=== PATIENT | female | born 1995 | race Caucasian/White ===

== ENCOUNTER 2017-11-17 19:53 | Emergency (ER) | payer MEDICAID, SELFPAY ==
[2017-11-17 19:54] VITALS: BP 153/109; PULSE 110; RESP 16; TEMP 36.9; O2SAT 99; BMI 36.8
--- NOTE | 2017-11-17 20:28 | ED.VISSUMM ---
- ER Visit Summary Date of Service: 11/17/17 Chief Complaint: Vulvar pain History of Present Illness: The patient is a 22 F with discomfort in her vulvar that started 1 week ago, the morning after having intercourse. Upon inspecting her vulva, she noticed what appeared to be a simple split in the skin that was sore. She noticed that it was painful to urinate past it. However in addition to that, she is also having burning dysuria from her urethral meatus, as well as some urgency and mild frequency. No fevers, nausea, vomiting, vaginal bleeding or abnormal discharge, or back pain. No abdominal pain. She is concerned that the split is not healing. She is a type II diabetic treated with diet and exercise only. She states her sugars are usually in the high 100 range. No history of STDs. Physical Examination: Well-appearing, obese, no acute distress. Mild tachycardia in triage but otherwise vital signs are unremarkable. Abdomen soft nontender nondistended. No CVA tenderness. Heart is regular without tachycardia on my exam. External pelvic exam performed with nurse facility attendant, on the left labia minora there is a linear area of mild tenderness with granulation tissue that does appear to be healing. There are also a couple of satellite lesions that are also white without significant surrounding erythema. They are slightly raised. However, none of them are tender. There is also one on the right that is also nontender. Test Results: negative. Urine shows 100 leukocyte esterase, 5-10 white blood cells. Emergency Department Course and Treatment: In context of her symptoms, urinalysis is consistent with cystitis. She has allergy to penicillins, will prescribe her a 3 day course of Bactrim and advise that she follow-up if she still has problems. She is comfortable with that plan. Treatment Plan: Bactrim DS twice daily ?3 days Disposition: Discharge home Impression: Acute lower urinary tract infection Vulvar wound check This note was generated with [employer] dictation software. It may contain incorrect words, spelling, and punctuation that were not noted in review of the chart prior to signing ED Disposition - Plan for ED Patient: Disposition: Home or Assisted Living Chief Complaint: Female C/O Instructions: ED UTI Cystitis Female Prescriptions: Smz/Tmp Ds [Bactrim Ds] 1 tab PO BID #6 tab Referrals: Pavan Loo DO [Primary Care Provider] - 3-5 Days if not improving
--- NOTE | 2017-11-17 20:31 | ED.DCSUM_ITS ---
- ER Visit Summary Date of Service: 11/17/17 Chief Complaint: Vulvar pain History of Present Illness: The patient is a 22 F with discomfort in her vulvar that started 1 week ago, the morning after having intercourse. Upon inspecting her vulva, she noticed what appeared to be a simple split in the skin that was sore. She noticed that it was painful to urinate past it. However in addition to that, she is also having burning dysuria from her urethral meatus, as well as some urgency and mild frequency. No fevers, nausea, vomiting, vaginal bleeding or abnormal discharge, or back pain. No abdominal pain. She is concerned that the split is not healing. She is a type II diabetic treated with diet and exercise only. She states her sugars are usually in the high 100 range. No history of STDs. Physical Examination: Well-appearing, obese, no acute distress. Mild tachycardia in triage but otherwise vital signs are unremarkable. Abdomen soft nontender nondistended. No CVA tenderness. Heart is regular without tachycardia on my exam. External pelvic exam performed with nurse filter tip inspector, on the left labia minora there is a linear area of mild tenderness with granulation tissue that does appear to be healing. There are also a couple of satellite lesions that are also white without significant surrounding erythema. They are slightly raised. However, none of them are tender. There is also one on the right that is also nontender. Test Results: negative. Urine shows 100 leukocyte esterase, 5-10 white blood cells. Emergency Department Course and Treatment: In context of her symptoms, urinalysis is consistent with cystitis. She has allergy to penicillins, will prescribe her a 3 day course of Bactrim and advise that she follow-up if she still has problems. She is comfortable with that plan. Treatment Plan: Bactrim DS twice daily ?3 days Disposition: Discharge home Impression: Acute lower urinary tract infection Vulvar wound check This note was generated with [employer] dictation software. It may contain incorrect words, spelling, and punctuation that were not noted in review of the chart prior to signing ED Disposition - Plan for ED Patient: Disposition: Home or Assisted Living Chief Complaint: Female C/O Instructions: ED UTI Cystitis Female Prescriptions: Smz/Tmp Ds [Bactrim Ds] 1 tab PO BID #6 tab Referrals: Pavan Loo DO [Primary Care Provider] - 3-5 Days if not improving
[2017-11-17 20:34] LABS: Mucous, Urine 0 SEEN /hpf (<or=2+); Red Blood Cells-Urine 0 SEEN /hpf (0-5)
[2017-11-17 20:38] LABS: Color, Urine Yellow (Yellow); Glucose, Dipstick 1000 mg/dl (Normal); Ketone-Dipstick 5 mg/dl (Negative); Leukocyte Esterase-Dipstick 100 /ul (Negative); Nitrite-Dipstick Negative (Negative); Occult Blood-Urine 10 /ul (Negative); Protein-Dipstick 30 mg/dl (Negative); Urine Bilirubin Dipstick Negative (Negative); Urine Clarity Sl. Cloudy (Clear); Urine Urobilinogen Normal (Normal); Urine pH 6.5 (5.0 - 8.0)
[2017-11-17 20:39] LABS: Internal QC Validated? YES +Cl - CLEAR BKGD; Pregnancy, Urine Negative Negative
[2017-11-17 20:43] LABS: Squamous Epithelial Cells - UA 5-10 SEEN /hpf (5-10); White Blood Cells 5-10 SEEN /hpf (0-5)
[2017-11-17 20:44] LABS: Bacteria 1+ /hpf (None Seen)
[2017-11-17] MEDS: Smz/Tmp Ds Tablet 1 TABLET PO (21:54)
[2017-11-17 21:57] VITALS: RESP 18
== END 2017-11-17 21:57 | disposition home or self-care (01) ==
PROVIDERS: Emergency Provider Emergency Medicine; Family Provider Pediatrics; PCP Pediatrics
DX: N39.0 Urinary tract infection, site not specified (principal); S31.40XA Unspecified open wound of vagina and vulva, initial encounter; E66.9 Obesity, unspecified; E28.2 Polycystic ovarian syndrome; Z79.899 Other long term (current) drug therapy; X58.XXXA Exposure to other specified factors, initial encounter; Y93.89 Activity, other specified; Y92.009 Unspecified place in unspecified non-institutional (private) residence as the place of occurrence of the external cause; Y99.8 Other external cause status
CPT/HCPCS: 81001; 81025; 99283

== ENCOUNTER 2018-02-17 03:49 | Emergency (ER) | payer SELFPAY ==
[2018-02-17] VITALS (10 sets, daily range): BP systolic 114–138; BP diastolic 72–97; PULSE 70–128; RESP 16–27; TEMP 37.3; O2SAT 96–100; BMI 34.3
--- NOTE | 2018-02-17 04:03 | ED.VISSUMM ---
- ER Visit Summary Date of Service: 02/17/18 Chief Complaint: Depressed and suicidal History of Present Illness: The patient is a 22 F history of depression and bipolar disorder. Also reportedly diabetic on no medications. Patient states she has been more depressed lately. She is having family issues. Has been having suicidal thoughts the last couple of days. Tonight she drank a cup of bleach. She denies any trouble breathing or swallowing. She did call the police herself who brought her in. She stated both to please send me that she did this to harm herself. Physical Examination: Young female no acute distress. Vital signs are stable and afebrile. She does not look septic or toxic. No signs of toxidrome. I do not smell any alcohol. H EENT exam unremarkable. No signs of trauma. Neck nontender no signs of trauma. Lungs clear to auscultation bilaterally. Heart regular rhythm rate about 110 no murmur. Chest wall nontender. Abdomen soft and nontender. Normal bowel sounds no peritoneal signs. She is moving all 4 extremities. They are neurovascularly intact. She has equal symmetrical electronic prepress system operator strength. Equal symmetrical dorsi plantarflexion. She has old superficial abrasions to her left forearm. An old scars. Nothing needs to be repaired. Back exam unremarkable nontender. Neurologically she is awake alert with focal motor deficits. Currently she is calm and cooperative. Test Results: Patient will undergo a ED mental health evaluation. Emergency Department Course and Treatment: Screening labs for mental health and crisis evaluation. Treatment Plan: [] Disposition: Pending crisis evaluation Impression: Acute on chronic depression with a history of bipolar disorder Suicidal ideation and attempt by drinking bleach. History of diabetes This note was generated with [employer] dictation software. It may contain incorrect words, spelling, and punctuation that were not noted in review of the chart prior to signing ED Disposition - Plan for ED Patient: Chief Complaint: Mental Health Referrals: Pavan Loo DO [Primary Care Provider] -
--- NOTE | 2018-02-17 04:07 | ED.DCSUM_ITS ---
- ER Visit Summary Date of Service: 02/17/18 Chief Complaint: Depressed and suicidal History of Present Illness: The patient is a 22 F history of depression and bipolar disorder. Also reportedly diabetic on no medications. Patient states she has been more depressed lately. She is having family issues. Has been having suicidal thoughts the last couple of days. Tonight she drank a cup of bleach. She denies any trouble breathing or swallowing. She did call the police herself who brought her in. She stated both to please send me that she did this to harm herself. Physical Examination: Young female no acute distress. Vital signs are stable and afebrile. She does not look septic or toxic. No signs of toxidrome. I do not smell any alcohol. H EENT exam unremarkable. No signs of trauma. Neck nontender no signs of trauma. Lungs clear to auscultation bilaterally. Heart regular rhythm rate about 110 no murmur. Chest wall nontender. Abdomen soft and nontender. Normal bowel sounds no peritoneal signs. She is moving all 4 extremities. They are neurovascularly intact. She has equal symmetrical air battle manager strength. Equal symmetrical dorsi plantarflexion. She has old superficial abrasions to her left forearm. An old scars. Nothing needs to be repaired. Back exam unremarkable nontender. Neurologically she is awake alert with focal motor deficits. Currently she is calm and cooperative. Test Results: Patient will undergo a ED mental health evaluation. Emergency Department Course and Treatment: Screening labs for mental health and crisis evaluation. Treatment Plan: [] Disposition: Pending crisis evaluation Impression: Acute on chronic depression with a history of bipolar disorder Suicidal ideation and attempt by drinking bleach. History of diabetes This note was generated with [employer] dictation software. It may contain incorrect words, spelling, and punctuation that were not noted in review of the chart prior to signing ED Disposition - Plan for ED Patient: Chief Complaint: Mental Health Referrals: Pavan Loo DO [Primary Care Provider] -
[2018-02-17 04:15] LABS: Bedside Glucose 273 mg/dL (70-110)
[2018-02-17 04:21] LABS: Absolute Lymphocyte Count 2.93 X10^3/ul (0.83-4.51); Absolute Neutrophil Count 6.2 X10^3/uL (2.0-7.7); Basophil# 0.04 X10^3/uL; Basophil% 0.4 % (0-1); Hematocrit 38.9 % (37-47); Hemoglobin 14.1 g/dl (12.0-15.0); Lymphocyte # 2.93 X10^3/ul (4.0); Lymphocyte % 28.7 % (19-41); Mean Corp Hgb Conc 36.2 g/gl (32-36); Mean Corpuscular Hgb 30.9 pg (27.0-32.0); Mean Corpuscular Volume 85.1 fL (81-99); Mean Platelet Vol. 10.6 fl (6.2-12.0); Monocyte# 0.79 X10^3/uL; Monocyte% 7.7 % (0-10); Neutrophil # 6.23 X10^3/uL (2.7-7.7); Neutrophil % 61.1 % (47-70); POSITIVE COUNT NO; POSITIVE DIFFERENTIAL NO; POSITIVE MORPHOLOGY NO; Platelet Count 328 K/mm3 (150-450); RBC Distribution Width CV 12.6 % (11.6-14.6); RBC Distribution Width SD 38.5 fl (35.1-43.9); Red Blood Count 4.57 M/mm3 (4.2-5.4); White Blood Count 10.2 K/mm3 (4.4-11.0)
[2018-02-17 04:49] LABS: Alcohol, Blood (Medical)-Serum < 3.0 mg/dL
[2018-02-17 04:51] LABS: Anion Gap 13 (5-15); BUN 15 mg/dL (7-18); BUN/Creat Ratio 21.4 RATIO (10-20); Calcium,Total 9.3 mg/dL (8.5-10.1); Chloride 105 mmol/L (98-107); EST Glomerular Filtration Rate 111 mL/min (>60); Est Glom Filt Rate - Afr Amer 135 mL/min (>60); Glucose 239 mg/dL (74-106); Sodium Level 140 mmol/L (136-145)
[2018-02-17 05:00] LABS: Pregnancy, Serum, hCG Quali. NEGATIVE Negative (0-9 Nonpreg)
[2018-02-17 05:22] LABS: Vista UDS pH Range 6
[2018-02-17 05:34] LABS: Amphetamine Urine VISTA POSITIVE (<1000 ng/mL); Barbiturate Urine VISTA NEGATIVE (< 200 ng/mL); Benzodiazepine Urine VISTA NEGATIVE (< 200 ng/mL); Cocaine Urine VISTA NEGATIVE (< 300 ng/mL); Ecstacy Urine VISTA POSITIVE (< 500 ng/mL); Methadone Urine VISTA NEGATIVE (< 300 ng/mL); PCP Urine VISTA NEGATIVE (< 25 ng/mL); THC Urine VISTA POSITIVE (< 50 ng/mL)
--- NOTE | 2018-02-17 05:45 | ED.RN ---
crisis contacted to see patient
--- NOTE | 2018-02-17 06:19 | ED.RN ---
CRISIS CALLED BACK, MAUDE WILL LET [facility] KNOW THIS PT NEEDS TO BE SEEM
--- NOTE | 2018-02-17 14:21 | ED.DCSUM_ITS ---
- ER Visit Summary Date of Service: 02/17/18 Chief Complaint: [Suicidal gesture/ideation] History of Present Illness: The patient is a 22 F [to the emergency department with above complaint and was fully evaluated by Dr. Jamil goncalves and case turned over to me pending evaluation by crisis. Patient apparently drank a cup of bleach. Patient was evaluated by psychiatrist who at this time states that the patient can contract for safety and has support mechanisms in place and does not feel patient needs to be acutely hospitalized. Patient now remorseful and states that she has no plans on harming herself.] Physical Examination: [] Test Results: [] Emergency Department Course and Treatment: [Patient was seen by psychiatrist in the emergency department and will have close outpatient follow-up.] Treatment Plan: [Follow-up with psychiatry] Disposition: [Discharged home in stable condition] Impression: [Depression] This note was generated with [employer] dictation software. It may contain incorrect words, spelling, and punctuation that were not noted in review of the chart prior to signing ED Disposition - Plan for ED Patient: Chief Complaint: Mental Health Referrals: Pavan Loo DO [Primary Care Provider] -
--- NOTE | 2018-02-17 14:22 | ED.DEP ---
ED Disposition - Plan for ED Patient: Chief Complaint: Mental Health Instructions: ED Depression Referrals: Pavan Loo DO [Primary Care Provider] - Additional Instructions: follow up as instructed by Dr. Asencio
== END 2018-02-17 14:43 | disposition home or self-care (01) ==
PROVIDERS: Emergency Provider Emergency Medicine; Family Provider Pediatrics; PCP Pediatrics
DX: R45.851 Suicidal ideations (principal); F32.9 Major depressive disorder, single episode, unspecified; E11.9 Type 2 diabetes mellitus without complications; Z72.0 Tobacco use; Z79.899 Other long term (current) drug therapy
CPT/HCPCS: 80048; 80307; 80320; 82962; 84703; 85025; 99285; A4216; G0480; J2405

== ENCOUNTER 2018-02-25 16:00 | Emergency (ER) | payer SELFPAY ==
[2018-02-25 16:02] VITALS: BP 110/75; PULSE 110; RESP 14; TEMP 37.1; O2SAT 97; BMI 33.3
--- NOTE | 2018-02-25 16:14 | EKG12_ITS ---
Test Reason : SUICIDE Blood Pressure : / mmHG Vent. Rate : 096 BPM Atrial Rate : 096 BPM P-R Int : 118 ms QRS Dur : 082 ms QT Int : 336 ms P-R-T Axes : 071 038 023 degrees QTc Int : 424 ms Normal sinus rhythm Normal ECG Confirmed by KANWAL GRACE MD ([id number]), technical writer and editor PETER KEVIN ([id number] on 02/27/2018 1:57:09 PM Referred By: LEXII Confirmed By:KANWAL GRACE MD
--- NOTE | 2018-02-25 16:16 | ED.DCSUM_ITS ---
- ER Visit Summary Date of Service: 02/25/18 Chief Complaint: Suicidal ideation History of Present Illness: The patient is a 22 F with suicidal ideation. Symptoms have been creasing of the last 2 weeks. She thought that she would drink bleach. She did not have an attempt. She did not take anything else. She has a history of depression and goes to the counseling center. She expressed her suicidal thoughts today and 911 was notified. She was brought in by the police. She denies alcohol use but does smoke cigarettes and use marijuana. Physical Examination: Afebrile and vital signs unremarkable. Heart regular rate and rhythm. Lungs clear. Abdomen soft. Skin appears normal. Depressed mood and flat affect. Test Results: Laboratory studies, tox screen, test pending. Emergency Department Course and Treatment: Patient had psychiatric precautions. Will perform medical clearance and she will be evaluated by the crisis counselor for admission. Workup has been unremarkable. Urinalysis and test pending at the time of this dictation. Crisis counselor was contacted for evaluation. Patient has not required medication. Treatment Plan: As above Disposition: Transfer pending crisis evaluation Impression: 1. Suicidal ideation This note was generated with [employer] dictation software. It may contain incorrect words, spelling, and punctuation that were not noted in review of the chart prior to signing ED Disposition - Plan for ED Patient: Chief Complaint: Suicidal Referrals: Pavan Loo DO [Primary Care Provider] -
--- NOTE | 2018-02-25 16:17 | NURSING ---
NO OLD EKGS
[2018-02-25 16:24] LABS: Absolute Lymphocyte Count 2.37 X10^3/ul (0.83-4.51); Absolute Neutrophil Count 6.9 X10^3/uL (2.0-7.7); Basophil# 0.04 X10^3/uL; Basophil% 0.4 % (0-1); Eosinophil# 0.25 X10^3/uL; Eosinophils% 2.5 % (0-5); Hematocrit 38.8 % (37-47); Hemoglobin 13.3 g/dl (12.0-15.0); Lymphocyte # 2.37 X10^3/ul (4.0); Lymphocyte % 23.5 % (19-41); Mean Corp Hgb Conc 34.3 g/gl (32-36); Mean Corpuscular Hgb 29.8 pg (27.0-32.0); Mean Corpuscular Volume 86.8 fL (81-99); Mean Platelet Vol. 10.7 fl (6.2-12.0); Monocyte# 0.58 X10^3/uL; Monocyte% 5.7 % (0-10); Neutrophil # 6.85 X10^3/uL (2.7-7.7); Neutrophil % 67.8 % (47-70); Platelet Count 249 K/mm3 (150-450); RBC Distribution Width CV 12.7 % (11.6-14.6); RBC Distribution Width SD 40.5 fl (35.1-43.9); Red Blood Count 4.47 M/mm3 (4.2-5.4); White Blood Count 10.1 K/mm3 (4.4-11.0)
[2018-02-25 16:27] LABS: POSITIVE COUNT NO; POSITIVE DIFFERENTIAL NO; POSITIVE MORPHOLOGY NO
[2018-02-25 16:36] LABS: ALB/GLOB Ratio 0.9 RATIO (0.9-2.4); AST(SGOT) 15 U/L (15-37); Alanine Aminotransfer ALT/SGPT 44 U/L (13-56); Albumin, Serum 3.5 g/dL (3.2-5.0); Alkaline Phosphatase 53 U/L (45-117); Anion Gap 12 (5-15); BUN 10 mg/dL (7-18); BUN/Creat Ratio 11.9 RATIO (10-20); Chloride 103 mmol/L (98-107); Creatinine, Serum 0.84 mg/dL (0.55-1.02); EST Glomerular Filtration Rate 90 mL/min (>60); Est Glom Filt Rate - Afr Amer 109 mL/min (>60); Estimated Creatinine Clearance 95.33 ml/min; Globulin 3.7 g/dL (2.2-4.2); Glucose 377 mg/dL (74-106); Potassium 3.7 mmol/L (3.5-5.1); Protein, Total 7.2 g/dL (6.4-8.2); Sodium Level 138 mmol/L (136-145)
[2018-02-25 17:01] LABS: Amphetamine Urine VISTA POSITIVE (<1000 ng/mL); Barbiturate Urine VISTA NEGATIVE (< 200 ng/mL); Benzodiazepine Urine VISTA NEGATIVE (< 200 ng/mL); Cocaine Urine VISTA NEGATIVE (< 300 ng/mL); Ecstacy Urine VISTA NEGATIVE (< 500 ng/mL); Methadone Urine VISTA NEGATIVE (< 300 ng/mL); PCP Urine VISTA NEGATIVE (< 25 ng/mL); THC Urine VISTA POSITIVE (< 50 ng/mL); Vista UDS pH Range 6
[2018-02-25 17:04] LABS: Alcohol, Blood (Medical)-Serum < 3.0 mg/dL
[2018-02-25 17:10] LABS: Mucous, Urine 0 SEEN /hpf (<or=2+)
[2018-02-25 17:16] LABS: Pregnancy, Serum, hCG Quali. NEGATIVE Negative (0-9 Nonpreg)
[2018-02-25 18:10] LABS: Internal QC Validated? YES +Cl - CLEAR BKGD; Pregnancy, Urine Negative Negative
[2018-02-25 18:18] LABS: Color, Urine Yellow (Yellow); Glucose, Dipstick 1000 mg/dl (Normal); Ketone-Dipstick Negative (Negative); Leukocyte Esterase-Dipstick 25 /ul (Negative); Nitrite-Dipstick Positive (Negative); Occult Blood-Urine 10 /ul (Negative); Protein-Dipstick Negative (Negative); Urine Bilirubin Dipstick Negative (Negative); Urine Clarity Sl. Cloudy (Clear); Urine Urobilinogen Normal (Normal); Urine pH 6.5 (5.0 - 8.0)
[2018-02-25 18:55] LABS: Bacteria 2+ /hpf (None Seen); Red Blood Cells-Urine 0-5 SEEN /hpf (0-5); Squamous Epithelial Cells - UA 0-5 SEEN /hpf (5-10); White Blood Cells 0-5 SEEN /hpf (0-5)
[2018-02-25 21:01] VITALS: PULSE 88; RESP 14
[2018-02-25 22:20] LABS: Bedside Glucose 320 mg/dL (70-110)
--- NOTE | 2018-02-25 23:57 | NURSING ---
ACCEPTED BY [facility] DR. MORILLO [phone] EXT. [id number]
[2018-02-26] VITALS: PULSE 76; RESP 14
--- NOTE | 2018-02-26 00:01 | NURSING ---
[facility] NO AVAILABILITY [facility] HAS NO AVAILABILITY FOR THE NEXT 2 HOURS SAID TO CALL BACK ([phone])
[2018-02-26 01:27] VITALS: RESP 18
[2018-02-26 01:47] VITALS: BP 112/80; PULSE 78; RESP 16; O2SAT 98
== END 2018-02-26 01:48 ==
PROVIDERS: Emergency Provider Emergency Medicine; Family Provider Pediatrics; PCP Pediatrics
DX: R45.851 Suicidal ideations (principal); F32.9 Major depressive disorder, single episode, unspecified; E11.9 Type 2 diabetes mellitus without complications; Z72.0 Tobacco use; Z79.899 Other long term (current) drug therapy
CPT/HCPCS: 80053; 80307; 80320; 81001; 81025; 82962; 84703; 85025; 93005; 99284; G0480

== ENCOUNTER 2018-04-20 09:19 | Emergency (ER) | payer MEDICAID, SELFPAY ==
[2018-04-20 09:19] VITALS: BP 119/81; PULSE 110; RESP 22; TEMP 36.6; O2SAT 100; BMI 33.3
[2018-04-20 09:57] LABS: Absolute Lymphocyte Count 1.77 X10^3/ul (0.83-4.51); Absolute Neutrophil Count 5.2 X10^3/uL (2.0-7.7); Basophil# 0.02 X10^3/uL; Basophil% 0.3 % (0-1); Eosinophil# 0.02 X10^3/uL; Eosinophils% 0.3 % (0-5); Hematocrit 38.2 % (37-47); Hemoglobin 13.1 g/dl (12.0-15.0); Lymphocyte # 1.77 X10^3/ul (4.0); Lymphocyte % 23.2 % (19-41); Mean Corp Hgb Conc 34.3 g/gl (32-36); Mean Corpuscular Hgb 29.9 pg (27.0-32.0); Mean Corpuscular Volume 87.2 fL (81-99); Mean Platelet Vol. 9.9 fl (6.2-12.0); Monocyte# 0.61 X10^3/uL; Neutrophil # 5.19 X10^3/uL (2.7-7.7); Neutrophil % 68.1 % (47-70); Platelet Count 311 K/mm3 (150-450); RBC Distribution Width SD 41.7 fl (35.1-43.9); Red Blood Count 4.38 M/mm3 (4.2-5.4); White Blood Count 7.6 K/mm3 (4.4-11.0)
[2018-04-20 10:01] LABS: Bedside Glucose 291 mg/dL (70-110)
[2018-04-20 10:03] LABS: POSITIVE COUNT NO; POSITIVE DIFFERENTIAL NO; POSITIVE MORPHOLOGY NO
[2018-04-20 10:11] VITALS: BP 116/77; PULSE 81; RESP 13; O2SAT 99
[2018-04-20] MEDS: LORazepam 2 MG/ML Syringe 0.5 MG IV (10:12)
[2018-04-20] MEDS: Ondansetron 4 MG/2 ML Vial IV (10:12)
[2018-04-20] MEDS: 0.9% Normal Saline 1,000 ML 1000 ML IV (10:12)
[2018-04-20 10:13] LABS: ALB/GLOB Ratio 0.9 RATIO (0.9-2.4); AST(SGOT) 13 U/L (15-37); Alanine Aminotransfer ALT/SGPT 19 U/L (13-56); Alkaline Phosphatase 67 U/L (45-117); Anion Gap 14 (5-15); BUN 16 mg/dL (7-18); BUN/Creat Ratio 22.4 RATIO (10-20); Calcium,Total 9.7 mg/dL (8.5-10.1); Chloride 105 mmol/L (98-107); Creatinine, Serum 0.71 mg/dL (0.55-1.02); EST Glomerular Filtration Rate 109 mL/min (>60); Est Glom Filt Rate - Afr Amer 132 mL/min (>60); Estimated Creatinine Clearance 112.78 ml/min; Globulin 4.4 g/dL (2.2-4.2); Glucose 264 mg/dL (74-106); Potassium 3.6 mmol/L (3.5-5.1); Protein, Total 8.4 g/dL (6.4-8.2); Sodium Level 139 mmol/L (136-145)
[2018-04-20 10:42] LABS: Red Blood Cells-Urine 0 SEEN /hpf (0-5)
[2018-04-20 10:44] LABS: Color, Urine Yellow (Yellow); Glucose, Dipstick 1000 mg/dl (Normal); Leukocyte Esterase-Dipstick 25 /ul (Negative); Nitrite-Dipstick Negative (Negative); Occult Blood-Urine Negative /ul (Negative); Protein-Dipstick 30 mg/dl (Negative); Specific Gravity, Urine 1.015 (1.002-1.030); Urine Bilirubin Dipstick Negative (Negative); Urine Clarity Sl. Cloudy (Clear); Urine Urobilinogen Normal (Normal); Urine pH 6.5 (5.0 - 8.0)
[2018-04-20 10:46] LABS: Ketone-Dipstick 150 mg/dl (Negative)
[2018-04-20 10:48] LABS: Internal QC Validated? YES +Cl - CLEAR BKGD
[2018-04-20 10:49] LABS: Pregnancy, Urine Positive Negative
[2018-04-20 10:53] LABS: Bacteria RARE /hpf (None Seen); Mucous, Urine RARE /hpf (<or=2+); Squamous Epithelial Cells - UA 0-5 SEEN /hpf (5-10); White Blood Cells 0-5 SEEN /hpf (0-5)
--- NOTE | 2018-04-20 11:19 | ED.VISSUMM ---
- ER Visit Summary Date of Service: 04/20/18 Chief Complaint: Anxiety, nausea vomiting History of Present Illness: The patient is a 22 F with above symptoms for the past 24 hours. She has decreased sleep. She does have history of insulin-dependent diabetes but has not taken her insulin and then last few weeks, she says she is noncompliant because she recently got out of [facility]. She does not have any abdominal pain. She mostly just feels shaky. Physical Examination: She appears anxious. Moist mucous membranes, no obvious facial deformity No C-spine tenderness supple neck. Regular rate and rhythm, slight tachycardia, without any obvious murmurs Clear lungs bilaterally speaking in full sentences without any obvious respiratory distress Abdomen soft and nontender no guarding or rebound Moves all extremities without any difficulty or pain. Skin does not show any obvious rashes or lesions, no trauma. Alert oriented ?3 with no gross focal deficit Emergency Department Course and Treatment: Has an unremarkable workup she received IV fluids, her blood sugar is elevated in the 200s and she has glucosuria but no ketones. She has found to be . I had a long conversation with her. She has no vaginal bleeding or abdominal pain, my concern is that she has not been taking her insulin, she now once understands the importance of controlling her blood sugars especially with . I will refer to EDGER OPERATOR, she also wants a referral for a new PCP which I will do from the emergency department. The nausea vomiting is likely secondary to , she will be given Phenergan for home Disposition: Discharge stable condition Impression: Nausea vomiting New diagnosis of Diabetes uncontrolled This note was generated with [employer] dictation software. It may contain incorrect words, spelling, and punctuation that were not noted in review of the chart prior to signing ED Disposition - Plan for ED Patient: Disposition: Home or Assisted Living Chief Complaint: Nausea/Vomiting Instructions: ED Nausea Vomiting Prescriptions: proMETHazine tablet [Phenergan tablet] 12.5 mg PO Q4H PRN PRN #10 tab PRN Reason: Nausea Referrals: Pavan Loo DO [Primary Care Provider] - 3-5 Days Courtney Leon MD [STAFF PHYSICIAN] -
[2018-04-20 11:31] VITALS: BP 122/70; PULSE 70; RESP 14; O2SAT 98
== END 2018-04-20 11:38 | disposition home or self-care (01) ==
PROVIDERS: Emergency Provider Emergency Medicine; Family Provider Pediatrics; PCP Pediatrics
DX: O21.9 Vomiting of pregnancy, unspecified (principal); O24.319 Unspecified pre-existing diabetes mellitus in pregnancy, unspecified trimester; E11.65 Type 2 diabetes mellitus with hyperglycemia; O99.340 Other mental disorders complicating pregnancy, unspecified trimester; F41.9 Anxiety disorder, unspecified; O99.330 Smoking (tobacco) complicating pregnancy, unspecified trimester; Z3A.00 Weeks of gestation of pregnancy not specified; Z79.4 Long term (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
CPT/HCPCS: 80053; 81001; 81025; 82009; 82962; 85025; 93005; 96361; 96374; 96375; 99284; J7030; A4216; J2405

== ENCOUNTER 2018-05-10 15:55 | Emergency (ER) | payer MEDICAID, SELFPAY ==
[2018-05-10 15:56] VITALS: BP 140/79; PULSE 127; RESP 18; TEMP 37.1; O2SAT 99; BMI 36.6
--- NOTE | 2018-05-10 17:32 | ED.VISSUMM ---
- ER Visit Summary Date of Service: 05/10/18 Chief Complaint: Congestion History of Present Illness: The patient is a 22 F with congestion and rhinorrhea for 4-5 days. She is coughing. She has some myalgias she has no fever chills she is 6 weeks . Physical Examination: Not appear in acute distress. Moist mucous membranes, no obvious facial deformity. She has upper respiratory congestion, rhinorrhea and swollen nasal turbinates. She has no sinus tenderness. She has no otitis media. She does have postnasal drip. No C-spine tenderness supple neck. Regular rate and rhythm without any obvious murmurs Clear lungs bilaterally speaking in full sentences without any obvious respiratory distress Abdomen soft and nontender no guarding or rebound Moves all extremities without any difficulty or pain. Skin does not show any obvious rashes or lesions, no trauma. Alert oriented ?3 with no gross focal deficit Emergency Department Course and Treatment: Patient has an upper respiratory infection, she is 6 weeks but has no abdominal pain, vaginal bleeding or any complaints, she has an upper respiratory infection will be treated symptomatically. Discharge stable condition Impression: [Upper respiratory infection] This note was generated with [employer] dictation software. It may contain incorrect words, spelling, and punctuation that were not noted in review of the chart prior to signing ED Disposition - Plan for ED Patient: Disposition: Home or Assisted Living Chief Complaint: General Illness Instructions: ED URI Viral Referrals: Pavan Loo DO [Primary Care Provider] - 3-5 Days
[2018-05-10] MEDS: 0.9% Normal Saline 1,000 ML 999 ML IV (17:47)
[2018-05-10 19:58] VITALS: PULSE 112; O2SAT 98
== END 2018-05-10 20:00 | disposition home or self-care (01) ==
PROVIDERS: Emergency Provider Emergency Medicine; Family Provider Physician Assistant; PCP Physician Assistant
DX: O26.891 Other specified pregnancy related conditions, first trimester (principal); J06.9 Acute upper respiratory infection, unspecified; O99.331 Smoking (tobacco) complicating pregnancy, first trimester; Z3A.01 Less than 8 weeks gestation of pregnancy
CPT/HCPCS: 96360; 96361; 99283; J7030; A4216

== ENCOUNTER 2018-05-22 16:01 | Inpatient (IN) | payer OTHER, MEDICAID, SELFPAY ==
[2018-05-22] VITALS (7 sets, daily range): BP systolic 98–135; BP diastolic 49–79; PULSE 96–122; RESP 16–20; TEMP 37.6–39.6; O2SAT 98; BMI 35.9; BMI 36.0
[2018-05-22 16:58] LABS: Absolute Lymphocyte Count 0.71 X10^3/ul (0.83-4.51); Absolute Neutrophil Count 8.3 X10^3/uL (2.0-7.7); Basophil# 0.01 X10^3/uL; Basophil% 0.1 % (0-1); Hematocrit 33.4 % (37-47); Hemoglobin 11.6 g/dl (12.0-15.0); Lymphocyte # 0.71 X10^3/ul (4.0); Lymphocyte % 7.5 % (19-41); Mean Corp Hgb Conc 34.7 g/gl (32-36); Mean Corpuscular Volume 86.3 fL (81-99); Mean Platelet Vol. 9.6 fl (6.2-12.0); Monocyte# 0.42 X10^3/uL; Monocyte% 4.4 % (0-10); Neutrophil # 8.34 X10^3/uL (2.7-7.7); Neutrophil % 87.7 % (47-70); Platelet Count 230 K/mm3 (150-450); RBC Distribution Width SD 36.7 fl (35.1-43.9); Red Blood Count 3.87 M/mm3 (4.2-5.4); White Blood Count 9.5 K/mm3 (4.4-11.0)
[2018-05-22 16:59] LABS: POSITIVE COUNT NO; POSITIVE DIFFERENTIAL NO; POSITIVE MORPHOLOGY NO
[2018-05-22] MEDS: Ibuprofen 600 MG Tablet PO (17:03)
[2018-05-22] MEDS: HYDROmorphone 1 MG/ML Syringe IV (17:04)
[2018-05-22] MEDS: Ondansetron 4 MG/2 ML Vial IV (17:04)
[2018-05-22] MEDS: glipiZIDE 5 MG Tablet PO (17:12)
[2018-05-22 17:20] LABS: Bedside Glucose 248 mg/dL (70-110)
--- NOTE | 2018-05-22 18:09 | NURSING ---
spoke with dr schroeder who is on her way to see pt at this time
[2018-05-22 18:23] LABS: International Normalized Ratio 1.1; Prothrombin Time (Protime)PT. 14.6 SECONDS (11.7-14.9)
[2018-05-22 18:24] LABS: Partial Thromboplast Time 33.2 Seconds (24.1-36.2)
[2018-05-22 18:28] LABS: Anion Gap 10 (5-15); BUN 10 mg/dL (7-18); BUN/Creat Ratio 13.4 RATIO (10-20); Calcium,Total 8.7 mg/dL (8.5-10.1); Chloride 98 mmol/L (98-107); Creatinine, Serum 0.74 mg/dL (0.55-1.02); EST Glomerular Filtration Rate 104 mL/min (>60); Est Glom Filt Rate - Afr Amer 126 mL/min (>60); Estimated Creatinine Clearance 108.21 ml/min; Glucose 217 mg/dL (74-106); Potassium 3.6 mmol/L (3.5-5.1); Sodium Level 130 mmol/L (136-145)
--- NOTE | 2018-05-22 18:35 | PCM.HPOB.BLA ---
- Problem List (1) Missed Status: Acute History and Physical Date of Admission: 05/22/18 History of present illness: Patient is a 22-year-old with a known missed at 6 weeks. She took 2 doses of Cytotec (1st dose on 05/16/18), and passed some small clots. She presented today for follow-up in the office. In the office she reported fevers and chills that started yesterday. Cramping and severe abdominal pain that was not controlled with Percocet at home. She was in tears from the abdominal pain. Also noted nausea and decreased appetite with no vomiting. Bleeding today is like a moderate period. She also noted URI symptoms as well including congestion, sore throat, and coughing that started several days ago. Past medical history includes allergic rhinitis, asthma, attention deficit disorder with hyperactivity, bipolar disorder, depression, type 2 diabetes, obstructive sleep apnea. Past surgical history: none. Family history: no history of bleeding or clotting disorders. Social history: current every day smoker, no alcohol use, no drug use. Medications: albuterol inhaler, vitamins, metformin, glipizide, Geodon. Allergies: amoxicillin- rash, Augmentin- vomiting. Review of systems: General: Positive for fevers and chills HEENT: Negative for headache. +Sore throat, cough, congestion Heart: No chest pain Lungs: No shortness of breath Abdomen: Positive for abdominal pain, nausea, decreased appetite. Negative for vomiting REINSURANCE ANALYST: Positive for moderate amount of vaginal bleeding Psych: Stable and appropriate Exam: Febrile to 103, tachycardic in the 110s, BP normal General: Pleasant female in mild distress HEENT: Normocephalic and atraumatic Dermatology: Normal and without lesions, warm to touch Chest: No increased respiratory effort Abdomen: Soft, nondistended, significant diffuse tenderness over entire abdomen. No rebounding, guarding, rigidity Pelvic: External genitalia normal, purulent foul-smelling discharge from cervical loss, scant bleeding Neuro: Alert and oriented x3, exam grossly nonfocal Extremities: Normal A/P: 22-year-old female with history of a 6-week missed . S/p Cytotec. Presented to the office with fevers, significant abdominal tenderness, and purulent cervical discharge. Admitted for septic . - CBC w/ diff, T&S, coags, BNP, lactate, blood cultures - IV Cefotetan and Doxy x 48 hrs - IV dilaudid prn pain control - IV zofran prn nausea - Diabetic diet now, NPO after midnight - Accuchecks - IVF hydration - Resume home meds - Activity as tolerated - SCD's - Reviewed risks and benefits of a suction D&C. Consent signed. Will plan for antibiotics overnight followed by suction D&C in the morning
--- NOTE | 2018-05-22 18:54 | HP.PCM_ITS ---
- Problem List (1) Missed Status: Acute History and Physical Date of Admission: 05/22/18 History of present illness: Patient is a 22-year-old with a known missed at 6 weeks. She took 2 doses of Cytotec (1st dose on 05/16/18), and passed some small clots. She presented today for follow-up in the office. In the office she reported fevers and chills that started yesterday. Cramping and severe abdominal pain that was not controlled with Percocet at home. She was in tears from the abdominal pain. Also noted nausea and decreased appetite with no vomiting. Bleeding today is like a moderate period. She also noted URI symptoms as well including congestion, sore throat, and coughing that started several days ago. Past medical history includes allergic rhinitis, asthma, attention deficit disorder with hyperactivity, bipolar disorder, depression, type 2 diabetes, o bstructive sleep apnea. Past surgical history: none. Family history: no history of bleeding or clotting disorders. Social history: current every day smoker, no alcohol use, no drug use. Medications: albuterol inhaler, vitamins, metformin, glipizide, Geodon. Allergies: amoxicillin- rash, Augmentin- vomiting. Review of systems: General: Positive for fevers and chills HEENT: Negative for headache. +Sore throat, cough, congestion Heart: No chest pain Lungs: No shortness of breath Abdomen: Positive for abdominal pain, nausea, decreased appetite. Negative for vomiting COMPUTER OPERATOR: Positive for moderate amount of vaginal bleeding Psych: Stable and appropriate Exam: Febrile to 103, tachycardic in the 110s, BP normal General: Pleasant female in mild distress HEENT: Normocephalic and atraumatic Dermatology: Normal and without lesions, warm to touch Chest: No increased respiratory effort Abdomen: Soft, nondistended, significant diffuse tenderness over entire abdomen. No rebounding, guarding, rigidity Pelvic: External genitalia normal, purulent foul-smelling discharge from cervical loss, scant bleeding Neuro: Alert and oriented x3, exam grossly nonfocal Extremities: Normal A/P: 22-year-old female with history of a 6-week missed . S/p Cytotec. Presented to the office with fevers, significant abdominal tenderness, and purulent cervical discharge. Admitted for septic . - CBC w/ diff, T&S, coags, BNP, lactate, blood cultures - IV Cefotetan and Doxy x 48 hrs - IV dilaudid prn pain control - IV zofran prn nausea - Diabetic diet now, NPO after midnight - Accuchecks - IVF hydration - Resume home meds - Activity as tolerated - SCD's - Reviewed risks and benefits of a suction D&C. Consent signed. Will plan for antibiotics overnight followed by suction D&C in the morning
[2018-05-22] MEDS: Lactated Ringers 1,000 ML 125 ML IV (19:00)
[2018-05-22 19:01] LABS: Lactic Acid 1.7 mmol/L (0.4-2.0)
[2018-05-22] MEDS: HYDROmorphone 0.5 MG/0.5 ML SYRINGE IV (20:45)
--- NOTE | 2018-05-22 21:58 | PCM.PN.HOSP ---
Patient Problems: Active and Suspected Problems Diabetes (Acute) Missed (Acute) Subjective: This is a consultation note. The patient was admitted under DELIVERY ROOM CLERK service for a septic . Internal medicine is consulted for management of hypotension developed during hospitalization; uncontrolled diabetes , and other chronic medical condition. Patient is a 22-year-old female with a significant history of allergic rhinitis, asthma, ADHD, bipolar, depression, type 2 diabetes, obstructive sleep apnea who presents with abdominal pain and pelvic pain that started about 2 days ago. Patient reports that she had a miscarriage; and after an ultrasonographic examination that did not show any heartbeat she was given Cytotec on 05/16/2018. Patient reports outpatient temperature of 100.2. Patient was admitted at the hospital and started on cefotetan and Doxycycline. Associated with her symptoms is vaginal bleeding that has improved. Review of DELIVERY ROOM CLERK shows patient had chills while at home. Review of systems: Pertinent positives as noted in HPI all other systems were reviewed and are negative. Past medical history: Allergic rhinitis; asthma, ADD, bipolar, depression, type 2 diabetes and obstructive sleep apnea. Surgical history: None Social History: Active smoker. Smokes since age 17 years. Smokes 1 pack/day. Occasional alcohol use. 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 Family history; mother with fibromyalgia and diabetes Father with diabetes. Vitals/I&O's: Vital Signs Temp Pulse Resp BP Pulse Ox 99.9 F H 96 16 98/49 L 98 05/22/18 20:10 05/22/18 20:10 05/22/18 20:10 05/22/18 20:10 05/22/18 20:10 Oxygen Delivery Method Room Air Weight: 98 kg Body Mass Index (BMI) 35.9 Finger Stick Blood Glucose 291 General: Alert, Oriented x3, Cooperative, - - Patient with cooling apparatus connected to groin. HEENT: Atraumatic, PERRLA, EOMI, Normocephalic Neck: Supple, No JVD, Negative Carotid Bruits Lungs: Clear to auscultation, Normal air movement Cardiovascular: Regular rate, No murmurs Abdomen: Bowel Sounds Present, Soft, Non Tender, - - Pelvic area not accessed. Extremities: No edema, Capillary Refill Less than 3 Seconds Skin: No rashes, No breakdown Musculoskeletal: No Tenderness to Palpation of Joints or Extremities Neurological: Cranial nerves II-XII grossly intact Psych/Mental Status: Normal Affect, Appropriate Laboratory Results 05/22/18 16:35: WBC 9.5, RBC 3.87 L, Hgb 11.6 L, Hct 33.4 L, MCV 86.3, MCH 30.0, MCHC 34.7, RDW 12.0, RDW Differential 36.7, Plt Count 230, MPV 9.6, Immature Gran % (Auto) 0.300, Neut % (Auto) 87.7 H, Lymph % (Auto) 7.5 L, [place] % (Auto) 4.4, Eos % (Auto) 0.0, Baso % (Auto) 0.1, Absolute Neuts (auto) 8.3 H, Absolute Lymphs (auto) 0.71 L, Total Counted Not Reportable 05/22/18 16:35: Blood Type A NEGATIVE, Antibody Screen TNP 05/22/18 16:35: PT 14.6, INR 1.1, APTT 33.2 05/22/18 16:35: Sodium 130 L, Potassium 3.6, Chloride 98, Carbon Dioxide 22.0, Anion Gap 10, BUN 10, Creatinine 0.74, Estim Creat Clear Calc 108.21, Est GFR (MDRD) Af Amer 126, Est GFR (MDRD) Non-Af 104, BUN/Creatinine Ratio 13.4, Glucose 217 H, Calcium 8.7 05/22/18 16:35: Antibody Screen NEGATIVE 05/22/18 16:52: POC Glucose 248 H 05/22/18 18:31: Lactic Acid 1.7 Current Medications Acetaminophen (Tylenol) 650 mg PO Q4H PRN PRN PRN Reason: fever/pain Albuterol Sulfate (Ventolin Aerosols) 2.5 mg INHALATION Q4H PRN PRN PRN Reason: SOB/WHEEZING Hydromorphone HCl (Dilaudid Inj) 1 mg IV Q3H PRN PRN PRN Reason: SEVERE PAIN (6-10) Last Admin: 05/22/18 17:04 Dose: 1 mg Doxycycline Hyclate 100 mg/ (Dextrose) 260 mls @ 250 mls/hr IV Q12 [facility] Last Admin: 05/22/18 17:10 Dose: 250 mls/hr Cefotetan Disodium 2 gm/ (Dextrose) 100 mls @ 200 mls/hr IV Q12 [facility] Last Admin: 05/22/18 18:36 Dose: 200 mls/hr Lactated Ringer's () 1,000 mls @ 125 mls/hr IV .Q8H [facility] Last Admin: 05/22/18 19:00 Dose: 125 mls/hr Ibuprofen (Motrin) 600 mg PO Q6H PRN PRN PRN Reason: MILD PAIN (1-3/10) Last Admin: 05/22/18 17:03 Dose: 600 mg Influenza Virus Vaccine Quadrival (Fluarix/Fluzone) 0.5 ml IM .ONCE ONE Stop: 05/23/18 10:01 Ondansetron HCl (Zofran) 4 mg IV Q6H PRN PRN PRN Reason: NAUSEA Last Admin: 05/22/18 17:04 Dose: 4 mg Sodium Chloride () 5 - 30 ml IV UD PRN PRN Reason: SALINE FLUSH Ziprasidone (Geodon) 40 mg PO BID@0800,2000 [facility] Last Admin: 05/22/18 20:32 Dose: 40 mg Medical Necessity - Tobacco Use Smoking Status: Current every day smoker Tobacco Use: Cigarettes Assessment/Plan All Active Problems Diabetes (Acute) Missed (Acute) Patient is a 22-year-old female with a significant history of allergic rhinitis, asthma, ADHD, bipolar, depression, type 2 diabetes, obstructive sleep apnea with septic and noted to have low blood pressure and uncontrolled blood glucose. Septic Management by OBGYN Patient on Cefotetan and Doxycycline. Patient on dilaudid and Ibuprofen for pain. IVF for circulatory support. Hypotension Patient reported an outpatient her blood pressure is normal but she could not provide ranges of figures. Noted to have tachycardia; and mildly reduced blood pressure. Likely secondary to septic On antibiotics; managed by DELIVERY ROOM CLERK. Patient was received lactated Ringer's at 125 mL's per hour. Lactated Ringer's bolus 500 mL's given. Continue with maintenance infusion at 125 mL's per hour Orthostatic blood pressure was negative. Diabetes At home patient is on glyburide and metformin. Patient reports that last A1c was 9.0 and this was about a month ago. Blood glucose uncontrolled at this time. In the acute setting would discontinue glyburide and metformin and will start patient on basal, prandial and correction scale insulin. Bipolar/depression Home Geodon continued. Obstructive sleep apnea Patient reports that she is supposed to be using BiPAP which she does not actually use. Declined BiPAP use at the hospital. Polysubstance dependence Patient reports being in recovery from drug use. Counseled. Tobacco abuse Reports smoking 1 pack/day. Patient started smoking at age 17 years. Nicotine patch ordered. Inpatient consult smoking cessation. DVT prophylaxis In the setting of bleeding; chemical thromboprophylaxis not ordered. SCD ordered. Thank you for consulting internal medicine service. We will continue to follow. Code Visit Inpatient E&M: 74073 Init Hosp L3
[2018-05-22] MEDS: Insulin Lispro 100 UNIT/ML INSULN.PEN SQ (22:29)
[2018-05-22] MEDS: Lactated Ringers 500 ML 999 ML IV (22:29)
[2018-05-22] MEDS: Acetaminophen 325 MG Tablet 650 MG PO (22:32)
[2018-05-22 22:40] LABS: Bedside Glucose 257 mg/dL (70-110)
[2018-05-23] VITALS (15 sets, daily range): BP systolic 95–118; BP diastolic 51–84; PULSE 95–122; RESP 14–24; TEMP 36.4–38.3; O2SAT 90–96; BMI 35.9
[2018-05-23] MEDS: Acetaminophen 325 MG Tablet 650 MG PO (02:41)
[2018-05-23] MEDS: Lactated Ringers 1,000 ML 125 ML IV ×3 (06:54→18:11)
[2018-05-23] MEDS: Insulin Lispro 100 UNIT/ML INSULN.PEN SQ ×6 (06:55→21:26)
[2018-05-23 07:01] LABS: Bedside Glucose 198 mg/dL (70-110)
--- NOTE | 2018-05-23 07:04 | NURSING ---
Report given to Reta HUSTON in OR.
--- NOTE | 2018-05-23 07:30 | POC_PTH ---
PATIENT: RAISSA KEVIN LOC: MS3 U#:[id number] AGE/SX: 22/ ROOM: MS322 RE05/22/[address]: Dr. Lacy Mariee DO : 1995 BED: 1 DIS: 05/25/2018 SPEC #: [id number] RECD: 05/23/18 11:07 STATUS: TRA RERom #: [id number] ELISABETH: 05/23/18 07:[address]: Lacy Mariee DEPT: SURGICAL PATHOLOGY RECD BY: Gurmeet Stewart ENTERED: 05/23/18 12:00 SP TYPE: PROD CONC OTHR DR: MD Radha Leal PA Tissues: Product of conception, NOS Procedures: Surgery Specimen Level IV HEADER OPERATION: Dilation and curettage, suction PRE-OP DIAGNOSIS: Septic TISSUE SUBMITTED: Retained products of conception MICROSCOPIC DIAGNOSIS Endometrium, curettage: Chorionic villi, decidualized stroma and trophoblastic cells consistent with products of conception. AM:ludy 05/26/18 MICROSCOPIC DESCRIPTION Slides are reviewed. GROSS DESCRIPTION Received in fixative is one container labeled with the patient's name and designated products of conception. The specimen consists of multiple fragments of pink-red soft tissue mixed with blood clot that in aggregate measure 3 x 3 x 1 cm. tissue is not identified. The entire specimen is submitted in four cassettes. / SJ:ludy 05/23/18 TC:5 CPT: 78308
--- NOTE | 2018-05-23 07:58 | PCM.PN.BLA ---
Progress Note S: Patient doing well. Tired this morning. She feels her pain is improved. Denies fevers, chills, nausea, vomiting. Tolerated dinner last night. She feels over better today than yesterday. O: Last fever 100.9 at 230am. Tachycardia improved, HR 98. BP 100/57 Gen- NAD, comfortable Chest- No increased resp effort Abd- Soft, non-distended, +moderate tenderness over lower abdomen (mostly central and LLQ), no rebounding, no gaurding, no rigidity LE- No edema A/P: Septic - Continue IV antibiotics for 48 hrs - Last fever at 230am - Suction D&C this morning - IVF hydration - Repeat CBC w/ diff this morning - Overall appears to be improving Appreciate assistance from medicine team. Management of other medical problems per medicine Dispo: Possible d/c home later tomorrow. Continue inpatient care at this time
--- NOTE | 2018-05-23 08:02 | NURSING ---
Patient transported down to surgery at this time.
--- NOTE | 2018-05-23 09:01 | PCM.OPRPT ---
Problem List (1) Missed Status: Acute Report of Operation Date of Procedure: 05/23/18 Pre-Operative Diagnosis: Septic MAB Post-Operative Diagnosis: As above Surgery/Procedure Performed:: Suction dilation and curettage Description of Surgical Findings:: Preoperative diagnosis: Septic missed at 6 weeks Postoperative diagnosis: As above Surgeon: Lacy Mariee DO Procedure: Suction dilation and curettage Anesthesia: MAC Estimated blood loss: Less than 50 cc Complications: None Specimens: Pain products of conception Findings: Small amount of retained tissue Indications: Patient is a 22-year-old female who presented to the office at 6 weeks with a missed . She took 2 doses of Cytotec after counseling on her options. She returned to the office after taking the 2 doses of Cytotec with fevers, chills, nausea, severe abdominal pain, and purulent cervical discharge. Transvaginal ultrasound showed possible scant amount of retained products of conception. She was admitted for IV antibiotics given septic missed . Risks, benefits, and alternatives to a suction dilation and curettage were discussed and consent was obtained. Procedure: The patient was taken to the operating room where MAC anesthesia was administered without difficulty. The patient was prepped and draped in the usual sterile fashion in dorsal lithotomy position using yellowfin stirrups. A weighted speculum was placed. The anterior lip of the cervix was grasped with a single-tooth tenaculum. The cervix was serially dilated to accommodate a 12 mm suction curettage. A 12 mm suction curettage was advanced into the uterine cavity without difficulty and was used to suction contents of the uterus. A sharp curettage was then advanced into the uterine cavity and used gently to scrape the 4 delgadillo of the uterus until a gritty texture was noted. Upon sharp curettage, there was a small amount of retained products of conception posteriorly. At this time the suction curettage was advanced 1 additional time to suction any remaining products. The tissue was sent to pathology for review. All instruments were removed. Hemostasis was noted. Patient was stable at the completion of the procedure. Sponge, lap, and instrument counts were correct. - Admit VTE Documentation VTE Mechan Device Prophylaxis: SCD's
--- NOTE | 2018-05-23 09:40 | NURSING ---
PT RETURNED FROM PACU AT THIS TIME
[2018-05-23] MEDS: Ibuprofen 600 MG Tablet PO (10:11)
--- NOTE | 2018-05-23 10:51 | PN_ITS ---
Patient Problems: Active and Suspected Problems Diabetes (Acute) Missed (Acute) Subjective: Patient had high fever, chills, T-max 103.3 Fahrenheit yesterday evening. Currently afebrile after she had D&C. Patient is tachycardic but better than before. Initially patient was hypotensive 95/51 currently 113/63. Vitals/I&O's: Vital Signs Temp Pulse Resp BP Pulse Ox 99 F 106 H 24 H 113/63 90 05/23/18 09:54 05/23/18 09:54 05/23/18 09:54 05/23/18 09:54 05/23/18 09:54 Oxygen Flow Rate (L/min) 2 Oxygen Delivery Method Room Air Weight: 216 lb 0.848 oz Body Mass Index (BMI) 35.9 Finger Stick Blood Glucose 291 Orthostatic Vital Signs Start: 05/22/18 23:22 Freq: q24h Status: Active Protocol: Activity Type Activity Date Activity User E-Sign Co-Sign Detail Recorded Client Recorded Date Recorded By Document 05/22/18 22:20 BLB [id number] 05/22/18 23:24 BLB 05/22/18 22:20 Orthostatic Vitals Standing -Blood Pressure (90/60-120/80 mm Hg) 122/69 H -Extremity Use Left Arm -Pulse Rate (60-100 beats/min) 113 H Sitting -Blood Pressure (90/60-120/80 mm Hg) 121/75 H -Extremity Use Left Arm -Pulse Rate (60-100 beats/min) 113 H Lying -Blood Pressure (90/60-120/80 mm Hg) 98/59 L -Extremity Use Left Arm -Pulse Rate (60-100 beats/min) 110 H Intake and Output for Last 24 Hours 05/21/18 05/22/18 05/23/18 23:59 23:59 23:59 Intake Total 1705 / 1705 1044 / 1044 Output Total 600 / 600 1400 / 1400 Balance 1105 / 1105 -356 / -356 General: Alert, Oriented x3, Cooperative HEENT: Atraumatic, PERRLA, EOMI, Normocephalic Neck: Supple, No JVD, Negative Carotid Bruits Lungs: Clear to auscultation, Normal air movement Cardiovascular: Regular rate, Normal S1, Normal S2, No murmurs Abdomen: Bowel Sounds Present, Soft, Non Tender Extremities: No edema, Capillary Refill Less than 3 Seconds Skin: No rashes, No breakdown Musculoskeletal: No Tenderness to Palpation of Joints or Extremities Neurological: Cranial nerves II-XII grossly intact Psych/Mental Status: Normal Affect, Appropriate Laboratory Results 05/22/18 16:35: WBC 9.5, RBC 3.87 L, Hgb 11.6 L, Hct 33.4 L, MCV 86.3, MCH 30.0, MCHC 34.7, RDW 12.0, RDW Differential 36.7, Plt Count 230, MPV 9.6, Immature Gran % (Auto) 0.300, Neut % (Auto) 87.7 H, Lymph % (Auto) 7.5 L, [place] % (Auto) 4.4, Eos % (Auto) 0.0, Baso % (Auto) 0.1, Absolute Neuts (auto) 8.3 H, Absolute Lymphs (auto) 0.71 L, Total Counted Not Reportable 05/22/18 16:35: Blood Type A NEGATIVE, Antibody Screen TNP 05/22/18 16:35: PT 14.6, INR 1.1, APTT 33.2 05/22/18 16:35: Sodium 130 L, Potassium 3.6, Chloride 98, Carbon Dioxide 22.0, Anion Gap 10, BUN 10, Creatinine 0.74, Estim Creat Clear Calc 108.21, Est GFR (MDRD) Af Amer 126, Est GFR (MDRD) Non-Af 104, BUN/Creatinine Ratio 13.4, Glucose 217 H, Calcium 8.7 05/22/18 16:35: Antibody Screen NEGATIVE 05/22/18 16:52: POC Glucose 248 H 05/22/18 18:31: Lactic Acid 1.7 05/22/18 22:27: POC Glucose 257 H 05/23/18 06:49: POC Glucose 198 H Current Medications Acetaminophen (Tylenol) 650 mg PO Q4H PRN PRN PRN Reason: fever/pain Last Admin: 05/23/18 02:41 Dose: 650 mg Albuterol Sulfate (Ventolin Aerosols) 2.5 mg INHALATION Q4H PRN PRN PRN Reason: SOB/WHEEZING Dextrose (D50w Syringe) 0 gm IV X1 PRN; Protocol PRN Reason: Hypoglycemia Glucagon () 1 mg IM .X1 PRN PRN Reason: Hypoglycemia Hydromorphone HCl (Dilaudid Inj) 1 mg IV Q3H PRN PRN PRN Reason: SEVERE PAIN (-05/28) Last Admin: 05/22/18 17:04 Dose: 1 mg Doxycycline Hyclate 100 mg/ (Dextrose) 260 mls @ 250 mls/hr IV Q12 [facility] Last Admin: 05/23/18 10:11 Dose: 250 mls/hr Cefotetan Disodium 2 gm/ (Dextrose) 100 mls @ 200 mls/hr IV Q12 [facility] Last Admin: 05/22/18 18:36 Dose: 200 mls/hr Lactated Ringer's () 1,000 mls @ 125 mls/hr IV .Q8H [facility] Last Admin: 05/23/18 06:54 Dose: 125 mls/hr Ibuprofen (Motrin) 600 mg PO Q6H PRN PRN PRN Reason: MILD PAIN (-10/26) Last Admin: 05/23/18 10:11 Dose: 600 mg Insulin Glargine (Lantus (Bkc)) 15 units SC QHS [facility] Last Admin: 05/22/18 22:30 Dose: 15 u Insulin Human Lispro (Humalog Kwikpen (Bkc)) 0 unit SQ 4X/DAYCM [facility]; Protocol Last Admin: 05/23/18 06:55 Dose: 2 u Insulin Human Lispro (Humalog Kwikpen (Bkc)) 5 unit SQ BREAKFAST [facility] Last Admin: 05/23/18 06:55 Dose: Not Given Insulin Human Lispro (Humalog Kwikpen (Bkc)) 5 unit SQ DINNER [facility] Insulin Human Lispro (Humalog Kwikpen (Bkc)) 5 unit SQ LUNCH [facility] Nicotine (Nicoderm Cq (Pbkc)) 21 mg TRANSDERM. DAILY [facility] Last Admin: 05/23/18 10:11 Dose: 21 mg Ondansetron HCl (Zofran) 4 mg IV Q6H PRN PRN PRN Reason: NAUSEA Last Admin: 05/22/18 17:04 Dose: 4 mg Sodium Chloride () 5 - 30 ml IV UD PRN PRN Reason: SALINE FLUSH Ziprasidone (Geodon) 40 mg PO BID@0800,2000 [facility] Last Admin: 05/23/18 10:12 Dose: 40 mg Medical Necessity - Tobacco Use Smoking Status: Current every day smoker Tobacco Use: Cigarettes Assessment/Plan All Active Problems Diabetes (Acute) Missed (Acute) Patient is a 22-year-old female with a significant history of allergic rhinitis, asthma, ADHD, bipolar, depression, type 2 diabetes, obstructive sleep apnea with septic and noted to have low blood pressure and uncontrolled blood glucose. 1. SIRS with severe sepsis secondary to septic : She had 6-week missed/septic and had suction dilation and curettage on 05/23. As mentioned above, patient was febrile, sinus tachycardia, tachypneic and mild hypotension features of sepsis. Patient is on IV antibiotic cefotetan and doxycycline as per pillowcase turner. Continue IV fluid rehydration. Labs does not show leukocytosis but neutrophil count is 79%. Blood culture pending. 2. Diabetes mellitus type 2: Last A1c about a month ago was 9.0. Accu-Chek before meals and at bedtime cover with NovoLog sliding insulin. On Humalog insulin 5 unit 3 times daily AC. Hold oral hypoglycemic agents. 3. Psychiatric diagnosis: Bipolar depression, polysubstance use and dependence, nicotine use: Patient home antipsychotic medications were continued. 4. Obstructive sleep apnea: Patient refused BiPAP use in the hospital. Noncompliance 5. DVT prophylaxis: Bilateral SCDs. Pharmacological prophylaxis contraindicated in view of vaginal bleeding, recent D&C Laboratory Results 05/22/18 16:35: WBC 9.5, RBC 3.87 L, Hgb 11.6 L, Hct 33.4 L, MCV 86.3, MCH 30.0, MCHC 34.7, RDW 12.0, RDW Differential 36.7, Plt Count 230, MPV 9.6, Immature Gran % (Auto) 0.300, Neut % (Auto) 87.7 H, Lymph % (Auto) 7.5 L, [place] % (Auto) 4.4, Eos % (Auto) 0.0, Baso % (Auto) 0.1, Absolute Neuts (auto) 8.3 H, Absolute Lymphs (auto) 0.71 L, Total Counted Not Reportable 05/22/18 16:35: Blood Type A NEGATIVE, Antibody Screen TNP 05/22/18 16:35: PT 14.6, INR 1.1, APTT 33.2 05/22/18 16:35: Sodium 130 L, Potassium 3.6, Chloride 98, Carbon Dioxide 22.0, Anion Gap 10, BUN 10, Creatinine 0.74, Estim Creat Clear Calc 108.21, Est GFR (MDRD) Af Amer 126, Est GFR (MDRD) Non-Af 104, BUN/Creatinine Ratio 13.4, Glucose 217 H, Calcium 8.7 05/22/18 16:35: Antibody Screen NEGATIVE 05/22/18 16:52: POC Glucose 248 H 05/22/18 18:31: Lactic Acid 1.7 05/22/18 22:27: POC Glucose 257 H 05/23/18 06:49: POC Glucose 198 H 05/23/18 11:08: WBC 4.3 L, RBC 3.68 L, Hgb 10.7 L, Hct 31.9 L, MCV 86.7, MCH 29.1, MCHC 33.5, RDW 12.6, RDW Differential 40.2, Plt Count 187, MPV 9.7, Immature Gran % (Auto) 0.200, Neut % (Auto) 79.1 H, Lymph % (Auto) 16.7 L, [place] % (Auto) 3.8, Eos % (Auto) 0.0, Baso % (Auto) 0.2, Absolute Neuts (auto) 3.4, Absolute Lymphs (auto) 0.71 L, Total Counted Not Reportable 05/23/18 11:08: Sodium 135 L, Potassium 3.7, Chloride 102, Carbon Dioxide 25.0, Anion Gap 8, BUN 5 L, Creatinine 0.62, Estim Creat Clear Calc 129.16, Est GFR (MDRD) Af Amer 154, Est GFR (MDRD) Non-Af 128, BUN/Creatinine Ratio 8.0 L, Glucose 332 H, Calcium 8.0 L 05/23/18 13:24: POC Glucose 313 H Code Visit Inpatient E&M: 03871 Subs Hosp L2
[2018-05-23 11:30] LABS: Absolute Lymphocyte Count 0.71 X10^3/ul (0.83-4.51); Absolute Neutrophil Count 3.4 X10^3/uL (2.0-7.7); Basophil# 0.01 X10^3/uL; Basophil% 0.2 % (0-1); Hematocrit 31.9 % (37-47); Hemoglobin 10.7 g/dl (12.0-15.0); Lymphocyte # 0.71 X10^3/ul (4.0); Lymphocyte % 16.7 % (19-41); Mean Corp Hgb Conc 33.5 g/gl (32-36); Mean Corpuscular Hgb 29.1 pg (27.0-32.0); Mean Corpuscular Volume 86.7 fL (81-99); Mean Platelet Vol. 9.7 fl (6.2-12.0); Monocyte# 0.16 X10^3/uL; Monocyte% 3.8 % (0-10); Neutrophil # 3.36 X10^3/uL (2.7-7.7); Neutrophil % 79.1 % (47-70); Platelet Count 187 K/mm3 (150-450); RBC Distribution Width CV 12.6 % (11.6-14.6); RBC Distribution Width SD 40.2 fl (35.1-43.9); Red Blood Count 3.68 M/mm3 (4.2-5.4); White Blood Count 4.3 K/mm3 (4.4-11.0)
[2018-05-23 11:32] LABS: POSITIVE COUNT NO; POSITIVE DIFFERENTIAL NO; POSITIVE MORPHOLOGY NO
[2018-05-23 11:55] LABS: Anion Gap 8 (5-15); BUN 5 mg/dL (7-18); Chloride 102 mmol/L (98-107); Creatinine, Serum 0.62 mg/dL (0.55-1.02); EST Glomerular Filtration Rate 128 mL/min (>60); Est Glom Filt Rate - Afr Amer 154 mL/min (>60); Estimated Creatinine Clearance 129.16 ml/min; Glucose 332 mg/dL (74-106); Potassium 3.7 mmol/L (3.5-5.1); Sodium Level 135 mmol/L (136-145)
--- NOTE | 2018-05-23 11:59 | CASEMGMT ---
Social Work Note SW has attempted twice to see pt to complete initial assessment. Pt had surgery this morning and is soundly sleeping. SW will attempt to meet with pt later today to complete initial assessment. Thelma Martinez PERSONNEL TECHNICIAN, [employer]
--- NOTE | 2018-05-23 13:12 | CASEMGMT ---
Social Work Assessment Referral Date: 05/23/2018 Date of Assessment: 05/23/2018 Reason for consult: Miscarriage 6 weeks ago, emotional support Informant: SW Personal Status: SW met with pt to complete initial assessment. SW introduced self and role at [facility]. Pt is alert and orientated x4. Pt states that she lives alone in a one story apartment. Pt states that she currently is unemployed. Pt states that she was previously independent with ADLs. Pt states that her pharmacy is [facility] in [place]. Pt states that she has supportive family and friends nearby and stated that the most supportive is her mother. Pt confirms that she had a miscarriage about six weeks ago. Pt states that the dad of the baby was a friend and he knows as well about the miscarriage. Pt states that she is handling it alright. Pt states that her mom has been supportive. SW provided empathy to pt and offered support. Pt states that her plan is to return at home at discharge. Substance Abuse: Pt states that she used to use Meth and marijuana. Pt denied currently using and denied additional substance use or abuse. Mental Health Hx: Pt states that she has a history of Bipolar, Depression and Anxiety. Pt states that she currently takes medication for her Bipolar, depression and anxiety. Pt states that she currently see's a counselor and psychiatrist at [facility] about once a month. Pt states her medications are prescribed through her psychiatrist. Pt states that she has been in counseling since she was [age] years old and it is helpful sometimes. Pt denied any current suicidal/homicidal thoughts/plans/ideations. Plan: Pt to return home at discharge and resume counseling and psychiatric services at [facility]. Thelma Martinez CAREER TRANSITION SPECIALIST, HEAD OF INTEGRATED MEDIA
[2018-05-23 13:30] LABS: Bedside Glucose 313 mg/dL (70-110)
[2018-05-23 17:00] LABS: Bedside Glucose 225 mg/dL (70-110)
--- NOTE | 2018-05-23 17:39 | PCM.PN.BLA ---
Progress Note At bedside to check on patient. She is doing well. Pain improved. Denies fevers, chills, nausea, vomiting. Bleeding scant. Tolerating diet. Afebrile since 0230am, BP improving, HR low 100's Gen: NAD, appears better, comfortable Abd: Soft, +minimal left sided tenderness, non-distended, non-acute LE: Non-tender, no signs of DVT A/P: - Low WBC, HIV test negative 3 weeks ago - Pt still appears to be improving - If afebrile for 24 hrs, may d/c home tomorrow on oral course of antibiotics - Reviewed surgery with pt and all questions answered - Flat affect today, will reassess mood tomorrow to determine if stable for d/c, will need to follow up with her counselor - Appreciate medicine assistance in care of this pt
[2018-05-23] MEDS: Albuterol 2.5 MG/3 ML VIAL.NEB. INHALATION (19:29)
[2018-05-23] MEDS: HYDROmorphone 1 MG/ML Syringe IV (20:48)
[2018-05-23 23:51] LABS: Bedside Glucose 240 mg/dL (70-110)
[2018-05-24] VITALS (7 sets, daily range): BP systolic 110–137; BP diastolic 51–70; PULSE 52–123; RESP 14–18; TEMP 36.9–38.9; O2SAT 87–97
[2018-05-24] MEDS: Acetaminophen 325 MG Tablet 650 MG PO ×3 (03:13→22:53)
[2018-05-24] MEDS: HYDROmorphone 1 MG/ML Syringe IV (03:14)
[2018-05-24] MEDS: Lactated Ringers 1,000 ML 125 ML IV ×2 (04:39→18:43)
--- NOTE | 2018-05-24 05:15 | RAD_ITS ---
STUDY: X-RAY CHEST REASON FOR EXAM: Female, 22 years old. Shortness of breath TECHNIQUE: One view COMPARISON: September 08, 2017 FINDINGS: Bibasilar platelike atelectatic changes. No pneumonia. No pleural effusions Normal visualized thoracic spine. Normal visualized ribs, clavicles, and shoulders. There is no demonstrated abnormality of the visualized soft tissue structures of the upper abdomen. RAD/Chest 1 View (Portable) IMPRESSION: Bibasilar platelike atelectatic changes Electronically Signed: John Lyle MD at 7:14 EDT Tel , Service support ,
[2018-05-24] MEDS: Piperacil/Tazobactam 3.375 GM Q8 PREMIX IV ×3 (05:52→22:53)
[2018-05-24 05:59] LABS: Lactic Acid 0.7 mmol/L (0.4-2.0)
[2018-05-24 06:55] LABS: Bedside Glucose 264 mg/dL (70-110)
--- NOTE | 2018-05-24 07:54 | PCM.PN.OB ---
Patient Problems: Active and Suspected Problems Diabetes (Acute) Missed (Acute) Subjective: Patient reports she still overall feels improved today. Abdominal pain improved. Has sinus congestion and post-nasal drip. Reports difficulty with taking a deep breath in, but otherwise denies SOB, CP, palpitations. +Fevers earlier this morning. Denies nausea, vomiting, leg pain, dysuria. Bleeding is scant. - Physical Exam General: Alert, Oriented x3 HEENT: Atraumatic Lungs: - - No increased resp effort. On 2L NC this morning Abdomen: Soft, Non Tender, Non-Distended Extremities: No edema, No Calf Tenderness Skin: No rashes Neurological: Neuro grossly intact Psych/Mental Status: Appropriate Vital Signs Temp Pulse Resp BP Pulse Ox 98.5 F 95 18 111/51 L 97 05/24/18 07:44 05/24/18 07:44 05/24/18 07:44 05/24/18 07:44 05/24/18 07:44 Oxygen Flow Rate (L/min) 2 Oxygen Delivery Method Nasal Cannula Weight: 216 lb 0.848 oz Body Mass Index (BMI) 35.9 Finger Stick Blood Glucose 291 Intake and Output for Last 24 Hours 05/22/18 05/23/18 05/24/18 23:59 23:59 23:59 Intake Total 1705 / 1705 3196 / 3196 3840 / 3840 Output Total 600 / 600 2700 / 2700 300 / 300 Balance 1105 / 1105 496 / 496 3540 / 3540 Laboratory Tests Past 24 Hrs 05/23/18 05/23/18 05/24/18 11:08 11:08 05:00 WBC 4.3 L RBC 3.68 L Hgb 10.7 L Hct 31.9 L MCV 86.7 MCH 29.1 MCHC 33.5 RDW 12.6 RDW Differential 40.2 Plt Count 187 MPV 9.7 Immature Gran % (Auto) 0.200 Neut % (Auto) 79.1 H Lymph % (Auto) 16.[address] [place] % (Auto) 3.8 Eos % (Auto) 0.0 Baso % (Auto) 0.2 Absolute Neuts (auto) 3.4 Absolute Lymphs (auto) 0.71 L Total Counted Not Reportable Sodium 135 L Potassium 3.7 Chloride 102 Carbon Dioxide 25.0 Anion Gap 8 BUN 5 L Creatinine 0.62 Estim Creat Clear Calc 129.16 Est GFR (MDRD) Af Amer 154 Est GFR (MDRD) Non-Af 128 BUN/Creatinine Ratio 8.0 L Glucose 332 H Lactic Acid 0.7 Calcium 8.0 L 05/24/18 05:15 WBC Pending RBC Pending Hgb Pending Hct Pending MCV Pending MCH Pending MCHC Pending RDW Pending RDW Differential Pending Plt Count Pending MPV Immature Gran % (Auto) Neut % (Auto) Pending Lymph % (Auto) [place] % (Auto) Eos % (Auto) Baso % (Auto) Absolute Neuts (auto) Pending Absolute Lymphs (auto) Total Counted Pending Sodium Potassium Chloride Carbon Dioxide Anion Gap BUN Creatinine Estim Creat Clear Calc Est GFR (MDRD) Af Amer Est GFR (MDRD) Non-Af BUN/Creatinine Ratio Glucose Lactic Acid Calcium POC Glucose 05/24/18 05/23/18 05/23/18 06:48 21:25 16:52 POC Glucose 264 H 240 H 225 H 05/23/18 13:24 POC Glucose 313 H Medical Necessity - Tobacco Use Smoking Status: Current every day smoker Tobacco Use: Cigarettes Assessment/Plan All Active Problems Diabetes (Acute) Missed (Acute) HD#3 with septic MAB. S/p suction D&C, POD#1. - She was symptomatically and objectively improving until this morning. New fevers of 102 around 3-4am. Discussed antibiotics with pharmacy and medicine. Started Zosyn for broader coverage, and continued Doxy. CXR, UA, and repeat blood cx's ordered. New O2 requirement of 2L. Will continue to monitor today. Continue IVF hydration and Zosyn, Doxy. If she has new fevers with the change in antibiotics will get CT C/A/P to assess for PE given new O2 requirement and pelvic abscess. Discussed plan with medicine. Appreciate assistance from medicine.
[2018-05-24] MEDS: Insulin Lispro 100 UNIT/ML INSULN.PEN SQ ×7 (07:56→22:48)
--- NOTE | 2018-05-24 08:04 | CT_ITS ---
STUDY: CTA CHEST REASON FOR EXAM: Female, 22 years old. Shortness of breath, chest pain RADIATION DOSAGE (If Supplied By Facility): CTDIvol = ( 18.23 ) mGy, DLP = ( 620.11 ) mGycm TECHNIQUE: The examination was performed with the intravenous administration of 100 ml of Isovue 370 contrast material. Post-processing of the angiographic images was performed, with multiplanar reformation and 3D reconstruction. Individualized dose optimization techniques were used for this CT. COMPARISON: None. FINDINGS: Normal enhancement of the main pulmonary artery and right and left pulmonary arteries. Normal enhancement of the bilateral peripheral pulmonary arteries. There is no demonstrated pulmonary embolism. Normal thoracic aorta and visualized great vessels. There is no demonstrated aortic dissection. Normal heart and pericardium. Normal mediastinum. Normal hilar regions. Normal visualized trachea and bronchi. The lungs are well expanded. Bilateral basilar consolidations/atelectasis. Normal pleura. Normal chest wall structures. Normal osseous structures. Normal visualized upper abdomen. CT/CTA Chest W/WO Contrast IMPRESSION: No demonstrated pulmonary embolism or arterial dissection. Bibasilar consolidations/atelectasis. Electronically Signed: Jone Michelle DO at 9:27 EDT Tel [phone], Service support ,
[2018-05-24 08:05] LABS: Absolute Neutrophil Count 4.7 X10^3/uL (2.0-7.7); Basophil# 0.01 X10^3/uL; Basophil% 0.2 % (0-1); Eosinophil# 0.08 X10^3/uL; Eosinophils% 1.2 % (0-5); Hematocrit 30.1 % (37-47); Hemoglobin 10.3 g/dl (12.0-15.0); Lymphocyte % 20.2 % (19-41); Mean Corp Hgb Conc 34.2 g/gl (32-36); Mean Corpuscular Hgb 29.9 pg (27.0-32.0); Mean Corpuscular Volume 87.5 fL (81-99); Mean Platelet Vol. 10.4 fl (6.2-12.0); Monocyte# 0.36 X10^3/uL; Monocyte% 5.6 % (0-10); Neutrophil # 4.69 X10^3/uL (2.7-7.7); Neutrophil % 72.6 % (47-70); Platelet Count 203 K/mm3 (150-450); RBC Distribution Width SD 37.3 fl (35.1-43.9); Red Blood Count 3.44 M/mm3 (4.2-5.4); White Blood Count 6.5 K/mm3 (4.4-11.0)
--- NOTE | 2018-05-24 08:06 | EKG12_ITS ---
Test Reason : SINUS TACHYCARDIA Blood Pressure : / mmHG Vent. Rate : 088 BPM Atrial Rate : 088 BPM P-R Int : 136 ms QRS Dur : 084 ms QT Int : 382 ms P-R-T Axes : 053 007 032 degrees QTc Int : 462 ms Normal sinus rhythm Normal ECG When compared with ECG of 20-APR-2018 09:51, Nonspecific T wave abnormality now evident in Anterior leads Confirmed by SANJAY WOOD, KANWAL ([id number]), continuity editor PETER KEVIN ([id number]) on 05/28/2018 3:45:17 PM Referred By: Lacy Mariee Confirmed By:KANWAL GRACE MD
--- NOTE | 2018-05-24 08:08 | PN_ITS ---
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 Patient also complained of mild shortness of breath and chest pain midsternally although not able to tell detail of the nature of chest pain. To me, she did not look short of breath. Temperature 102 Fahrenheit. 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 Discussed with [employer] OPERATOR doctor Dr. Mariee Vitals/I&O's: Vital Signs Temp Pulse Resp BP Pulse Ox 98.5 F 95 18 111/51 L 97 05/24/18 07:44 05/24/18 07:44 05/24/18 07:44 05/24/18 07:44 05/24/18 07:44 Oxygen Flow Rate (L/min) 2 Oxygen Delivery Method Nasal Cannula Weight: 216 lb 0.848 oz Body Mass Index (BMI) 35.9 Finger Stick Blood Glucose 291 Intake and Output for Last 24 Hours 05/22/18 05/23/18 05/24/18 23:59 23:59 23:59 Intake Total 1705 / 1705 3196 / 3196 3840 / 3840 Output Total 600 / 600 2700 / 2700 300 / 300 Balance 1105 / 1105 496 / 496 3540 / 3540 General: Alert, Oriented x3, Cooperative HEENT: Atraumatic, PERRLA, EOMI, Normocephalic Neck: Supple, No JVD, Negative Carotid Bruits Lungs: No rhonchi, No wheeze, No rales, Diminished - Diminished at bilateral lung bases mainly in right lung base Cardiovascular: Regular rate, Regular Rhythm, Normal S1, Normal S2, No murmurs Abdomen: Bowel Sounds Present, Soft, Non Tender, Non-Distended Extremities: No edema, Capillary Refill Less than 3 Seconds Skin: No rashes, No breakdown Musculoskeletal: No Tenderness to Palpation of Joints or Extremities Neurological: Cranial nerves II-XII grossly intact Psych/Mental Status: Normal Affect, Appropriate Laboratory Results 05/23/18 11:08: WBC 4.3 L, RBC 3.68 L, Hgb 10.7 L, Hct 31.9 L, MCV 86.7, MCH 29.1, MCHC 33.5, RDW 12.6, RDW Differential 40.2, Plt Count 187, MPV 9.7, Immature Gran % (Auto) 0.200, Neut % (Auto) 79.1 H, Lymph % (Auto) 16.7 L, [place] % (Auto) 3.8, Eos % (Auto) 0.0, Baso % (Auto) 0.2, Absolute Neuts (auto) 3.4, Absolute Lymphs (auto) 0.71 L, Total Counted Not Reportable 05/23/18 11:08: Sodium 135 L, Potassium 3.7, Chloride 102, Carbon Dioxide 25.0, Anion Gap 8, BUN 5 L, Creatinine 0.62, Estim Creat Clear Calc 129.16, Est GFR (MDRD) Af Amer 154, Est GFR (MDRD) Non-Af 128, BUN/Creatinine Ratio 8.0 L, Glucose 332 H, Calcium 8.0 L 05/23/18 13:24: POC Glucose 313 H 05/23/18 16:52: POC Glucose 225 H 05/23/18 21:25: POC Glucose 240 H 05/24/18 05:00: Lactic Acid 0.7 05/24/18 05:15: WBC Pending, RBC Pending, Hgb Pending, Hct Pending, MCV Pending, MCH Pending, MCHC Pending, RDW Pending, RDW Differential Pending, Plt Count Pending, Neut % (Auto) Pending, Absolute Neuts (auto) Pending, Total Counted Pending 05/24/18 06:48: POC Glucose 264 H Current Medications Acetaminophen (Tylenol) 650 mg PO Q4H PRN PRN PRN Reason: fever/pain Last Admin: 05/24/18 03:13 Dose: 650 mg Albuterol Sulfate (Ventolin Aerosols) 2.5 mg INHALATION Q4H PRN PRN PRN Reason: SOB/WHEEZING Last Admin: 05/23/18 19:29 Dose: 2.5 mg Dextrose (D50w Syringe) 0 gm IV X1 PRN; Protocol PRN Reason: Hypoglycemia Doxycycline Monohydrate (Doxycycline) 100 mg PO BID CRISTHIAN Glucagon () 1 mg IM .X1 PRN PRN Reason: Hypoglycemia Hydromorphone HCl (Dilaudid Inj) 1 mg IV Q3H PRN PRN PRN Reason: SEVERE PAIN (6-10/10) Last Admin: 05/24/18 03:14 Dose: 1 mg Lactated Ringer's () 1,000 mls @ 125 mls/hr IV .Q8H [facility] Last Admin: 05/24/18 04:39 Dose: 125 mls/hr Piperacillin Sod/Tazobactam Sod (Zosyn) 3.375 gm in 50 mls @ 12.5 mls/hr IV Q8 [facility] Last Admin: 05/24/18 05:52 Dose: 12.5 mls/hr Ibuprofen (Motrin) 600 mg PO Q6H PRN PRN PRN Reason: MILD PAIN (-10/26) Last Admin: 05/23/18 10:11 Dose: 600 mg Insulin Glargine (Lantus (Bkc)) 15 units SC QHS [facility] Last Admin: 05/23/18 21:28 Dose: 15 u Insulin Human Lispro (Humalog Kwikpen (Bkc)) 0 unit SQ 4X/DAYCM [facility]; Protocol Last Admin: 05/24/18 07:58 Dose: 6 units Insulin Human Lispro (Humalog Kwikpen (Bkc)) 5 unit SQ BREAKFAST [facility] Last Admin: 05/24/18 07:56 Dose: 5 u Insulin Human Lispro (Humalog Kwikpen (Bkc)) 5 unit SQ DINNER [facility] Last Admin: 05/23/18 18:10 Dose: 5 u Insulin Human Lispro (Humalog Kwikpen (Bkc)) 5 unit SQ LUNCH [facility] Last Admin: 05/23/18 14:27 Dose: 5 u Nicotine (Nicoderm Cq (Pbkc)) 21 mg TRANSDERM. DAILY [facility] Last Admin: 05/24/18 07:56 Dose: 21 mg Ondansetron HCl (Zofran) 4 mg IV Q6H PRN PRN PRN Reason: NAUSEA Last Admin: 05/22/18 17:04 Dose: 4 mg Sodium Chloride () 5 - 30 ml IV UD PRN PRN Reason: SALINE FLUSH Ziprasidone (Geodon) 40 mg PO BID@0800,2000 [facility] Last Admin: 05/24/18 07:55 Dose: 40 mg Medical Necessity - Tobacco Use Smoking Status: Current every day smoker Tobacco Use: Cigarettes Assessment/Plan All Active Problems Diabetes (Acute) Missed (Acute) Patient is a 22-year-old female with a significant history of allergic rhinitis, asthma, ADHD, bipolar, depression, type 2 diabetes, obstructive sleep apnea with septic and noted to have low blood pressure and uncontrolled blood glucose. 1. SIRS with severe sepsis secondary to septic : She had 6-week missed/septic and had suction dilation and curettage on 05/23. As mentioned above, patient was febrile, sinus tachycardia, tachypneic and mild hypotension features of sepsis. Patient was a started IV antibiotic cefotetan and doxycycline as per test deskman. As the patient is spiked fever, tachycardia antibiotic was changed to IV Zosyn and doxycycline continued. CT chest was done with suspicion of possible PE but negative on report. CT chest reviewed and shows bibasilar atelectasis. continue IV fluid rehydration. Labs does not show leukocytosis but was on lower side 4.3 thousand but neutrophil count is 79%. Blood culture pending. Bibasilar atelectasis: On incentive spirometry. Bronchodilator as needed if shortness of breath. 2. Diabetes mellitus type 2: Last A1c about a month ago was 9.0. Accu-Chek before meals and at bedtime cover with NovoLog sliding insulin. On Humalog insulin 5 unit 3 times daily AC. Hold oral hypoglycemic agents. 3. Psychiatric diagnosis: Bipolar depression, polysubstance use and dependence, nicotine use: Patient home antipsychotic medications were continued. 4. Obstructive sleep apnea: Patient refused BiPAP use in the hospital. Noncompliance 5. DVT prophylaxis: Bilateral SCDs. Pharmacological prophylaxis contraindicated in view of vaginal bleeding, recent D&C Laboratory Results 05/24/18 05:00: Lactic Acid 0.7 05/24/18 05:15: WBC 6.5, RBC 3.44 L, Hgb 10.3 L, Hct 30.1 L, MCV 87.5, MCH 29.9, MCHC 34.2, RDW 12.0, RDW Differential 37.3, Plt Count 203, MPV 10.4, Immature Gran % (Auto) 0.200, Neut % (Auto) 72.6 H, Lymph % (Auto) 20.2, [place] % (Auto) 5.6, Eos % (Auto) 1.2, Baso % (Auto) 0.2, Absolute Neuts (auto) 4.7, Absolute Lymphs (auto) 1.30, Total Counted Not Reportable 05/24/18 06:48: POC Glucose 264 H 05/24/18 06:50: Urine Color Yellow, Urine Clarity Clear, Urine pH 7.0, Ur Specific [place] 1.005, Urine Protein Negative, Urine Glucose (UA) 250 H, Urine Ketones Negative, Urine Occult Blood 150 H, Urine Nitrite Negative, Urine Bilirubin Negative, Urine Urobilinogen Normal, Ur Leukocyte Esterase 25 H, Urine RBC 0-5 SEEN, Urine WBC 0 SEEN, Ur Squamous Epith Cells 0-5 SEEN, Urine Bacteria 0 SEEN, Urine Mucus 0 SEEN 05/24/18 12:01: POC Glucose 231 H Clinical Impression(s) from Imaging Studies Chest X-Ray 05/24/18 05:15 IMPRESSION: Bibasilar platelike atelectatic changes Chest CTA 05/24/18 08:04 IMPRESSION: No demonstrated pulmonary embolism or arterial dissection. Bibasilar consolidations/atelectasis. Code Visit Inpatient E&M: [id number] [facility] Hosp L3
[2018-05-24 08:26] LABS: POSITIVE COUNT NO; POSITIVE DIFFERENTIAL NO; POSITIVE MORPHOLOGY NO
[2018-05-24 08:32] LABS: Bacteria 0 SEEN /hpf (None Seen); Mucous, Urine 0 SEEN /hpf (<or=2+); White Blood Cells 0 SEEN /hpf (0-5)
[2018-05-24 08:41] LABS: Color, Urine Yellow (Yellow); Glucose, Dipstick 250 mg/dl (Normal); Ketone-Dipstick Negative (Negative); Leukocyte Esterase-Dipstick 25 /ul (Negative); Nitrite-Dipstick Negative (Negative); Occult Blood-Urine 150 /ul (Negative); Protein-Dipstick Negative (Negative); Specific Gravity, Urine 1.005 (1.002-1.030); Urine Bilirubin Dipstick Negative (Negative); Urine Clarity Clear (Clear); Urine Urobilinogen Normal (Normal)
[2018-05-24 08:59] LABS: Red Blood Cells-Urine 0-5 SEEN /hpf (0-5); Squamous Epithelial Cells - UA 0-5 SEEN /hpf (5-10)
[2018-05-24] MEDS: Doxycycline 100 MG CAPSULE PO ×2 (09:30→22:47)
[2018-05-24 12:06] LABS: Bedside Glucose 231 mg/dL (70-110)
[2018-05-24 12:53] LABS: AST(SGOT) 24 U/L (15-37); Alanine Aminotransfer ALT/SGPT 38 U/L (13-56); Albumin, Serum 2.5 g/dL (3.2-5.0); Alkaline Phosphatase 59 U/L (45-117); Bilirubin, Direct 0.13 mg/dL (0.00-0.30); Globulin 4.1 g/dL (2.2-4.2); Protein, Total 6.6 g/dL (6.4-8.2)
[2018-05-24 16:35] LABS: Bedside Glucose 236 mg/dL (70-110)
[2018-05-24] MEDS: Ibuprofen 600 MG Tablet PO (20:04)
[2018-05-24 23:00] LABS: Bedside Glucose 321 mg/dL (70-110)
[2018-05-25] MEDS: Lactated Ringers 1,000 ML 125 ML IV (03:45)
[2018-05-25 03:48] VITALS: BP 113/61; PULSE 75; RESP 16; TEMP 36.7; O2SAT 93
[2018-05-25] MEDS: Piperacil/Tazobactam 3.375 GM Q8 PREMIX IV (05:46)
[2018-05-25 06:45] LABS: Absolute Lymphocyte Count 2.17 X10^3/ul (0.83-4.51); Absolute Neutrophil Count 2.7 X10^3/uL (2.0-7.7); Basophil# 0.02 X10^3/uL; Basophil% 0.4 % (0-1); Eosinophil# 0.26 X10^3/uL; Eosinophils% 4.6 % (0-5); Hematocrit 30.3 % (37-47); Hemoglobin 10.2 g/dl (12.0-15.0); Lymphocyte # 2.17 X10^3/ul (4.0); Lymphocyte % 38.2 % (19-41); Mean Corp Hgb Conc 33.7 g/gl (32-36); Mean Corpuscular Hgb 29.3 pg (27.0-32.0); Mean Corpuscular Volume 87.1 fL (81-99); Mean Platelet Vol. 10.1 fl (6.2-12.0); Monocyte# 0.48 X10^3/uL; Monocyte% 8.5 % (0-10); Neutrophil # 2.73 X10^3/uL (2.7-7.7); Neutrophil % 47.9 % (47-70); Platelet Count 215 K/mm3 (150-450); RBC Distribution Width CV 12.1 % (11.6-14.6); RBC Distribution Width SD 37.3 fl (35.1-43.9); Red Blood Count 3.48 M/mm3 (4.2-5.4); White Blood Count 5.7 K/mm3 (4.4-11.0)
[2018-05-25 06:57] LABS: POSITIVE COUNT NO; POSITIVE DIFFERENTIAL NO; POSITIVE MORPHOLOGY NO
[2018-05-25 07:09] LABS: Anion Gap 7 (5-15); BUN 4 mg/dL (7-18); BUN/Creat Ratio 8.3 RATIO (10-20); Calcium,Total 8.7 mg/dL (8.5-10.1); Chloride 104 mmol/L (98-107); Creatinine, Serum 0.48 mg/dL (0.55-1.02); EST Glomerular Filtration Rate 171 mL/min (>60); Est Glom Filt Rate - Afr Amer 207 mL/min (>60); Estimated Creatinine Clearance 166.83 ml/min; Glucose 190 mg/dL (74-106); Potassium 3.8 mmol/L (3.5-5.1); Sodium Level 139 mmol/L (136-145)
--- NOTE | 2018-05-25 08:22 | PCM.PN.OB ---
Patient Problems: Active and Suspected Problems Diabetes (Acute) Missed (Acute) Subjective: Patient is doing well. She feels significantly improved this morning. Tolerating regular diet. Denies fevers, chills, chest pain, shortness of breath, nausea, vomiting, leg pain. Her URI symptoms are improving. She had one episode of abdominal pain yesterday that then resolved. Bleeding has stopped. - Physical Exam General: Alert, Oriented x3 HEENT: Atraumatic Lungs: - - No increased resp effort Abdomen: Soft, Non Tender, Non-Distended Extremities: No edema, No Calf Tenderness Skin: No rashes Neurological: Neuro grossly intact Psych/Mental Status: Normal Affect, Appropriate Vital Signs Temp Pulse Resp BP Pulse Ox 98.0 F 75 16 113/61 93 05/25/18 03:48 05/25/18 03:48 05/25/18 03:48 05/25/18 03:48 05/25/18 03:48 Oxygen Flow Rate (L/min) 2 Oxygen Delivery Method Room Air Weight: 216 lb 0.848 oz Body Mass Index (BMI) 35.9 Finger Stick Blood Glucose 291 Intake and Output for Last 24 Hours 05/23/18 05/24/18 05/25/18 23:59 23:59 23:59 Intake Total 3196 / 3196 4203 / 4203 2692 / 2692 Output Total 2700 / 2700 1000 / 1000 750 / 750 Balance 496 / 496 3203 / 3203 1942 / 1942 Microbiology Past 72 Hours 05/22/18 16:41 Blood Culture - Preliminary Blood Culture (Wb) - Right Hand No growth in 48 hours. 05/22/18 16:35 Blood Culture - Preliminary Blood Culture (Wb) - Anticubital Right No growth in 48 hours. Laboratory Tests Past 24 Hrs 05/24/18 05/24/18 05/24/18 05:15 05:15 06:50 WBC 6.5 RBC 3.44 L Hgb 10.3 L Hct 30.1 L MCV 87.5 MCH 29.9 MCHC 34.2 RDW 12.0 RDW Differential 37.3 Plt Count 203 MPV 10.4 Immature Gran % (Auto) 0.200 Neut % (Auto) 72.6 H Lymph % (Auto) 20.2 [place] % (Auto) 5.6 Eos % (Auto) 1.2 Baso % (Auto) 0.2 Absolute Neuts (auto) 4.7 Absolute Lymphs (auto) 1.30 Total Counted Not Reportable Sodium Potassium Chloride Carbon Dioxide Anion Gap BUN Creatinine Estim Creat Clear Calc Est GFR (MDRD) Af Amer Est GFR (MDRD) Non-Af BUN/Creatinine Ratio Glucose Calcium Total Bilirubin 0.30 Direct Bilirubin 0.13 AST 24 ALT 38 Alkaline Phosphatase 59 Total Protein 6.6 Albumin 2.5 L Globulin 4.1 Urine Color Yellow Urine Clarity Clear Urine pH 7.0 Ur Specific [place] 1.005 Urine Protein Negative Urine Glucose (UA) 250 H Urine Ketones Negative Urine Occult Blood 150 H Urine Nitrite Negative Urine Bilirubin Negative Urine Urobilinogen Normal Ur Leukocyte Esterase 25 H Urine RBC 0-5 SEEN Urine WBC 0 SEEN Ur Squamous Epith Cells 0-5 SEEN Urine Bacteria 0 SEEN Urine Mucus 0 SEEN 05/25/18 05/25/18 05:55 05:55 WBC 5.7 RBC 3.48 L Hgb 10.2 L Hct 30.3 L MCV 87.1 MCH 29.3 MCHC 33.7 RDW 12.1 RDW Differential 37.3 Plt Count 215 MPV 10.1 Immature Gran % (Auto) 0.400 Neut % (Auto) 47.9 Lymph % (Auto) 38.2 [place] % (Auto) 8.5 Eos % (Auto) 4.6 Baso % (Auto) 0.4 Absolute Neuts (auto) 2.7 Absolute Lymphs (auto) 2.17 Total Counted Not Reportable Sodium 139 Potassium 3.8 Chloride 104 Carbon Dioxide 28.0 Anion Gap 7 BUN 4 L Creatinine 0.48 L Estim Creat Clear Calc 166.83 Est GFR (MDRD) Af Amer 207 Est GFR (MDRD) Non-Af 171 BUN/Creatinine Ratio 8.3 L Glucose 190 H Calcium 8.7 Total Bilirubin Direct Bilirubin AST ALT Alkaline Phosphatase Total Protein Albumin Globulin Urine Color Urine Clarity Urine pH Ur Specific [place] Urine Protein Urine Glucose (UA) Urine Ketones Urine Occult Blood Urine Nitrite Urine Bilirubin Urine Urobilinogen Ur Leukocyte Esterase Urine RBC Urine WBC Ur Squamous Epith Cells Urine Bacteria Urine Mucus POC Glucose 05/24/18 05/24/18 16:29 12:01 POC Glucose 236 H 231 H Medical Necessity - Tobacco Use Smoking Status: Current every day smoker Tobacco Use: Cigarettes Assessment/Plan All Active Problems Diabetes (Acute) Missed (Acute) Patient is doing well this morning. She has been afebrile for over 24 hours. Normal WBC. Prelim blood cx's NGTD. She is symptomatically and objectively improved. Will discharge today if okay with medicine team. Will give her a course of doxycycline for 10 days. She will follow-up with me in 1 week. She reports her mood is stable to go home, and denies suicidal ideation. She will follow-up with her collection specialist and psychologist as well. Reviewed option for control, patient declines at this time and states she will use condoms.
--- NOTE | 2018-05-25 08:28 | DCINST_ITS ---
- Discharge Diagnoses Current Active Problems: Current Active and Chronic Problems Diabetes (Acute) Missed (Acute) You will use the following diet at home:: No restrictions Discharge Activity: Return to Normal Activity, May Shower May resume sexual activity in: 2 weeks Weight Bearing Status: Full weight bearing Lifting Restrictions: None Call your doctor if you observe: Fever of 101 or Higher, Using more than one pad per hour, Shortness of breath, Chest pain, Calf discomfort, Uncontrolled pain Allergies/Adverse Reactions: Allergies amoxicillin [Amoxicillin] Allergy (Verified 05/10/18 15:58) Rash amoxicillin trihydrate [From Augmentin] Allergy (Verified 05/10/18 15:58) Rash Penicillins Allergy (Verified 05/10/18 15:58) Rash potassium clavulanate [From Augmentin] Allergy (Verified 05/10/18 15:58) Rash prednisone Adverse Reaction (Verified 05/10/18 15:58) Nausea/Vom/Diarrhea Medications to take at Discharge Glyburide 5 mg PO BID 05/22/18 Metformin HCl 1,000 mg PO BID 05/22/18 Ziprasidone HCl [Geodon] 40 mg PO BID 05/22/18 Primary Care Physician: Radha Cagle PA [Primary Care Provider] - Test Results: Test results from this visit will be discussed in further detail at your follow- up appointment, if applicable. Please Follow Up With: Lacy Mariee DO When: 1-2 weeks
[2018-05-25] MEDS: Doxycycline 100 MG CAPSULE PO (08:32)
[2018-05-25] MEDS: Insulin Lispro 100 UNIT/ML INSULN.PEN SQ ×4 (08:33→11:58)
--- NOTE | 2018-05-25 08:36 | PCM.DC.BLA ---
Discharge Summary Date of Admission: 05/22/18 Date of Discharge: 05/25/18 Summary: Petrona is a 22-year-old female who presented to the office with a 6-week missed . She was counseled on her options including expectant, surgical, and medical management. She elected for medical management. She was given 2 doses of Cytotec for the missed . She returned to the office with fevers, chills, abdominal pain, nausea, and purulent cervical discharge. An ultrasound was performed showing very scant retained products. She was admitted to the hospital for IV antibiotics for a septic MAB. She was hypotensive, tachycardia, and febrile. She was started on IV cefotetan and doxycycline. Medicine was consulted for assistance with management of sepsis, as well as her uncontrolled type 2 diabetes. On 05/23/18 she was taken for a suction D&C. She was initially improving, but then spiked additional high fevers. At that time her antibiotic regimen was changed to Zosyn and doxycycline. A CXR and repeat blood cx's were ordered. She was also requiring 2L NC and had difficulty taking a breath in. A CTPA was obtained and negative for a PE. Her prelim blood culture cultures from day of admission showed no growth to date. She continued to improve. Oxygen was titrated off. She was afebrile for over 24 hours and stable. She was discharged home in good condition. Instructed to take a 10 day course of doxy and follow up in 1 week. Bipolar disorder: She was instructed to follow up with her counselor and psychologist. Type 2 DM: She was started on insulin during the admission. Previously an uncontrolled diabetic who had restarted diabetes medications at the start of the .
[2018-05-25 08:41] LABS: Bedside Glucose 197 mg/dL (70-110)
--- NOTE | 2018-05-25 09:02 | PN_ITS ---
Patient Problems: Active and Suspected Problems Diabetes (Acute) Missed (Acute) Subjective: Patient did not had any fever or chills. No abdominal pain. Blood sugars are in 200s. Patient has only metformin at home. Vitals/I&O's: Vital Signs Temp Pulse Resp BP Pulse Ox 98.0 F 75 16 113/61 93 05/25/18 03:48 05/25/18 03:48 05/25/18 03:48 05/25/18 03:48 05/25/18 03:48 Oxygen Flow Rate (L/min) 2 Oxygen Delivery Method Room Air Weight: 216 lb 0.848 oz Body Mass Index (BMI) 35.9 Finger Stick Blood Glucose 291 Intake and Output for Last 24 Hours 05/23/18 05/24/18 05/25/18 23:59 23:59 23:59 Intake Total 3196 / 3196 4203 / 4203 2692 / 2692 Output Total 2700 / 2700 1000 / 1000 750 / 750 Balance 496 / 496 3203 / 3203 1942 / 1942 General: Alert, Oriented x3, Cooperative HEENT: Atraumatic, PERRLA, EOMI, Normocephalic Neck: Supple, No JVD, Negative Carotid Bruits Lungs: Clear to auscultation, Normal air movement Cardiovascular: Regular rate, Normal S1, Normal S2, No murmurs Abdomen: Bowel Sounds Present, Soft, Non Tender, Non-Distended Extremities: No edema, Capillary Refill Less than 3 Seconds Skin: No rashes, No breakdown Musculoskeletal: No Tenderness to Palpation of Joints or Extremities Neurological: Cranial nerves II-XII grossly intact Psych/Mental Status: Normal Affect, Appropriate Microbiology Past 72 Hours 05/22/18 16:41 Blood Culture (Wb) - Right Hand Blood Culture - Preliminary No growth in 48 hours. 05/22/18 16:35 Blood Culture (Wb) - Anticubital Right Blood Culture - Preliminary No growth in 48 hours. Laboratory Results 05/24/18 05:15: Total Bilirubin 0.30, Direct Bilirubin 0.13, AST 24, ALT 38, Alkaline Phosphatase 59, Total Protein 6.6, Albumin 2.5 L, Globulin 4.1 05/24/18 12:01: POC Glucose 231 H 05/24/18 16:29: POC Glucose 236 H 05/24/18 22:44: POC Glucose Pending 05/25/18 05:55: WBC 5.7, RBC 3.48 L, Hgb 10.2 L, Hct 30.3 L, MCV 87.1, MCH 29.3, MCHC 33.7, RDW 12.1, RDW Differential 37.3, Plt Count 215, MPV 10.1, Immature Gran % (Auto) 0.400, Neut % (Auto) 47.9, Lymph % (Auto) 38.2, [place] % (Auto) 8.5, Eos % (Auto) 4.6, Baso % (Auto) 0.4, Absolute Neuts (auto) 2.7, Absolute Lymphs (auto) 2.17, Total Counted Not Reportable 05/25/18 05:55: Sodium 139, Potassium 3.8, Chloride 104, Carbon Dioxide 28.0, Anion Gap 7, BUN 4 L, Creatinine 0.48 L, Estim Creat Clear Calc 166.83, Est GFR (MDRD) Af Amer 207, Est GFR (MDRD) Non-Af 171, BUN/Creatinine Ratio 8.3 L, Glucose 190 H, Calcium 8.7 05/25/18 08:25: POC Glucose 197 H Current Medications Acetaminophen (Tylenol) 650 mg PO Q4H PRN PRN PRN Reason: fever/pain Last Admin: 05/24/18 22:53 Dose: 650 mg Albuterol Sulfate (Ventolin Aerosols) 2.5 mg INHALATION Q4H PRN PRN PRN Reason: SOB/WHEEZING Last Admin: 05/23/18 19:29 Dose: 2.5 mg Dextrose (D50w Syringe) 0 gm IV X1 PRN; Protocol PRN Reason: Hypoglycemia Doxycycline Monohydrate (Doxycycline) 100 mg PO BID REPLACED BY [facility] Last Admin: 05/25/18 08:32 Dose: 100 mg Glucagon () 1 mg IM .X1 PRN PRN Reason: Hypoglycemia Hydromorphone HCl (Dilaudid Inj) 1 mg IV Q3H PRN PRN PRN Reason: SEVERE PAIN (-05/28) Last Admin: 05/24/18 03:14 Dose: 1 mg Lactated Ringer's () 1,000 mls @ 125 mls/hr IV .Q8H REPLACED BY [facility] Last Admin: 05/25/18 03:45 Dose: 125 mls/hr Piperacillin Sod/Tazobactam Sod (Zosyn) 3.375 gm in 50 mls @ 12.5 mls/hr IV Q8 REPLACED BY [facility] Last Admin: 05/25/18 05:46 Dose: 12.5 mls/hr Ibuprofen (Motrin) 600 mg PO Q6H PRN PRN PRN Reason: MILD PAIN (-10/26) Last Admin: 05/24/18 20:04 Dose: 600 mg Insulin Glargine (Lantus (Bkc)) 15 units SC QHS REPLACED BY [facility] Last Admin: 05/24/18 22:47 Dose: 15 u Insulin Human Lispro (Humalog Kwikpen (Bkc)) 0 unit SQ 4X/DAYCM CRISTHIAN; Protocol Last Admin: 05/25/18 08:33 Dose: 2 units Insulin Human Lispro (Humalog Kwikpen (Bkc)) 5 unit SQ BREAKFAST REPLACED BY [facility] Last Admin: 05/25/18 08:33 Dose: 5 u Insulin Human Lispro (Humalog Kwikpen (Bkc)) 5 unit SQ DINNER REPLACED BY [facility] Last Admin: 05/24/18 17:24 Dose: 5 u Insulin Human Lispro (Humalog Kwikpen (Bkc)) 5 unit SQ LUNCH REPLACED BY [facility] Last Admin: 05/24/18 13:29 Dose: 5 u Nicotine (Nicoderm Cq (Pbkc)) 21 mg TRANSDERM. DAILY REPLACED BY [facility] Last Admin: 05/25/18 08:32 Dose: 21 mg Ondansetron HCl (Zofran) 4 mg IV Q6H PRN PRN PRN Reason: NAUSEA Last Admin: 05/22/18 17:04 Dose: 4 mg Sodium Chloride () 5 - 30 ml IV UD PRN PRN Reason: SALINE FLUSH Ziprasidone (Geodon) 40 mg PO BID@0800,1999 REPLACED BY [facility] Last Admin: 05/25/18 08:31 Dose: 40 mg Medical Necessity - Tobacco Use Smoking Status: Current every day smoker Tobacco Use: Cigarettes Assessment/Plan All Active Problems Diabetes (Acute) Missed (Acute) Patient is a 22-year-old female with a significant history of allergic rhinitis, asthma, ADHD, bipolar, depression, type 2 diabetes, obstructive sleep apnea with septic and noted to have low blood pressure and uncontrolled blood glucose. 1. SIRS with severe sepsis secondary to septic : She had 6-week missed/septic and had suction dilation and curettage on 05/23. As mentioned above, patient was febrile, sinus tachycardia, tachypneic and mild hypotension features of sepsis. Patient was a started IV antibiotic cefotetan and doxycycline as per coil wrapper. As the patient is spiked fever, tachycardia antibiotic was changed to IV Zosyn and doxycycline continued. CT chest was done with suspicion of possible PE but negative on report. CT chest reviewed and shows bibasilar atelectasis. Labs does not show leukocytosis but was on lower side 4.3 thousand but neutrophil count is 79%. Blood culture of 05/22 are negative for 48 hours. Culture of 05/[address] Mariee is comfortable in discharging patient. No fever for more than 24 hours. Patient is discharged on doxycycline and Ceftin. Bibasilar atelectasis: On incentive spirometry. Bronchodilator as needed if shortness of breath. 2. Diabetes mellitus type 2: Last A1c about a month ago was 9.0. Accu-Chek before meals and at bedtime cover with Humalog insulin. Dose of Humalog insulin 10 units 3 times daily with meals and Lantus insulin 20 units subcu at bedtime daily. Patient was educated about insulin administration and glucose checks. 3. Psychiatric diagnosis: Bipolar depression, polysubstance use and dependence, nicotine use: Patient home antipsychotic medications were continued. 4. Obstructive sleep apnea: Patient refused BiPAP use in the hospital. Noncompliance 5. DVT prophylaxis: Bilateral SCDs. Pharmacological prophylaxis contraindicated in view of vaginal bleeding, recent D&C Follow with PCP in 1-2 weeks for further glucose monitoring and adjustment of insulin. Prescription given for glyburide, Humalog insulin and Lantus insulin. Discharge medication reconciliation done. Thanks for the consult. Platelet service will sign off. Microbiology Past 72 Hours 05/22/18 16:41 Blood Culture (Wb) - Right Hand Blood Culture - Preliminary No growth in 48 hours. 05/22/18 16:35 Blood Culture (Wb) - Anticubital Right Blood Culture - Preliminary No growth in 48 hours. Laboratory Results 05/24/18 16:29: POC Glucose 236 H 05/24/18 22:44: POC Glucose Pending 05/25/18 05:55: WBC 5.7, RBC 3.48 L, Hgb 10.2 L, Hct 30.3 L, MCV 87.1, MCH 29.3, MCHC 33.7, RDW 12.1, RDW Differential 37.3, Plt Count 215, MPV 10.1, Immature Gran % (Auto) 0.400, Neut % (Auto) 47.9, Lymph % (Auto) 38.2, [place] % (Auto) 8.5, Eos % (Auto) 4.6, Baso % (Auto) 0.4, Absolute Neuts (auto) 2.7, Absolute Lymphs (auto) 2.17, Total Counted Not Reportable 05/25/18 05:55: Sodium 139, Potassium 3.8, Chloride 104, Carbon Dioxide 28.0, Anion Gap 7, BUN 4 L, Creatinine 0.48 L, Estim Creat Clear Calc 166.83, Est GFR (MDRD) Af Amer 207, Est GFR (MDRD) Non-Af 171, BUN/Creatinine Ratio 8.3 L, Glucose 190 H, Calcium 8.7 05/25/18 08:25: POC Glucose 197 H 05/25/18 11:55: POC Glucose 243 H Clinical Impression(s) from Imaging Studies Chest X-Ray 05/24/18 05:15 IMPRESSION: Bibasilar platelike atelectatic changes Chest CTA 05/24/18 08:04 IMPRESSION: No demonstrated pulmonary embolism or arterial dissection. Bibasilar consolidations/atelectasis. Code Visit Inpatient E&M: 11345 Subs Hosp L3
[2018-05-25 09:45] VITALS: BP 108/65; PULSE 70; RESP 16; TEMP 36.7; O2SAT 94
[2018-05-25 12:05] LABS: Bedside Glucose 243 mg/dL (70-110)
== END 2018-05-25 13:00 | disposition home or self-care (01) | DRG 770 ==
PROVIDERS: Hospitalist; Internal Medicine; Admitting Provider Obstetrics & Gynecology; Family Provider Physician Assistant; PCP Physician Assistant; Referring Provider Obstetrics & Gynecology; Visit Provider Obstetrics & Gynecology
PROC: 10D17ZZ Extraction of Products of Conception, Retained, Via Natural or Artificial Opening (ICD-10-PCS; principal; 2018-05-23 07:15)
DX: O02.1 Missed abortion (principal); A41.9 Sepsis, unspecified organism; R65.20 Severe sepsis without septic shock; O08.82 Sepsis following ectopic and molar pregnancy; F31.30 Bipolar disorder, current episode depressed, mild or moderate severity, unspecified; E11.65 Type 2 diabetes mellitus with hyperglycemia; Z79.84 Long term (current) use of oral hypoglycemic drugs; Z23 Encounter for immunization; F17.210 Nicotine dependence, cigarettes, uncomplicated; Z83.3 Family history of diabetes mellitus; G47.33 Obstructive sleep apnea (adult) (pediatric)
CPT/HCPCS: 36415; 71045; 71275; 80048; 80076; 81001; 82962; 83605; 85025; 85610; 85730; 86850; 86900; 87040; 88305; 93005; 94640; J7120; Q9967; 90686; J2405

== ENCOUNTER 2018-07-09 13:56 | Emergency (ER) | payer MEDICAID, SELFPAY ==
[2018-07-09] VITALS (7 sets, daily range): BP systolic 122–157; BP diastolic 66–91; PULSE 85–103; RESP 16; TEMP 35.6; O2SAT 97–99; BMI 35.7
--- NOTE | 2018-07-09 14:28 | NURSING ---
TEO, CRISIS, AWARE OF PATIENT.
--- NOTE | 2018-07-09 14:31 | ED.VISSUMM ---
- ER Visit Summary Date of Service: 07/09/18 Chief Complaint: [] Suicidal ideation considering killing herself with knives or taking overdose of pills, self-inflicted left wrist lacerations history of depression History of Present Illness: The patient is a 22 F [] of depression and suicidal ideation in the past, self-harm with cutting of left wrist in the past she reports that for the last few days she has had increasing suicidal thoughts and now she is considering acting on those thoughts which are to cut her self with knives so she will bleed to or take pills she did self inflict some lacerations to her left wrist earlier today. She is followed by the counseling center has not seen them recently, she is a diabetic she intermittently takes her meds and intermittently sticks to the appropriate diet she has not checked her blood sugar recently but it can run anywhere from 200-400, she is currently on oral meds for the diabetes but at one point time the physician told her she might require insulin she indicates she has insulin but does not have any needles to take it She also indicates that about 6 weeks ago she was 6 weeks and miscarried at 6 weeks and that triggered a suicidal ideation spell, she indicates she is missed it. She took a test that was positive and she feels the possibility of is also contributing to her sense of being suicidal, she denies pelvic pain or vaginal bleeding or discharge or ectopic Contacted her mother about all the above who brought her to the emergency department Physical Examination: [] 157/80, General, no distress resting comfortably HEENT is generally unremarkable The neck is supple no adenopathy Cardiovascular, regular rate and rhythm Lungs, clear bilateral Abdomen, soft nontender my she denies pelvic pain or vaginal bleeding Extremities, no clubbing cyanosis or edema she has very superficial lacerations to the left wrist region they barely break the skin service hand function is fully normal Neurologic, awake alert answering questions appropriately moving all 4 extremities, she is cooperative no psychomotor agitation Test Results: [] Emergency Department Course and Treatment: [] Given her history and her complaints and all of the above screening labs are obtained IV fluids, will check a screening labs if they are unremarkable ask mental health services see her for further management, She has been admitted to [facility] mental health services in the past Treatment Plan: [] Disposition: [] Pending mental health evaluation screening labs Impression: [] Suicidal ideation, self-inflicted left wrist lacerations, concern for , diabetes with noncompliance This note was generated with [employer] dictation software. It may contain incorrect words, spelling, and punctuation that were not noted in review of the chart prior to signing ED Disposition - Plan for ED Patient: Chief Complaint: Suicidal Referrals: Radha Cagle PA [Primary Care Provider] -
--- NOTE | 2018-07-09 14:34 | ED.DCSUM_ITS ---
- ER Visit Summary Date of Service: 07/09/18 Chief Complaint: [] Suicidal ideation considering killing herself with knives or taking overdose of pills, self-inflicted left wrist lacerations history of depression History of Present Illness: The patient is a 22 F [] of depression and suicidal ideation in the past, self-harm with cutting of left wrist in the past she reports that for the last few days she has had increasing suicidal thoughts and now she is considering acting on those thoughts which are to cut her self with knives so she will bleed to or take pills she did self inflict some lacerations to her left wrist earlier today. She is followed by the counseling center has not seen them recently, she is a diabetic she intermittently takes her meds and intermittently sticks to the appropriate diet she has not checked her blood sugar recently but it can run anywhere from 200-400, she is currently on oral meds for the diabetes but at one point time the physician told her she might require insulin she indicates she has insulin but does not have any needles to take it She also indicates that about 6 weeks ago she was 6 weeks and miscarried at 6 weeks and that triggered a suicidal ideation spell, she indicates she is missed it. She took a test that was positive and she feels the possibility of is also contributing to her sense of being suicidal, she denies pelvic pain or vaginal bleeding or discharge or ectopic Contacted her mother about all the above who brought her to the emergency department Physical Examination: [] 157/80, General, no distress resting comfortably HEENT is generally unremarkable The neck is supple no adenopathy Cardiovascular, regular rate and rhythm Lungs, clear bilateral Abdomen, soft nontender my she denies pelvic pain or vaginal bleeding Extremities, no clubbing cyanosis or edema she has very superficial lacerations to the left wrist region they barely break the skin service hand function is fully normal Neurologic, awake alert answering questions appropriately moving all 4 extremities, she is cooperative no psychomotor agitation Test Results: [] Emergency Department Course and Treatment: [] Given her history and her complai nts and all of the above screening labs are obtained IV fluids, will check a screening labs if they are unremarkable ask mental health services see her for further management, She has been admitted to [facility] mental health services in the past Treatment Plan: [] Disposition: [] Pending mental health evaluation screening labs Impression: [] Suicidal ideation, self-inflicted left wrist lacerations, concern for , diabetes with noncompliance This note was generated with [employer] dictation software. It may contain incorrect words, spelling, and punctuation that were not noted in review of the chart prior to signing ED Disposition - Plan for ED Patient: Chief Complaint: Suicidal Referrals: Radha Cagle PA [Primary Care Provider] -
[2018-07-09 15:00] LABS: Amphetamine Urine VISTA NEGATIVE (<1000 ng/mL); Barbiturate Urine VISTA NEGATIVE (< 200 ng/mL); Benzodiazepine Urine VISTA NEGATIVE (< 200 ng/mL); Cocaine Urine VISTA NEGATIVE (< 300 ng/mL); Ecstacy Urine VISTA NEGATIVE (< 500 ng/mL); Methadone Urine VISTA NEGATIVE (< 300 ng/mL); PCP Urine VISTA NEGATIVE (< 25 ng/mL); THC Urine VISTA POSITIVE (< 50 ng/mL); Vista UDS pH Range 7
[2018-07-09] MEDS: 0.9% Normal Saline 1,000 ML 999 ML IV (15:00)
[2018-07-09 15:13] LABS: Absolute Lymphocyte Count 1.97 X10^3/ul (0.83-4.51); Absolute Neutrophil Count 7.6 X10^3/uL (2.0-7.7); Basophil# 0.02 X10^3/uL; Basophil% 0.2 % (0-1); Eosinophil# 0.12 X10^3/uL; Eosinophils% 1.2 % (0-5); Hematocrit 42.3 % (37-47); Hemoglobin 14.4 g/dl (12.0-15.0); Lymphocyte # 1.97 X10^3/ul (4.0); Lymphocyte % 19.1 % (19-41); Mean Corpuscular Hgb 29.1 pg (27.0-32.0); Mean Corpuscular Volume 85.6 fL (81-99); Mean Platelet Vol. 9.9 fl (6.2-12.0); Monocyte# 0.53 X10^3/uL; Monocyte% 5.1 % (0-10); Neutrophil # 7.64 X10^3/uL (2.7-7.7); Neutrophil % 74.2 % (47-70); Platelet Count 318 K/mm3 (150-450); RBC Distribution Width CV 13.7 % (11.6-14.6); RBC Distribution Width SD 41.7 fl (35.1-43.9); Red Blood Count 4.94 M/mm3 (4.2-5.4); White Blood Count 10.3 K/mm3 (4.4-11.0)
[2018-07-09 15:14] LABS: POSITIVE COUNT NO; POSITIVE DIFFERENTIAL NO; POSITIVE MORPHOLOGY NO
[2018-07-09 15:25] LABS: Anion Gap 7 (5-15); BUN 10 mg/dL (7-18); BUN/Creat Ratio 15.9 RATIO (10-20); Calcium,Total 9.5 mg/dL (8.5-10.1); Chloride 101 mmol/L (98-107); Creatinine, Serum 0.63 mg/dL (0.55-1.02); EST Glomerular Filtration Rate 126 mL/min (>60); Est Glom Filt Rate - Afr Amer 153 mL/min (>60); Estimated Creatinine Clearance 127.11 ml/min; Glucose 253 mg/dL (74-106); Potassium 3.9 mmol/L (3.5-5.1); Sodium Level 133 mmol/L (136-145)
[2018-07-09 15:54] LABS: Pregnancy, Serum, hCG Quali. POSITIVE Negative (0-9 Nonpreg)
[2018-07-09 16:02] LABS: Alcohol, Blood (Medical)-Serum < 3.0 mg/dL
--- NOTE | 2018-07-09 16:42 | NURSING ---
CRISIS IN ROOM
--- NOTE | 2018-07-09 18:30 | ED.RN ---
PT CRYING AND VERY UPSET WITH MANAGER MEDICAID, LORRAINE, ABOUT NOT GETTING PLACED AT [facility]. PT THEN THREW HER GLASSES ON THE FLOOR AND GRABBED HER HAIR AND STATED WHY CAN'T YOU JUST LET ME GO HOME AND LEAVE ME ALONE PT'S MOTHER ASKED THIS NURSE TO STEP BEHIND THE CURTAIN. THIS NURSE THOUGHT THE MOM OF PT WAS GOING TO SPEAK TO ME BEHIND THE CURTAIN; INSTEAD THE MOM HUGGED THE PT. THE CURTAIN WAS PULLED BACK TO LET THE SITTER HAVE ACTIVE VISUALIZATION ON PT. DR. SPICER AWARE THAT LORRAINE NEEDS A NOTE STATING HOW FAR ALONG THE IS AT THIS TIME.
--- NOTE | 2018-07-09 18:40 | ED.RN ---
PT APPEARS TO BE CALM AT THIS TIME AND IS TALKING ON CELL PHONE, NO CRYING AT THIS TIME.
[2018-07-09 19:08] LABS: hCG Titer Quant., Serum 247 mIU/mL (<9 non-preg)
[2018-07-09 19:32] LABS: hCG Titer Quant., Serum 247 mIU/mL (<9 non-preg)
--- NOTE | 2018-07-09 20:03 | US_ITS ---
STUDY: FIRST TRIMESTER OBSTETRICAL ULTRASOUND REASON FOR EXAM: Female, 22 years old. Viability. DTC, miscarriage in April. LMP January. TECHNIQUE: Transvaginal. TECHNICAL QUALITY: Adequate. PRIOR ULTRASOUND: None. FINDINGS: The uterus is normal in size and echogenicity, measuring 8 x 3.7 x 6.4 cm. Endometrial thickness is normal, measuring 1.2 cm. There is question of septate uterus. The right ovary is normal in size and echogenicity, measuring 3.1 x 1.1 x 2.1 cm. Color and venous flow are documented. Left ovary is not seen. There is no free fluid in the cul-de-sac. US/Transvaginal w/Preg US IMPRESSION: Normal uterus. Unremarkable right ovary. Nonvisualized left ovary. Electronically Signed: Kaylie Gutierres MD at 20:58 EST Tel , Service support ,
--- NOTE | 2018-07-09 22:11 | NURSING ---
CALLED [facility] AND WAS TOLD CAN'T TRANSPORT PYSCH PATIENTS AFTER A [facility] HAS NO AVAILABILITY TILL 730AM TRANSPORT IS SETUP
[2018-07-09 23:06] LABS: Bedside Glucose 306 mg/dL (70-110)
[2018-07-09] MEDS: metFORMIN HCl 1,000 MG Tablet 1000 MG PO (23:49)
[2018-07-09] MEDS: Insulin Lispro 100 UNIT/ML INSULN.PEN 6 UNIT SC (23:50)
[2018-07-10] MEDS: DiphenhydrAMINE 25 MG Capsule PO (00:32)
[2018-07-10 03:58] VITALS: RESP 16; O2SAT 98
[2018-07-10 04:10] VITALS: RESP 16; O2SAT 98
[2018-07-10 07:52] VITALS: BP 128/86; PULSE 76; RESP 16; O2SAT 98
[2018-07-10 07:53] VITALS: BP 128/86; PULSE 76; RESP 16; O2SAT 98
== END 2018-07-10 07:54 ==
LOC: ED 14:30
PROVIDERS: Emergency Medicine; Emergency Provider Emergency Medicine; Family Provider Physician Assistant; PCP Physician Assistant
DX: R45.851 Suicidal ideations (principal); E11.9 Type 2 diabetes mellitus without complications; Z91.14 Patient's other noncompliance with medication regimen; F32.9 Major depressive disorder, single episode, unspecified; Z79.4 Long term (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; Z79.899 Other long term (current) drug therapy; S61.512A Laceration without foreign body of left wrist, initial encounter; X78.1XXA Intentional self-harm by knife, initial encounter; Y93.89 Activity, other specified; Y92.89 Other specified places as the place of occurrence of the external cause; Y99.8 Other external cause status
CPT/HCPCS: 76817; 80048; 80307; 80320; 82962; 84702; 84703; 85025; 96360; 96361; 99285; J7030; A4216; G0480

== ENCOUNTER 2018-08-22 08:13 | Emergency (ER) | payer MEDICAID, SELFPAY ==
[2018-07-09 13:58] VITALS: BMI 35.7
[2018-08-22 08:14] VITALS: BP 138/108; PULSE 84; RESP 16; TEMP 36.6; BMI 35.7
--- NOTE | 2018-08-22 08:27 | US_ITS ---
STUDY: FIRST TRIMESTER OBSTETRICAL ULTRASOUND REASON FOR EXAM: Female, 22 years old. Bleeding. LMP: Unknown. TECHNIQUE: Transvaginal TECHNICAL QUALITY: Adequate. PRIOR ULTRASOUND: Comparison is made with prior examination and number 2017. FINDINGS: There is no demonstrated intrauterine gestational sac. On the initial images, and irregular gestational sac is seen in the lower uterine segment and cervix. The patient voided. On subsequent imaging, no gestational sac is seen. There is no demonstrated yolk sac. The placenta is non-visualized. There is no demonstrated embryo ( pole). The uterus measures 12.7 cm x 6.6 times by 5.8 cm. The endometrium is thickened. It measures 17 mm. There is no demonstrated uterine fibroid. The cervix is closed. Nabothian cyst. The right ovary measures 3.1 cm x 3.9 cm x 2.4 cm. There is no right ovarian cyst. There is no visualized right adnexal mass or complex lesion. The left ovary is not visualized. There is no fluid in the cul de sac. US/Transvaginal w/Preg US IMPRESSION: Thickened endometrium. Spontaneous . Electronically Signed: Kamar Serrato MD at 10:46 EST Tel [phone], Service support ,
[2018-08-22] MEDS: Morphine 4 MG/ML Syringe IV ×2 (08:41→11:01)
[2018-08-22] MEDS: 0.9% Normal Saline 1,000 ML 1000 ML IV (08:41)
[2018-08-22] MEDS: Ondansetron 4 MG/2 ML Vial IV (08:43)
[2018-08-22 08:52] VITALS: BP 136/94; PULSE 68; RESP 18; O2SAT 96
[2018-08-22 09:02] LABS: Absolute Lymphocyte Count 2.85 X10^3/ul (0.83-4.51); Absolute Neutrophil Count 6.8 X10^3/uL (2.0-7.7); Basophil# 0.02 X10^3/uL; Basophil% 0.2 % (0-1); Eosinophil# 0.05 X10^3/uL; Eosinophils% 0.5 % (0-5); Hematocrit 39.3 % (37-47); Hemoglobin 13.1 g/dl (12.0-15.0); Lymphocyte # 2.85 X10^3/ul (4.0); Lymphocyte % 27.7 % (19-41); Mean Corp Hgb Conc 33.3 g/gl (32-36); Mean Corpuscular Hgb 28.8 pg (27.0-32.0); Mean Corpuscular Volume 86.4 fL (81-99); Mean Platelet Vol. 10.4 fl (6.2-12.0); Monocyte# 0.58 X10^3/uL; Monocyte% 5.6 % (0-10); Neutrophil # 6.76 X10^3/uL (2.7-7.7); Neutrophil % 65.8 % (47-70); POSITIVE COUNT NO; POSITIVE DIFFERENTIAL NO; POSITIVE MORPHOLOGY NO; Platelet Count 235 K/mm3 (150-450); RBC Distribution Width CV 12.9 % (11.6-14.6); RBC Distribution Width SD 40.7 fl (35.1-43.9); Red Blood Count 4.55 M/mm3 (4.2-5.4); White Blood Count 10.3 K/mm3 (4.4-11.0)
--- NOTE | 2018-08-22 09:25 | ED.DCSUM_ITS ---
- ER Visit Summary Date of Service: 08/22/18 Chief Complaint: Vaginal bleeding and History of Present Illness: The patient is a [address] Mariee. She reports that she had an ultrasound 2 weeks ago that showed that she was . She is 9 weeks along. She is a with a history of a septic in May 2018 that required a D&C. Patient reports that she had spotting that began yesterday and today is slightly heavier than her period. She complains of cramping suprapubic pain that began today. Is 10 out of 10 severity. Is worsened by movement and relieved by remaining still. She denies any vaginal discharge. No dysuria or frequency. No fever or chills. Physical Examination: Vitals: Stable. Afebrile. General: Well-nourished and well-developed. Head: Normocephalic atraumatic. Neck: Supple, no lymphadenopathy. No JVD. Nontender. Cardiovascular: Regular rate and rhythm. No murmurs. Respiratory: No respiratory distress. Clear to auscultation bilaterally. Abdominal: Soft, mild suprapubic tenderness to palpation, nondistended, normal b owel sounds. No guarding, rebound, or peritoneal signs. : Refused. Back: Nontender. Extremities: Nontender, no edema. Skin: Normal color, no rash. Neurologic: Alert and oriented ?3. Cranial nerves II through XII are intact. Normal strength and sensation. Psych: Normal affect. Test Results: CBC is normal. Quant is 1645. Clinical Impression(s) from Imaging Studies Obstetrics Ultrasound 08/22/18 08:27 IMPRESSION: Thickened endometrium. Spontaneous . Electronically Signed: Kamar Serrato MD at 10:46 EST Tel [phone], Service support , Emergency Department Course and Treatment: Patient had an IV placed. She was given a liter normal saline. She was given morphine and Zofran IV. She was given RhoGam IM. She is resting comfortably. Treatment Plan: Patient was discussed with Dr. Fonseca. She will be discharged with naproxen, for Percocet, and instructed to follow-up with Dr. Mariee in 3 days for another exam. Return to the emergency department for any worsening symptoms. Disposition: To home in improved and stable condition. Impression: 1. Spontaneous . This note was generated with [employer] dictation software. It may contain incorrect words, spelling, and punctuation that were not noted in review of the chart prior to signing ED Disposition - Plan for ED Patient: Chief Complaint: Vag Bld, Preg Instructions: ED Miscarriage Completed Prescriptions: Oxycodone HCl/Acetaminophen [Percocet 5/325] 1 tablet PO Q6H PRN PRN 3 Days #4 tablet PRN Reason: Pain Naproxen [Naprosyn] 500 mg PO BID #14 tablet Referrals: Lacy Mariee DO [STAFF PHYSICIAN] - 08/25/18
[2018-08-22 09:35] LABS: hCG Titer Quant., Serum 1645 mIU/mL (<9 non-preg)
[2018-08-22 11:59] VITALS: BP 112/61; PULSE 86; RESP 16; O2SAT 99
== END 2018-08-22 12:30 | disposition home or self-care (01) ==
PROVIDERS: Emergency Provider Emergency Medicine; Family Provider Physician Assistant; PCP Physician Assistant
DX: O03.9 Complete or unspecified spontaneous abortion without complication (principal); O99.331 Smoking (tobacco) complicating pregnancy, first trimester; Z3A.09 9 weeks gestation of pregnancy
CPT/HCPCS: 76817; 84702; 85025; 86850; 86900; 90384; 96361; 96372; 96374; 96375; 96376; 99284; J7030; A4216; J2405; J2790

== ENCOUNTER 2018-08-27 20:44 | Emergency (ER) | payer MEDICAID, SELFPAY ==
[2018-08-27 20:46] VITALS: BP 114/60; PULSE 83; RESP 16; TEMP 36.9; O2SAT 98; BMI 37.1
[2018-08-27 21:01] LABS: Bedside Glucose 203 mg/dL (70-110)
--- NOTE | 2018-08-27 21:15 | ED.RN ---
POLICY CHANGE CLERK student in to see patient. Patient became verbally upset and cussing at POLICY CHANGE CLERK student. Patient refuses to stay and receive any care. Patient walking around the unit and screaming. Able to maintain awareness. Pt steady gait. PT signed AMA paperwork. Pt refuses to wait for registration or any other care. Patient storms out of the ER at this time
== END 2018-08-27 21:20 | disposition left against medical advice (07) ==
LOC: ED 21:25
PROVIDERS: Emergency Provider Emergency Medicine; Family Provider Physician Assistant; PCP Physician Assistant
DX: F32.9 Major depressive disorder, single episode, unspecified (principal)
CPT/HCPCS: 82962; 99284

== ENCOUNTER 2018-10-03 10:43 | Emergency (ER) | payer MEDICAID, SELFPAY ==
[2018-10-03 10:45] VITALS: BP 113/66; PULSE 89; RESP 18; TEMP 36.1; O2SAT 98; BMI 35.7
--- NOTE | 2018-10-03 11:59 | EKG12_ITS ---
Test Reason : SYNCOPE Blood Pressure : / mmHG Vent. Rate : 081 BPM Atrial Rate : 081 BPM P-R Int : 146 ms QRS Dur : 080 ms QT Int : 384 ms P-R-T Axes : 040 017 029 degrees QTc Int : 446 ms Normal sinus rhythm Normal ECG Confirmed by SANJAY WOOD, KANWAL ([id number]), editorial specialist PETER KEVIN ([id number]) on 10/07/2018 10:40:30 AM Referred By: RUI/MARCO Confirmed By:KANWAL GRACE MD
[2018-10-03] MEDS: 0.9% Normal Saline 1,000 ML 1000 ML IV (12:25)
[2018-10-03 12:26] VITALS: BP 132/84; PULSE 87; RESP 18; O2SAT 97
[2018-10-03 12:40] LABS: Absolute Lymphocyte Count 1.13 X10^3/ul (0.83-4.51); Absolute Neutrophil Count 8.6 X10^3/uL (2.0-7.7); Basophil# 0.01 X10^3/uL; Basophil% 0.1 % (0-1); Eosinophil# 0.08 X10^3/uL; Eosinophils% 0.8 % (0-5); Hematocrit 40.4 % (37-47); Hemoglobin 13.2 g/dl (12.0-15.0); Lymphocyte # 1.13 X10^3/ul (4.0); Lymphocyte % 10.9 % (19-41); Mean Corp Hgb Conc 32.7 g/gl (32-36); Mean Corpuscular Hgb 28.6 pg (27.0-32.0); Mean Corpuscular Volume 87.4 fL (81-99); Mean Platelet Vol. 10.6 fl (6.2-12.0); Monocyte% 4.8 % (0-10); Neutrophil # 8.58 X10^3/uL (2.7-7.7); Neutrophil % 83.2 % (47-70); Platelet Count 198 K/mm3 (150-450); RBC Distribution Width SD 41.5 fl (35.1-43.9); Red Blood Count 4.62 M/mm3 (4.2-5.4); White Blood Count 10.3 K/mm3 (4.4-11.0)
[2018-10-03 12:45] LABS: POSITIVE COUNT NO; POSITIVE DIFFERENTIAL NO; POSITIVE MORPHOLOGY NO
[2018-10-03 12:51] LABS: Anion Gap 9 (5-15); BUN 15 mg/dL (7-18); BUN/Creat Ratio 18.9 RATIO (10-20); Calcium,Total 9.2 mg/dL (8.5-10.1); Chloride 100 mmol/L (98-107); Creatinine, Serum 0.79 mg/dL (0.55-1.02); EST Glomerular Filtration Rate 96 mL/min (>60); Est Glom Filt Rate - Afr Amer 117 mL/min (>60); Estimated Creatinine Clearance 100.51 ml/min; Glucose 370 mg/dL (74-106); Potassium 4.3 mmol/L (3.5-5.1); Sodium Level 134 mmol/L (136-145)
[2018-10-03 12:55] LABS: Pregnancy, Serum, hCG Quali. NEGATIVE Negative (0-9 Nonpreg)
--- NOTE | 2018-10-03 13:16 | ED.VISSUMM ---
- ER Visit Summary Date of Service: 10/03/18 Chief Complaint: [Syncope] History of Present Illness: The patient is a 23 F [presents the emergency department with syncopal episode that occurred approximately 10:15 AM. Patient states that she was at the [facility] unit filling out an application when she began feeling a little bit lightheaded or dizzy. Patient subsequently passed out and ended up on the floor. Patient did strike the back of her head but denies any headache and does not believe that she is injured. She had somebody bring her over to get evaluated. Patient states she did not sleep well last night. She denies any illicit drug use.] She does not believe she is . Physical Examination: [HEENT-PERRLA, EOMI. Cranial nerves II through XII grossly intact. TMs clear. Mucous membranes moist. No adenopathy. Cardiovascular-regular rate and rhythm without murmur or ectopy Lungs-clear to auscultation, chest wall stable without crepitus or subcu emphysema Abdomen-normoactive bowel sounds, soft, nontender, no rebound or rigidity, no peritoneal signs. Neuro spxx-[id number]-lopk and heel ortiz testing within normal limits, negative Romberg, negative pronator drift, fundi benign Extremities-intact ?4, normal range of motion, normal pulses, atraumatic] Test Results: [EKG obtained shows sinus rhythm with a ventricular rate of 81 bpm with no acute I segment changes. Orthostatic vital signs were negative. CBC with differential showed a white count of 10.3, hemoglobin 13, hematocrit 40, placed 198. Chemistries unremarkable. Glucose was elevated at 370. HCG was negative.] Emergency Department Course and Treatment: [Patient received a liter normal same fluid bolus. I did give her 1 dose of insulin 6 mg subcu as she is been noncompliant with her insulin at home. Patient has been taking her oral diabetic meds.] Treatment Plan: [Patient to follow-up with her primary care physician within next 3-5 days. Patient advised to use her insulin and be compliant with her diabetic medications.] Disposition: [Discharged home in stable condition] Impression: [Syncope-suspect vasovagal] This note was generated with [employer] software. It may contain incorrect words, spelling, and punctuation that were not noted in review of the chart prior to signing ED Disposition - Plan for ED Patient: Referrals: Radha Cagle PA [Primary Care Provider] -
--- NOTE | 2018-10-03 13:20 | ED.DEP ---
ED Disposition - Plan for ED Patient: Instructions: ED Fainting Unkn Cause, ED Syncope Vasovagal Referrals: Radha Cagle PA [Primary Care Provider] - 3-5 Days
[2018-10-03] MEDS: Insulin Lispro 100 UNIT/ML INSULN.PEN 6 UNIT SC (13:25)
[2018-10-03 13:29] VITALS: BP 129/90; PULSE 90; RESP 16; O2SAT 98
== END 2018-10-03 13:29 | disposition home or self-care (01) ==
LOC: ED 12:37
PROVIDERS: Emergency Provider Emergency Medicine; Family Provider Physician Assistant; PCP Physician Assistant
DX: R55 Syncope and collapse (principal); E11.9 Type 2 diabetes mellitus without complications; Z72.0 Tobacco use; Z79.4 Long term (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; Z79.899 Other long term (current) drug therapy
CPT/HCPCS: 80048; 84703; 85025; 93005; 96360; 99284; J7030; A4216

== ENCOUNTER 2018-12-27 16:09 | Emergency (ER) | payer BC, MEDICAID, SELFPAY ==
[2018-12-27] VITALS (7 sets, daily range): BP systolic 110–135; BP diastolic 75–106; PULSE 98–140; RESP 14–20; TEMP 36.6; O2SAT 95–100; BMI 32.6
--- NOTE | 2018-12-27 16:53 | EKG12_ITS ---
Test Reason : OD Blood Pressure : / mmHG Vent. Rate : 131 BPM Atrial Rate : 131 BPM P-R Int : 128 ms QRS Dur : 076 ms QT Int : 324 ms P-R-T Axes : 071 010 -01 degrees QTc Int : 478 ms Sinus tachycardia Minimal voltage criteria for LVH, may be normal variant T wave abnormality, consider inferior ischemia Abnormal ECG Confirmed by LAW MUNIZ ([id number]), production editor CELESTINE NORWOOD ([id number]) on 12/29/2018 1:47:13 PM Referred By: PIA Confirmed By:LAW MUNIZ
--- NOTE | 2018-12-27 16:55 | ED.VISSUMM ---
- ER Visit Summary Date of Service: 12/27/18 Chief Complaint: Drug use, paranoia History of Present Illness: The patient is a 23 F presents to the emergency department with increased paranoia after a methamphetamine binge. The patient states she is used for the past 6 days in a row. She states that she does use intermittently, and will frequently go on binges. She states that she is become increasingly paranoid. She states that she heard voices outside of her home and thought that it may have been her friend trying to play check on her. She went outside and cannot find them. She also thought someone may been breaking into her house. She does have a history of bipolar disorder and is not on medication. She denies being suicidal or homicidal. She states that she uses drugs because I like to libertarian. She has no thoughts of self-harm. Physical Examination: Vital signs reviewed General: Well-nourished, mildly disheveled Head: Normocephalic, atraumatic Eyes: Pupils equal and reactive, extraocular muscles intact Neck, supple, no lymphadenopathy Heart: Regular tachycardic rate and rhythm Respiratory: No distress, clear bilaterally Abdomen: Soft, nontender, nondistended, no peritoneal signs Back: Nontender Extremities: Nontender, no edema, no cords Skin: Normal color no rash Neuro: Alert and oriented, no focal or lateralizing deficits Test Results: [] Emergency Department Course and Treatment: [The patient symptoms do seem entirely drug-induced. She was treated with antipsychotics. IV was established. She does have mildly decreased bicarb, but normal anion gap. She was hydrated. On reevaluation, the patient is sleeping. The patient will be observed overnight. The plan will be to reevaluate her when she is clinically sober to determine if this is a drug-induced psychosis versus underlying psychiatric disease. Patient will be reevaluated by the night physician. Treatment Plan: [] Disposition: Pending Impression: 1. Methamphetamine abuse This note was generated with [employer] dictation software. It may contain incorrect words, spelling, and punctuation that were not noted in review of the chart prior to signing ED Disposition - Plan for ED Patient: Referrals: Radha Cagle PA [Primary Care Provider] -
[2018-12-27] MEDS: DiphenhydrAMINE 50 MG/ML Syringe 25 MG IM (17:14)
[2018-12-27] MEDS: Ziprasidone IM 20 MG/ML VIAL IM (17:15)
[2018-12-27 17:41] LABS: Absolute Lymphocyte Count 2.27 X10^3/ul (0.83-4.51); Absolute Neutrophil Count 5.9 X10^3/uL (2.0-7.7); Basophil# 0.03 X10^3/uL; Basophil% 0.3 % (0-1); Eosinophil# 0.09 X10^3/uL; Hematocrit 41.2 % (37-47); Hemoglobin 14.5 g/dl (12.0-15.0); Lymphocyte # 2.27 X10^3/ul (4.0); Lymphocyte % 24.9 % (19-41); Mean Corp Hgb Conc 35.2 g/gl (32-36); Mean Corpuscular Hgb 26.7 pg (27.0-32.0); Mean Corpuscular Volume 75.9 fL (81-99); Monocyte# 0.83 X10^3/uL; Monocyte% 9.1 % (0-10); Neutrophil # 5.89 X10^3/uL (2.7-7.7); Neutrophil % 64.5 % (47-70); POSITIVE COUNT NO; POSITIVE DIFFERENTIAL NO; POSITIVE MORPHOLOGY NO; Platelet Count 332 K/mm3 (150-450); RBC Distribution Width CV 13.7 % (11.6-14.6); RBC Distribution Width SD 37.3 fl (35.1-43.9); Red Blood Count 5.43 M/mm3 (4.2-5.4); White Blood Count 9.1 K/mm3 (4.4-11.0)
[2018-12-27 17:43] LABS: Anion Gap 13 (5-15); BUN 17 mg/dL (7-18); BUN/Creat Ratio 23.8 RATIO (10-20); Calcium,Total 9.5 mg/dL (8.5-10.1); Chloride 102 mmol/L (98-107); Creatinine, Serum 0.71 mg/dL (0.55-1.02); EST Glomerular Filtration Rate 109 mL/min (>60); Est Glom Filt Rate - Afr Amer 131 mL/min (>60); Estimated Creatinine Clearance 111.84 ml/min; Glucose 303 mg/dL (74-106); Potassium 3.5 mmol/L (3.5-5.1); Sodium Level 132 mmol/L (136-145)
[2018-12-27 17:56] LABS: Internal QC Validated? YES +Cl - CLEAR BKGD; Pregnancy, Serum, hCG Quali. NEGATIVE Negative
[2018-12-27] MEDS: 0.9% Normal Saline 1,000 ML 999 ML IV ×2 (18:03→18:39)
[2018-12-27] MEDS: LORazepam 2 MG/ML Syringe IV (18:39)
[2018-12-28 01:00] VITALS: BP 100/68; PULSE 120; RESP 16; O2SAT 98
[2018-12-28 03:00] VITALS: RESP 17
[2018-12-28 03:26] LABS: Amphetamine Urine VISTA POSITIVE (<1000 ng/mL); Barbiturate Urine VISTA NEGATIVE (< 200 ng/mL); Benzodiazepine Urine VISTA NEGATIVE (< 200 ng/mL); Cocaine Urine VISTA NEGATIVE (< 300 ng/mL); Ecstacy Urine VISTA POSITIVE (< 500 ng/mL); Methadone Urine VISTA NEGATIVE (< 300 ng/mL); PCP Urine VISTA NEGATIVE (< 25 ng/mL); THC Urine VISTA POSITIVE (< 50 ng/mL); Vista UDS pH Range 6
--- NOTE | 2018-12-28 03:34 | ED.DEP ---
ED Disposition - Plan for ED Patient: Instructions: ED Drug Abuse General Referrals: Radha Cagle PA [Primary Care Provider] -
[2018-12-28 03:36] VITALS: BP 110/75; PULSE 93; RESP 17; O2SAT 97
== END 2018-12-28 03:49 | disposition home or self-care (01) ==
LOC: ED 17:06
PROVIDERS: Emergency Provider Emergency Medicine; Family Provider Physician Assistant; PCP Physician Assistant
DX: F15.10 Other stimulant abuse, uncomplicated (principal); Z72.0 Tobacco use
CPT/HCPCS: 80048; 80307; 80320; 84703; 85025; 93005; 96361; 96372; 96374; 99285; J7030; G0480; J3486

== ENCOUNTER 2020-03-17 18:11 | Emergency (ER) | payer BC, MEDICAID, SELFPAY ==
[2018-12-27 16:11] VITALS: BMI 32.6
[2020-03-17 18:12] VITALS: BP 125/75; PULSE 93; RESP 18; TEMP 36.6; O2SAT 99; BMI 36.9
--- NOTE | 2020-03-17 21:10 | ED.VISSUMM ---
- ER Visit Summary Date of Service: 03/17/20 Chief Complaint: Syphilis History of Present Illness: The patient is a 24 F presenting due to testing positive for syphilis. Patient is 19 weeks and tested positive for syphilis on her FLOOR INSTALLER labs for her . She states she had syphilis that was treated approximately a year ago. At that time she was not was treated with doxycycline. She has an allergy to penicillin which is a rash. She was sent into the ED for possible admission for desensitization to penicillin. Physical Examination: Vitals are stable. Patient is afebrile. Alert no acute distress. HEENT exam is unremarkable. Neck is supple. Lungs are clear and equal bilaterally. Heart is regular rate and rhythm. Abdomen is soft nontender nondistended. Extremities are unremarkable. Skin is warm and dry. No focal neurologic deficit. Remainder of exam is unremarkable. Emergency Department Course and Treatment: Discussed with the hospitalist who does not feel comfortable with this admission. Discussed with infectious disease Dr. Case, he recommends either referral to an stationary engineer apprentice for desensitization or IM Rocephin 2 g for 10 days. Patient will be set up with the infusion center to receive these IM injections. She is agreeable with this plan. Discussed with gear milling machine set up operator on-call for Dr. Montez. Patient was given the first dose of Rocephin IM and will follow up with the infusion center. Advised return to ED for worsening complaints. Disposition: Discharge home Impression: Syphilis, This note was generated with [employer] dictation software. It may contain incorrect words, spelling, and punctuation that were not noted in review of the chart prior to signing ED Disposition - Plan for ED Patient: Instructions: Syphilis Referrals: Lynnette Renteria MD [STAFF PHYSICIAN] -
[2020-03-17] MEDS: Ceftriaxone 1 GM Vial 2 GM IM (22:05)
--- NOTE | 2020-03-17 22:30 | ED.DEP ---
ED Disposition - Plan for ED Patient: Instructions: Syphilis Referrals: Lynnette Renteria MD [STAFF PHYSICIAN] -
[2020-03-17 22:39] VITALS: RESP 18
== END 2020-03-17 22:39 | disposition home or self-care (01) ==
LOC: ED 20:04
PROVIDERS: Emergency Provider Emergency Medicine; PCP Physician Assistant
DX: O98.112 Syphilis complicating pregnancy, second trimester (principal); O24.312 Unspecified pre-existing diabetes mellitus in pregnancy, second trimester; E11.8 Type 2 diabetes mellitus with unspecified complications; O99.334 Smoking (tobacco) complicating childbirth; F17.200 Nicotine dependence, unspecified, uncomplicated; Z3A.19 19 weeks gestation of pregnancy; Z79.4 Long term (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
CPT/HCPCS: 96372; 99282

== ENCOUNTER → 2020-03-18 | Outpatient (CLI) | payer BC, MEDICAID, SELFPAY ==
[2020-03-17 18:12] VITALS: BMI 36.9
[2020-03-18 15:21] VITALS: BP 101/61; PULSE 96; RESP 16; TEMP 35.8; O2SAT 98; BMI 36.9
[2020-03-18] MEDS: Ceftriaxone 1 GM Vial 2 GM IM (15:32)
== END | disposition home or self-care (01) ==
PROVIDERS: PCP Physician Assistant; Referring Provider Emergency Medicine; Visit Provider Emergency Medicine
DX: A53.9 Syphilis, unspecified (principal)
CPT/HCPCS: 96372

== ENCOUNTER 2020-03-19 12:46 | Outpatient (CLI) | payer BC, MEDICAID, SELFPAY ==
[2020-03-18 15:21] VITALS: BMI 36.9
[2020-03-19] MEDS: Ceftriaxone 1 GM Vial 2 GM IM (13:01)
[2020-03-19 13:03] VITALS: BP 109/70; PULSE 84; RESP 18; TEMP 36.6; O2SAT 99
== END 2020-03-19 13:02 | disposition home or self-care (01) ==
LOC: MEDOUTP 12:47 → MS3 12:48
PROVIDERS: PCP Physician Assistant; Visit Provider Emergency Medicine
DX: A53.9 Syphilis, unspecified (principal)
CPT/HCPCS: 96372

== ENCOUNTER → 2020-03-20 12:40 | Outpatient (CLI) | payer BC, MEDICAID, SELFPAY ==
[2020-03-18 15:21] VITALS: BMI 36.9
[2020-03-20] MEDS: Ceftriaxone 1 GM Vial 2 GM IM (12:59)
== END | disposition home or self-care (01) ==
LOC: MEDOUTP 12:50 → MS3 12:51
PROVIDERS: PCP Physician Assistant; Visit Provider Emergency Medicine
DX: A53.9 Syphilis, unspecified (principal)
CPT/HCPCS: 96372

== ENCOUNTER → 2020-03-21 | Outpatient (CLI) | payer BC, MEDICAID, SELFPAY ==
[2020-03-18 15:21] VITALS: BMI 36.9
[2020-03-21 15:32] VITALS: BP 106/59; PULSE 80; RESP 16; TEMP 36.6; O2SAT 99; BMI 36.6
[2020-03-21] MEDS: Ceftriaxone 1 GM Vial IM ×2 (15:34)
== END | disposition home or self-care (01) ==
LOC: MEDOUTP 14:54
PROVIDERS: PCP Physician Assistant; Referring Provider Emergency Medicine; Visit Provider Emergency Medicine
DX: A53.9 Syphilis, unspecified (principal)
CPT/HCPCS: 96372

== ENCOUNTER → 2020-03-22 | Outpatient (CLI) | payer BC, MEDICAID, SELFPAY ==
[2020-03-18 15:21] VITALS: BMI 36.9
[2020-03-21 15:32] VITALS: BMI 36.6
[2020-03-22 15:16] VITALS: BP 103/64; PULSE 74; RESP 14; TEMP 36.4; O2SAT 100; BMI 36.6
[2020-03-22] MEDS: cefTRIAXone 2 GM Vial 1 GM IV ×2 (15:22)
== END | disposition home or self-care (01) ==
LOC: MEDOUTP 15:04
PROVIDERS: PCP Physician Assistant; Referring Provider Emergency Medicine; Visit Provider Emergency Medicine
DX: A53.9 Syphilis, unspecified (principal)
CPT/HCPCS: 96372; J0696

== ENCOUNTER → 2020-03-23 13:56 | Outpatient (CLI) | payer BC, MEDICAID, SELFPAY ==
[2020-03-18 15:21] VITALS: BMI 36.9
[2020-03-22 15:16] VITALS: BMI 36.6
[2020-03-23] MEDS: cefTRIAXone 2 GM Vial 1 GM IM ×2 (15:00)
[2020-03-23 15:07] VITALS: BP 109/64; PULSE 82; RESP 16; TEMP 36.5; O2SAT 98; BMI 36.6
== END ==
PROVIDERS: PCP Physician Assistant; Referring Provider Emergency Medicine; Visit Provider Emergency Medicine
DX: A53.9 Syphilis, unspecified (principal)
CPT/HCPCS: 96372; J0696

== ENCOUNTER → 2020-03-24 15:21 | Outpatient (CLI) | payer BC, MEDICAID, SELFPAY ==
[2020-03-18 15:21] VITALS: BMI 36.9
[2020-03-23 15:07] VITALS: BMI 36.6
[2020-03-24 15:29] VITALS: BP 99/56; PULSE 82; RESP 16; TEMP 37.2; O2SAT 100; BMI 36.6
[2020-03-24] MEDS: cefTRIAXone 2 GM Vial 1 GM IM ×2 (15:40)
== END ==
PROVIDERS: PCP Physician Assistant; Referring Provider Emergency Medicine; Visit Provider Emergency Medicine
DX: A53.9 Syphilis, unspecified (principal)
CPT/HCPCS: 96372; J0696

== ENCOUNTER → 2020-03-25 14:50 | Outpatient (CLI) | payer BC, MEDICAID, SELFPAY ==
[2020-03-18 15:21] VITALS: BMI 36.9
[2020-03-24 15:29] VITALS: BMI 36.6
[2020-03-25] MEDS: cefTRIAXone 2 GM Vial 1 GM IM ×2 (15:01)
[2020-03-25 15:10] VITALS: BP 125/71; PULSE 80; RESP 16; TEMP 36.3; O2SAT 99; BMI 36.6
== END ==
PROVIDERS: PCP Physician Assistant; Referring Provider Emergency Medicine; Visit Provider Emergency Medicine
DX: A53.9 Syphilis, unspecified (principal)
CPT/HCPCS: 96372; J0696

== ENCOUNTER 2020-06-08 16:00 | Outpatient (RCR) | payer BC, MEDICAID, SELFPAY ==
[2020-03-25 15:10] VITALS: BMI 36.6
== END 2020-06-18 23:59 ==
LOC: DC 16:00
PROVIDERS: PCP Physician Assistant; Visit Provider Obstetrics & Gynecology
DX: Z71.3 Dietary counseling and surveillance (principal); O24.111 Pre-existing type 2 diabetes mellitus, in pregnancy, first trimester; O26.03 Excessive weight gain in pregnancy, third trimester; Z3A.00 Weeks of gestation of pregnancy not specified
CPT/HCPCS: 97802; G0108

== ENCOUNTER 2020-06-28 14:30 | Outpatient (RCR) | payer BC, MEDICAID, SELFPAY ==
[2020-03-25 15:10] VITALS: BMI 36.6
== END 2020-06-28 23:59 | disposition home or self-care (01) ==
LOC: DC 14:30
PROVIDERS: PCP Physician Assistant; Visit Provider Obstetrics & Gynecology
DX: Z71.3 Dietary counseling and surveillance (principal); O24.111 Pre-existing type 2 diabetes mellitus, in pregnancy, first trimester; O26.03 Excessive weight gain in pregnancy, third trimester; Z3A.00 Weeks of gestation of pregnancy not specified

== ENCOUNTER → 2020-07-15 11:47 | Outpatient (CLI) | payer BC, MEDICAID, SELFPAY ==
[2020-03-25 15:10] VITALS: BMI 36.6
== END ==
PROVIDERS: PCP Physician Assistant; Visit Provider Obstetrics & Gynecology
DX: Z03.818 Encounter for observation for suspected exposure to other biological agents ruled out (principal)
CPT/HCPCS: 87635; C9803; U0003

== ENCOUNTER → 2020-07-28 10:28 | Outpatient (CLI) | payer MEDICAID, SELFPAY ==
[2020-03-25 15:10] VITALS: BMI 36.6
== END ==
PROVIDERS: PCP Physician Assistant; Referring Provider Obstetrics & Gynecology; Visit Provider Obstetrics & Gynecology
DX: Z03.818 Encounter for observation for suspected exposure to other biological agents ruled out (principal)
CPT/HCPCS: 87635; C9803; U0003

== ENCOUNTER 2020-08-03 19:00 | Inpatient (IN) | payer MEDICAID, SELFPAY ==
[2020-03-25 15:10] VITALS: BMI 36.6
[2020-08-03] VITALS (8 sets, daily range): BP systolic 115–146; BP diastolic 65–76; PULSE 85–102; TEMP 36.3–37; O2SAT 95–98; BMI 43.0
--- NOTE | 2020-08-03 19:10 | HP.PCM_ITS ---
- Problem List (1) 39 weeks gestation of Status: Acute (2) Rh negative state in antepartum period Status: Acute (3) Insulin controlled gestational diabetes mellitus (GDM) during Status: Acute (4) History of syphilis Status: Acute (5) History of drug use Status: Acute (6) Tobacco abuse Status: Acute (7) History of bipolar disorder Status: Acute History Date of Admission: 05/22/18 Final GABRIELE: 08/10/20 Gestational age: 39 Weeks and 0 Days History of this : This is a 24 year-old, G 3, P 0020, at 39 weeks gestational age who presents for scheduled IOL. Patient presented late for her care. She presented at 17 weeks gestational age for her new OB visit. She was treated for syphilis in the . History of drug use - her urine tox screen in the was positive for marijuana. She had uncontrolled type 2 diabetes at the beginning of the . Allergies amoxicillin [Amoxicillin] Allergy (Verified 03/22/20 15:19) Rash amoxicillin trihydrate [From Augmentin] Allergy (Verified 03/22/20 15:19) Rash Penicillins Allergy (Verified 03/22/20 15:19) Rash potassium clavulanate [From Augmentin] Allergy (Verified 03/22/20 15:19) Rash prednisone Adverse Reaction (Verified 03/22/20 15:19) Nausea/Vom/Diarrhea Home Medications: Home Medications Acetaminophen [Tylenol Extra Strength] 1,000 mg PO DAILY PRN PRN 03/17/20 Insulin Lispro [Humalog Kwikpen] 3 unit SQ TIDCM 03/17/20 Insulin NPH Human Isophane [Novolin N] 6 unit SQ DAILY 03/17/20 Insulin NPH Human Isophane [Novolin N] 8 unit SQ DAILY 03/17/20 Smoking Status: Current every day smoker Substance Use Type: Marijuana - prior to , Methamphetamine - prior to Number of Fetus(es): 1 History Past Pregnancies: Past Pregnancies Delivery Date Name GA/ Weeks Outcome Route Wt Sex Labor Length Anesthesia Delivery Location Provider FOB Labs: See [facility] record Expected Delivery Method: Spontaneous Vaginal Physical Exam General: Alert, Cooperative HEENT: Atraumatic Abdomen: Gravid Extremities:: No edema Neurological: Neuro grossly intact MS ACCESS DATABASE DEVELOPER: Normal external genitalia Estimated gestational size: Appropriate for gestational size Presentation: Cephalic Cervix Dilation (cm): 1 Assessment/Plan All Active Problems 39 weeks gestation of (Acute) Rh negative state in antepartum period (Acute) Insulin controlled gestational diabetes mellitus (GDM) during (Acute) History of syphilis (Acute) History of drug use (Acute) Tobacco abuse (Acute) History of bipolar disorder (Acute) Diabetes (Acute) Missed (Acute) This is a 24 year-old, G 3, P 0020, at 39 weeks gestational age for a scheduled IOL for type 2 diabetes. - H/o drug use: UDS on admission. Will need to see SW - H/o bipolar disorder: To cont with counseling - Rh negative - GBS negative - Type 2 DM: Growth US at 38 wks with EFW 7lb 15oz. On NPH 18 units in AM and 45 units in PM. Lispro 20 units breakfast, 20 units lunch, 22 units dinner. Cont nighttime NPH for tonight. Diabetic protocol intrapartum and insulin gtt prn. Will cont insulin at half - Covid negative - Routine intrapartum care - Epidural prn - EFW expected to be < 4500 g and pelvis adequate. Anticipate vaginal delivery
[2020-08-03] MEDS: Lactated Ringers 1,000 ML 50 ML IV (20:05)
[2020-08-03 20:19] LABS: Absolute Lymphocyte Count 1.87 X10^3/uL (0.83-4.51); Absolute Neutrophil Count 5.6 X10^3/uL (2.0-7.7); Basophil# 0.01 X10^3/uL; Basophil% 0.1 % (0-1); Hematocrit 30.5 % (37-47); Hemoglobin 10.5 g/dL (12.0-15.0); Lymphocyte # 1.87 X10^3/ul (4.0); Lymphocyte % 23.1 % (19-41); Mean Corp Hgb Conc 34.4 g/dL (32-36); Mean Corpuscular Hgb 30.3 pg (27.0-32.0); Mean Corpuscular Volume 87.9 fL (81-99); Mean Platelet Vol. 10.5 fl (6.2-12.0); Monocyte# 0.55 X10^3/uL; Monocyte% 6.8 % (0-10); NRBC Flagged by Analyzer 0 % (0-5); Neutrophil # 5.64 X10^3/uL (2.7-7.7); Neutrophil % 69.6 % (47-70); Platelet Count 224 K/mm3 (150-450); RBC Distribution Width CV 13.3 % (11.6-14.6); RBC Distribution Width SD 42.1 fl (35.1-43.9); Red Blood Count 3.47 M/mm3 (4.2-5.4); White Blood Count 8.1 K/mm3 (4.4-11.0)
[2020-08-03 20:21] LABS: Bedside Glucose 67 mg/dL (70-110)
[2020-08-03] MEDS: 0.9% Normal Saline Single 100 ML IV.SOLN. INTRA-UTER (20:21)
[2020-08-03] MEDS: Oxytocin 30 units/NS 500 ml 30 UNITS/500 ML IV.SOLN IV (20:40)
[2020-08-03 21:01] LABS: Bedside Glucose 51 mg/dL (70-110)
[2020-08-03 22:01] LABS: Bedside Glucose 62 mg/dL (70-110)
[2020-08-03] MEDS: Acetaminophen 500 MG Tablet PO (22:13)
[2020-08-03 22:15] LABS: Bedside Glucose 70 mg/dL (70-110)
[2020-08-04] VITALS (57 sets, daily range): BP systolic 99–148; BP diastolic 52–90; PULSE 77–111; TEMP 36.1–37.5; O2SAT 95–100
[2020-08-04] MEDS: fentaNYL 100 MCG/2 ML Ampul IV ×2 (00:03→02:13)
[2020-08-04 00:24] LABS: Amphetamine Urine VISTA NEGATIVE (<1000 ng/mL); Barbiturate Urine VISTA NEGATIVE (< 200 ng/mL); Benzodiazepine Urine VISTA NEGATIVE (< 200 ng/mL); Cocaine Urine VISTA NEGATIVE (< 300 ng/mL); Ecstacy Urine VISTA NEGATIVE (< 500 ng/mL); Methadone Urine VISTA NEGATIVE (< 300 ng/mL); PCP Urine VISTA NEGATIVE (< 25 ng/mL); THC Urine VISTA POSITIVE (< 50 ng/mL); Vista UDS pH Range 7
[2020-08-04 01:00] LABS: Bedside Glucose 66 mg/dL (70-110)
[2020-08-04] MEDS: Lactated Ringers 500 ML 999 ML IV ×2 (01:52→03:44)
[2020-08-04] MEDS: Mag Hydrox/Al Hydrox/Simeth 30 ML UDC PO (04:31)
[2020-08-04] MEDS: fentaNYL-bupivacaine (epidural) 100 ML BAG EPIDURAL ×4 (05:05→19:08)
[2020-08-04 05:11] LABS: Bedside Glucose 75 mg/dL (70-110)
[2020-08-04] MEDS: Lactated Ringers 1,000 ML 200 ML IV ×3 (08:24→19:07)
[2020-08-04 09:11] LABS: Bedside Glucose 89 mg/dL (70-110)
[2020-08-04 13:21] LABS: Bedside Glucose 68 mg/dL (70-110)
[2020-08-04 13:36] LABS: Bedside Glucose 72 mg/dL (70-110)
[2020-08-04 17:10] LABS: Bedside Glucose 83 mg/dL (70-110)
[2020-08-04] MEDS: 0.9% Saline Lock 10 ML Syringe IV (21:14)
[2020-08-04] MEDS: Ondansetron 4 MG/2 ML Vial IV (21:14)
[2020-08-04 21:20] LABS: Bedside Glucose 90 mg/dL (70-110)
[2020-08-05] VITALS (29 sets, daily range): BP systolic 102–136; BP diastolic 53–92; PULSE 73–98; RESP 16–18; TEMP 36.3–36.9; O2SAT 95–100
[2020-08-05] MEDS: Lactated Ringers 1,000 ML 200 ML IV ×2 (00:15→04:50)
[2020-08-05] MEDS: fentaNYL-bupivacaine (epidural) 100 ML BAG EPIDURAL ×2 (00:16→04:46)
[2020-08-05 01:15] LABS: Bedside Glucose 79 mg/dL (70-110)
[2020-08-05] MEDS: Sodium Citrate/Citric Acid 30 ML UDC PO (05:25)
[2020-08-05 05:26] LABS: Bedside Glucose 79 mg/dL (70-110)
[2020-08-05] MEDS: Cefazolin 2 GM in 0.9% Normal Saline 100 ML IV (05:32)
--- NOTE | 2020-08-05 06:54 | OP.PCM_ITS ---
Report of Operation Date of Procedure: 08/05/20 Pre-Operative Diagnosis: failed induction Post-Operative Diagnosis: same Delivery Classification: LEMUEL Final GABRIELE: 08/10/20 Final GABRIELE Source: US <20 weeks Gestational age: 39 Weeks and 2 Days regional hr manager: Kalpana Cardona Type of Anesthesia:: Spinal Special Medications: duramorph Implants Used: none Date of Procedure: 08/05/20 Pre-Operative Diagnosis: 39 week , Class A2 gestational diabetes, failed induction Post-Operative Diagnosis: same Indications for : Failed Induction Description of Procedure: The patient was taken to the operating room. She was prepped and draped in the dorsal supine position with a leftward tilt. A Pfannenstiel skin incision was made approximately 2 cm above the symphysis pubis and carried through to underlying layer fascia with the scalpel. The fascia was incised incised in the midline and extended laterally with the Valencia scissors. The fascia was dissected off the rectus muscles with blunt and sharp dissection. The rectus muscles were in the midline and the peritoneum was entered bluntly. The peritoneal incision was stretched and the bladder blade was placed. The Juno O retractor was placed, care was taken to ensure no bowel or other tissue was trapped beneath it. The uterine incision was made in a low transverse fashion with the scalpel and extended superiorly and inferiorly with blunt dissection. The amniotic membranes were ruptured bluntly and clear amniotic fluid returned. The 's head was brought to the incision in the flexed position and delivered without difficulty. The remainder of the infant was delivered with gentle traction and fundal pressure in the standard fashion. The mouth and nares were bulb suctioned. The cord was clamped and cut as the infant was stimulated. Cord clamping was delayed. The infant was handed off to the waiting nursing staff. The placenta was delivered with fundal massage and gentle traction in the standard fashion. The uterus was left in the peritoneal cavity. The uterine incision was closed with #1 Vicryl in a running locked fashion. A second layer of the same suture was used in an imbricating fashion. Several [id number] 0 Vicryl sutures were needed to obtain hemostasis. The incision was examined and was found to be hemostatic. Some Ashvin was placed over the bleeding peritoneal edges. The Juno O retractor was then removed. The rectus muscles were examined and any bleeding was Bovie cauterized. The parietal peritoneum and rectus muscles were closed en bloc with an 0 Vicryl running suture. The surgical teams outer gloves were then changed. The rectus fascia was examined and any bleeding was Bovie cauterized and the rectus fascia was closed with 0 PDS suture in a running standard fashion. The subcutaneous tissue was examining and any bleeding was Bovie cauterized. The subcutaneous tissue was reapproximated with 3-0 Vicryl suture. Ashvin was placed over every layer due to oozing from the rectus muscles and subcutaneous tissue. The skin was closed in a subcuticular fashion by the RESEARCH TEST ENGINE EVALUATOR with me present in the labor and delivery suite. I performed the remainder of the procedure with assistance. All sponge, lap, and needle counts were correct. The patient was taken to her room for recovery in a stable condition. Start time:608 Stop Time:650 Delivery time: 615 Amniotic Membrane Rupture Type: Artificial Amniotic Fluid Description: Clear Placenta Disposition: [facility] Specimen(s) sent to pathology: none Drain: Kelly to straight drain Fluids Replaced: 1000 Cord Entanglement: Around neck x 1, loose Nuchal Cord Compression: Without compression Cord Vessel Description: 3 Vessels Esitmated Blood Loss (ml): 900 Infant Gender: Female Complications: None - Admit VTE Documentation VTE Present on Admission: No VTE Mechan Device Prophylaxis: SCD's VTE Pharm Prophylaxis ordered?: Yes
[2020-08-05] MEDS: Oxytocin 30 units/NS 500 ml 30 UNITS/500 ML IV.SOLN 167 UNITS IV (07:10)
--- NOTE | 2020-08-05 07:55 | NURSING ---
per anesthesia, 1000 cc LR replaced during surgery.
--- NOTE | 2020-08-05 08:08 | NURSING ---
the second gigi use by date is 09/15/2024
[2020-08-05 09:26] LABS: Bedside Glucose 104 mg/dL (70-110)
[2020-08-05] MEDS: Lactated Ringers 1,000 ML 100 ML IV (10:04)
[2020-08-05] MEDS: Acetaminophen 500 MG Tablet 1000 MG PO ×3 (11:59→23:49)
[2020-08-05] MEDS: Senna/Docusate Sodium 1 Tablet PO (12:00)
[2020-08-05] MEDS: Ketorolac 30 MG/ML Syringe IV ×3 (12:00→23:48)
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
[2020-08-05] MEDS: 0.9% Saline Lock 10 ML Syringe IV ×2 (17:39→23:49)
--- NOTE | 2020-08-05 19:01 | CASEMGMT ---
Social Work Labor and Delivery Unit Reason for intervention: Follow-up with the mother of baby (MOB) and the father of baby (FOB); referral to [facility]. Summary: Met with the MOB and FOB again in the room. Provided additional resource information including application process for [facility], and additional information on early [facility]. Release of information to the counseling center signed. Referral form for early [facility] also signed. Reviewed plan to call children services today and likelihood of children services just calling him to set up an appointment for next week, but that if this was different this scientific writer would let the parents know. Obtain mental health follow-up for the MOB at the counseling center. Follow-up with counselor will be on 08/16/2020 at 1 PM with Michelle. MOB will see Leonarda Bravo in psychiatric services for medication management on 09/01/2020 at 9 AM. Called [facility] and spoke with Ángel Shin. Referral for substance exposed infant, reporting maternal and drug screens. Brief maternal and histories provided. Noted maternal history of mental health as well as the FOB's history of substance use. Reported strengths and that the family is willing to use supportive services in the community, and the MOB is getting maintaining with additional mental health services. Updated plan for discharge likely to occur this weekend. Assessment: MOB and FOB continue to be cooperative with this scientific writer, nondefensive in conversation, and accepting of referrals being made. [facility] is now aware and will be following up with his family in the community. Plan: MOB and FOB have been giving community resource information for home-going. MOB has mental health services in place. [facility] will be following up with his family after home-going. No other services requested or indicated at this time. If staff have additional concerns which arise during this hospitalization social work can be notified to assist. -BRISEIDA Hester, MALU *Information documented in this note generated via [employer] system*
--- NOTE | 2020-08-05 23:30 | NURSING ---
RN in room for hourly rounding and to give 0000 medications. Patient was restless and crying stating pain is 10/10. Gave scheduled meds but patient requesting stronger medication. Duramorph order is 24 hours so this RN could not give additional pain medication. States she feels sharp and aching pain near incision and pressure in lower abdomen. RN assessed patient's fundus, incision site and bleeding and all were within normal limits. Patient denied gas pain/right should pain at that time. This RN called Dr. Ni and Ike CNM. Dr. Ni ordered additional pain medications. Given to patient per order. After giving, patient said she felt some slight pain in upper right shoulder so this RN also gave Mylicon per order. Will continue to monitor patient.
[2020-08-06] VITALS (8 sets, daily range): BP systolic 126–141; BP diastolic 65–83; PULSE 76–92; RESP 16–18; TEMP 36.3–36.6; O2SAT 95–98
--- NOTE | 2020-08-06 00:07 | NURSING ---
Called Ike CNM to inform of anesthesia order of 0.5mg Dilaudid IV x1 due to pain scale 10/10 and still on 24 hour Duramorph. Ike verbally agreed with plan of care.
[2020-08-06] MEDS: 0.9% Saline Lock 10 ML Syringe IV ×2 (00:16→06:00)
[2020-08-06] MEDS: HYDROmorphone 0.5 MG/0.5 ML SYRINGE IV (00:17)
--- NOTE | 2020-08-06 02:40 | NURSING ---
This RN assuming care of patient and infant at this time. report received from Janet HUSTON
[2020-08-06] MEDS: Acetaminophen 500 MG Tablet 1000 MG PO ×3 (05:59→18:20)
[2020-08-06] MEDS: Ketorolac 30 MG/ML Syringe IV (05:59)
[2020-08-06 06:11] LABS: Bedside Glucose 106 mg/dL (70-110)
[2020-08-06 06:17] LABS: Hemoglobin 9.1 g/dL (12.0-15.0); Mean Corp Hgb Conc 32.5 g/dL (32-36); Mean Corpuscular Hgb 28.8 pg (27.0-32.0); Mean Corpuscular Volume 88.6 fL (81-99); Mean Platelet Vol. 9.7 fl (6.2-12.0); Platelet Count 213 K/mm3 (150-450); RBC Distribution Width CV 13.5 % (11.6-14.6); RBC Distribution Width SD 43.8 fl (35.1-43.9); Red Blood Count 3.16 M/mm3 (4.2-5.4); White Blood Count 7.9 K/mm3 (4.4-11.0)
[2020-08-06] MEDS: oxyCODONE 5 MG Tablet PO ×6 (07:01→22:10)
[2020-08-06] MEDS: Senna/Docusate Sodium 1 Tablet PO (08:02)
--- NOTE | 2020-08-06 09:30 | PCM.PN.OB ---
Patient Problems: Active and Suspected Problems 39 weeks gestation of (Acute) Rh negative state in antepartum period (Acute) Insulin controlled gestational diabetes mellitus (GDM) during (Acute) History of syphilis (Acute) History of drug use (Acute) Tobacco abuse (Acute) History of bipolar disorder (Acute) Subjective: Patient seen at bedside. Feeling sore. Denies any SOB, chest pain, or dizziness. Minimal ambulation. Voiding without difficulty. Lochia decreased. with support from . Objective: Dressing is dry and intact Blood glucose levels between 79-106 HGB 9.1 - Physical Exam Vitals/I&O's: Vital Signs Temp Pulse Resp BP Pulse Ox 97.9 F 76 16 136/74 H 98 08/06/20 07:57 08/06/20 07:57 08/06/20 07:57 08/06/20 07:57 08/06/20 07:57 Oxygen Delivery Method Room Air Weight: 258 lb 9.636 oz Body Mass Index (BMI) 43.0 Finger Stick Blood Glucose 306 Intake and Output for Last 24 Hours 08/04/20 08/05/20 08/06/20 23:59 23:59 23:59 Intake Total 5627.07 / 5627.07 3991.85 / 3991.85 Output Total 600 / 600 1800 / 1800 Balance 5027.07 / 5027.07 2191.85 / 2191.85 General: Alert HEENT: Atraumatic Lungs: Normal air movement Cardiovascular: Regular rate Abdomen: Soft, Hypoactive Bowel Sounds, Obese Skin: No rashes Musculoskeletal: No Tenderness to Palpation of Joints or Extremities Neurological: Cranial nerves II-XII grossly intact Psych/Mental Status: Appropriate Laboratory Results 08/05/20 09:35: Screen NEGATIVE, Baby's Blood Type A POSITIVE, Baby's ARELI NEGATIVE 08/06/20 06:05: WBC 7.9, RBC 3.16 L, Hgb 9.1 L, Hct 28.0 L, MCV 88.6, MCH 28.8, MCHC 32.5 D, RDW Std Deviation 43.8, RDW Coeff of Anabel 13.5, Plt Count 213, MPV 9.7 08/06/20 06:05: POC Glucose 106 Current Medications Acetaminophen (Acetaminophen 500 Mg Tablet) 1,000 mg PO Q6H [facility] Last Admin: 08/06/20 05:59 Dose: 1,000 mg Documented by: Bisacodyl (Bisacodyl 10 Mg Suppository) 10 mg RECTAL UD PRN PRN Reason: If no BM Dextrose (Dextrose 50%-Water 25 Gm/50 Ml Disp.Syrin) 0 gm IV X1 PRN; Protocol PRN Reason: Hypoglycemia Glucagon (Glucagon 1 Mg/Ml Syringe) 1 mg IM .X1 PRN PRN Reason: Hypoglycemia Hydrocortisone (Hydrocortisone 2.5% Crm) 1 applic TOPICAL TID PRN PRN; Protocol PRN Reason: Discomfort Methylergonovine Maleate (Methylergonovine 0.2 Mg/Ml Ampul) 0.2 mg IM X1 PRN PRN Reason: Uterine Atony Naloxone HCl (Naloxone 0.4 Mg/Ml Syringe) 0.02 mg IV Q1M PRN PRN Reason: RR <10 and pt unresponsive Ondansetron HCl (Ondansetron 4 Mg/2 Ml Vial) 4 mg IV Q4H PRN PRN PRN Reason: Nausea Oxycodone HCl (Oxycodone 5 Mg Tablet) 5 - 10 mg PO Q4H PRN PRN PRN Reason: Pain Score 4-10 Last Admin: 08/06/20 07:01 Dose: 5 mg Documented by: Prochlorperazine Edisylate (Prochlorperazine 10 Mg/2 Ml Vial) 10 mg IV Q6H PRN PRN PRN Reason: NAUSEA Senna/Docusate Sodium (Senna/Docusate Sodium 1 Tablet) 0 tablet PO DAILY [facility] Last Admin: 08/06/20 08:02 Dose: 2 tablet Documented by: Simethicone (Simethicone 80 Mg Tablet) 80 mg PO PCHS PRN PRN Reason: Indigestion/stomach pain Last Admin: 08/06/20 06:13 Dose: 80 mg Documented by: Sodium Chloride (0.9% Saline Lock 10 Ml Syringe) 5 - 15 ml IV UD PRN PRN Reason: SALINE FLUSH Last Admin: 08/06/20 06:00 Dose: 10 ml Documented by: Medical Necessity - Tobacco Use Smoking Status: Former smoker Assessment/Plan All Active Problems 39 weeks gestation of (Acute) Rh negative state in antepartum period (Acute) Insulin controlled gestational diabetes mellitus (GDM) during (Acute) History of syphilis (Acute) History of drug use (Acute) Tobacco abuse (Acute) History of bipolar disorder (Acute) Diabetes (Acute) Missed (Acute) POD 1 Primary C/S Routine care Pain control support Social Service consult pending Anticipate discharge home tomorrow
[2020-08-06 14:31] LABS: Bedside Glucose 126 mg/dL (70-110)
[2020-08-06] MEDS: Ibuprofen 600 MG Tablet PO (18:21)
[2020-08-06 22:20] LABS: Bedside Glucose 135 mg/dL (70-110)
[2020-08-07] MEDS: Acetaminophen 500 MG Tablet 1000 MG PO ×3 (00:24→12:22)
[2020-08-07] MEDS: Ibuprofen 600 MG Tablet PO ×3 (00:24→12:22)
[2020-08-07 02:12] VITALS: BP 141/79; PULSE 76; RESP 18; TEMP 36.2
[2020-08-07] MEDS: oxyCODONE 5 MG Tablet PO ×3 (02:20→18:36)
[2020-08-07 08:14] VITALS: BP 143/71; PULSE 91; RESP 16; TEMP 36.2; O2SAT 98
--- NOTE | 2020-08-07 09:41 | PCM.PN.OB ---
Patient Problems: Active and Suspected Problems 39 weeks gestation of (Acute) Rh negative state in antepartum period (Acute) Insulin controlled gestational diabetes mellitus (GDM) during (Acute) History of syphilis (Acute) History of drug use (Acute) Tobacco abuse (Acute) History of bipolar disorder (Acute) Subjective: Patient seen at bedside. Feeling better today. Passing flatus, ambulating and voiding without difficulty. going better. Desires discharge home today. Objective: Dressing dry and intact BG levels have ranged from 106-135- no SS insulin needed - Physical Exam Vitals/I&O's: Vital Signs Temp Pulse Resp BP Pulse Ox 97.1 F L 91 16 143/71 H 98 08/07/20 08:14 08/07/20 08:14 08/07/20 08:14 08/07/20 08:14 08/07/20 08:14 Oxygen Delivery Method Room Air Weight: 258 lb 9.636 oz Body Mass Index (BMI) 43.0 Finger Stick Blood Glucose 306 Intake and Output for Last 24 Hours 08/05/20 08/06/20 08/07/20 23:59 23:59 23:59 Intake Total 3991.85 / 3991.85 Output Total 1800 / 1800 Balance 2191.85 / 2191.85 General: Alert, Oriented x3 Lungs: Normal air movement Cardiovascular: Regular rate Abdomen: Soft, Non Tender, Passing Flatus Skin: No rashes Neurological: Cranial nerves II-XII grossly intact Psych/Mental Status: Normal Affect Laboratory Results 08/06/20 14:00: POC Glucose 126 H 08/06/20 22:11: POC Glucose 135 H Current Medications Acetaminophen (Acetaminophen 500 Mg Tablet) 1,000 mg PO Q6H [facility] Last Admin: 08/07/20 06:26 Dose: 1,000 mg Documented by: Bisacodyl (Bisacodyl 10 Mg Suppository) 10 mg RECTAL UD PRN PRN Reason: If no BM Dextrose (Dextrose 50%-Water 25 Gm/50 Ml Disp.Syrin) 0 gm IV X1 PRN; Protocol PRN Reason: Hypoglycemia Dextrose (Dextrose 50%-Water 25 Gm/50 Ml Disp.Syrin) 0 gm IV X1 PRN; Protocol PRN Reason: Hypoglycemia Glucagon (Glucagon 1 Mg/Ml Syringe) 1 mg IM .X1 PRN PRN Reason: Hypoglycemia Glucagon (Glucagon 1 Mg/Ml Syringe) 1 mg IM .X1 PRN PRN Reason: Hypoglycemia Hydrocortisone (Hydrocortisone 2.5% Crm) 1 applic TOPICAL TID PRN PRN; Protocol PRN Reason: Discomfort Ibuprofen (Ibuprofen 600 Mg Tablet) 600 mg PO Q6 [facility] Last Admin: 08/07/20 06:25 Dose: 600 mg Documented by: Insulin Human Lispro (Insulin Lispro 100 Unit/Ml Insuln.Pen) 0 unit SC ACHS [facility]; Protocol Last Admin: 08/07/20 08:01 Dose: Not Given Documented by: Methylergonovine Maleate (Methylergonovine 0.2 Mg/Ml Ampul) 0.2 mg IM X1 PRN PRN Reason: Uterine Atony Naloxone HCl (Naloxone 0.4 Mg/Ml Syringe) 0.02 mg IV Q1M PRN PRN Reason: RR <10 and pt unresponsive Ondansetron HCl (Ondansetron 4 Mg/2 Ml Vial) 4 mg IV Q4H PRN PRN PRN Reason: Nausea Oxycodone HCl (Oxycodone 5 Mg Tablet) 5 - 10 mg PO Q4H PRN PRN PRN Reason: Pain Score 4-10 Last Admin: 08/07/20 02:20 Dose: 5 mg Documented by: Prochlorperazine Edisylate (Prochlorperazine 10 Mg/2 Ml Vial) 10 mg IV Q6H PRN PRN PRN Reason: NAUSEA Senna/Docusate Sodium (Senna/Docusate Sodium 1 Tablet) 0 tablet PO DAILY [facility] Last Admin: 08/06/20 08:02 Dose: 2 tablet Documented by: Simethicone (Simethicone 80 Mg Tablet) 80 mg PO [facility] PRN PRN Reason: Indigestion/stomach pain Last Admin: 08/06/20 18:23 Dose: 80 mg Documented by: Sodium Chloride (0.9% Saline Lock 10 Ml Syringe) 5 - 15 ml IV UD PRN PRN Reason: SALINE FLUSH Last Admin: 08/06/20 06:00 Dose: 10 ml Documented by: Medical Necessity - Tobacco Use Smoking Status: Former smoker Assessment/Plan All Active Problems 39 weeks gestation of (Acute) Rh negative state in antepartum period (Acute) Insulin controlled gestational diabetes mellitus (GDM) during (Acute) History of syphilis (Acute) History of drug use (Acute) Tobacco abuse (Acute) History of bipolar disorder (Acute) Diabetes (Acute) Missed (Acute) Procedure Criteria COVID Risk Discussion: POD #2 Primary C/S Routine care support SS consult- to see today Discharge home with follow up in office next week for incision check
--- NOTE | 2020-08-07 09:45 | DCINST_ITS ---
Discharge Diet: No Restrictions May resume sexual activity in: 6-8 weeks Weight Bearing Status: Weight bearing as tolerated Call your doctor if your incision/area has: Continuous Slow Oozing, Sudden Increased Bleeding, Increased Pain/ Swelling, Increased Redness, Foul Smelling Discharge Call your doctor if you observe: Fever of 101 or Higher Additional Instructions: If you experience any of the following, contact your healthcare provider. * Bleeding that soaks a pad every hour for 2 hours * Fever 100.4 or higher * Unrelieved incision or abdominal pain * Swelling, redness, discharge or bleeding from your incision or episiotomy site * Your incision begins to separate * Problems urinating (including inability to urinate or burning while urinating). * Visual changes * Severe headache * Flu-like symptoms * Pain or redness in one of both of your breasts * Pain, warmth, tenderness or swelling in your legs, especially the calf area * Frequent nausea and vomiting * Symptoms of depression or anxiety If you experience any of the following, call 911 or go to the nearest Emergency Room. * Chest pain * Problems breathing * Seizure activity * Partial or complete paralysis of a body part, slurred speech, weakness or drooping of the face, or a sudden inability to walk or hold your balance Allergies/Adverse Reactions: Allergies amoxicillin [Amoxicillin] Allergy (Verified 08/03/20 19:47) Rash amoxicillin trihydrate [From Augmentin] Allergy (Verified 08/03/20 19:47) Rash Penicillins Allergy (Verified 08/03/20 19:47) Rash potassium clavulanate [From Augmentin] Allergy (Verified 08/03/20 19:47) Rash prednisone Adverse Reaction (Verified 08/03/20 19:47) Nausea/Vom/Diarrhea Medications to take at Discharge Acetaminophen [Tylenol Extra Strength] 1,000 mg PO DAILY PRN PRN 03/17/20 Insulin NPH Human Isophane [Novolin N] 20 unit SQ BID 03/17/20 Insulin NPH Human Isophane [Novolin N] 22 unit SQ DAILY 03/17/20 Insulin NPH Hum/Reg Insulin Hm 18 units SQ DAILY 08/03/20 Insulin NPH Hum/Reg Insulin Hm [Humulin 70/30 Kwikpen] 45 unit SQ DAILY 08/04/20 Follow-Up: Call to make an appointment with your doctor for an incision check in 1-2 weeks. You will also need a 6 week post- follow up appointment. Test results from this visit will be discussed in further detail at your follow- up appointment, if applicable. Primary Care Physician: Radha Cagle PA [Primary Care Provider] - Proposed Discharge Date: 08/07/20
--- NOTE | 2020-08-07 09:47 | PCM.DC.SUM ---
Discharge Date and Diagnosis - Problem List Patient Problems: Active and Suspected Problems 39 weeks gestation of (Acute) Rh negative state in antepartum period (Acute) Insulin controlled gestational diabetes mellitus (GDM) during (Acute) History of syphilis (Acute) History of drug use (Acute) Tobacco abuse (Acute) History of bipolar disorder (Acute) Date of Admission: 05/22/18 Date of Discharge: 08/07/20 - Primary Discharge Diagnosis Acute Problems: Active Problems 39 weeks gestation of (Acute) Rh negative state in antepartum period (Acute) Insulin controlled gestational diabetes mellitus (GDM) during (Acute) History of syphilis (Acute) History of drug use (Acute) Tobacco abuse (Acute) History of bipolar disorder (Acute) Hospital Course and Treatment Consultations 08/03/20 19:15 Consult: Anesthesia Routine Comment: Reason For Exam: Labor 08/03/20 20:48 Consult: Mental Health/Crisis Routine Reason for consult?: hx of drug use Date Notified:: 08/03/20 Time Notified:: 20:48 Summary of Care Provided: The patient is a 24 year old F with primary section due to failed induction of labor. Hospital course was uneventful. Patient Problems: Active and Suspected Problems 39 weeks gestation of (Acute) Rh negative state in antepartum period (Acute) Insulin controlled gestational diabetes mellitus (GDM) during (Acute) History of syphilis (Acute) History of drug use (Acute) Tobacco abuse (Acute) History of bipolar disorder (Acute) - Physical Exam Vitals/I&O's: Vital Signs Temp Pulse Resp BP Pulse Ox 97.1 F L 91 16 143/71 H 98 08/07/20 08:14 08/07/20 08:14 08/07/20 08:14 08/07/20 08:14 08/07/20 08:14 Oxygen Delivery Method Room Air Weight: 258 lb 9.636 oz Body Mass Index (BMI) 43.0 Finger Stick Blood Glucose 306 Intake and Output for Last 24 Hours 08/05/20 08/06/20 08/07/20 23:59 23:59 23:59 Intake Total 3991.85 / 3991.85 Output Total 1800 / 1800 Balance 2191.85 / 2191.85 Laboratory Results 08/06/20 14:00: POC Glucose 126 H 08/06/20 22:11: POC Glucose 135 H Current Medications Acetaminophen (Acetaminophen 500 Mg Tablet) 1,000 mg PO Q6H [facility] Last Admin: 08/07/20 06:26 Dose: 1,000 mg Documented by: Bisacodyl (Bisacodyl 10 Mg Suppository) 10 mg RECTAL UD PRN PRN Reason: If no BM Dextrose (Dextrose 50%-Water 25 Gm/50 Ml Disp.Syrin) 0 gm IV X1 PRN; Protocol PRN Reason: Hypoglycemia Dextrose (Dextrose 50%-Water 25 Gm/50 Ml Disp.Syrin) 0 gm IV X1 PRN; Protocol PRN Reason: Hypoglycemia Glucagon (Glucagon 1 Mg/Ml Syringe) 1 mg IM .X1 PRN PRN Reason: Hypoglycemia Glucagon (Glucagon 1 Mg/Ml Syringe) 1 mg IM .X1 PRN PRN Reason: Hypoglycemia Hydrocortisone (Hydrocortisone 2.5% Crm) 1 applic TOPICAL TID PRN PRN; Protocol PRN Reason: Discomfort Ibuprofen (Ibuprofen 600 Mg Tablet) 600 mg PO Q6 [facility] Last Admin: 08/07/20 06:25 Dose: 600 mg Documented by: Insulin Human Lispro (Insulin Lispro 100 Unit/Ml Insuln.Pen) 0 unit SC [facility]; Protocol Last Admin: 08/07/20 08:01 Dose: Not Given Documented by: Methylergonovine Maleate (Methylergonovine 0.2 Mg/Ml Ampul) 0.2 mg IM X1 PRN PRN Reason: Uterine Atony Naloxone HCl (Naloxone 0.4 Mg/Ml Syringe) 0.02 mg IV Q1M PRN PRN Reason: RR <10 and pt unresponsive Ondansetron HCl (Ondansetron 4 Mg/2 Ml Vial) 4 mg IV Q4H PRN PRN PRN Reason: Nausea Oxycodone HCl (Oxycodone 5 Mg Tablet) 5 - 10 mg PO Q4H PRN PRN PRN Reason: Pain Score 4-10 Last Admin: 08/07/20 02:20 Dose: 5 mg Documented by: Prochlorperazine Edisylate (Prochlorperazine 10 Mg/2 Ml Vial) 10 mg IV Q6H PRN PRN PRN Reason: NAUSEA Senna/Docusate Sodium (Senna/Docusate Sodium 1 Tablet) 0 tablet PO DAILY [facility] Last Admin: 08/06/20 08:02 Dose: 2 tablet Documented by: Simethicone (Simethicone 80 Mg Tablet) 80 mg PO PCHS PRN PRN Reason: Indigestion/stomach pain Last Admin: 08/06/20 18:23 Dose: 80 mg Documented by: Sodium Chloride (0.9% Saline Lock 10 Ml Syringe) 5 - 15 ml IV UD PRN PRN Reason: SALINE FLUSH Last Admin: 08/06/20 06:00 Dose: 10 ml Documented by: Discharge Diet: No Restrictions May resume sexual activity in: 6-8 weeks Weight Bearing Status: Weight bearing as tolerated Call your doctor if your incision/area has: Continuous Slow Oozing, Sudden Increased Bleeding, Increased Pain/ Swelling, Increased Redness, Foul Smelling Discharge Call your doctor if you observe: Fever of 101 or Higher Home Medications: Medications to take at Discharge Acetaminophen [Tylenol Extra Strength] 1,000 mg PO DAILY PRN PRN 03/17/20 Insulin NPH Human Isophane [Novolin N] 20 unit SQ BID 03/17/20 Insulin NPH Human Isophane [Novolin N] 22 unit SQ DAILY 03/17/20 Insulin NPH Hum/Reg Insulin Hm 18 units SQ DAILY 08/03/20 Insulin NPH Hum/Reg Insulin Hm [Humulin 70/30 Kwikpen] 45 unit SQ DAILY 08/04/20 Primary Care Physician: Radha Cagle, PA [Primary Care Provider] - Medical Necessity - Tobacco Use Smoking Status: Former smoker Meaningful Use Info Meaningful Use Diagnoses (Choose all that apply): None applicable
[2020-08-07] MEDS: Senna/Docusate Sodium 1 Tablet PO (10:54)
[2020-08-07 12:25] LABS: Bedside Glucose 107 mg/dL (70-110)
[2020-08-07 12:36] LABS: Bedside Glucose 112 mg/dL (70-110)
[2020-08-07 14:57] VITALS: BP 143/83; PULSE 78; RESP 16; TEMP 36.3; O2SAT 98
[2020-08-10 11:46] LABS: Bedside Glucose 59 mg/dL (70-110)
[2020-08-10 11:46] LABS: Bedside Glucose 50 mg/dL (70-110)
== END 2020-08-07 18:40 | disposition home or self-care (01) | DRG 540 ==
PROVIDERS: Obstetrics & Gynecology; Admitting Provider Obstetrics & Gynecology; PCP Physician Assistant; Referring Provider Obstetrics & Gynecology; Visit Provider Obstetrics & Gynecology
DX: O24.12 Pre-existing type 2 diabetes mellitus, in childbirth (principal); E11.9 Type 2 diabetes mellitus without complications; O69.81X0 Labor and delivery complicated by cord around neck, without compression, not applicable or unspecified; O61.8 Other failed induction of labor; Z3A.39 39 weeks gestation of pregnancy; Z37.0 Single live birth; Z79.4 Long term (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
CPT/HCPCS: 59025; 59050; 76815; 80307; 82962; 85025; 85027; 85461; 86850; 86900; 86901; 90384; 99218; J7120; A4216; G0378; J2405; J2790

== ENCOUNTER 2023-09-27 04:53 | Inpatient (IN) | payer MEDICAID, SELFPAY ==
--- NOTE | 2023-09-20 12:56 | PCM.HP.BLA ---
History and Physical Date of Admission: 09/27/23 Assessment & Plan Assessment/Plan (1) Previous delivery affecting : (2) 37 weeks gestation of : (3) Insulin controlled gestational diabetes mellitus (GDM) during : PLAN: Plan ? HPI: The patient is a 28 year old female presenting for pre-operative visit. She is scheduled for repeat c/s, for diabetes and mild polyhydramnios on 09/27/23. Procedure discussed along with risks, benefits and complications. Other alternatives discussed for management. Consent form signed? Yes. ? ? PAST MEDICAL HISTORY PAST MEDICAL HISTORY Diagnosis Date ? Allergic rhinitis, cause unspecified ? ? Asthma ? ? Only uses rescue inhaler ~1x a week, typically with anxiety or exercise ? Attention deficit disorder with hyperactivity(314.01) ? ? Atypical squamous cells of undetermined significance (ASCUS) on Papanicolaou smear of cervix 05/09/2018 ? Bipolar disorder (HCC) ? ? breast infection ? ? staph infection ? Depression ? ? Herpes 03/02/2020 ? Methamphetamine abuse (HCC) 12/31/2018 ? NIDDM (non-insulin dependent diabetes mellitus) 10/16/2011 ? Obstructive sleep apnea ? ? Has CPAP ? PMH - PAST MEDICAL HISTORY OF 03/2008 ? Normal Color Vision ? Sepsis (HCC) ? ? retained POC ? 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 05/08/18 Septum noted on dating US. Possible 3rd tri growth US. SW ? Syphilis affecting in second trimester 03/15/2020 ? 03/15/20- T.Pallidum Ab, IgG (FTA-ABS) Reactive Ordered treatment of PCN 2.4 million units IM x 1 now- waiting to see how patient can receive injection while in office. ? Tobacco use during , antepartum 04/24/2018 ? 03/02/2020 Discussed risks. Working on quitting. SW 04/24/2018 Pt smokes 0.5 - 1 pack a day of cigarettes, down from 2 ppd a day. Discussed risks of smoking during . Advised pt to quit. Patient cutting back and ready to quit. -SW ? Type 2 diabetes mellitus (HCC) ? ? ? PAST SURGICAL HISTORY PAST SURGICAL HISTORY Procedure Laterality Date ? SNGL ? 08/05/2020 ? COLONOSCOPY GEN ANES ? 06/06/2021 ? D&C SUCTION ? 05/2018 ? sepsis, MAB at 6 wks ? EGD ? 06/06/2021 ? INSERTION OF IUD ? 10/05/2020 ? fell out ? ? ? CURRENT MEDICATIONS Current Outpatient Medications Medication Sig Dispense Refill ? insulin NPH subcutaneous pen Inject subcutaneously 5 units AM and 24 units HS 15 mL 5 ? budesonide-formoterol (SYMBICORT) 160-4.5 mcg/actuation inhaler Inhale 2 Puffs as instructed two times a day. 1 Each 5 ? aspirin, enteric coated (ASPIRIN, ENTERIC COATED) 81 mg EC tablet Take 1 tablet by mouth once daily. 30 tablet 1 ? nicotine (NICODERM) 21 mg/24 hr Apply 1 Patch as directed every 24 hours. 30 Patch 0 ? Insulin [place], Disposable, (BD ULTRAFINE III MINI PEN) 31 gauge x 3/16 Use two daily with insulin 200 Each 3 ? metFORMIN ER (GLUCOPHAGE XR) 500 mg 24 hr tablet Take 2 tablets by mouth two times a day with meals. 360 tablet 3 ? REXULTI 1 mg tablet ? albuterol HFA (PROVENTIL HFA, VENTOLIN HFA) 90 mcg/actuation inhaler Inhale 2 Puffs as instructed every 4 hours as needed. 1 g 6 ? prental multivitamin 27 mg iron- 800 mcg tablet Take 1 tablet by mouth once daily. ? ? ? pyridoxine, vitamin B6, (VITAMIN B-6) 50 mg tablet Take 1 tablet by mouth once daily. 50 tablet 1 ? ondansetron (ZOFRAN) 4 mg tablet Take 1 tablet by mouth every 8 hours as needed for nausea/vomiting. 30 tablet 0 ? Blood-Glucose Meter Use 4x daily, NIDDM--, E 11.9; please dispense meter and supplies per insurance formulary 1 Each 0 ? Lancets lancets Use as instructed; four lancets per day, NIDDM--, E 11.9 400 Each 3 ? blood sugar diagnostic (BLOOD GLUCOSE TEST) test strip Use as instructed; four strip per day, NIDDM--, E11.9 400 Strip 3 ? albuterol HFA (PROVENTIL HFA, VENTOLIN HFA) 90 mcg/actuation inhaler Inhale 2 Puffs as instructed every 4 hours as needed. 18 g 5 ? albuterol (PROVENTIL) 2.5 mg /3 mL (0.083 %) nebulizer solution Use 3 mL via nebulizer every 4 hours as needed. OVER 5-15 MINUTES. FOR WHEEZING AND SHORTNESS OF BREATH. 60 Vial 5 ? sucralfate (CARAFATE) 1 gram tablet take 1 tablet by mouth three times a day 90 tablet 3 ? No current facility-administered medications for this visit. ? ? ALLERGIES: Amoxil [Amoxicillin], Augmentin [Amoxicillin-Pot Clavulanate], Potassium Clavulanate, and Prednisone ? PERSONAL HISTORY: SOCIAL HISTORY Social History ? Tobacco Use ? Smoking status: Every Day ? ? Packs/day: 1.00 ? ? Years: 10.00 ? ? Additional pack years: 0.00 ? ? Total pack years: 10.00 ? ? Types: Cigarettes ? Smokeless tobacco: Former ? ? Quit date: 01/26/2013 Vaping Use ? Vaping Use: Former ? Substances: Nicotine Substance Use Topics ? Alcohol use: Not Currently ? Drug use: Not Currently ? ? Types: Marijuana ? ? Comment: 2x a week ? FAMILY HISTORY: FAMILY HISTORY FAMILY HISTORY Problem Relation Age of Onset ? Arthritis Mother ? ? other (fibromyalgia) Mother ? ? other (PCOS) Mother ? ? Bipolar disorder Father ? ? ADD/ADHD Brother ? ? Depression Brother ? ? Asthma Brother ? ? Hypertension Maternal Grandmother ? ? Hypertension Maternal Grandfather ? ? Diabetes Maternal Grandfather ? ? Gout Maternal Grandfather ? ? Heart disease Paternal Grandmother ? ? No Known Problems Paternal Grandfather ? ? other (Down syndrome) Half-brother ? ? No Known Problems Daughter ? ? ? REVIEW OF SYMPTOMS: GENERAL: denies fevers or chills ENDOCRINOLOGY: has not been on steroids Cardiology : denies palpitations or chest pain Respiratory: denies SOB or cough Hematology: denies history of prolonged bleeding or easy bruising or VTE Allergy: Denies history of personal or family history of allergy to anesthesia ? PHYSICAL EXAMINATION: ? VITALS: Blood pressure 120/75, weight 236 lb (107 kg), last menstrual period 12/28/2022, unknown if currently . ? GENERAL: The patient is well nourished, well hydrated in no acute distress. , The patient is oriented to time, place, and person. NECK: Supple. No lynphadenopathy, normal thyroid, no thyromegaly. LUNGS: Clear to auscultation bilaterally. no wheezes, rhonchi or rales HEART: Regular rate and rhythm, Normal heart sounds, and No murmurs or gallops ? IMPRESSION: Estimated Date of Delivery: 10/14/23 ? ? PLAN: The risks/benefits/alternatives and personal involved for the planned repeat c/s were reviewed with the patient. Her questions were answered to her satisfaction and she desires to proceed. Consent was signed. I reviewed with her postop instructions and expectations. ? ? I have reviewed and updated past medical and surgical history, medications and allergies
[2023-09-27] VITALS (26 sets, daily range): BP systolic 90–134; BP diastolic 60–81; PULSE 68–99; RESP 14–20; TEMP 35.9–36.6; O2SAT 96–100; BMI 41.4
[2023-09-27] MEDS: Lactated Ringers 1,000 ML 999 ML IV (05:20)
--- OUTSIDE RECORDS SUMMARY | 2023-09-27 05:32 | XMS RPT_ITS | CCD ---
Author Name Unknown Address [address] [place] [address] Organization [facility] Care Team Providers Care Senior Quality Engineer Name Role Phone Unavailable Primary Care Provider Unavailabl horacio D ePaz MD, Julian Cota Primary Care Provider Zandra WOOD, Julian Cota Primary Care Provider Zandra WOOD, Julian Cota Primary Care Provider Zandra WOOD, Julian Cota Primary Care Provider JULIAN DE PAZ Primary Care Unavailab HARVINDER Rae Attending Unavailable CLAUDIA LAND Attending Unavailable JULIAN DE PAZ Primary Care Unavailab AGATA Feliz Attending Unavailable JULIAN DE PAZ Primary Care Unavailab JULIAN Guillermo Referring Unavailab ELIZABETH Bran Referring Unavailable JULIAN DE PAZ Primary Care Unavailab JUHI Higgins Attending Unavailable JULIAN DE PAZ Primary Care Unavailab RACHEL Miranda Attending Unavailable JAIMIE JORGE Referring Unavailable JULIAN DE PAZ Primary Care Unavailab JAIMIE Glass Referring Unavailable SHELBY BARBA Attending Unavailable JULIAN DE PAZ Primary Care Unavailab JAIMIE Glass Referring Unavailable JULIAN DE PAZ Primary Care Unavailab theresa MARIEE, ELIZABETH Referring Unavailable JULIAN DE PAZ Primary Care Unavailab theresa MARIEE ELIZABETH Attending Unavailable JULIAN DE PAZ Primary Care Unavailab RACHEL Miranda Attending Unavailable ARNOL, ELIZABETH Referring Unavailable JULIAN DE PAZ Primary Care Unavailab SHELBY Nelson Attending Unavailable ARNOL, ELIZABETH Referring Unavailable BURSLEY, CHRISTOPHER B Primary Care Unavailab NITESH ParishICA Attending Unavailable SHELBY BARBA Referring Unavailable MEL DE PAZER B Primary Care Unavailab SHELBY Nelson Referring Unavailable MEL DE PAZER B Primary Care Unavailab SHELBY Nelson Attending Unavailable SHELBY BARBA Referring Unavailable MEL DE PAZER B Primary Care Unavailab AGATA Feliz Attending Unavailable MEL DE PAZER B Primary Care Unavailab le MEL DE PAZER B Referring Unavailab INDIRA Tineo Attending Unavailable MEL DE PAZER B Primary Care Unavailab SHELBY Nelson Referring Unavailable MEL DE PAZER B Primary Care Unavailab le MEL DE PAZER B Primary Care Unavailab ELIZABETH Bran Attending Unavailable JULIAN DE PAZ B Primary Care Unavailab ELIZABETH Bran Attending Unavailable ELIZABETH MARIEE Referring Unavailable MEL DE PAZER B Primary Care Unavailab AGATA Feliz Referring Unavailable MEL DE PAZER B Primary Care Unavailab AGATA Feliz Attending Unavailable MEL DE PAZER B Primary Care Unavailab theresa MARIEE, ELIZABETH Referring Unavailable MEL DE PAZER B Primary Care Unavailab KENYA Zepeda Attending Unavailable MEL DE PAZER B Primary Care Unavailab INDIRA Tineo Referring Unavailable MEL DE PAZER B Primary Care Unavailab INDIRA Tineo Attending Unavailable ELIZABETH MARIEE Referring Unavailable MEL DE PAZER B Primary Care Unavailab ELIZABETH Bran Referring Unavailable EML DE PAZER B Primary Care Unavailab le MEL DE PAZER B Primary Care Unavailab SHELBY Nelson Referring Unavailable SHELBY BARBA Attending Unavailable MEL DE PAZER B Primary Care Unavailab AGATA Feliz Attending Unavailable MEL DE PAZER B Primary Care Unavailab le MEL DE PAZER B Referring Unavailab le ZANDRA CHRISTOPHER B Primary Care Unavailab LYNNETTE Jane Attending Unavail able JULIAN DE PAZ B Primary Care Unavailab SHELBY Nelson Referring Unavailable MEL DE PAZER B Primary Care Unavailab INDIRA Tineo Attending Unavailable SHELBY BARBA Referring Unavailable BURSLEY, CHRISTOPHER B Primary Care Unavailab le HEIKEWELL, ELIZABETH Referring Unavailable BURSLEY, CHRISTOPHER B Primary Care Unavailab AGATA Feliz Attending Unavailable BURSLEY, CHRISTOPHER B Primary Care Unavailab le WISWELL, ELIZABETH Referring Unavailable BURSLEY, CHRISTOPHER B Primary Care Unavailab TAMICA Castro Attending Unavailable BURSLEY, CHRISTOPHER B Primary Care Unavailab le AGATA RAMIRES Referring Unavailable BURSLEY, CHRISTOPHER B Primary Care Unavailab le WISWELL, ELIZABETH Attending Unavailable WISWELL, ELIZABETH Referring Unavailable BURSLEY, CHRISTOPHER B Primary Care Unavailab KENYA Zepeda Attending Unavailable BURSLEY, CHRISTOPHER B Primary Care Unavailab SHELBY Nelson Referring Unavailable BURSLEY, CHRISTOPHER B Primary Care Unavailab le ARNOL, ELIZABETH Attending Unavailable BURSLEY, CHRISTOPHER B Primary Care Unavailab JUHI Higgins Attending Unavailable BURSLEY, CHRISTOPHER B Primary Care Unavailab DUDLEY Sanchez Attending Unavailable BURSLEY, CHRISTOPHER B Primary Care Unavailab DUDLEY Sanchez Attending Unavailable BURSLEY, CHRISTOPHER B Primary Care Unavailab DUDLEY Sanchez Referring Unavailable BURSLEY, CHRISTOPHER B Primary Care Unavailab SHELBY Nelson Attending Unavailable BURSLEY, CHRISTOPHER B Primary Care Unavailab INDIRA Tineo Referring Unavailable BURSLEY, CHRISTOPHER B Primary Care Unavailab le AGATA RAMIRES Attending Unavailable BURSLEY, CHRISTOPHER B Primary Care Unavailab le BURSLEY, CHRISTOPHER B Referring Unavailab CLAUDIA Frederick Attending Unavailable BURSLEY, CHRISTOPHER B Primary Care Unavailab le Allergies Allergy Classification Reported Allergen(s) Allergy Type Date of Onset Reaction(s) Facility Corticosteroids (1 source) predniSONE Drug Allergy 1 Nausea And Vomiting [facility] Penicillins (antibiotic) (1 source) Amoxicillin Drug Allergy 1 Nausea And Vomiting [facility] Unclassified (20 sources) Amoxicillin-Pot Clavulanate; Translations: [AMOXICILLIN-PO T CLAVULANATE] Propensity to adverse reactions to drug 3 Nausea And Vomiting, Rash, Vomiting [facility] (20 sources) Amoxicillin; Translations: [AMOXICILLIN] Drug Allergy 3 Rash [facility] Work Phone: (20 sources) Clavulanate; Translations: [POTASSIUM CLAVULANATE] Drug Allergy 0 Juliette [facility] (20 sources) predniSONE; Translations: [PREDNISONE] Drug Allergy 9 Other: See Comments [facility] Work Phone: Medications Current Medications Medication Drug Class(es) Dates Sig (Normalized) Sig (Original) azithromycin 250 mg oral tablet (1 source) Macrolide Antimicrobial Start: 01-17-2021 End: 01-21-2021 azithromycin (ZITHROMAX Z-GENOVEVA) 250 MG tablet Indications: Walking pneumonia Take 2 tablets (500 mg) on Day 1, and then take 1 tablet (250 mg) on days 2 through 5. 1 packet 0 01/17/2021 01/21/2021 Active cefdinir 300 mg oral capsule (1 source) Cephalosporin Antibacterial Start: 08-14-2022 End: 08-21-2022 take 1 capsule by mouth twice daily cefdinir (OMNICEF) 300 mg capsule Indications: Acute otitis media, right Take 1 capsule by mouth twice daily for 7 days. 14 capsule 0 08/14/2022 08/21/2022 Active Completed/Discontinued Medications Medication Drug Class(es) Dates Sig (Normalized) Sig (Original) [id number] 200 actuat albuterol 0.09 mg/actuat metered dose inhaler (20 sources) beta2-Adrenergic Agonist Start: 12-06-2020 albuterol (PROVENTIL) 2.5 mg /3 mL (0.083 %) nebulizer solution Indications: Mild intermittent asthma without complication Use 3 mL via nebulizer every 4 hours as needed. OVER 5-15 MINUTES. FOR WHEEZING AND SHORTNESS OF BREATH. 60 Vial 5 12/06/2020 Active Problems Active Problems Problem Classification Problem Date Documented Date Episodic/Chronic Asthma (20 sources) Mild intermittent asthma; Translations: [Mild intermittent asthma, uncomplicated] Onset: 09-06-2006 Chronic Contraceptive and procreative management (2 sources) Intrauterine contraceptive device in situ; Translations: [Presence of (intrauterine) contraceptive device] Episodic Diabetes mellitus without complication (20 sources) Type 2 diabetes mellitus without complication; Translations: [Type 2 diabetes mellitus without complications] Onset: 03-02-2021 03-02-2021 Chronic Diabetes or abnormal glucose tolerance complicating ; childbirth; or the puerperium (19 sources) Pre-existing type 2 diabetes mellitus in ; Translations: [Pre-existing type 2 diabetes mellitus, in , first trimester] Onset: 07-01-2023 Chronic Esophageal disorders (2 sources) Gastroesophageal reflux disease; Translations: [Gastro-esophageal reflux disease without esophagitis] 06-05-2023 Chronic Genitourinary congenital anomalies (1 source) Other doubling of uterus, other specified; Translations: [Septate uterus affecting , antepartum] Onset: 03-14-2023 Chronic Immunizations and screening for infectious disease (7 sources) Patient encounter status; Translations: [Encounter for screening for infections with a predominantly sexual mode of transmission] Episodic Mood disorders (20 sources) Bipolar affective disorder, currently depressed, moderate; Translations: [Bipolar disorder, current episode depressed, moderate] Onset: 10-16-2011 03-02-2020 Chronic Nonmalignant breast conditions (4 sources) Discharge from the breast; Translations: [Nipple discharge] Onset: 04-09-2023 Episodic Open wounds of head; neck; and trunk (2 sources) Disorder of breast; Translations: [Unspecified open wound of right breast, initial encounter] Episodic Other complications of (1 source) Maternal obesity complicating , childbirth and the puerperium, antepartum; Translations: [Obesity complicating , second trimester] 05-24-2023 Chronic Other complications of (1 source) Obesity complicating , unspecified trimester; Translations: [Obesity in ] Onset: 03-14-2023 Chronic Other complications of (1 source) with inconclusive viability, not applicable or unspecified; Translations: [ with inconclusive viability] Episodic Other complications of (10 sources) High risk ; Translations: [Supervision of high risk , unspecified, first trimester] 03-14-2023 Episodic Other complications of (2 sources) Supervision of high risk , unspecified, third trimester; Translations: [High-risk in third trimester] Onset: 08-26-2023 Episodic Other complications of (1 source) Smoking (tobacco) complicating , unspecified trimester; Translations: [Tobacco use disorder complicating , childbirth, or puerperium, antepartum, unspecified trimester] Onset: 07-01-2023 Episodic Other complications of (1 source) Supervision of high risk , unspecified, second trimester; Translations: [Supervision of high risk in second trimester] Onset: 07-01-2023 Episodic Other infections; including parasitic (1 source) Personal history of other infectious and parasitic diseases; Translations: [History of syphilis] Onset: 07-23-2023 Episodic Other lower respiratory disease (2 sources) Cough; Translations: [Cough] Episodic Other non-traumatic joint disorders (1 source) Pain in right knee; Translations: [Pain in joint, lower leg] Episodic Other nutritional; endocrine; and metabolic disorders (20 sources) Obesity; Translations: [Obesity, unspecified] Onset: 08-25-2021 08-25-2021 Chronic Other nutritional; endocrine; and metabolic disorders (10 sources) Severe obesity; Translations: [Morbid (severe) obesity due to excess calories] Onset: 12-01-2021 12-01-2021 Chronic Other nutritional; endocrine; and metabolic disorders (1 source) Obesity, unspecified; Translations: [Class 1 obesity with serious comorbidity and body mass index (BMI) of 33.0 to 33.9 in adult, unspecified obesity type] Onset: 09-12-2022 Chronic Other nutritional; endocrine; and metabolic disorders (1 source) Body mass index (BMI) 33.0-33.9, adult; Translations: [Class 1 obesity with serious comorbidity and body mass index (BMI) of 33.0 to 33.9 in adult, unspecified obesity type] Onset: 09-12-2022 Chronic Other upper respiratory infections (2 sources) Sore throat symptom; Translations: [Acute pharyngitis, unspecified] Episodic Otitis media and related conditions (1 source) Acute right otitis media; Translations: [Otitis media, unspecified, right ear] Episodic Pneumonia (except that caused by tuberculosis or sexually transmitted disease) (1 source) Atypical pneumonia; Translations: [Pneumonia, unspecified organism] Episodic Polyhydramnios and other problems of amniotic cavity (1 source) Polyhydramnios; Translations: [Polyhydramnios, third trimester, not applicable or unspecified] 09-20-2023 Episodic Residual codes; unclassified (20 sources) Obstructive sleep apnea syndrome; Translations: [Obstructive sleep apnea (adult) (pediatric)] Onset: 05-06-2012 04-25-2018 Chronic Residual codes; unclassified (1 source) Obstructive sleep apnea (adult) (pediatric); Translations: [SHAUNNA (obstructive sleep apnea)] Onset: 07-23-2023 Chronic Residual codes; unclassified (2 sources) Gestation period, 12 weeks; Translations: [12 weeks gestation of ] 04-04-2023 Episodic Residual codes; unclassified (1 source) Gestation period, 14 weeks; Translations: [14 weeks gestation of ] 04-15-2023 Episodic Residual codes; unclassified (1 source) Gestation period, 17 weeks; Translations: [17 weeks gestation of ] 05-06-2023 Episodic Residual codes; unclassified (1 source) Gestation period, 19 weeks; Translations: [19 weeks gestation of ] 05-24-2023 Episodic Residual codes; unclassified (3 sources) Gestation period, 25 weeks; Translations: [25 weeks gestation of ] 07-01-2023 Episodic Residual codes; unclassified (1 source) Gestation period, 27 weeks; Translations: [27 weeks gestation of ] 07-17-2023 Episodic Residual codes; unclassified (1 source) Gestation period, 28 weeks; Translations: [28 weeks gestation of ] 07-23-2023 Episodic Residual codes; unclassified (1 source) Gestation period, 30 weeks; Translations: [30 weeks gestation of ] 08-06-2023 Episodic Residual codes; unclassified (1 source) Gestation period, 36 weeks; Translations: [36 weeks gestation of ] 09-20-2023 Episodic Residual codes; unclassified (1 source) 35 weeks gestation of ; Translations: [35 weeks gestation of ] Onset: 09-09-2023 Episodic Residual codes; unclassified (1 source) 32 weeks gestation of ; Translations: [32 weeks gestation of ] Onset: 09-04-2023 Episodic Residual codes; unclassified (1 source) 33 weeks gestation of ; Translations: [33 weeks gestation of ] Onset: 08-26-2023 Episodic Residual codes; unclassified (1 source) 25 weeks gestation of ; Translations: [25 weeks gestation of ] Onset: 07-23-2023 Episodic Residual codes; unclassified (1 source) 27 weeks gestation of ; Translations: [27 weeks gestation of ] Onset: 07-17-2023 Episodic Spondylosis; intervertebral disc disorders; other back problems (1 source) Backache; Translations: [Dorsalgia, unspecified] Episodic Substance-related disorders (20 sources) Methamphetamine abuse; Translations: [Other stimulant abuse, uncomplicated] Onset: 04-24-2018 03-02-2020 Chronic Viral infection (1 source) Viral disease; Translations: [Viral infection, unspecified] Episodic Past or Other Problems Problem Classification Problem Date Documented Date Episodic/Chronic Cancer of cervix (20 sources) Atypical squamous cells of undetermined significance on cervical Papanicolaou smear; Translations: [Atypical squamous cells of undetermined significance on cytologic smear of cervix (ASC-US)] Onset: 05-09-2018 03-02-2020 Episodic Open wounds of head; neck; and trunk (4 sources) Disorder of breast; Translations: [Unspecified open wound of left breast, initial encounter] Onset: 11-06-2022 Episodic Other aftercare (1 source) 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 (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; Translations: [Type 2 diabetes mellitus without complication, with long-term current use of insulin (HCC)] Onset: 06-18-2023 Episodic Other complications of (20 sources) Congenital abnormality of uterus, affecting ; Translations: [Maternal care for unspecified congenital malformation of uterus, unspecified trimester] Onset: 05-08-2018 03-14-2023 Episodic Other complications of (20 sources) Maternal tobacco use; Translations: [Smoking (tobacco) complicating , unspecified trimester] Onset: 04-24-2018 03-14-2023 Episodic Other complications of (20 sources) Nausea and vomiting; Translations: [Vomiting of , unspecified] Onset: 03-14-2023 03-14-2023 Episodic Other complications of (20 sources) RhD negative; Translations: [Other specified related conditions, unspecified trimester] Onset: 05-13-2018 04-07-2023 Episodic Other complications of (1 source) Maternal care for unspecified congenital malformation of uterus, unspecified trimester; Translations: [Septate uterus affecting , antepartum] Onset: 03-14-2023 Episodic Other complications of (1 source) Supervision of high risk , unspecified, first trimester; Translations: [Supervision of high risk in first trimester] Onset: 05-24-2023 Episodic Other female genital disorders (20 sources) History of gynecological disorder; Translations: [Personal history of other diseases of the female genital tract] Onset: 04-24-2018 04-24-2018 Episodic Other infections; including parasitic (20 sources) History of syphilis; Translations: [Personal history of other infectious and parasitic diseases] Onset: 03-02-2020 03-02-2020 Episodic Other lower respiratory disease (10 sources) H/O: asthma; Translations: [Personal history of other diseases of the respiratory system] Onset: 09-06-2006 03-14-2023 Episodic Other nervous system disorders (20 sources) H/O: respiratory disease; Translations: [Personal history of other diseases of the nervous system and sense organs] Onset: 03-14-2023 Episodic Other and delivery including normal (20 sources) unplanned but wanted; Translations: [Encounter for supervision of normal , unspecified, unspecified trimester] Onset: 03-14-2023 03-14-2023 Episodic Other screening for suspected conditions (not mental disorders or infectious disease) (1 source) Encounter for screening, unspecified; Translations: [Encounter for screening of mother] Onset: 04-04-2023 Episodic Previous (20 sources) ; Translations: [Maternal care for unspecified type scar from previous delivery] Onset: 03-14-2023 03-14-2023 Episodic Residual codes; unclassified (6 sources) History of drug abuse; Translations: [Personal history of other specified conditions] Onset: 04-24-2018 04-25-2018 Episodic Residual codes; unclassified (15 sources) Down's child in family; Translations: [Family history of other congenital malformations, deformations and chromosomal abnormalities] Onset: 04-24-2018 04-24-2018 Episodic Residual codes; unclassified (20 sources) FH: Chromosomal anomaly; Translations: [Family history of other congenital malformations, deformations and chromosomal abnormalities] Onset: 04-24-2018 04-24-2018 Episodic Residual codes; unclassified (20 sources) H/O: depression; Translations: [Personal history of other complications of , childbirth and the puerperium] Onset: 03-14-2023 03-14-2023 Episodic Residual codes; unclassified (1 source) 23 weeks gestation of ; Translations: [23 weeks gestation of ] Onset: 06-18-2023 Episodic Screening and history of mental health and substance abuse codes (20 sources) H/O: psychiatric disorder; Translations: [Personal history of other mental and behavioral disorders] Onset: 04-24-2018 04-25-2018 Episodic Substance-related disorders (20 sources) Drug-induced paranoid state; Translations: [Other psychoactive substance use, 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, unspecified] Onset: 12-31-2018 12-31-2018 Episodic Results Test Name Value Interpretation Reference Range Facil ity Vital Signs Date Time Vital Sign Value Performing Clinician Facility 09-20-2023 11:08-0500 Body weight 107.05 kg Shelby Barba MD Work Phone: [facility] 09-20-2023 11:08-0500 Diastolic blood pressure 75 mm[Hg] Shelby Barba MD Work Phone: [facility] 09-20-2023 11:08-0500 Systolic blood pressure 120 mm[Hg] Shelby Barba MD Work Phone: [facility] 08-06-2023 10:02-0500 Body weight 104.15 kg Claudia Land MD Work Phone: [facility] 08-06-2023 10:02-0500 Diastolic blood pressure 70 mm[Hg] Claduia Land MD Work Phone: [facility] 08-06-2023 10:02-0500 Systolic blood pressure 110 mm[Hg] Claudia Land MD Work Phone: [facility] 07-23-2023 10:04-0500 Body weight 103.87 kg Shelby Barba MD Work Phone: [facility] 07-23-2023 10:04-0500 Diastolic blood pressure 60 mm[Hg] Shelby Barba MD Work Phone: [facility] 07-23-2023 10:04-0500 Systolic blood pressure 100 mm[Hg] Shelby Barba MD Work Phone: [facility] 07-01-2023 15:14-0500 Body weight 100.25 kg Juhi Orellana MD Work Phone: [facility] 07-01-2023 15:14-0500 Diastolic blood pressure 70 mm[Hg] Juhi Orellana MD Work Phone: [facility] 07-01-2023 15:14-0500 Heart rate 84 /min Juhi Orellana MD Work Phone: [facility] 07-01-2023 15:14-0500 Respiratory rate 18 /min Juhi Orellana MD Work Phone: [facility] 07-01-2023 15:14-0500 SaO2% (BldA) [Mass fraction] 98 % Juhi Orellana MD Work Phone: [facility] 07-01-2023 15:14-0500 Systolic blood pressure 110 mm[Hg] Juhi Orellana MD Work Phone: [facility] 07-01-2023 14:35-0500 Body weight 100.25 kg Jaimie Longoriaruben GLOBAL TRANSPORTATION MANAGER.SHELLFISH MEAT SEPARATOR OPERATOR Work Phone: [facility] 07-01-2023 14:35-0500 Diastolic blood pressure 70 mm[Hg] Jaimie Haury GLOBAL TRANSPORTATION MANAGER.SHELLFISH MEAT SEPARATOR OPERATOR Work Phone: [facility] 07-01-2023 14:35-0500 Systolic blood pressure 110 mm[Hg] Jaimie Haury GLOBAL TRANSPORTATION MANAGER.SHELLFISH MEAT SEPARATOR OPERATOR Work Phone: [facility] 06-05-2023 11:32-0400 Body weight 97.52 kg Kenya Tayo PA-C Work Phone: [facility] 06-05-2023 11:32-0400 Diastolic blood pressure 66 mm[Hg] Kenya Tayo PA-C Work Phone: [facility] 06-05-2023 11:32-0400 Heart rate 76 /min Kenya Tayo PA-C Work Phone: [facility] 06-05-2023 11:32-0400 Respiratory rate 14 /min Kenya Tayo PA-C Work Phone: [facility] 06-05-2023 11:32-0400 SaO2% (BldA) [Mass fraction] 98 % Kenya Jain PA-C Work Phone: [facility] 06-05-2023 11:32-0400 Systolic blood pressure 112 mm[Hg] Kenya Jain PA-C Work Phone: [facility] 05-06-2023 10:02-0400 Body weight 97.98 kg Elizabeth Mariee MD Work Phone: [facility] 05-06-2023 10:02-0400 Diastolic blood pressure 60 mm[Hg] Elizabeth Mariee MD Work Phone: [facility] 05-06-2023 10:02-0400 Systolic blood pressure 100 mm[Hg] Elizabeth Mariee MD Work Phone: [facility] 04-09-2023 18:51-0400 Body temperature 98.6 [degF] Harvinder Rios GLOBAL TRANSPORTATION MANAGER.SHELLFISH MEAT SEPARATOR OPERATOR Work Phone: [facility] 04-09-2023 18:51-0400 Body weight 95.25 kg Harvinder Rios GLOBAL TRANSPORTATION MANAGER.SHELLFISH MEAT SEPARATOR OPERATOR Work Phone: [facility] 04-09-2023 18:51-0400 Diastolic blood pressure 67 mm[Hg] Harvinder Rios GLOBAL TRANSPORTATION MANAGER.SHELLFISH MEAT SEPARATOR OPERATOR Work Phone: [facility] 04-09-2023 18:51-0400 Heart rate 81 /min Harvinder Rios GLOBAL TRANSPORTATION MANAGER.SHELLFISH MEAT SEPARATOR OPERATOR Work Phone: [facility] 04-09-2023 18:51-0400 Respiratory rate 20 /min Harvinder Rios GLOBAL TRANSPORTATION MANAGER.SHELLFISH MEAT SEPARATOR OPERATOR Work Phone: [facility] 04-09-2023 18:51-0400 SaO2% (BldA) [Mass fraction] 98 % Harvinder Rios GLOBAL TRANSPORTATION MANAGER.SHELLFISH MEAT SEPARATOR OPERATOR Work Phone: [facility] 04-09-2023 18:51-0400 Systolic blood pressure 110 mm[Hg] Harvinder Rios GLOBAL TRANSPORTATION MANAGER.SHELLFISH MEAT SEPARATOR OPERATOR Work Phone: [facility] 04-04-2023 15:07-0400 Body weight 93.89 kg Indira Trejo GLOBAL TRANSPORTATION MANAGER.CNM Work Phone: [facility] 04-04-2023 15:07-0400 Diastolic blood pressure 60 mm[Hg] Indira Plotts GLOBAL TRANSPORTATION MANAGER.CNM Work Phone: [facility] 04-04-2023 15:07-0400 Systolic blood pressure 100 mm[Hg] Indira Plotts GLOBAL TRANSPORTATION MANAGER.CNM Work Phone: [facility] 04-02-2023 08:07-0400 Body weight 95.25 kg Juhi Orellana MD Work Phone: [facility] 03-14-2023 14:51-0400 Body height 162.6 cm Elizabeth Mariee MD Work Phone: [facility] 03-14-2023 14:51-0400 Body weight 92.08 kg Elizabeth Mariee MD Work Phone: [facility] 03-14-2023 14:51-0400 Diastolic blood pressure 62 mm[Hg] Elizabeth Mariee MD Work Phone: [facility] 03-14-2023 14:51-0400 Systolic blood pressure 100 mm[Hg] Elizabeth Mariee MD Work Phone: [facility] 10-02-2022 10:16-0500 Body weight 89.81 kg Dudley Wood GLOBAL TRANSPORTATION MANAGER.SHELLFISH MEAT SEPARATOR OPERATOR Work Phone: [facility] 10-02-2022 10:16-0500 Diastolic blood pressure 76 mm[Hg] Dudley Wood GLOBAL TRANSPORTATION MANAGER.SHELLFISH MEAT SEPARATOR OPERATOR Work Phone: [facility] 10-02-2022 10:16-0500 Heart rate 74 /min Dudley Wood GLOBAL TRANSPORTATION MANAGER.SHELLFISH MEAT SEPARATOR OPERATOR Work Phone: [facility] 10-02-2022 10:16-0500 Respiratory rate 16 /min Dudley Wood GLOBAL TRANSPORTATION MANAGER.SHELLFISH MEAT SEPARATOR OPERATOR Work Phone: [facility] 10-02-2022 10:16-0500 Systolic blood pressure 112 mm[Hg] Dudley Pancho GLOBAL TRANSPORTATION MANAGER.SHELLFISH MEAT SEPARATOR OPERATOR Work Phone: [facility] 09-25-2022 13:37-0500 Body weight 93.89 kg Dudley Wood GLOBAL TRANSPORTATION MANAGER.SHELLFISH MEAT SEPARATOR OPERATOR Work Phone: [facility] 09-25-2022 13:37-0500 Diastolic blood pressure 70 mm[Hg] Dudley Pancho GLOBAL TRANSPORTATION MANAGER.SHELLFISH MEAT SEPARATOR OPERATOR Work Phone: [facility] 09-25-2022 13:37-0500 Heart rate 76 /min Dudley Pancho GLOBAL TRANSPORTATION MANAGER.SHELLFISH MEAT SEPARATOR OPERATOR Work Phone: [facility] 09-25-2022 13:37-0500 Respiratory rate 12 /min Dudley Wood GLOBAL TRANSPORTATION MANAGER.SHELLFISH MEAT SEPARATOR OPERATOR Work Phone: [facility] 09-25-2022 13:37-0500 Systolic blood pressure 110 mm[Hg] Dudley Wood GLOBAL TRANSPORTATION MANAGER.SHELLFISH MEAT SEPARATOR OPERATOR Work Phone: [facility] 09-12-2022 14:19-0500 Body height 166 cm [facility] GLOBAL TRANSPORTATION MANAGER.SHELLFISH MEAT SEPARATOR OPERATOR Work Phone: [facility] 09-12-2022 14:19-0500 Body weight 92.53 kg [facility] GLOBAL TRANSPORTATION MANAGER.SHELLFISH MEAT SEPARATOR OPERATOR Work Phone: [facility] 09-12-2022 14:19-0500 Diastolic blood pressure 69 mm[Hg] Agata [facility] GLOBAL TRANSPORTATION MANAGER.SHELLFISH MEAT SEPARATOR OPERATOR Work Phone: [facility] 09-12-2022 14:19-0500 Heart rate 72 /min [facility] GLOBAL TRANSPORTATION MANAGER.SHELLFISH MEAT SEPARATOR OPERATOR Work Phone: [facility] 09-12-2022 14:19-0500 Respiratory rate 16 /min [facility] GLOBAL TRANSPORTATION MANAGER.SHELLFISH MEAT SEPARATOR OPERATOR Work Phone: [facility] 09-12-2022 14:19-0500 SaO2% (BldA) [Mass fraction] 97 % [facility] GLOBAL TRANSPORTATION MANAGER.SHELLFISH MEAT SEPARATOR OPERATOR Work Phone: [facility] 09-12-2022 14:19-0500 Systolic blood pressure 103 mm[Hg] Agata Ramires GLOBAL TRANSPORTATION MANAGER.SHELLFISH MEAT SEPARATOR OPERATOR Work Phone: [facility] 08-14-2022 13:49-0500 Body temperature 97.9 [degF] Dudley Wood GLOBAL TRANSPORTATION MANAGER.SHELLFISH MEAT SEPARATOR OPERATOR Work Phone: [facility] 08-14-2022 13:49-0500 Body weight 89.81 kg Dudley Wood GLOBAL TRANSPORTATION MANAGER.SHELLFISH MEAT SEPARATOR OPERATOR Work Phone: [facility] 08-14-2022 13:49-0500 Diastolic blood pressure 66 mm[Hg] Dudley Wood GLOBAL TRANSPORTATION MANAGER.SHELLFISH MEAT SEPARATOR OPERATOR Work Phone: [facility] 08-14-2022 13:49-0500 Heart rate 83 /min Dudley Wood GLOBAL TRANSPORTATION MANAGER.SHELLFISH MEAT SEPARATOR OPERATOR Work Phone: [facility] 08-14-2022 13:49-0500 Respiratory rate 16 /min Dudley Wood GLOBAL TRANSPORTATION MANAGER.SHELLFISH MEAT SEPARATOR OPERATOR Work Phone: [facility] 08-14-2022 13:49-0500 SaO2% (BldA) [Mass fraction] 100 % Dudley Wood GLOBAL TRANSPORTATION MANAGER.SHELLFISH MEAT SEPARATOR OPERATOR Work Phone: [facility] 08-14-2022 13:49-0500 Systolic blood pressure 112 mm[Hg] Dudley Wood GLOBAL TRANSPORTATION MANAGER.SHELLFISH MEAT SEPARATOR OPERATOR Work Phone: [facility] 07-31-2022 11:46-0500 Body temperature 96.91 [degF] Betty Benitez GLOBAL TRANSPORTATION MANAGER.SHELLFISH MEAT SEPARATOR OPERATOR Work Phone: [facility] 07-31-2022 11:46-0500 Body weight 88 kg Betty Benitez GLOBAL TRANSPORTATION MANAGER.SHELLFISH MEAT SEPARATOR OPERATOR Work Phone: [facility] 07-31-2022 11:46-0500 Diastolic blood pressure 64 mm[Hg] Betty Benitez GLOBAL TRANSPORTATION MANAGER.SHELLFISH MEAT SEPARATOR OPERATOR Work Phone: [facility] 07-31-2022 11:46-0500 Heart rate 64 /min Betty Benitez GLOBAL TRANSPORTATION MANAGER.SHELLFISH MEAT SEPARATOR OPERATOR Work Phone: [facility] 07-31-2022 11:46-0500 Respiratory rate 16 /min Betty Eli GLOBAL TRANSPORTATION MANAGER.SHELLFISH MEAT SEPARATOR OPERATOR Work Phone: [facility] 07-31-2022 11:46-0500 SaO2% (BldA) [Mass fraction] 95 % Bettynorma Northk GLOBAL TRANSPORTATION MANAGER.SHELLFISH MEAT SEPARATOR OPERATOR Work Phone: [facility] 07-31-2022 11:46-0500 Systolic blood pressure 108 mm[Hg] Bettynorma Northk GLOBAL TRANSPORTATION MANAGER.SHELLFISH MEAT SEPARATOR OPERATOR Work Phone: [facility] 06-28-2022 13:25-0500 Body weight 87.73 kg Indira Trejo GLOBAL TRANSPORTATION MANAGER.CNM Work Phone: [facility] 06-28-2022 13:25-0500 Diastolic blood pressure 62 mm[Hg] Indira Trejo GLOBAL TRANSPORTATION MANAGER.CNM Work Phone: [facility] 06-28-2022 13:25-0500 Systolic blood pressure 114 mm[Hg] Indira Trejo GLOBAL TRANSPORTATION MANAGER.CNM Work Phone: [facility] 03-24-2022 11:02-0400 Body temperature 97 [degF] Jamil Evan GLOBAL TRANSPORTATION MANAGER.SHELLFISH MEAT SEPARATOR OPERATOR Work Phone: [facility] 03-24-2022 11:02-0400 Body weight 89.36 kg Jamil Francoilene GLOBAL TRANSPORTATION MANAGER.SHELLFISH MEAT SEPARATOR OPERATOR Work Phone: [facility] 03-24-2022 11:02-0400 Diastolic blood pressure 80 mm[Hg] Jamil Gordon GLOBAL TRANSPORTATION MANAGER.SHELLFISH MEAT SEPARATOR OPERATOR Work Phone: [facility] 03-24-2022 11:02-0400 Heart rate 100 /min Jamil Gordon GLOBAL TRANSPORTATION MANAGER.SHELLFISH MEAT SEPARATOR OPERATOR Work Phone: [facility] 03-24-2022 11:02-0400 Respiratory rate 18 /min Jamil Gordon GLOBAL TRANSPORTATION MANAGER.SHELLFISH MEAT SEPARATOR OPERATOR Work Phone: [facility] 03-24-2022 11:02-0400 SaO2% (BldA) [Mass fraction] 98 % Jamil Gordon GLOBAL TRANSPORTATION MANAGER.SHELLFISH MEAT SEPARATOR OPERATOR Work Phone: [facility] 03-24-2022 11:02-0400 Systolic blood pressure 136 mm[Hg] Jamil Gordon GLOBAL TRANSPORTATION MANAGER.SHELLFISH MEAT SEPARATOR OPERATOR Work Phone: [facility] 01-24-2022 13:50-0400 Body weight 92.08 kg Aaliyah Podlogar GLOBAL TRANSPORTATION MANAGER.SHELLFISH MEAT SEPARATOR OPERATOR Work Phone: [facility] 01-24-2022 13:50-0400 Diastolic blood pressure 62 mm[Hg] Aaliyah Podlogar GLOBAL TRANSPORTATION MANAGER.SHELLFISH MEAT SEPARATOR OPERATOR Work Phone: [facility] 01-24-2022 13:50-0400 Heart rate 80 /min Aaliyah Podlogar GLOBAL TRANSPORTATION MANAGER.SHELLFISH MEAT SEPARATOR OPERATOR Work Phone: [facility] 01-24-2022 13:50-0400 Respiratory rate 18 /min Aaliyah Podlogar GLOBAL TRANSPORTATION MANAGER.SHELLFISH MEAT SEPARATOR OPERATOR Work Phone: [facility] 01-24-2022 13:50-0400 SaO2% (BldA) [Mass fraction] 99 % Aaliyah Podlogar GLOBAL TRANSPORTATION MANAGER.SHELLFISH MEAT SEPARATOR OPERATOR Work Phone: [facility] 01-24-2022 13:50-0400 Systolic blood pressure 90 mm[Hg] Aaliyah Podlogar GLOBAL TRANSPORTATION MANAGER.SHELLFISH MEAT SEPARATOR OPERATOR Work Phone: [facility] 01-17-2021 14:22-0400 Diastolic blood pressure 70 mm[Hg] Earline Melton DO Work Phone: [facility] Work Phone: 01-17-2021 14:22-0400 Heart rate 62 /min Earline Melton DO Work Phone: [facility] Work Phone: 01-17-2021 14:22-0400 Respiratory rate 18 /min Earline Melton DO Work Phone: [facility] Work Phone: 01-17-2021 14:22-0400 SaO2% (BldA) [Mass fraction] 100 % Earline Melton DO Work Phone: [facility] Work Phone: 01-17-2021 14:22-0400 Systolic blood pressure 111 mm[Hg] Earline Melton DO Work Phone: [facility] Work Phone: 01-17-2021 11:07-0400 Body temperature 95.79 [degF] Earline Melton DO Work Phone: [facility] Work Phone: 01-17-2021 11:06-0400 Body height 162.6 cm Earline Melton DO Work Phone: [facility] Work Phone: 01-17-2021 11:06-0400 Body mass index (BMI) [Ratio] 37.76 kg/m2 Earline Melton DO Work Phone: [facility] Work Phone: 01-17-2021 [id number] Body weight 99.79 kg Earline Melton DO Work Phone: [email or web address] Work Phone: Encounters Encounter Date Encounter Type Care Provider Facility Start: 09-25-2023 Telephone encounter Indira woodson GLOBAL TRANSPORTATION MANAGER.CNM Work Phone: OB/Gynecology Procedures Date Procedure Procedure Detail Performing Clinician Start: 09-20-2023 URINE OB DIP B/O Clarence Barba MD Work Phone: Start: 08-06-2023 URINE OB DIP B/O Claudia Land MD Work Phone: Start: 07-23-2023 Antibody screen CLAUDIA LAND Plan of Treatment Date Care Activity Detail Author Start: 07-23-2033 Urine microalbumin profile DTaP,Tdap,Td Vaccine (10 - Td or Tdap) [facility] Start: 06-08-2030 Urine microalbumin profile [facility] Start: 02-26-2024 Hemoglobin A1c measurement HbA1C [facility] Start: 01-22-2024 Hemoglobin A1c measurement HbA1C [facility] Start: 01-22-2024 Hemoglobin A1c/Hemoglobin.total in Blood HbA1C [facility] Start: 12-17-2023 Hemoglobin A1c/Hemoglobin.total in Blood HbA1C [facility] Start: 11-04-2023 Hemoglobin A1c/Hemoglobin.total in Blood HbA1C [facility] Start: 10-05-2023 Hemoglobin A1c/Hemoglobin.total in Blood HBA1C [facility] Start: 10-02-2023 ANNUAL PCP TEAM CHRONIC DISEASE VISIT ANNUAL PCP TEAM CHRONIC DISEASE VISIT [facility] Start: 09-25-2023 ANNUAL PCP TEAM CHRONIC DISEASE VISIT ANNUAL PCP TEAM CHRONIC DISEASE VISIT [facility] Start: 09-14-2023 Hepatitis B screening URINE ALBUMIN:CREATININE RATIO [facility] Start: 09-14-2023 Hepatitis B surface antibody level LDL CHOLESTEROL [facility] Start: 2023 PAP TESTING PAP TESTING [facility] Start: 2023 Screening for malignant neoplasm of cervix Pap Testing [facility] Start: 09-12-2023 3 comp foot exam completed DIABETIC FOOT EXAM [facility] Start: 09-12-2023 Diabetic foot examination Diabetic Foot Exam [facility] Start: 09-12-2023 Hemoglobin A1c/Hemoglobin.total in Blood HBA1C [facility] Start: 08-14-2023 ANNUAL PCP TEAM CHRONIC DISEASE VISIT ANNUAL PCP TEAM CHRONIC DISEASE VISIT [facility] Start: 07-22-2023 End: 10-21-2023 Hemoglobin A1c in Blood HGB A1C Lab Routine Type 2 diabetes mellitus without complication, with long-term current use of insulin (HCC) Expected: 07/22/2023 (Approximate), Expires: 10/21/2023 [facility] Work Phone: Immunizations Immunization Date Immunization Notes Care Provider Boyd bojorquez 08-20-2023 respiratory syncytia l virus (RSV) vaccine, bivalent (ABRYSVO) Kenya Jain PA-C Work Phone: [facility] 07-23-2023 RHO(D) immune globul in- IV or IM Shelby Barba MD Work Phone: [facility] Work Phone: 07-23-2023 tetanus toxoid, redu luis diphtheria toxoid, and acellular pertussis vaccine, adsorbed Shelby Barba MD Work Phone: [facility] Work Phone: 05-06-2023 influenza, injectabl e, quadrivalent, contains preservative Agata Ramires APRN.CNP Work Phone: [facility] 04-04-2021 pneumococcal polysaccharide vaccine, 23 valent Juhi Orellana MD Work Phone: [facility] 06-08-2020 tetanus toxoid, redu luis diphtheria toxoid, and acellular pertussis vaccine, adsorbed Juhi Orellana MD Work Phone: [facility] Work Phone: 06-01-2020 influenza, seasonal, injectable, preservative free Juhi Orellana MD Work Phone: [facility] Work Phone: 05-18-2020 RHO(D) immune globul in- IV or IM Juhi Orellana MD Work Phone: [facility] 05-18-2020 tetanus toxoid, redu luis diphtheria toxoid, and acellular pertussis vaccine, adsorbed Juhi Orellana MD Work Phone: [facility] 05-10-2020 influenza, injectabl e, quadrivalent, contains preservative Juhi Orellana MD Work Phone: [facility] 03-02-2019 hepatitis A vaccine, adult dosage Juhi Orellana MD Work Phone: [facility] Work Phone: 05-23-2018 influenza, seasonal, injectable, preservative free Juhi Orellana MD Work Phone: [facility] Work Phone: 05-19-2018 RHO(D) immune globul in- IV or IM Juhi Orellana MD Work Phone: [facility] 03-30-2013 Meningococcal, MCV4, unspecified conjugate formulation(groups A, C, Y and W-135) Juhi Orellana MD Work Phone: [facility] 12-21-2008 human papilloma viru s vaccine, quadrivalent Juhi Orellana MD Work Phone: [facility] Work Phone: 05-05-2009 Meningococcal, MCV4, unspecified conjugate formulation(groups A, C, Y and W-135) Juhi Orellana MD Work Phone: [facility] Work Phone: 12-21-2008 tetanus toxoid, redu luis diphtheria toxoid, and acellular pertussis vaccine, adsorbed Juhi Orellana MD Work Phone: [facility] Work Phone: 12-21-2008 varicella virus vaccine Jordana Orellana MD Work Phone: [facility] Work Phone: 06-08-2008 human papilloma viru s vaccine, quadrivalent Juhi Orellana MD Work Phone: [facility] 03-24-2008 human papilloma viru s vaccine, vangieivalent Juhi Orellana MD Work Phone: [facility] Work Phone: 07-04-2007 influenza virus vacc ine, unspecified formulation Juhi Orellana MD Work Phone: [facility] Work Phone: 06-13-2004 influenza virus vacc ine, unspecified formulation Juhi Orellana MD Work Phone: [facility] Work Phone: 07-02-2003 influenza virus vacc ine, unspecified formulation Juhi Orellana MD Work Phone: [facility] Work Phone: 08-14-2002 influenza virus vacc ine, unspecified formulation Juhi Orellana MD Work Phone: [facility] Work Phone: 07-15-2002 influenza virus vacc ine, unspecified formulation Juhi Orellana MD Work Phone: [facility] Work Phone: 02-02-2002 diphtheria, tetanus toxoids and acellular pertussis vaccine Juhi Orellana MD Work Phone: [facility] Work Phone: 02-02-2002 measles, mumps and rubella virus vaccine Juhi Orellana MD Work Phone: [facility] Work Phone: 02-02-2002 poliovirus vaccine, inactivated Juhi Orellana MD Work Phone: [facility] Work Phone: 12-22-1997 diphtheria, tetanus toxoids and acellular pertussis vaccine Juhi Orellana MD Work Phone: [facility] Work Phone: 12-22-1997 varicella virus vaccine Jordana Orellana MD Work Phone: [facility] Work Phone: 09-15-1997 haemophilus influenz ae type b vaccine, HbOC conjugate Juhi Orellana MD Work Phone: [facility] Work Phone: 09-15-1997 measles, mumps and rubella virus vaccine Juhi Orellana MD Work Phone: [facility] Work Phone: 03-17-1997 diphtheria, tetanus toxoids and pertussis vaccine Juhi Orellana MD Work Phone: [facility] Work Phone: 03-17-1997 haemophilus influenz ae type b vaccine, HbOC conjugate Juhi Orellana MD Work Phone: [facility] Work Phone: 03-17-1997 hepatitis B vaccine, pediatric or pediatric/adolescent dosage Juhi Orellana MD Work Phone: [facility] Work Phone: 03-17-1997 trivalent poliovirus vaccine, live, oral Juhi Orellana MD Work Phone: [facility] Work Phone: 1996 diphtheria, tetanus toxoids and pertussis vaccine Juhi Orellana MD Work Phone: [facility] Work Phone: 1996 haemophilus influenz ae type b vaccine, HbOC conjugate Juhi Orellana MD Work Phone: [facility] Work Phone: 1996 trivalent poliovirus vaccine, live, oral Juhi Orellana MD Work Phone: [facility] Work Phone: 1996 diphtheria, tetanus toxoids and pertussis vaccine Juhi Orellana MD Work Phone: [facility] Work Phone: 1996 haemophilus influenz ae type b vaccine, HbOC conjugate Juhi Orellana MD Work Phone: [facility] Work Phone: 1996 hepatitis B vaccine, pediatric or pediatric/adolescent dosage Juhi Orellana MD Work Phone: [facility] Work Phone: 1996 trivalent poliovirus vaccine, live, oral Juhi Orellana MD Work Phone: [facility] Work Phone: 1996 hepatitis B vaccine, pediatric or pediatric/adolescent dosage Juhi Orellana MD Work Phone: [facility] Work Phone: Payers Date Payer Category Payer Medicaid [id number] 2022 Medicaid [id number] 2020 Medicaid [employer] [facility] [id number] 2020-Present [phone] [address] [place] [address] Medicaid [id number] 2020 Medicaid [id number] Social History Date Type Detail Facility Start: 01-17-2021 End: 03-14-2023 Tobacco smoking status NHIS Current every day smoker [facility] End: 04-26-2020 History of tobacco use Cigarette Smoker [facility] Start: 01-17-2021 End: 02-18-2023 Cigarettes smoked current (pack per day) - Reported [facility] Start: 01-17-2021 Tobacco use and exposure Never used [facility] Start: 01-17-2021 Alcohol intake Current drinke r of alcohol (finding) [facility] Work Phone: Start: 01-17-2021 Alcohol Comment occasional [facility] Work Phone: Start: 1995 Sex Assigned At Not on file [facility] Work Phone: Start: 11-21-2021 End: 06-24-2022 Exposure to SARS-CoV-2 (event) Not sure [facility] Start: 03-02-2021 End: 03-14-2023 Tobacco use and exposure Former smokeless tobacco user [facility] End: 01-26-2013 History of tobacco use User of smokeless tobacco [facility] Start: 08-29-2021 End: 02-18-2023 Alcohol intake Current non-drinker of alcohol (finding) [facility] Start: 1995 Sex Assigned At Female C [facility] Start: 03-14-2022 End: 03-24-2022 Exposure to SARS-CoV-2 (event) Yes [facility] Work Phone: Start: 03-14-2023 End: 09-04-2023 Alcohol intake Ex-drinker (finding) [facility] Start: 02-18-2023 End: 03-14-2023 Tobacco use panel [facility] Adult Depression Screening Assessment 0 [facility] The thought of dennisi ng myself has occurred to me Never [facility] Start: 03-14-2023 Education 13 [facility] Start: 01-21-2023 [facility] Start: 07-12-2020 Gender identity Identifies as female gender (finding) [facility] Start: 07-12-2020 Sexual orientation Bisexual (finding ) [facility] Medical Equipment Procedure Code Equipment Code Equipment Origin al Text Equipment Identifier Dates Start: 02-08-2021 End: 06-18-2023 Goals Date Patient Goal Desired Activity /State Personal health goal Clinical Notes 05-31-2020 to 09-25-2023 Telephone Encounter - Nina Burris RN - 09/25/2023 1:09 PM Shelby Soria MD - 09/20/2023 11:46 AM ESTPrenatal Quick Notes - Shelby Barba MD - 09/20/2023 11:46 AM ESTInstructions Note Date & Type Note Facility 09-25-2023 Miscellaneous Notes Please file BPP order for u/s scheduled today. Nina Burris RN documented in this encounter [facility] 09-20-2023 Note HNO ID: [id number] Author: SHELBY BARBA MD Service: ? Author Type: Physician Type: Progress Notes Filed: 09/20/2023 12:54 Note Text: NST SUMMARY PROVIDER ASSESSMENT AND INTERPRETATION Raissa Kevin is a 28 year old female, , who is at 36w4d with an GABRIELE of 10/14/2023, by Ultrasound dating method. Indications for NST: Gestational Diabetes - Insulin Controlled and Obesityand poolyhydramnios Baseline: 140 Variability: Moderate Accelerations: Present 15 X 15 Decelerations: None Contractions: TOCO: None Interpretation: Category I and Reactive SIGNATURE: Shelby Barba MD [facility] 09-20-2023 History of Presen t illness Narrative NST SUMMARY PROVIDER ASSESSMENT AND INTERPRETATION Raissa Kevin is a 28 year old female, , who is at 36w4d with an GABRIELE of 10/14/2023, by Ultrasound dating method. Indications for NST: Gestational Diabetes - Insulin Controlled and Obesityand poolyhydramnios Baseline: 140 Variability: Moderate Accelerations: Present 15 X 15 Decelerations: None Contractions: TOCO: None Interpretation: Category I and Reactive SIGNATURE: Shelby Barba MD documented in this encounter [facility] 09-20-2023 Miscellaneous Notes RR- VB No. LOF No. CTXS No. Movement: present. Other c/o: reports BS have been difficult to control, sent them to endocrine yesterday and they increased insulin Medication list reviewed. Physical Exam See Flow Sheet Abd: soft, nontender, gravid Ext: edema: 1+ A/P 36w4d Estimated Date of Delivery: 10/14/23 high risk multigravida . GDM class B. Blood sugars have gotten progressively more difficult to control. She has polyhydramnios which is associated with poor control. Has not been able to maintain tight control during the . Plans repeat section for delivery as history of previous section. Risk benefits and alternatives to moving the section up to 37-38 gestational weeks were discussed with the patient, questions were answered to her satisfaction she desires to proceed. NST was reactive today category 1. Plan repeat next week on 09/27/2023. Consent signed. Continue insulin per endocrine. Maternal obesity NST was done today. Will give VTE prophylaxis with SCDs and Lovenox after delivery. Shelby Barba M.D. documented in this encounter [facility] 09-20-2023 History and physical note Pre-Op History and Physical HPI: The patient is a 28 year old female presenting for pre-operative visit. She is scheduled for repeat c/s, for diabetes and mild polyhydramnios on 09/27/23. Procedure discussed along with risks, benefits and complications. Other alternatives discussed for management. Consent form signed? Yes. PAST MEDICAL HISTORY Diagnosis Date Allergic rhinitis, cause unspecified Asthma Only uses rescue inhaler ~1x a week, typically with anxiety or exercise Attention deficit disorder with hyperactivity(314.01) Atypical squamous cells of undetermined significance (ASCUS) on Papanicolaou smear of cervix 05/09/2018 Bipolar disorder ([facility]) breast infection staph infection Depression Herpes 03/02/2020 Methamphetamine abuse (HCC) 12/31/2018 NIDDM (non-insulin dependent diabetes mellitus) 10/16/2011 Obstructive sleep apnea Has CPAP PMH - PAST MEDICAL HISTORY OF 03/2008 Normal Color Vision Sepsis ([facility]) retained POC 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 Possible 3rd tri growth US. Syphilis affecting in second trimester 03/15/2020 03/15/20- T.Pallidum Ab, IgG (FTA-ABS) Reactive Ordered treatment of PCN 2.4 million units IM x 1 now- waiting to see how patient can receive injection while in office. Tobacco use during , antepartum 04/24/2018 03/02/2020 Discussed risks. Working on quitting. 04/24/2018 Pt smokes 0.5 - 1 pack a day of cigarettes, down from 2 ppd a day. Discussed risks of smoking during . Advised pt to quit. Patient cutting back and ready to quit. - Type 2 diabetes mellitus (HCC) PAST SURGICAL HISTORY Procedure Laterality Date SNGL 08/05/2020 COLONOSCOPY GEN ANES 06/06/2021 D&C SUCTION 05/2018 sepsis, MAB at 6 wks EGD 06/06/2021 INSERTION OF IUD 10/05/2020 fell out Current Outpatient Medications Medication Sig Dispense Refill insulin NPH subcutaneous pen Inject subcutaneously 5 units AM and 24 units HS 15 mL 5 budesonide-formoterol (SYMBICORT) 160-4.5 mcg/actuation inhaler Inhale 2 Puffs as instructed two times a day. 1 Each 5 aspirin, enteric coated (ASPIRIN, ENTERIC COATED) 81 mg EC tablet Take 1 tablet by mouth once daily. 30 tablet 1 nicotine (NICODERM) 21 mg/24 hr Apply 1 Patch as directed every 24 hours. 30 Patch 0 Insulin [place], Disposable, (BD ULTRAFINE III MINI PEN) 31 gauge x 3/16 Use two daily with insulin 200 Each 3 metFORMIN ER (GLUCOPHAGE XR) 500 mg 24 hr tablet Take 2 tablets by mouth two times a day with meals. 360 tablet 3 REXULTI 1 mg tablet albuterol HFA (PROVENTIL HFA, VENTOLIN HFA) 90 mcg/actuation inhaler Inhale 2 Puffs as instructed every 4 hours as needed. 1 g 6 prental multivitamin 27 mg iron- 800 mcg tablet Take 1 tablet by mouth once daily. pyridoxine, vitamin B6, (VITAMIN B-6) 50 mg tablet Take 1 tablet by mouth once daily. 50 tablet 1 ondansetron (ZOFRAN) 4 mg tablet Take 1 tablet by mouth every 8 hours as needed for nausea/vomiting. 30 tablet 0 Blood-Glucose Meter Use 4x daily, NIDDM--, E 11.9; please dispense meter and supplies per insurance formulary 1 Each 0 Lancets lancets Use as instructed; four lancets per day, NIDDM--, E 11.9 400 Each 3 blood sugar diagnostic (BLOOD GLUCOSE TEST) test strip Use as instructed; four strip per day, NIDDM--, E11.9 400 Strip 3 albuterol HFA (PROVENTIL HFA, VENTOLIN HFA) 90 mcg/actuation inhaler Inhale 2 Puffs as instructed every 4 hours as needed. 18 g 5 albuterol (PROVENTIL) 2.5 mg /3 mL (0.083 %) nebulizer solution Use 3 mL via nebulizer every 4 hours as needed. OVER 5-15 MINUTES. FOR WHEEZING AND SHORTNESS OF BREATH. 60 Vial 5 sucralfate (CARAFATE) 1 gram tablet take 1 tablet by mouth three times a day 90 tablet 3 No current facility-administered medications for this visit. ALLERGIES: Amoxil [Amoxicillin], Augmentin [Amoxicillin-Pot Clavulanate], Potassium Clavulanate, and Prednisone PERSONAL HISTORY: Social History Tobacco Use Smoking status: Every Day Packs/day: 1.00 Years: 10.00 Additional pack years: 0.00 Total pack years: 10.00 Types: Cigarettes Smokeless tobacco: Former Quit date: 01/26/2013 Vaping Use Vaping Use: Former Substances: Nicotine Substance Use Topics Alcohol use: Not Currently Drug use: Not Currently Types: Marijuana Comment: 2x a week FAMILY HISTORY: FAMILY HISTORY Problem Relation Age of Onset Arthritis Mother other (fibromyalgia) Mother other (PCOS) Mother Bipolar disorder Father ADD/ADHD Brother Depression Brother Asthma Brother Hypertension Maternal Grandmother Hypertension Maternal Grandfather Diabetes Maternal Grandfather Gout Maternal Grandfather Heart disease Paternal Grandmother No Known Problems Paternal Grandfather other (Down syndrome) Half-brother No Known Problems Daughter REVIEW OF SYMPTOMS: GENERAL: denies fevers or chills ENDOCRINOLOGY: has not been on steroids Cardiology : denies palpitations or chest pain Respiratory: denies SOB or cough Hematology: denies history of prolonged bleeding or easy bruising or VTE Allergy: Denies history of personal or family history of allergy to anesthesia PHYSICAL EXAMINATION: VITALS: Blood pressure 120/75, weight 236 lb (107 kg), last menstrual period 12/28/2022, unknown if currently . GENERAL: The patient is well nourished, well hydrated in no acute distress. , The patient is oriented to time, place, and person. NECK: Supple. No lynphadenopathy, normal thyroid, no thyromegaly. LUNGS: Clear to auscultation bilaterally. no wheezes, rhonchi or rales HEART: Regular rate and rhythm, Normal heart sounds, and No murmurs or gallops IMPRESSION: Estimated Date of Delivery: 10/14/23 PLAN: The risks/benefits/alternatives and personal involved for the planned repeat c/s were reviewed with the patient. Her questions were answered to her satisfaction and she desires to proceed. Consent was signed. I reviewed with her postop instructions and expectations. I have reviewed and updated past medical and surgical history, medications and allergies Shelby Barba M.D. documented in this encounter [facility] 09-20-2023 Instructions Ellie Rodriguez Ma - 09/20/2023 11:08 AM EST SEQUENTIAL SCREENINGS The [facility] offers sequential screenings for women who are interested in screenings for chromosomal abnormalities and certain defects during a . The sequential screen combines ultrasound and blood tests to determine the risk of chromosomal abnormalities, including Down's Syndrome (Trisomy 21) and Trisomy 18, as well as open neural tube defects including spina bifida. Ultrasound examination is performed between 11 weeks and 13 weeks gestational age. Blood tests are drawn after the ultrasound and again later in the between 15 and 21 weeks gestational age. Please let your physician know if you are interested in this testing. It will require an appointment with our quality assurance technician. This is not an ultrasound performed by a physician in our office during a routine visit. SIGNS AND SYMPTOMS OF LABOR 1. Contractions every 10 minutes or more often 2. Clear, pink, or brownish fluid (water) leaking from vagina 3. Feeling that baby is pushing down, pressure 4. Low, dull backache 5. Cramps that feel like a period 6. Cramps with or without diarrhea If you notice any of the above symptoms, contact our office at [phone] and ask to speak with a nurse. After hours, you can call doctors registry at [phone] OR call [facility] at [phone] and ask to have the doctor ruby on rails web developer paged. If you consider this an emergency, dial [phone]--[phone] or go to your nearest emergency department. NEED HELP? Are you dealing with a violent or abusive relationship? Are you a victim of rape or sexual assult? Call [facility] ([place]) 24 hour Crisis Hotline: 676.226.9962 or 903-795-7062. MANUAL Your Guide to a Healthy manual is now on-line. Visit [email or web address] to download your free copy documented in this encounter [facility] 09-19-2023 Miscellaneous Notes Please review and advise as patient is . documented in this encounter [facility] 09-18-2023 Note HNO ID: [id number] Author: INDIRA TREJO APRN.CNM Service: ? Author Type: Chief Crna Type: Progress Notes Filed: 09/18/2023 15:41 Note Text: NST SUMMARY PROVIDER ASSESSMENT AND INTERPRETATION Raissa Kevin is a 28 year old female, , who is at 36w2d with an GABRIELE of 10/14/2023, by Ultrasound dating method. Indications for NST: Diabetes - Insulin Controlled and Other: BPP 6/8 Baseline: 130 Variability: Moderate Accelerations: Present 15 X 15 Decelerations: None Contractions: TOCO: Irregular Interpretation: Category I and Reactive/ Dr. Barba reviewed SIGNATURE: Indira Trejo APRN.CNM [facility] 09-16-2023 Note HNO ID: [id number] Author: LYNNETTE ARIZA MD Service: ? Author Type: Physician Type: Progress Notes Filed: 09/16/2023 15:49 Note Text: NST SUMMARY PROVIDER ASSESSMENT AND INTERPRETATION Raissa Kevin is a 28 year old female, , who is at 36w0d with an GABRIELE of 10/14/2023, by Ultrasound dating method. Indications for NST: Diabetes - Insulin Controlled Baseline: 140 Variability: Moderate Accelerations: Present 15 X 15 Decelerations: None Contractions: TOCO: None Interpretation: Category I and Reactive SIGNATURE: Lynnette Renteria MD [facility] 2023 Note HNO ID: [id number] Author: ELIZABETH MARIEE MD Service: ? Author Type: Physician Type: Progress Notes Filed: 2023 08:36 Note Text: NST SUMMARY PROVIDER ASSESSMENT AND INTERPRETATION Raissa Kevin is a 28 year old female, , who is at 35w4d with an GABRIELE of 10/14/2023, by Ultrasound dating method. Indications for NST: Diabetes - Insulin Controlled and Obesity Baseline: 140 Variability: Moderate Accelerations: Present 15 X 15 Decelerations: None Contractions: TOCO: None Interpretation: Reactive SIGNATURE: Elizabeth Mariee DO [facility] 09-09-2023 Note HNO ID: [id number] Author: INDIRA TREJO APRN.CNM Service: ? Author Type: Chief Crna Type: Progress Notes Filed: 09/09/2023 15:16 Note Text: NST SUMMARY PROVIDER ASSESSMENT AND INTERPRETATION Raissa Kevin is a 27 year old female, , who is at 35w0d with an GABRIELE of 10/14/2023, by Ultrasound dating method. Indications for NST: Diabetes - Insulin Controlled Baseline: 130 Variability: Moderate Accelerations: Present 15 X 15 Decelerations: None Contractions: TOCO: None Interpretation: Category I and Reactive SIGNATURE: Indira Trejo APRN.CNM [facility] 09-04-2023 Note HNO ID: [id number] Author: KENYA JAIN PA-C Service: ? Author Type: Physician Fish Rod Maker Type: Progress Notes Filed: 09/04/2023 12:24 Note Text: Patient: Raissa Kevin PCP: Julian DeP az MD CC: follow up HPI: Raissa Kevin 27 year old female female smoker with PMH significant for ADD, allergic rhinitis, Obesity, SHAUNNA, DM2, h/o methamphetamine abuse, h/o syphilis and long standing asthma. Today, patient states she was not feeling well last week and increased her use of nebulizer. At this time, she is continuing to need her nebulizer or rescue inhaler a few times a day. She states she has also used her Symbicort 3 times daily rather than the prescribed twice daily. Reports daily cough productive of yellow sputum that clears throughout the day. No hemoptysis. Occasional wheezing. Exertional dyspnea with climbing stairs and walking long distances. No fevers or chills. Chronic night sweats with . No nocturnal awakenings secondary to asthma symptoms. Currently smoking 1 ppd. Is scheduled for C section on 10/07/2023. ASTHMA CONTROL TEST Date: 09/04/2023 In the last 4 weeks, how much of the time did your asthma keep you from getting as much done at work or home that you wanted to do? Most of the time (2) In the last 4 weeks, how often have you had shortness of breath? More than once per day (1) In the last 4 weeks, how often did your asthma symptoms (wheezing, coughing, shortness of breath, chest tightness or pain) wake you up at night or earlier than usual? Not at all (5) In the last 4 weeks, how often have you used your rescue inhaler or nebulizer medication (such as Albuterol, Proventil, Ventolin, Maxair, Xoponex, or Primatene Mist)? 1 or 2 times per day (2) In the last 4 weeks, how would you rate your asthma control? Poorly controlled (2) Total: less than 15 PAST MEDICAL HISTORY Diagnosis Date Allergic rhinitis, cause unspecified Asthma Only uses rescue inhaler ~1x a week, typically with anxiety or exercise Attention deficit disorder with hyperactivity(314.01) Atypical squamous cells of undetermined significance (ASCUS) on Papanicolaou smear of cervix 05/09/2018 Bipolar disorder (HCC) breast infection staph infection Depression Herpes 03/02/2020 Methamphetamine abuse (HCC) 12/31/2018 NIDDM (non-insulin dependent diabetes mellitus) 10/16/2011 Obstructive sleep apnea Has CPAP PMH - PAST MEDICAL HISTORY OF 03/2008 Normal Color Vision Sepsis (HCC) retained POC 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 Possible 3rd tri growth US. Syphilis affecting in second trimester 03/15/2020 03/15/20- T.Pallidum Ab, IgG (FTA-ABS) Reactive Ordered treatment of PCN 2.4 million units IM x 1 now- waiting to see how patient can receive injection while in office. Tobacco use during , antepartum 04/24/2018 03/02/2020 Discussed risks. Working on quitting. 04/24/2018 Pt smokes 0.5 - 1 pack a day of cigarettes, down from 2 ppd a day. Discussed risks of smoking during . Advised pt to quit. Patient cutting back and ready to quit. - Type 2 diabetes mellitus (HCC) Allergies: Amoxil [Amoxicillin] Rash Augmentin [Amoxicil* Rash, Vomiting Comment:Patient states she had a rash with either Augmentin or amoxicillin. Can't remember which one. Potassium Clavulana* Rash Prednisone Other: See Comments Comment:Diarrhea and vomitting aspirin, enteric coated (ASPIRIN, ENTERIC COATED) 81 mg EC tablet Take 1 tablet by mouth once daily. nicotine (NICODERM) 21 mg/24 hr Apply 1 Patch as directed every 24 hours. insulin NPH subcutaneous pen Inject subcutaneously 3 units AM and 18 units HS Insulin [place], Disposable, (BD ULTRAFINE III MINI PEN) 31 gauge x 3/16 Use two daily with insulin metFORMIN ER (GLUCOPHAGE XR) 500 mg 24 hr tablet Take 2 tablets by mouth two times a day with meals. sucralfate (CARAFATE) 1 gram tablet Take 1 tablet by mouth three times a day. REXULTI 1 mg tablet budesonide-formoterol (SYMBICORT) 80-4.5 mcg/actuation inhaler Inhale 2 Puffs as instructed twice daily. albuterol HFA (PROVENTIL HFA, VENTOLIN HFA) 90 mcg/actuation inhaler Inhale 2 Puffs as instructed every 4 hours as needed. prental multivitamin 27 mg iron- 800 mcg tablet Take 1 tablet by mouth once daily. pyridoxine, vitamin B6, (VITAMIN B-6) 50 mg tablet Take 1 tablet by mouth once daily. ondansetron (ZOFRAN) 4 mg tablet Take 1 tablet by mouth every 8 hours as needed for nausea/vomiting. Blood-Glucose Meter Use 4x daily, NIDDM--, E 11.9; please dispense meter and supplies per insurance formulary Lancets lancets Use as instructed; four lancets per day, NIDDM--, E 11.9 blood sugar diagnostic (BLOOD GLUCOSE TEST) test strip Use as instructed; four strip per day, NIDDM--, E11.9 albuterol HFA (PROVENTIL HFA, VENTOLIN HFA) 9 (more content not included)... [facility] 08-26-2023 Note HNO ID: [id number] Author: AGATA RAMIRES APRN.SHELLFISH MEAT SEPARATOR OPERATOR Service: ? Author Type: Nurse Practitioner Type: Progress Notes Filed: 08/26/2023 15:30 Note Text: Reason for Consultation: DM Type 2 Referring Physician: SELF *visit is being conducted virtually today. *I have communicated my name and active licensure. The patient's identity and physical location were verified at the time of this visit. Either the patient or their legal professional healthcare representative has been informed of the risks and benefits of -- and alternatives to -- treatment through a remote evaluation and consents to proceed with the evaluation remotely. HISTORY OF PRESENT ILLNESS; Ms. Kevin is a 27 year old female presenting for follow up regarding DM Type 2. She was initially diagnosed with diabetes age 15. She does have a family history of diabetes mellitus in her grandpa, aunts, uncles . LV 07/17/23 A1C 5.4 on 07/23/23 History of diabetes, bipolar d/o, depression, asthma, drug abuse, SHAUNNA, allergies, obesity Attended DM education 03/20/23 She was on NPH and humalog with her last . First child was approx 8 lb and healthy. Delivered via . Currently: 33 wks 0 days gestation GABRIELE 2023. Planning for repeat at 39 weeks *oct 07 is date. Her current diabetes regimen is: Metformin ER 500 mg 2 tabs BID NPH: AM 3 units; HS 18 units Previous DM medications: Metformin Glipizide Basal/bolus --NPH and humalog with Trulicity--stopped with Regarding symptoms of hyperglycemia, she is not experiencing any symptoms such as polyuria, polydipsia, nocturia or rapid weight loss or blurry vision. Exercise: ADL's; active at work Raissa is checking her blood glucose 4 times lately. She did bring a logbook today for review: Fasting, after breakfast, lunch, dinner--sent by patient via [employer] this AM. 08/06: 90, 113, 107, 111 08/07: 86, 103, 110, 114 08/08: 82, 116, 119, 102 08/09: 89, 129, 118, 106 08/10: 92, 85, 96, 104 08/11: 88, 105, 110, 101 08/12: 85, 112, 107, 123 08/13: 93, 109, 118, 103 08/14: 83, 106, 113, 118 08/15: 81, 102, 115, 120 08/16: 85, 107, 110, 117 08/17: 79, 94, 102, 111 08/18: 82, 99, 106, 119 /: 93, 107, 116, 113 12: 91, 106, 100, 109 08/21: 83, 117, 110, 120 08/22: 87, 100, 115, 118 08/23:96, 118, 107, 119 08/24: 94, 110, 117, 122 08/25: 100, 105, 115, 121 Hypoglycemia frequency: denies Hypoglycemia awareness: Yes Overall, the patient has no acute complaints at this time. PAST MEDICAL HISTORY Diagnosis Date Allergic rhinitis, cause unspecified Asthma Only uses rescue inhaler ~1x a week, typically with anxiety or exercise Attention deficit disorder with hyperactivity(314.01) Atypical squamous cells of undetermined significance (ASCUS) on Papanicolaou smear of cervix 05/09/2018 Bipolar disorder (HCC) breast infection staph infection Depression Herpes 03/02/2020 Methamphetamine abuse (HCC) 12/31/2018 NIDDM (non-insulin dependent diabetes mellitus) 10/16/2011 Obstructive sleep apnea Has CPAP PMH - PAST MEDICAL HISTORY OF 03/2008 Normal Color Vision Sepsis (HCC) retained POC 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 Possible 3rd tri growth US. SW Syphilis affecting in second trimester 03/15/2020 03/15/20- T.Pallidum Ab, IgG (FTA-ABS) Reactive Ordered treatment of PCN 2.4 million units IM x 1 now- waiting to see how patient can receive injection while in office. Tobacco use during , antepartum 04/24/2018 03/02/2020 Discussed risks. Working on quitting. SW 04/24/2018 Pt smokes 0.5 - 1 pack a day of cigarettes, down from 2 ppd a day. Discussed risks of smoking during . Advised pt to quit. Patient cutting back and ready to quit. - Type 2 diabetes mellitus (HCC) PAST SURGICAL HISTORY Procedure Laterality Date SNGL 08/05/2020 COLONOSCOPY GEN ANES 06/06/2021 DANDC SUCTION 05/2018 sepsis, MAB at 6 wks EGD 06/06/2021 INSERTION OF IUD 10/05/2020 fell out FAMILY HISTORY Problem Relation Age of Onset Arthritis Mother other (fibromyalgia) Mother other (PCOS) Mother Bipolar disorder Father ADD/ADHD Brother Depression Brother Asthma Brother Hypertension Maternal Grandmother Hypertension Maternal Grandfather Diabetes Maternal Grandfather Gout Maternal Grandfather Heart disease Paternal Grandmother No Known Problems Paternal Grandfather other (Down syndrome) Half-brother No Known Problems Daughter Social History Tobacco Use Smoking status: Every Day Packs/day: 1.00 Years: 10.00 Additional pack years: 0.00 Total pack years: 10.00 Types: Cigarettes Smokeless tobacco: Former Quit date: 01/26/2013 Vaping Use Vaping Use: Former Substances: Nicotine Substance Use Topics Alcohol use: Not Currently Drug use: Not Currently Types: Marijuana Comment: 2x a week Current Outpatie (more content not included)... [facility] 08-26-2023 Note HNO ID: [id number] Author: DARLINE IRBY APRN.CNM Service: ? Author Type: Chief Crna Type: Progress Notes Filed: 08/26/2023 13:03 Note Text: NST SUMMARY PROVIDER ASSESSMENT AND INTERPRETATION Raissa Kevin is a 27 year old female, , who is at 33w0d with an GABRIELE of 10/14/2023, by Ultrasound dating method. Indications for NST: Gestational Diabetes - Insulin Controlled Baseline: 135 Variability: Moderate Accelerations: Present 15 X 15 Decelerations: Variable Contractions: TOCO: None Interpretation: Reactive SIGNATURE: Darline Irby APRN.CNM [facility] 08-06-2023 Miscellaneous Notes KJ - VB No. LOF No. CTXS No. Movement: present. Other c/o: No. Medication list reviewed. Physical Exam See Flow Sheet Gen: no accute distress, well appearing Abd: soft, nontender, gravid A/P 30w1d Estimated Date of Delivery: 10/14/23 Pregestational DM - continue insulin & management per endocrinology. Growth US & NSTs at 32 weeks. MOD - requests repeat with Tobacco - not used nicotine patch yet PTL precautions reviewed, Kick counts reviewed. Claudia Land MD documented in this encounter [facility] 08-06-2023 Instructions Luci Eller MA - 08/06/2023 9:59 AM EST SEQUENTIAL SCREENINGS The [facility] offers sequential screenings for women who are interested in screenings for chromosomal abnormalities and certain defects during a . The sequential screen combines ultrasound and blood tests to determine the risk of chromosomal abnormalities, including Down's Syndrome (Trisomy 21) and Trisomy 18, as well as open neural tube defects including spina bifida. Ultrasound examination is performed between 11 weeks and 13 weeks gestational age. Blood tests are drawn after the ultrasound and again later in the between 15 and 21 weeks gestational age. Please let your physician know if you are interested in this testing. It will require an appointment with our quality assurance technician. This is not an ultrasound performed by a physician in our office during a routine visit. SIGNS AND SYMPTOMS OF LABOR 1. Contractions every 10 minutes or more often 2. Clear, pink, or brownish fluid (water) leaking from vagina 3. Feeling that baby is pushing down, pressure 4. Low, dull backache 5. Cramps that feel like a period 6. Cramps with or without diarrhea If you notice any of the above symptoms, contact our office at [phone] and ask to speak with a nurse. After hours, you can call doctors registry at [phone] OR call [facility] at [phone] and ask to have the doctor ruby on rails web developer paged. If you consider this an emergency, dial 9-- or go to your nearest emergency department. NEED HELP? Are you dealing with a violent or abusive relationship? Are you a victim of rape or sexual assult? Call [facility] ([place]) 24 hour Crisis Hotline: 374.499.5376 or 873-820-1244. MANUAL Your Guide to a Healthy manual is now on-line. Visit [email or web address] to download your free copy documented in this encounter [facility] 07-25-2023 Miscellaneous Notes 3rd risk assessment form submitted 07/25/23 Luz Elena Goff RN documented in this encounter [facility] 07-23-2023 Note HNO ID: [id number] Author: Judy Strickland LPN Service: ? Author Type: ? Type: Progress Notes Filed: 07/23/2023 1:22 PM Note Text: Patient identified by name and date of . Raissa Kevin presents today for a vaccination of Tdap. Patient denies an allergy to latex: yes Patient denies a severe (life-threatening) allergy to a previous dose of Tdap, DTP, DTaP, DT or Td vaccine. Yes Patient denies history of epilepsy or neurological problems: Yes Patient is afebrile and denies being moderately or severely ill: Yes Patient denies history of Guillain-[place] Syndrome (a severe paralytic illness): Yes Tdap Adacel injection was given without incident. See immunizations for details of immunizations administered today. VIS sheet provided: Yes Provider Dr Barba was present in office at time of injection. Ellie Rodriguez Ma [facility] 07-23-2023 Note HNO ID: [id number] Author: Rachel Meyer MD Service: ? Author Type: Physician Type: Progress Notes Filed: 08/05/2023 2:44 PM Note Text: OBSTETRICS MATERNAL MEDICINE CONSULT SERVICE DATE: July 23, 2023 SERVICE TIME: 1000 REQUESTING PROVIDER: Jaimie Jorge NP Subjective HISTORY OF THE PRESENT ILLNESS: Raissa is a 27 year old female, , who is at 28w1d with an GABRIELE of 10/14/2023, by Ultrasound dating method. She presents for growth ultrasound and consultation due to her history of type 2 diabetes well controlled on insulin. is otherwise complicated by history of tobacco use, obstructive sleep apnea, asthma, obesity with BMI 37 kg/m2, tobacco use. She is doing well today without complaints. Reports recent increase in nightime insulin due to mild elevation in fasting glucose, however most values with goal range. Following with endocrinology, denies history of complications related to diabetes. Asthma currently well controlled on Symbicort, has only required albuterol if she forgets to use Symbicort. Reports had CPAP in past for SHAUNNA however the device broke over a year ago and she does not currently use any SHAUNNA therapy. No history of preeclampsia, prior delivery was LTCS for failed IOL at 39w2d. Daughter weighed 8lbs. HISTORY REVIEW PAST MEDICAL HISTORY Diagnosis Date Allergic rhinitis, cause unspecified Asthma Only uses rescue inhaler ~1x a week, typically with anxiety or exercise Attention deficit disorder with hyperactivity(314.01) Atypical squamous cells of undetermined significance (ASCUS) on Papanicolaou smear of cervix 05/09/2018 Bipolar disorder (HCC) breast infection staph infection Depression Herpes 03/02/2020 Methamphetamine abuse (HCC) 12/31/2018 NIDDM (non-insulin dependent diabetes mellitus) 10/16/2011 Obstructive sleep apnea Has CPAP PMH - PAST MEDICAL HISTORY OF 03/2008 Normal Color Vision Sepsis (HCC) retained POC 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 Possible 3rd tri growth US. Syphilis affecting in second trimester 03/15/2020 03/15/20- T.Pallidum Ab, IgG (FTA-ABS) Reactive Ordered treatment of PCN 2.4 million units IM x 1 now- waiting to see how patient can receive injection while in office. Tobacco use during , antepartum 04/24/2018 03/02/2020 Discussed risks. Working on quitting. SW 04/24/2018 Pt smokes 0.5 - 1 pack a day of cigarettes, down from 2 ppd a day. Discussed risks of smoking during . Advised pt to quit. Patient cutting back and ready to quit. - Type 2 diabetes mellitus (HCC) PAST SURGICAL HISTORY Procedure Laterality Date SNGL 08/05/2020 COLONOSCOPY GEN ANES 06/06/2021 DANDC SUCTION 05/2018 sepsis, MAB at 6 wks EGD 06/06/2021 INSERTION OF IUD 10/05/2020 fell out FAMILY HISTORY Problem Relation Age of Onset Arthritis Mother other (fibromyalgia) Mother other (PCOS) Mother Bipolar disorder Father ADD/ADHD Brother Depression Brother Asthma Brother Hypertension Maternal Grandmother Hypertension Maternal Grandfather Diabetes Maternal Grandfather Gout Maternal Grandfather Heart disease Paternal Grandmother No Known Problems Paternal Grandfather other (Down syndrome) Half-brother No Known Problems Daughter Social History Tobacco Use Smoking status: Every Day Packs/day: 1.00 Years: 10.00 Additional pack years: 0.00 Total pack years: 10.00 Types: Cigarettes Smokeless tobacco: Former Quit date: 01/26/2013 Vaping Use Vaping Use: Former Substances: Nicotine Substance Use Topics Alcohol use: Not Currently Drug use: Not Currently Types: Marijuana Comment: 2x a week Obstetric History T1 L1 SAB2 IAB0 Ectopic0 Multiple0 Live Births1 Name of Baby 1: Not recorded Date: 2017 GA: 8w0d Delivery: Not recorded Apgar1: Not recorded Apgar5: Not recorded Living: Not recorded Name of Baby 2: Not recorded Date: 05/2018 GA: 6w0d Delivery: Not recorded Apgar1: Not recorded Apgar5: Not recorded Living: Not recorded Name of Baby 3: Victoria Gonsalez Date: 08/05/20 GA: 39w2d Delivery: , Low Transverse Apgar1: Not recorded Apgar5: Not recorded Living: Living Name of Baby 4: Not recorded Date: Not recorded GA: Not recorded Delivery: Not recorded Apgar1: Not recorded Apgar5: Not recorded Living: Not recorded ALLERGIES Allergen Reactions Amoxil [Amoxicillin] Rash Augmentin [Amoxicil* Rash, Vomiting Patient states she had a rash with either Augmentin or amoxicillin. Can't remember which one. Potassium Clavulana* Rash Prednisone Other: See Comments Diarrhea and vomitting PRIOR TO ADMISSION MEDICATIONS: Current Outpatient Medications Medication Instructions albuterol (PROVENTIL) 2.5 mg, NEBULIZATION -UNSPEC, EVERY 4 HOURS NEEDED, OVER 5-15 MINUTES. FOR WHEEZING AND SHORTNESS OF BREATH. albuterol HFA (PROVENTIL HFA (more content not included)... [facility] 07-23-2023 Miscellaneous Notes RR- VB No. LOF No. CTXS No. Movement: present. Other c/o: No. Medication list reviewed. Physical Exam See Flow Sheet Abd: soft, nontender, gravid Ext: edema: no A/P 28w1d Estimated Date of Delivery: 10/14/23 Labs: hgba1c, syphylis, CBC and antibody screen rh prophylaxis given tdap today GDM- type 2 bs monitored by endocrine growth scans q 4 wqeeks nsts start 32 weeks. tob use disorder, smoking 1.5 PPD- trial nicotine patches reviewed and desires to proceed Shelby Barba M.D. documented in this encounter [facility] 07-23-2023 History of Presen t illness Narrative Patient identified by name and date of . Raissa N Herberth presents today for a vaccination of Tdap. Patient denies an allergy to latex: yes Patient denies a severe (life-threatening) allergy to a previous dose of Tdap, DTP, DTaP, DT or Td vaccine. Yes Patient denies history of epilepsy or neurological problems: Yes Patient is afebrile and denies being moderately or severely ill: Yes Patient denies history of Guillain-[place] Syndrome (a severe paralytic illness): Yes Tdap Adacel injection was given without incident. See immunizations for details of immunizations administered today. VIS sheet provided: Yes Provider Dr Barba was present in office at time of injection. Ellie Rodriguez Ma documented in this encounter [facility] 07-23-2023 Ellie Early Ma - 07/23/2023 10:07 AM EST SEQUENTIAL SCREENINGS The [facility] offers sequential screenings for women who are interested in screenings for chromosomal abnormalities and certain defects during a . The sequential screen combines ultrasound and blood tests to determine the risk of chromosomal abnormalities, including Down's Syndrome (Trisomy 21) and Trisomy 18, as well as open neural tube defects including spina bifida. Ultrasound examination is performed between 11 weeks and 13 weeks gestational age. Blood tests are drawn after the ultrasound and again later in the between 15 and 21 weeks gestational age. Please let your physician know if you are interested in this testing. It will require an appointment with our quality assurance technician. This is not an ultrasound performed by a physician in our office during a routine visit. SIGNS AND SYMPTOMS OF LABOR 1. Contractions every 10 minutes or more often 2. Clear, pink, or brownish fluid (water) leaking from vagina 3. Feeling that baby is pushing down, pressure 4. Low, dull backache 5. Cramps that feel like a period 6. Cramps with or without diarrhea If you notice any of the above symptoms, contact our office at [phone] and ask to speak with a nurse. After hours, you can call doctors registry at [phone] OR call [facility] at [phone] and ask to have the doctor ruby on rails web developer paged. If you consider this an emergency, dial 9-1-5 or go to your nearest emergency department. NEED HELP? Are you dealing with a violent or abusive relationship? Are you a victim of rape or sexual assult? Call [facility] 24 hour Crisis Hotline: 363.758.8990 or 555-045-8408. MANUAL Your Guide to a Healthy manual is now on-line. Visit [email or web address] to download your free copy documented in this encounter [facility] 07-17-2023 Note HNO ID: [id number] Author: Agata Ramires APRN.SHELLFISH MEAT SEPARATOR OPERATOR Service: ? Author Type: Nurse Practitioner Type: Progress Notes Filed: 07/17/2023 3:38 PM Note Text: Reason for Consultation: DM Type 2 Referring Physician: SELF *visit is being conducted virtually today. *I have communicated my name and active licensure. The patient's identity and physical location were verified at the time of this visit. Either the patient or their legal professional healthcare representative has been informed of the risks and benefits of -- and alternatives to -- treatment through a remote evaluation and consents to proceed with the evaluation remotely. HISTORY OF PRESENT ILLNESS; Ms. Kevin is a 27 year old female presenting for follow up regarding DM Type 2. She was initially diagnosed with diabetes age 15. She does have a family history of diabetes mellitus in her grandpa, aunts, uncles . LV 06/18/23 A1C 5.2 on 06/18/23 History of diabetes, bipolar d/o, depression, asthma, drug abuse, SHAUNNA, allergies, obesity Attended DM education 03/20/23 She was on NPH and humalog with her last . First child was approx 8 lb and healthy. Delivered via . 27 wks 2 days gestation GABRIELE 2023. Planning for repeat at 39 weeks Admits to consuming holiday sweets lately. Her current diabetes regimen is: Metformin ER 500 mg 2 tabs BID NPH: AM 3 units; HS 15 units Previous DM medications: Metformin Glipizide Basal/bolus --NPH and humalog with Trulicity--stopped with Regarding symptoms of hyperglycemia, she is not experiencing any symptoms such as polyuria, polydipsia, nocturia or rapid weight loss or blurry vision. Exercise: ADL's; active at work Raissa is checking her blood glucose 4 times lately. She did bring a logbook today for review: Fasting, after breakfast, lunch, dinner--sent by patient via [employer] this AM. 07/10: 106, 101, 114, 118 07/11: 108, 111, 120, 114 07/12: 103, 107, 118, 110 07/13: 99, 103, 113, 105 07/14: 104, 100, 111, 116 07/15: 101, 118, 113, 121 07/16: 106, 102, 110, 117 Hypoglycemia frequency: denies Hypoglycemia awareness: Yes Overall, the patient has no acute complaints at this time. PAST MEDICAL HISTORY Diagnosis Date Allergic rhinitis, cause unspecified Asthma Only uses rescue inhaler ~1x a week, typically with anxiety or exercise Attention deficit disorder with hyperactivity(314.01) Atypical squamous cells of undetermined significance (ASCUS) on Papanicolaou smear of cervix 05/09/2018 Bipolar disorder ([facility]) breast infection staph infection Depression Herpes 03/02/2020 Methamphetamine abuse ([facility]) 12/31/2018 NIDDM (non-insulin dependent diabetes mellitus) 10/16/2011 Obstructive sleep apnea Has CPAP PMH - PAST MEDICAL HISTORY OF 03/2008 Normal Color Vision Sepsis (HCC) retained POC 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 Possible 3rd tri growth US. Syphilis affecting in second trimester 03/15/2020 03/15/20- T.Pallidum Ab, IgG (FTA-ABS) Reactive Ordered treatment of PCN 2.4 million units IM x 1 now- waiting to see how patient can receive injection while in office. Tobacco use during , antepartum 04/24/2018 03/02/2020 Discussed risks. Working on quitting. 04/24/2018 Pt smokes 0.5 - 1 pack a day of cigarettes, down from 2 ppd a day. Discussed risks of smoking during . Advised pt to quit. Patient cutting back and ready to quit. - Type 2 diabetes mellitus (HCC) PAST SURGICAL HISTORY Procedure Laterality Date SNGL 08/05/2020 COLONOSCOPY GEN ANES 06/06/2021 DANDC SUCTION 05/2018 sepsis, MAB at 6 wks EGD 06/06/2021 INSERTION OF IUD 10/05/2020 fell out FAMILY HISTORY Problem Relation Age of Onset Arthritis Mother other (fibromyalgia) Mother other (PCOS) Mother Bipolar disorder Father ADD/ADHD Brother Depression Brother Asthma Brother Hypertension Maternal Grandmother Hypertension Maternal Grandfather Diabetes Maternal Grandfather Gout Maternal Grandfather Heart disease Paternal Grandmother No Known Problems Paternal Grandfather other (Down syndrome) Half-brother No Known Problems Daughter Social History Tobacco Use Smoking status: Every Day Packs/day: 1.00 Years: 10.00 Additional pack years: 0.00 Total pack years: 10.00 Types: Cigarettes Smokeless tobacco: Former Quit date: 01/26/2013 Vaping Use Vaping Use: Former Substances: Nicotine Substance Use Topics Alcohol use: Not Currently Drug use: Not Currently Types: Marijuana Comment: 2x a week Current Outpatient Medications Medication Sig Dispense Refill insulin NPH subcutaneous pen Inject subcutaneously 3 units AM and 15 units HS 15 mL 5 Insulin [place], Disposable, (BD ULTRAFINE III MINI PEN) 31 gauge x /16 Use two daily with insulin 200 Each 3 metFORMIN ER (GLUCOPHAGE XR) 500 mg 24 hr tablet Take 2 table (more content not included)... [facility] 07-17-2023 History of Presen t illness Narrative Reason for Consultation: DM Type 2 Referring Physician: SELF *visit is being conducted virtually today. *I have communicated my name and active licensure. The patient's identity and physical location were verified at the time of this visit. Either the patient or their legal professional healthcare representative has been informed of the risks and benefits of -- and alternatives to -- treatment through a remote evaluation and consents to proceed with the evaluation remotely. HISTORY OF PRESENT ILLNESS; Ms. Kevin is a 27 year old female presenting for follow up regarding DM Type 2. She was initially diagnosed with diabetes age 15. She does have a family history of diabetes mellitus in her grandpa, aunts, uncles . LV 06/18/23 A1C 5.2 on 06/18/23 History of diabetes, bipolar d/o, depression, asthma, drug abuse, SHAUNNA, allergies, obesity Attended DM education 03/20/23 She was on NPH and humalog with her last . First child was approx 8 lb and healthy. Delivered via . 27 wks 2 days gestation GABRIELE 2023. Planning for repeat at 39 weeks Admits to consuming holiday sweets lately. Her current diabetes regimen is: Metformin ER 500 mg 2 tabs BID NPH: AM 3 units; HS 15 units Previous DM medications: Metformin Glipizide Basal/bolus --NPH and humalog with Trulicity--stopped with Regarding symptoms of hyperglycemia, she is not experiencing any symptoms such as polyuria, polydipsia, nocturia or rapid weight loss or blurry vision. Exercise: ADL's; active at work Raissa is checking her blood glucose 4 times lately. She did bring a logbook today for review: Fasting, after breakfast, lunch, dinner--sent by patient via [employer] this AM. 07/10: 106, 101, 114, 118 07/11: 108, 111, 120, 114 07/12: 103, 107, 118, 110 07/13: 99, 103, 113, 105 07/14: 104, 100, 111, 116 07/15: 101, 118, 113, 121 07/16: 106, 102, 110, 117 Hypoglycemia frequency: denies Hypoglycemia awareness: Yes Overall, the patient has no acute complaints at this time. PAST MEDICAL HISTORY Diagnosis Date Allergic rhinitis, cause unspecified Asthma Only uses rescue inhaler ~1x a week, typically with anxiety or exercise Attention deficit disorder with hyperactivity(314.01) Atypical squamous cells of undetermined significance (ASCUS) on Papanicolaou smear of cervix 05/09/2018 Bipolar disorder (HCC) breast infection staph infection Depression Herpes 03/02/2020 Methamphetamine abuse (HCC) 12/31/2018 NIDDM (non-insulin dependent diabetes mellitus) 10/16/2011 Obstructive sleep apnea Has CPAP PMH - PAST MEDICAL HISTORY OF 03/2008 Normal Color Vision Sepsis (HCC) retained POC 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 Possible 3rd tri growth US. Syphilis affecting in second trimester 03/15/2020 03/15/20- T.Pallidum Ab, IgG (FTA-ABS) Reactive Ordered treatment of PCN 2.4 million units IM x 1 now- waiting to see how patient can receive injection while in office. Tobacco use during , antepartum 04/24/2018 03/02/2020 Discussed risks. Working on quitting. 04/24/2018 Pt smokes 0.5 - 1 pack a day of cigarettes, down from 2 ppd a day. Discussed risks of smoking during . Advised pt to quit. Patient cutting back and ready to quit. - Type 2 diabetes mellitus (HCC) PAST SURGICAL HISTORY Procedure Laterality Date SNGL 08/05/2020 COLONOSCOPY GEN ANES 06/06/2021 D&C SUCTION 05/2018 sepsis, MAB at 6 wks EGD 06/06/2021 INSERTION OF IUD 10/05/2020 fell out FAMILY HISTORY Problem Relation Age of Onset Arthritis Mother other (fibromyalgia) Mother other (PCOS) Mother Bipolar disorder Father ADD/ADHD Brother Depression Brother Asthma Brother Hypertension Maternal Grandmother Hypertension Maternal Grandfather Diabetes Maternal Grandfather Gout Maternal Grandfather Heart disease Paternal Grandmother No Known Problems Paternal Grandfather other (Down syndrome) Half-brother No Known Problems Daughter Social History Tobacco Use Smoking status: Every Day Packs/day: 1.00 Years: 10.00 Additional pack years: 0.00 Total pack years: 10.00 Types: Cigarettes Smokeless tobacco: Former Quit date: 01/26/2013 Vaping Use Vaping Use: Former Substances: Nicotine Substance Use Topics Alcohol use: Not Currently Drug use: Not Currently Types: Marijuana Comment: 2x a week Current Outpatient Medications Medication Sig Dispense Refill insulin NPH subcutaneous pen Inject subcutaneously 3 units AM and 15 units HS 15 mL 5 Insulin [place], Disposable, (BD ULTRAFINE III MINI PEN) 31 gauge x 3/16 Use two daily with insulin 200 Each 3 metFORMIN ER (GLUCOPHAGE XR) 500 mg 24 hr tablet Take 2 tablets by mouth two times a day with meals. 360 tablet 3 sucralfate (CARAFATE) 1 gram tablet Take 1 tablet by mouth three times a day. 90 tablet 3 REXULTI 1 mg tablet aspirin, enteric coated (ASPIRIN, ENTERIC COATED) 81 mg EC tablet Take 1 tablet by mouth once daily. 30 tablet 4 budesonide-formoterol (SYMBICORT) 80-4.5 mcg/actuation inhaler Inhale 2 Puffs as instructed twice daily. 1 Each 5 albuterol HFA (PROVENTIL HFA, VENTOLIN HFA) 90 mcg/actuation inhaler Inhale 2 Puffs as instructed every 4 hours as needed. 1 g 6 prental multivitamin 27 mg iron- 800 mcg tablet Take 1 tablet by mouth once daily. pyridoxine, vitamin B6, (VITAMIN B-6) 50 mg tablet Take 1 tablet by mouth once daily. 50 tablet 1 ondansetron (ZOFRAN) 4 mg tablet Take 1 tablet by mouth every 8 hours as needed for nausea/vomiting. 30 tablet 0 Blood-Glucose Meter Use 4x daily, NIDDM--, E 11.9; please dispense meter and supplies per insurance formulary 1 Each 0 Lancets lancets Use as instructed; four lancets per day, NIDDM--, E 11.9 400 Each 3 blood sugar diagnostic (BLOOD GLUCOSE TEST) test strip Use as instructed; four strip per day, NIDDM--, E11.9 400 Strip 3 albuterol HFA (PROVENTIL HFA, VENTOLIN HFA) 90 mcg/actuation inhaler Inhale 2 Puffs as instructed every 4 hours as needed. 18 g 5 albuterol (PROVENTIL) 2.5 mg /3 mL (0.083 %) nebulizer solution Use 3 mL via nebulizer every 4 hours as needed. OVER 5-15 MINUTES. FOR WHEEZING AND SHORTNESS OF BREATH. 60 Vial 5 No current facility-administered medications for this visit. Allergies As of Date: 07/17/2023 Allergen Noted Reaction AMOXIL [AMOXICILLIN] 11/21/2012 Rash AUGMENTIN [AMOXICILLIN-POT CLAVUL*03/30/2013 Rash and Vomiting POTASSIUM CLAVULANATE 03/17/2020 Rash PREDNISONE 11/01/2008 Other: See Comments Fully Assessed 07/01/2023 REVIEW OF SYSTEMS: Answers submitted by the patient for this visit: Core Review of Systems (Submitted on 07/17/2023) Fever : No Nasal Congestion: No Hearing Loss: No A cough: No Irregular heartbeat: No Black tarry stools: No Difficulty Urinating?: No Awaken at Night More Than Once to Urinate?: Yes Joint pain or stiffness: No Leg or Foot Discomfort at Night?: No A rash: No Memory Loss: No Seizures: No PHYSICAL EXAM: LMP 12/28/2022 (Exact Date) Physical Exam Constitutional: Appearance: Normal appearance. Neurological: Mental Status: She is alert and oriented to person, place, and time. Psychiatric: Mood and Affect: Mood normal. Behavior: Behavior normal. DATA: Creatinine Date Value Ref Range Status 09/14/2022 0.64 0.58 - 0.96 mg/dL Final Hemoglobin A1C (%) Date Value 08/22/2021 6.3 Hemoglobin A1C (POCT) (%) Date Value 06/18/2023 5.2 ) No components found for: URINEALBUMIN Cholesterol, Total (mg/dL) Date Value 09/14/2022 115 08/22/2021 140 HDL Cholesterol (mg/dL) Date Value 09/14/2022 35 08/22/2021 36 LDL Cholesterol (mg/dL) Date Value 09/14/2022 64 08/22/2021 81 Triglyceride (mg/dL) Date Value 09/14/2022 80 08/22/2021 117 IMPRESSION: Ms. Kevin is a 27 year old female here for evaluation of DM Type 2 complicated by obesity, RECOMMENDATIONS: (E11.9, Z79.4) Type 2 diabetes mellitus without complication, with long-term current use of insulin (HCC) (primary encounter diagnosis) Comment: Glycemic control is trending higher. Insulin adjusted Plan: HGB A1C Continue metformin NPH AM 3 units; PM 18 units A1C next week. Send in BG readings weekly Follow up monthly (Z3A.27) 27 weeks gestation of Comment/Plan: per OB This Team Access Model visit is a virtual encounter. It required patient-provider interaction for the medical decision making as documented above. Medical Decision Making: Level: 4 - Moderate Agata Ramires, MSN, GLOBAL TRANSPORTATION MANAGER, EDUCATION AND TRAINING MANAGER-C, CDE Endocrinology [facility]/[address], [address] [place], [place] [address] Fax: documented in this encounter [facility] 07-17-2023 Miscellaneous Notes Will discuss with patient at appt this afternoon. Thank you Please review. Patient is . documented in this encounter [facility] 07-10-2023 Miscellaneous Notes Please review and advise. Patient is . documented in this encounter [facility] 07-01-2023 Note HNO ID: [id number] Author: Juhi Orellana MD Service: ? Author Type: Physician Type: Progress Notes Filed: 07/01/2023 3:44 PM Note Text: . Respiratory [place] Note Patient name: Raissa Kevin PCP: Julian De Paz MD CC: Peripartum asthma HPI: Raissa Kevin 27 year old female smoker with PMH significant for ADD, allergic rhinitis, Obesity, SHAUNNA, DM2, h/o methamphetamine abuse, h/o syphilis and long standing asthma. At her initial visit, she was started on Symbicort, continued on albuterol as needed, and instructed to stop smoking. At [facility] with PA-C, she was having persistent wheezing but also having quite a bit of reflux. Anti-reflux measures reiterated and she was started on Carafate. Does not use Carafate every day. States GERD is not as bad as it had been, especially if she avoids tomato based foods. Asthma seems to be controlled. Using albuterol a couple times a week, nocturnal asthma symptoms. Gets SOB when climbing stairs. No wheezing, cough or sputum production. Claims to be compliant with use of Symbicort. No obvious side effects. ASTHMA CONTROL TEST Date: 07/01/2023 In the last 4 weeks, how much of the time did your asthma keep you from getting as much done at work or home that you wanted to do? None of the time (5) In the last 4 weeks, how often have you had shortness of breath? Once or twice per week (4) In the last 4 weeks, how often did your asthma symptoms (wheezing, coughing, shortness of breath, chest tightness or pain) wake you up at night or earlier than usual? Not at all (5) In the last 4 weeks, how often have you used your rescue inhaler or nebulizer medication (such as Albuterol, Proventil, Ventolin, Maxair, Xoponex, or Primatene Mist)? A few times per week (3) In the last 4 weeks, how would you rate your asthma control? Well controlled (4) Total: more than 20 PAST MEDICAL HISTORY Diagnosis Date Allergic rhinitis, cause unspecified Asthma Only uses rescue inhaler ~1x a week, typically with anxiety or exercise Attention deficit disorder with hyperactivity(314.01) Atypical squamous cells of undetermined significance (ASCUS) on Papanicolaou smear of cervix 05/09/2018 Bipolar disorder (HCC) breast infection staph infection Depression Herpes 03/02/2020 Methamphetamine abuse (HCC) 12/31/2018 NIDDM (non-insulin dependent diabetes mellitus) 10/16/2011 Obstructive sleep apnea Has CPAP PMH - PAST MEDICAL HISTORY OF 03/2008 Normal Color Vision Sepsis (HCC) retained POC 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 Possible 3rd tri growth US. Syphilis affecting in second trimester 03/15/2020 03/15/20- T.Pallidum Ab, IgG (FTA-ABS) Reactive Ordered treatment of PCN 2.4 million units IM x 1 now- waiting to see how patient can receive injection while in office. Tobacco use during , antepartum 04/24/2018 03/02/2020 Discussed risks. Working on quitting. SW 04/24/2018 Pt smokes 0.5 - 1 pack a day of cigarettes, down from 2 ppd a day. Discussed risks of smoking during . Advised pt to quit. Patient cutting back and ready to quit. -SW Type 2 diabetes mellitus (HCC) ALLERGIES Allergen Reactions Amoxil [Amoxicillin] Rash Augmentin [Amoxicil* Rash, Vomiting Patient states she had a rash with either Augmentin or amoxicillin. Can't remember which one. Potassium Clavulana* Rash Prednisone Other: See Comments Diarrhea and vomitting Insulin [place], Disposable, (BD ULTRAFINE III MINI PEN) 31 gauge x /16 Use two daily with insulin metFORMIN ER (GLUCOPHAGE XR) 500 mg 24 hr tablet Take 2 tablets by mouth two times a day with meals. sucralfate (CARAFATE) 1 gram tablet Take 1 tablet by mouth three times a day. insulin NPH subcutaneous pen Inject subcutaneously 3 units AM and 13 units HS REXULTI 1 mg tablet aspirin, enteric coated (ASPIRIN, ENTERIC COATED) 81 mg EC tablet Take 1 tablet by mouth once daily. budesonide-formoterol (SYMBICORT) 80-4.5 mcg/actuation inhaler Inhale 2 Puffs as instructed twice daily. albuterol HFA (PROVENTIL HFA, VENTOLIN HFA) 90 mcg/actuation inhaler Inhale 2 Puffs as instructed every 4 hours as needed. prental multivitamin 27 mg iron- 800 mcg tablet Take 1 tablet by mouth once daily. pyridoxine, vitamin B6, (VITAMIN B-6) 50 mg tablet Take 1 tablet by mouth once daily. ondansetron (ZOFRAN) 4 mg tablet Take 1 tablet by mouth every 8 hours as needed for nausea/vomiting. Blood-Glucose Meter Use 4x daily, NIDDM--, E 11.9; please dispense meter and supplies per insurance formulary Lancets lancets Use as instructed; four lancets per day, NIDDM--, E 11.9 blood sugar diagnostic (BLOOD GLUCOSE TEST) test strip Use as instructed; four strip per day, NIDDM--, E11.9 albuterol HFA (PROVENTIL HFA, VENTOLIN HFA) 90 mcg/actuation inhaler Inhale 2 Puffs as i (more content not included)... [facility] 07-01-2023 History of Presen t illness Narrative Images from the original note were not included. . Respiratory [place] Note Patient name: Raissa Kevin PCP: Julian De Paz MD CC: Peripartum asthma HPI: Raissa Kevin 27 year old female smoker with PMH significant for ADD, allergic rhinitis, Obesity, SHAUNNA, DM2, h/o methamphetamine abuse, h/o syphilis and long standing asthma. At her initial visit, she was started on Symbicort, continued on albuterol as needed, and instructed to stop smoking. At [facility] with JANICE, she was having persistent wheezing but also having quite a bit of reflux. Anti-reflux measures reiterated and she was started on Carafate. Does not use Carafate every day. States GERD is not as bad as it had been, especially if she avoids tomato based foods. Asthma seems to be controlled. Using albuterol a couple times a week, nocturnal asthma symptoms. Gets SOB when climbing stairs. No wheezing, cough or sputum production. Claims to be compliant with use of Symbicort. No obvious side effects. ASTHMA CONTROL TEST Date: 07/01/2023 In the last 4 weeks, how much of the time did your asthma keep you from getting as much done at work or home that you wanted to do? None of the time (5) In the last 4 weeks, how often have you had shortness of breath? Once or twice per week (4) In the last 4 weeks, how often did your asthma symptoms (wheezing, coughing, shortness of breath, chest tightness or pain) wake you up at night or earlier than usual? Not at all (5) In the last 4 weeks, how often have you used your rescue inhaler or nebulizer medication (such as Albuterol, Proventil, Ventolin, Maxair, Xoponex, or Primatene Mist)? A few times per week (3) In the last 4 weeks, how would you rate your asthma control? Well controlled (4) Total: more than 20 PAST MEDICAL HISTORY Diagnosis Date Allergic rhinitis, cause unspecified Asthma Only uses rescue inhaler ~1x a week, typically with anxiety or exercise Attention deficit disorder with hyperactivity(314.01) Atypical squamous cells of undetermined significance (ASCUS) on Papanicolaou smear of cervix 05/09/2018 Bipolar disorder (HCC) breast infection staph infection Depression Herpes 03/02/2020 Methamphetamine abuse (HCC) 12/31/2018 NIDDM (non-insulin dependent diabetes mellitus) 10/16/2011 Obstructive sleep apnea Has CPAP PMH - PAST MEDICAL HISTORY OF 03/2008 Normal Color Vision Sepsis ([facility]) retained POC 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 Possible 3rd tri growth US. Syphilis affecting in second trimester 03/15/2020 03/15/20- T.Pallidum Ab, IgG (FTA-ABS) Reactive Ordered treatment of PCN 2.4 million units IM x 1 now- waiting to see how patient can receive injection while in office. Tobacco use during , antepartum 04/24/2018 03/02/2020 Discussed risks. Working on quitting. 04/24/2018 Pt smokes 0.5 - 1 pack a day of cigarettes, down from 2 ppd a day. Discussed risks of smoking during . Advised pt to quit. Patient cutting back and ready to quit. - Type 2 diabetes mellitus (HCC) ALLERGIES Allergen Reactions Amoxil [Amoxicillin] Rash Augmentin [Amoxicil* Rash, Vomiting Patient states she had a rash with either Augmentin or amoxicillin. Can't remember which one. Potassium Clavulana* Rash Prednisone Other: See Comments Diarrhea and vomitting Insulin [place], Disposable, (BD ULTRAFINE III MINI PEN) 31 gauge x 3/16 Use two daily with insulin metFORMIN ER (GLUCOPHAGE XR) 500 mg 24 hr tablet Take 2 tablets by mouth two times a day with meals. sucralfate (CARAFATE) 1 gram tablet Take 1 tablet by mouth three times a day. insulin NPH subcutaneous pen Inject subcutaneously 3 units AM and 13 units HS REXULTI 1 mg tablet aspirin, enteric coated (ASPIRIN, ENTERIC COATED) 81 mg EC tablet Take 1 tablet by mouth once daily. budesonide-formoterol (SYMBICORT) 80-4.5 mcg/actuation inhaler Inhale 2 Puffs as instructed twice daily. albuterol HFA (PROVENTIL HFA, VENTOLIN HFA) 90 mcg/actuation inhaler Inhale 2 Puffs as instructed every 4 hours as needed. prental multivitamin 27 mg iron- 800 mcg tablet Take 1 tablet by mouth once daily. pyridoxine, vitamin B6, (VITAMIN B-6) 50 mg tablet Take 1 tablet by mouth once daily. ondansetron (ZOFRAN) 4 mg tablet Take 1 tablet by mouth every 8 hours as needed for nausea/vomiting. Blood-Glucose Meter Use 4x daily, NIDDM--, E 11.9; please dispense meter and supplies per insurance formulary Lancets lancets Use as instructed; four lancets per day, NIDDM--, E 11.9 blood sugar diagnostic (BLOOD GLUCOSE TEST) test strip Use as instructed; four strip per day, NIDDM--, E11.9 albuterol HFA (PROVENTIL HFA, VENTOLIN HFA) 90 mcg/actuation inhaler Inhale 2 Puffs as instructed every 4 hours as needed. albuterol (PROVENTIL) 2.5 mg /3 mL (0.083 %) nebulizer solution Use 3 mL via nebulizer every 4 hours as needed. OVER 5-15 MINUTES. FOR WHEEZING AND SHORTNESS OF BREATH. Social History Tobacco Use Smoking status: Every Day Packs/day: 1.00 Years: 10.00 Additional pack years: 0.00 Total pack years: 10.00 Types: Cigarettes Smokeless tobacco: Former Quit date: 01/26/2013 Vaping Use Vaping Use: Former Substances: Nicotine Substance Use Topics Alcohol use: Not Currently Drug use: Not Currently Types: Marijuana Comment: 2x a week FAMILY HISTORY Problem Relation Age of Onset Arthritis Mother other (fibromyalgia) Mother other (PCOS) Mother Bipolar disorder Father ADD/ADHD Brother Depression Brother Asthma Brother Hypertension Maternal Grandmother Hypertension Maternal Grandfather Diabetes Maternal Grandfather Gout Maternal Grandfather Heart disease Paternal Grandmother No Known Problems Paternal Grandfather other (Down syndrome) Half-brother No Known Problems Daughter PAST SURGICAL HISTORY Procedure Laterality Date SNGL 08/05/2020 COLONOSCOPY GEN ANES 06/06/2021 D&C SUCTION 05/2018 sepsis, MAB at 6 wks EGD 06/06/2021 INSERTION OF IUD 10/05/2020 fell out PMH, Social history, family history and surgical history reviewed and updated. REVIEW OF SYSTEMS: CONSTITUTIONAL: No fevers, chills, nightsweats, unintended weight loss HEENT: Denies frequent or severe heaches, nasal congestion/sinus symptoms, problematic allergy problems. EYES: No diplopia or blurry vision. CARDIOVASCULAR: No chest pain, dyspnea, palpitations, orthopnea, PND, ankle edema. PULM: No dyspnea, unexplained cough. GI: No dysphagia/odynophagia, problematic reflux, constipation, diarrhea, changes in stool habits, hematochezia, melena. : No new urinary complaints, including dysuria, gross hematuria or pyuria. NEURO: No new balance problems, peripheral weakness/paresthesias or numbness of concern. MUSC-SKEL: No new joint pain, swelling, or erythema. PSY: No concerns regarding depression, anxiety or panic. INTEGUMENTARY: No new skin changes (rash, new or changing mole, new growth) PHYSICAL EXAMINATION: BP 110/70 Pulse 84 Resp 18 Wt 221 lb (100.2kg) SpO2 98% LMP 12/28/2022 General Appearance: Gravid female, NAD. Skin: Skin color, texture, turgor normal, no suspicious rashes or lesions. Head: Normocephalic, no masses, lesions, tenderness or abnormalities. Oropharynx: No oral lesion or thrush. Neck: No JVD, no masses or TM. Lungs: Not labored, normal to percussion, no wheezes or crackles. Heart: RRR, no murmur. Extremities: No edema, no clubbing. Assessment/Plan: Mild persistent asthma, uncomplicated -Currently seems to be controlled -Continue Symbicort 80/4.5 with as needed albuterol -Smoking cessation is paramount -Continue close monitoring, patient has high risk behavior Cigarette smoker -We discussed the importance of smoking cessation, not only for her asthma but also for her baby -She will start nicotine patches , 25 weeks gestation -Management per OB Juhi Orellana MD Respiratory [place] documented in this encounter [facility] 07-01-2023 Nurse Note Intake information documented in the prior visit with OB today. documented in this encounter [facility] 07-01-2023 Miscellaneous Notes S: Raissa is a 27 year old female who presents at 25w0d for a routine visit. Feeling movement. Denies headache, visual changes, chest pain, shortness of breath, vaginal bleeding, leakage of fluid, or dysuria. Feeling well, no complaints. O: See flow sheet Gen: No apparent distress Abd: Gravid, nontender, S=D ASSESSMENT/PLAN: 1. 25 weeks gestation of - ICD9: V22.2, ICD10: Z3A.25 (primary diagnosis) - URINE OB DIP B/O - CBC, type and screen ordered for next visit - Will need Rhogam at 28 weeks - PTL precautions reviewed 2. Pre-existing diabetes mellitus in in second trimester - ICD9: 648.03, 250.00, ICD10: O24.312 - Plan for continued growth/ testing at 32 weeks - Growth ultrasound today, report pending - Sees endocrinology 3. Supervision of high risk in second trimester - ICD9: V23.9, ICD10: O09.92 - MFM consult placed 4. SHAUNNA (obstructive sleep apnea) - ICD9: 327.23, ICD10: G47.33 - Sees pulmonary medicine today 5. Tobacco use disorder complicating , childbirth, or puerperium, antepartum, unspecified trimester - ICD9: 649.03, ICD10: O99.330 - Cessation encouraged - Patient considering nicotine replacement therapy 6. Bipolar affective disorder, depressed, moderate (HCC) - ICD9: 296.52, ICD10: F31.32 - Reports last month difficult, but doing better this month - To keep updated on mood throughout RTO in 3 weeks for 28 week visit. Jaimie Jorge APRN.SHELLFISH MEAT SEPARATOR OPERATOR documented in this encounter [facility] 07-01-2023 Instructions Luci Eller MA - 07/01/2023 1:55 PM EST SEQUENTIAL SCREENINGS The [facility] offers sequential screenings for women who are interested in screenings for chromosomal abnormalities and certain defects during a . The sequential screen combines ultrasound and blood tests to determine the risk of chromosomal abnormalities, including Down's Syndrome (Trisomy 21) and Trisomy 18, as well as open neural tube defects including spina bifida. Ultrasound examination is performed between 11 weeks and 13 weeks gestational age. Blood tests are drawn after the ultrasound and again later in the between 15 and 21 weeks gestational age. Please let your physician know if you are interested in this testing. It will require an appointment with our quality assurance technician. This is not an ultrasound performed by a physician in our office during a routine visit. SIGNS AND SYMPTOMS OF LABOR 1. Contractions every 10 minutes or more often 2. Clear, pink, or brownish fluid (water) leaking from vagina 3. Feeling that baby is pushing down, pressure 4. Low, dull backache 5. Cramps that feel like a period 6. Cramps with or without diarrhea If you notice any of the above symptoms, contact our office at [phone] and ask to speak with a nurse. After hours, you can call doctors registry at [phone] OR call [facility] at [phone] and ask to have the doctor ruby on rails web developer paged. If you consider this an emergency, dial 1-1 or go to your nearest emergency department. NEED HELP? Are you dealing with a violent or abusive relationship? Are you a victim of rape or sexual assult? Call [facility] 24 hour Crisis Hotline: 552.816.8530 or 429-965-6487. MANUAL Your Guide to a Healthy manual is now on-line. Visit [email or web address] to download your free copy documented in this encounter [facility] 06-18-2023 Note HNO ID: [id number] Author: Agata Ramires APRN.SHELLFISH MEAT SEPARATOR OPERATOR Service: ? Author Type: Nurse Practitioner Type: Progress Notes Filed: 06/18/2023 3:10 PM Note Text: Reason for Consultation: DM Type 2 Referring Physician: SELF HISTORY OF PRESENT ILLNESS; Ms. Kevin is a 27 year old female presenting for follow up regarding DM Type 2. She was initially diagnosed with diabetes age 15. She does have a family history of diabetes mellitus in her grandpa, aunts, uncles . LV 05/15/23 A1C today is 5.2 History of diabetes, bipolar d/o, depression, asthma, drug abuse, SHAUNNA, allergies, obesity Attended DM education 03/20/23 She was on NPH and humalog with her last . First child was approx 8 lb and healthy. Delivered via . 23 wks 1 days gestation GABRIELE 2023.planning for repeat Today reports she is feeling ok except for heartburn Her current diabetes regimen is: Metformin ER 500 mg 2 tabs BID NPH: AM 3 units; HS 13 units Previous DM medications: Metformin Glipizide Basal/bolus --NPH and humalog with Trulicity--stopped with Regarding symptoms of hyperglycemia, she is not experiencing any symptoms such as polyuria, polydipsia, nocturia or rapid weight loss or blurry vision. Exercise: ADL's; active at work Raissa is checking her blood glucose 4 times lately. She did bring a logbook today for review: FBS 80, 83, 90, 88, 93, 98, 85, 89 After breakfast: 103, 106, 99, 98, 103 After lunch: 100, 97, 107, 116 After dinner: 110, 100, 113, 106, 110, 99, 100, 108 Hypoglycemia frequency: denies Hypoglycemia awareness: Yes Overall, the patient has no acute complaints at this time. PAST MEDICAL HISTORY Diagnosis Date Allergic rhinitis, cause unspecified Asthma Only uses rescue inhaler ~1x a week, typically with anxiety or exercise Attention deficit disorder with hyperactivity(314.01) Atypical squamous cells of undetermined significance (ASCUS) on Papanicolaou smear of cervix 05/09/2018 Bipolar disorder (HCC) breast infection staph infection Depression Herpes 03/02/2020 Methamphetamine abuse (HCC) 12/31/2018 NIDDM (non-insulin dependent diabetes mellitus) 10/16/2011 Obstructive sleep apnea Has CPAP PMH - PAST MEDICAL HISTORY OF 03/2008 Normal Color Vision Sepsis (HCC) retained POC 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 Possible 3rd tri growth US. Syphilis affecting in second trimester 03/15/2020 03/15/20- T.Pallidum Ab, IgG (FTA-ABS) Reactive Ordered treatment of PCN 2.4 million units IM x 1 now- waiting to see how patient can receive injection while in office. Tobacco use during , antepartum 04/24/2018 03/02/2020 Discussed risks. Working on quitting. SW 04/24/2018 Pt smokes 0.5 - 1 pack a day of cigarettes, down from 2 ppd a day. Discussed risks of smoking during . Advised pt to quit. Patient cutting back and ready to quit. -SW Type 2 diabetes mellitus (HCC) PAST SURGICAL HISTORY Procedure Laterality Date SNGL 08/05/2020 COLONOSCOPY GEN ANES 06/06/2021 DANDC SUCTION 05/2018 sepsis, MAB at 6 wks EGD 06/06/2021 INSERTION OF IUD 10/05/2020 fell out FAMILY HISTORY Problem Relation Age of Onset Arthritis Mother other (fibromyalgia) Mother other (PCOS) Mother Bipolar disorder Father ADD/ADHD Brother Depression Brother Asthma Brother Hypertension Maternal Grandmother Hypertension Maternal Grandfather Diabetes Maternal Grandfather Gout Maternal Grandfather Heart disease Paternal Grandmother No Known Problems Paternal Grandfather other (Down syndrome) Half-brother No Known Problems Daughter Social History Tobacco Use Smoking status: Every Day Packs/day: 1.00 Years: 10.00 Additional pack years: 0.00 Total pack years: 10.00 Types: Cigarettes Smokeless tobacco: Former Quit date: 01/26/2013 Vaping Use Vaping Use: Former Substances: Nicotine Substance Use Topics Alcohol use: Not Currently Drug use: Not Currently Types: Marijuana Comment: 2x a week Current Outpatient Medications Medication Sig Dispense Refill sucralfate (CARAFATE) 1 gram tablet Take 1 tablet by mouth three times a day. 90 tablet 3 insulin NPH subcutaneous pen Inject subcutaneously 3 units AM and 13 units HS 15 mL 5 REXULTI 1 mg tablet Insulin [place], Disposable, (BD ULTRAFINE III MINI PEN) 31 gauge x 3/16 Use two daily with insulin 200 Each 3 aspirin, enteric coated (ASPIRIN, ENTERIC COATED) 81 mg EC tablet Take 1 tablet by mouth once daily. 30 tablet 4 budesonide-formoterol (SYMBICORT) 80-4.5 mcg/actuation inhaler Inhale 2 Puffs as instructed twice daily. 1 Each 5 albuterol HFA (PROVENTIL HFA, VENTOLIN HFA) 90 mcg/actuation inhaler Inhale 2 Puffs as instructed every 4 hours as needed. 1 g 6 prental multivitamin 27 mg iron- 800 mcg tablet Take 1 tablet by mouth once daily. pyridoxine, vit (more content not included)... [facility] 06-18-2023 Note Patient Outreach (NE TNAV) RAISSA KEVIN ([id number]) 1995 F Date Time Provider Department 06/18/23 CRISTELA STEWART During your visit today, we recorded the following information about you: Cristela Stewart 06/18/2023 10:32 AM Signed POPULATION HEALTH NAVIGATION OUTREACH Action/June 18, 2023 10:31 AM HCC Gaps Outcome: Spoke to patient and physical scheduled. Dilated retinal exam done outside [facility]. Patient Identified by Name and : YES, via phone Outreach Outcome/Action Spoke to patient / parent / legal guardian: Patient scheduled Did you use a PCP flex slot to schedule this appointment? N/A Reason for Outreach HCC or suspected condition Payer: Payor: [facility] / Plan: [facility]ICA[facility] / Product Type: Medicaid / Care Gap Reviewed:: Annual Wellness visit Diabetic Eye Exam Reminder: Reminder note to check Health Maintenance for items below Health Maintenance items due: Covid-19 Vaccine(1) Never done Pneumococcal Vaccine(2 - PCV) due on 04/04/2022 Dilated Retinal Exam due on 08/30/2022 Pap Testing due on 2023 Navigation Signature: Cristela Stewart June 18, 2023 10:31 AM Allergies As of Date: 06/18/2023 Noted Allergy Reaction AMOXIL (AMOXICILLIN) 11/21/2012 2 - Rash AUGMENTIN (AMOXICILLIN-POT CLAVUL*03/30/2013 2 - Rash 11 - Vomiting Comments: Patient states she had a rash with either Augmentin or amoxicillin. Can't remember which one. POTASSIUM CLAVULANATE 03/17/2020 2 - Rash PREDNISONE 11/01/2008 14 - Other: See Comments Comments: Diarrhea and vomitting Date Reviewed: 06/05/2023 Reviewed by: Kenya Jain PANata - Fully Assessed Reason for Visit: Population Health Navigation Outreach [3910] Cmt: HCC Gaps Prescriptions as of 06/18/2023 - sucralfate (CARAFATE) 1 gram tablet Take 1 tablet by mouth three times a day. - insulin NPH subcutaneous pen Inject subcutaneously 3 units AM and 13 units HS - REXULTI 1 mg tablet - Insulin [place], Disposable, (BD ULTRAFINE III MINI PEN) 31 gauge x 3/16 Use two daily with insulin - aspirin, enteric coated (ASPIRIN, ENTERIC COATED) 81 mg EC tablet Take 1 tablet by mouth once daily. - budesonide-formoterol (SYMBICORT) 80-4.5 mcg/actuation inhaler Inhale 2 Puffs as instructed twice daily. - albuterol HFA (PROVENTIL HFA, VENTOLIN HFA) 90 mcg/actuation inhaler Inhale 2 Puffs as instructed every 4 hours as needed. - prental multivitamin 27 mg iron- 800 mcg tablet Take 1 tablet by mouth once daily. - pyridoxine, vitamin B6, (VITAMIN B-6) 50 mg tablet Take 1 tablet by mouth once daily. - ondansetron (ZOFRAN) 4 mg tablet Take 1 tablet by mouth every 8 hours as needed for nausea/vomiting. - Blood-Glucose Meter Use 4x daily, NIDDM--, E 11.9; please dispense meter and supplies per insurance formulary - Lancets lancets Use as instructed; four lancets per day, NIDDM--, E 11.9 - blood sugar diagnostic (BLOOD GLUCOSE TEST) test strip Use as instructed; four strip per day, NIDDM--, E11.9 - metFORMIN ER (GLUCOPHAGE XR) 500 mg 24 hr tablet Take 2 tablets by mouth twice daily with meals. - albuterol HFA (PROVENTIL HFA, VENTOLIN HFA) 90 mcg/actuation inhaler Inhale 2 Puffs as instructed every 4 hours as needed. - albuterol (PROVENTIL) 2.5 mg /3 mL (0.083 %) nebulizer solution Use 3 mL via nebulizer every 4 hours as needed. OVER 5-15 MINUTES. FOR WHEEZING AND SHORTNESS OF BREATH. Problem List As Of Date 06/18/2023 Noted Resolved History of asthma [Z87.09] 09/06/2006 04/02/2023 Sprain of ankle, unspecified site [S93.409A] 11/22/2008 04/24/2018 Type 2 diabetes mellitus (HCC) [E11.9] 10/16/2011 03/02/2020 Bipolar affective disorder, depressed, moderate*10/16/2011 SHAUNNA (obstructive sleep apnea) [G47.33] 05/06/2012 Type 2 diabetes mellitus, uncontrolled (HCC) [I*09/15/2013 03/02/2020 History of PCOS [Z87.42] 04/24/2018 History of drug abuse (HCC) [F19.11] 04/24/2018 History of suicidal ideation [Z86.59] 04/24/2018 Tobacco use disorder complicating , ch*04/24/2018 Family history of Down syndrome [Z82.79] 04/24/2018 Patient request for diagnostic testing [Z01.89] 04/24/2018 Mild intermittent asthma without complication [*04/25/2018 04/02/2023 Acute cystitis without hematuria [N30.00] 04/28/2018 08/07/2018 Septate uterus affecting , antepartum *05/08/2018 Atypical squamous cells of undetermined signifi*05/09/2018 Rh negative state in antepartum period [O26.899*05/13/2018 Methamphetamine abuse (HCC) [F15.10] 12/31/2018 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 [facility] 06-18-2023 Note HNO ID: [id number] Author: Cristela Stewart Service: ? Author Type: ? Type: Progress Notes Filed: 06/18/2023 10:32 AM Note Text: POPULATION HEALTH NAVIGATION OUTREACH Action/June 18, 2023 10:31 AM HCC Gaps Outcome: Spoke to patient and physical scheduled. Dilated retinal exam done outside [facility]. Patient Identified by Name and : YES, via phone Outreach Outcome/Action Spoke to patient / parent / legal guardian: Patient scheduled Did you use a PCP flex slot to schedule this appointment? N/A Reason for Outreach HCC or suspected condition Payer: [facility]: [facility] / Plan: [facility] / Product Type: Medicaid / Care Gap Reviewed:: Annual Wellness visit Diabetic Eye Exam Reminder: Reminder note to check Health Maintenance for items below Health Maintenance items due: Covid-19 Vaccine(1) Never done Pneumococcal Vaccine(2 - PCV) due on 04/04/2022 Dilated Retinal Exam due on 08/30/2022 Pap Testing due on 2023 Navigation Signature: Cristela Stewart June 18, 2023 10:31 AM [facility] 06-18-2023 History of Presen t illness Narrative POPULATION HEALTH NAVIGATION OUTREACH Action/I June 18, 2023 10:31 AM HCC Gaps Outcome: Spoke to patient and physical scheduled. Dilated retinal exam done outside [facility]. Patient Identified by Name and : YES, via phone Outreach Outcome/Action Spoke to patient / parent / legal guardian: Patient scheduled Did you use a PCP flex slot to schedule this appointment? N/A Reason for Outreach HCC or suspected condition Payer: Payor: [facility] / Plan: [facility] / Product Type: Medicaid / Care Gap Reviewed:: Annual Wellness visit Diabetic Eye Exam Reminder: Reminder note to check Health Maintenance for items below Health Maintenance items due: Covid-19 Vaccine(1) Never done Pneumococcal Vaccine(2 - PCV) due on 04/04/2022 Dilated Retinal Exam due on 08/30/2022 Pap Testing due on 2023 Navigation Signature: Cristela Stewart June 18, 2023 10:31 AM documented in this encounter [facility] 06-05-2023 Note HNO ID: [id number] Author: Kenya Jain PA-C Service: ? Author Type: Physician Fish Rod Maker Type: Progress Notes Filed: 06/05/2023 12:13 PM Note Text: Patient: Raissa Kevin PCP: Julian De Paz MD CC: follow up HPI: Raissa Kevin 27 year old female current smoker with PMH significant for ADD, allergic rhinitis, SHAUNNA, bipolar disorder, diabetes, history of methamphetamine abuse, history of syphilis, longstanding asthma. At last office visit, Dr. Orellana started her on maintenance therapy with low-dose Symbicort and as needed Albuterol. With the weather and season changes, she has been using Albuterol at least once daily. Daily cough that also wakes her from sleep. Productive of clear to yellow phlegm. No hemoptysis. VALDEZ with climbing stairs. Frequent wheezing. Reports sinus congestion and post nasal drip. No chest tightness. Patient notes reflux and states she burps a lot and tastes acid. ASTHMA CONTROL TEST Date: 06/05/2023 In the last 4 weeks, how much of the time did your asthma keep you from getting as much done at work or home that you wanted to do? Some of the time (3) In the last 4 weeks, how often have you had shortness of breath? Once or twice per week (4) In the last 4 weeks, how often did your asthma symptoms (wheezing, coughing, shortness of breath, chest tightness or pain) wake you up at night or earlier than usual? 2 or 3 nights per week (2) In the last 4 weeks, how often have you used your rescue inhaler or nebulizer medication (such as Albuterol, Proventil, Ventolin, Maxair, Xoponex, or Primatene Mist)? 1 or 2 times per day (2) In the last 4 weeks, how would you rate your asthma control? Poorly controlled (2) Total: less than 15 PAST MEDICAL HISTORY Diagnosis Date Allergic rhinitis, cause unspecified Asthma Only uses rescue inhaler ~1x a week, typically with anxiety or exercise Attention deficit disorder with hyperactivity(314.01) Atypical squamous cells of undetermined significance (ASCUS) on Papanicolaou smear of cervix 05/09/2018 Bipolar disorder (HCC) breast infection staph infection Depression Herpes 03/02/2020 Methamphetamine abuse (HCC) 12/31/2018 NIDDM (non-insulin dependent diabetes mellitus) 10/16/2011 Obstructive sleep apnea Has CPAP PMH - PAST MEDICAL HISTORY OF 03/2008 Normal Color Vision Sepsis (HCC) retained POC 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 Possible 3rd tri growth US. SW Syphilis affecting in second trimester 03/15/2020 03/15/20- T.Pallidum Ab, IgG (FTA-ABS) Reactive Ordered treatment of PCN 2.4 million units IM x 1 now- waiting to see how patient can receive injection while in office. Tobacco use during , antepartum 04/24/2018 03/02/2020 Discussed risks. Working on quitting. SW 04/24/2018 Pt smokes 0.5 - 1 pack a day of cigarettes, down from 2 ppd a day. Discussed risks of smoking during . Advised pt to quit. Patient cutting back and ready to quit. - Type 2 diabetes mellitus (HCC) Allergies: Amoxil [Amoxicillin] Rash Augmentin [Amoxicil* Rash, Vomiting Comment:Patient states she had a rash with either Augmentin or amoxicillin. Can't remember which one. Potassium Clavulana* Rash Prednisone Other: See Comments Comment:Diarrhea and vomitting insulin NPH subcutaneous pen Inject subcutaneously 3 units AM and 13 units HS REXULTI 1 mg tablet Insulin [place], Disposable, (BD ULTRAFINE III MINI PEN) 31 gauge x 3/16 Use two daily with insulin aspirin, enteric coated (ASPIRIN, ENTERIC COATED) 81 mg EC tablet Take 1 tablet by mouth once daily. budesonide-formoterol (SYMBICORT) 80-4.5 mcg/actuation inhaler Inhale 2 Puffs as instructed twice daily. albuterol HFA (PROVENTIL HFA, VENTOLIN HFA) 90 mcg/actuation inhaler Inhale 2 Puffs as instructed every 4 hours as needed. prental multivitamin 27 mg iron- 800 mcg tablet Take 1 tablet by mouth once daily. pyridoxine, vitamin B6, (VITAMIN B-6) 50 mg tablet Take 1 tablet by mouth once daily. ondansetron (ZOFRAN) 4 mg tablet Take 1 tablet by mouth every 8 hours as needed for nausea/vomiting. Blood-Glucose Meter Use 4x daily, NIDDM--, E 11.9; please dispense meter and supplies per insurance formulary Lancets lancets Use as instructed; four lancets per day, NIDDM--, E 11.9 blood sugar diagnostic (BLOOD GLUCOSE TEST) test strip Use as instructed; four strip per day, NIDDM--, E11.9 metFORMIN ER (GLUCOPHAGE XR) 500 mg 24 hr tablet Take 2 tablets by mouth twice daily with meals. albuterol HFA (PROVENTIL HFA, VENTOLIN HFA) 90 mcg/actuation inhaler Inhale 2 Puffs as instructed every 4 hours as needed. albuterol (PROVENTIL) 2.5 mg /3 mL (0.083 %) nebulizer solution Use 3 mL via nebulizer every 4 hours as needed. OVER 5-15 MINUTES. FOR WHEEZING AND SHORTNESS OF BREATH. Social History Tobacco Use (more content not included)... [facility] 06-05-2023 History of Presen t illness Narrative Images from the original note were not included. Patient: Raissa Kevin PCP: Julian De Paz MD CC: follow up HPI: Raissa Kevin 27 year old female current smoker with PMH significant for ADD, allergic rhinitis, SHAUNNA, bipolar disorder, diabetes, history of methamphetamine abuse, history of syphilis, longstanding asthma. At last office visit, Dr. Orellana started her on maintenance therapy with low-dose Symbicort and as needed Albuterol. With the weather and season changes, she has been using Albuterol at least once daily. Daily cough that also wakes her from sleep. Productive of clear to yellow phlegm. No hemoptysis. VALDEZ with climbing stairs. Frequent wheezing. Reports sinus congestion and post nasal drip. No chest tightness. Patient notes reflux and states she burps a lot and tastes acid. ASTHMA CONTROL TEST Date: 06/05/2023 In the last 4 weeks, how much of the time did your asthma keep you from getting as much done at work or home that you wanted to do? Some of the time (3) In the last 4 weeks, how often have you had shortness of breath? Once or twice per week (4) In the last 4 weeks, how often did your asthma symptoms (wheezing, coughing, shortness of breath, chest tightness or pain) wake you up at night or earlier than usual? 2 or 3 nights per week (2) In the last 4 weeks, how often have you used your rescue inhaler or nebulizer medication (such as Albuterol, Proventil, Ventolin, Maxair, Xoponex, or Primatene Mist)? 1 or 2 times per day (2) In the last 4 weeks, how would you rate your asthma control? Poorly controlled (2) Total: less than 15 PAST MEDICAL HISTORY Diagnosis Date Allergic rhinitis, cause unspecified Asthma Only uses rescue inhaler ~1x a week, typically with anxiety or exercise Attention deficit disorder with hyperactivity(314.01) Atypical squamous cells of undetermined significance (ASCUS) on Papanicolaou smear of cervix 05/09/2018 Bipolar disorder ([facility]) breast infection staph infection Depression Herpes 03/02/2020 Methamphetamine abuse ([facility]) 12/31/2018 NIDDM (non-insulin dependent diabetes mellitus) 10/16/2011 Obstructive sleep apnea Has CPAP PMH - PAST MEDICAL HISTORY OF 03/2008 Normal Color Vision Sepsis ([facility]) retained POC 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 Possible 3rd tri growth US. Syphilis affecting in second trimester 03/15/2020 03/15/20- T.Pallidum Ab, IgG (FTA-ABS) Reactive Ordered treatment of PCN 2.4 million units IM x 1 now- waiting to see how patient can receive injection while in office. Tobacco use during , antepartum 04/24/2018 03/02/2020 Discussed risks. Working on quitting. 04/24/2018 Pt smokes 0.5 - 1 pack a day of cigarettes, down from 2 ppd a day. Discussed risks of smoking during . Advised pt to quit. Patient cutting back and ready to quit. - Type 2 diabetes mellitus ([facility]) Allergies: Amoxil [Amoxicillin] Rash Augmentin [Amoxicil* Rash, Vomiting Comment:Patient states she had a rash with either Augmentin or amoxicillin. Can't remember which one. Potassium Clavulana* Rash Prednisone Other: See Comments Comment:Diarrhea and vomitting insulin NPH subcutaneous pen Inject subcutaneously 3 units AM and 13 units HS REXULTI 1 mg tablet Insulin [place], Disposable, (BD ULTRAFINE III MINI PEN) 31 gauge x 3/16 Use two daily with insulin aspirin, enteric coated (ASPIRIN, ENTERIC COATED) 81 mg EC tablet Take 1 tablet by mouth once daily. budesonide-formoterol (SYMBICORT) 80-4.5 mcg/actuation inhaler Inhale 2 Puffs as instructed twice daily. albuterol HFA (PROVENTIL HFA, VENTOLIN HFA) 90 mcg/actuation inhaler Inhale 2 Puffs as instructed every 4 hours as needed. prental multivitamin 27 mg iron- 800 mcg tablet Take 1 tablet by mouth once daily. pyridoxine, vitamin B6, (VITAMIN B-6) 50 mg tablet Take 1 tablet by mouth once daily. ondansetron (ZOFRAN) 4 mg tablet Take 1 tablet by mouth every 8 hours as needed for nausea/vomiting. Blood-Glucose Meter Use 4x daily, NIDDM--, E 11.9; please dispense meter and supplies per insurance formulary Lancets lancets Use as instructed; four lancets per day, NIDDM--, E 11.9 blood sugar diagnostic (BLOOD GLUCOSE TEST) test strip Use as instructed; four strip per day, NIDDM--, E11.9 metFORMIN ER (GLUCOPHAGE XR) 500 mg 24 hr tablet Take 2 tablets by mouth twice daily with meals. albuterol HFA (PROVENTIL HFA, VENTOLIN HFA) 90 mcg/actuation inhaler Inhale 2 Puffs as instructed every 4 hours as needed. albuterol (PROVENTIL) 2.5 mg /3 mL (0.083 %) nebulizer solution Use 3 mL via nebulizer every 4 hours as needed. OVER 5-15 MINUTES. FOR WHEEZING AND SHORTNESS OF BREATH. Social History Tobacco Use Smoking status: Every Day Packs/day: 1.00 Years: 10.00 Additional pack years: 0.00 Total pack years: 10.00 Types: Cigarettes Smokeless tobacco: Former Quit date: 01/26/2013 Vaping Use Vaping Use: Former Substances: Nicotine Substance Use Topics Alcohol use: Not Currently Drug use: Not Currently Types: Marijuana Comment: 2x a week Family History Problem Relation Age of Onset Arthritis Mother other (fibromyalgia) Mother other (PCOS) Mother Bipolar disorder Father ADD/ADHD Brother Depression Brother Asthma Brother Hypertension Maternal Grandmother Hypertension Maternal Grandfather Diabetes Maternal Grandfather Gout Maternal Grandfather Heart disease Paternal Grandmother No Known Problems Paternal Grandfather other (Down syndrome) Half-brother No Known Problems Daughter PAST SURGICAL HISTORY Procedure Laterality Date SNGL 08/05/2020 COLONOSCOPY GEN ANES 06/06/2021 D&C SUCTION 05/2018 sepsis, MAB at 6 wks EGD 06/06/2021 INSERTION OF IUD 10/05/2020 fell out I reviewed the past medical history, family history, social history and surgical history with changes noted above and updated in EMR. IMMUNIZATIONS Prevnar - xx Pneumovax 03/2021 Influenza - 04/2023 COVID-19 - xx ROS: CONSTITUTIONAL: No fevers or chills. Nightsweats for the past couple months. Fatigue HEENT: Some nasal congestion/sinus symptoms, and postnasal drip. EYES: No diplopia or blurry vision. CARDIOVASCULAR: No chest pain palpitations, orthopnea, PND, edema. PULM: See HPI GI: No dysphagia/odynophagia. Significant heartburn, see HPI. : No urinary complaints, including dysuria, gross hematuria or pyuria. MUSC-SKEL: No new joint pain, swelling, or erythema. PSY: depression INTEGUMENTARY: No new skin changes or rashes PHYSICAL EXAMINATION: BP 112/66 Pulse 76 Resp 14 Wt 97.5 kg (215 lb) LMP 12/28/2022 (Exact Date) SpO2 98% BMI 36.90 kg/m Gen: No acute distress. Cooperative with examination. HEENT: Normocephalic. Sclera, conjunctiva clear. Oral hygeine and dentition good. No thrush. Resp: No stridor, accessory respiratory muscle use, supra-sternal or intercostal retractions. No wheezes, crackles. CV: Regular rythm. Heart tones normal. Radial pulses normal. MSK: No kyphoscoliosis. Ext: Warm and well perfused. No clubbing, cyanosis, edema. Skin: No rash, ecchymoses. Neuro: Mental status normal. Affect normal. No tremor. DATA: SERVICE DATE: 12/06/2020 SERVICE TIME: 11:16 AM Oral Exhaled Nitric Oxide measurement: 12.0 (ppb) PFT 2020: ASSESSMENT/PLAN: 1. Mild persistent asthma without complication - ICD9: 493.90, ICD10: J45.30 (primary diagnosis) Not well controlled with ACT < 15, however, GERD may be a contributing factor. Will start on Sucralfate and re-assess in 1 month. Continue Symbicort with as needed Albuterol. Smoking cessation is critical. 2. Gastroesophageal reflux disease, unspecified whether esophagitis present - ICD9: 530.81, ICD10: K21.9 - Discussed lifestyle modifications including limiting caffeine, no meals three hours before sleep, and head of bed elevation - Begin treatment with Sucralfate tid. 3. , unspecified gestational age - ICD9: V22.2, ICD10: Z34.90 4. Cigarette smoker - ICD9: 305.1, ICD10: F17.210 Cessation encouraged. Physiologic and physical aspects of tobacco addiction as well as strategies for quitting were discussed. Counseling was given focusing on the harmful effects of this addiction especially given the patient's medical condition(s) which will be worsened because of the chemicals in tobacco. Portions of this documentation were copied and pasted from previous office visit notes in order to provide a cohesive continuity of the history. The note has been reviewed and edited and updated as necessary. Kenya Jain PA-C documented in this encounter [facility] 05-30-2023 Miscellaneous Notes See result note echo and serial growth US ordered documented in this encounter [facility] 05-27-2023 Miscellaneous Notes 2nd risk assessment form submitted 05/27/23 Luz Elena Goff RN documented in this encounter [facility] 05-23-2023 Miscellaneous Notes Patient did not read Sweetie Highhart message. Called phone number and mail box is full unable to leave at this time. Will try again tomorrow. Patient is active on mychart- message sent Please tell her to increase bedtime NPH dose to 13 units, send more blood sugars in one week. Please review this message on behalf of provider who is out of the office at this time. Thank you documented in this encounter [facility] 05-15-2023 Note HNO ID: [id number] Author: Agata Ramires APRN.SHELLFISH MEAT SEPARATOR OPERATOR Service: ? Author Type: Nurse Practitioner Type: Progress Notes Filed: 05/15/2023 1:10 PM Note Text: Reason for Consultation: DM Type 2 Referring Physician: SELF *Visit is being conducted virtually today *I have communicated my name and active licensure. The patient's identity and physical location were verified at the time of this visit. Either the patient or their legal professional healthcare representative has been informed of the risks and benefits of -- and alternatives to -- treatment through a remote evaluation and consents to proceed with the evaluation remotely. HISTORY OF PRESENT ILLNESS; Ms. Kevin is a 27 year old female presenting for follow up regarding DM Type 2. She was initially diagnosed with diabetes age 15. She does have a family history of diabetes mellitus in her grandpa, aunts, uncles . LV 04/15/23 A1C 5.4 on 05/06/23 History of diabetes, bipolar d/o, depression, asthma, drug abuse, SHAUNNA, allergies, obesity Attended DM education 03/20/23 She was on NPH and humalog with her last . First child was approx 8 lb and healthy. Delivered via . 18 wks 2 days gestation GABRIELE 2023. Reports she has been feeling well overall. May skip breakfast due to nausea. She has been sending in regular BG readings. Insulin has been adjusted between visits Her current diabetes regimen is: Metformin ER 500 mg 2 tabs BID NPH: AM 3 units; HS 12 units Previous DM medications: Metformin Glipizide Basal/bolus --NPH and humalog with Trulicity--stopped with Regarding symptoms of hyperglycemia, she is not experiencing any symptoms such as polyuria, polydipsia, nocturia or rapid weight loss or blurry vision. Exercise: ADL's; active at work [employer] is checking her blood glucose 4 times lately. She did bring a logbook today for review: FBS low mid 80's; highest 98 After breakfast: 90's After lunch: under 120 After dinner : about 100 Hypoglycemia frequency: denies Hypoglycemia awareness: Yes Overall, the patient has no acute complaints at this time. PAST MEDICAL HISTORY Diagnosis Date Allergic rhinitis, cause unspecified Asthma Only uses rescue inhaler ~1x a week, typically with anxiety or exercise Attention deficit disorder with hyperactivity(314.01) Atypical squamous cells of undetermined significance (ASCUS) on Papanicolaou smear of cervix 05/09/2018 Bipolar disorder (HCC) breast infection staph infection Depression Herpes 03/02/2020 Methamphetamine abuse (HCC) 12/31/2018 NIDDM (non-insulin dependent diabetes mellitus) 10/16/2011 Obstructive sleep apnea Has CPAP PMH - PAST MEDICAL HISTORY OF 03/2008 Normal Color Vision Sepsis (HCC) retained POC 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 Possible 3rd tri growth US. Syphilis affecting in second trimester 03/15/2020 03/15/20- T.Pallidum Ab, IgG (FTA-ABS) Reactive Ordered treatment of PCN 2.4 million units IM x 1 now- waiting to see how patient can receive injection while in office. Tobacco use during , antepartum 04/24/2018 03/02/2020 Discussed risks. Working on quitting. SW 04/24/2018 Pt smokes 0.5 - 1 pack a day of cigarettes, down from 2 ppd a day. Discussed risks of smoking during . Advised pt to quit. Patient cutting back and ready to quit. - Type 2 diabetes mellitus (HCC) PAST SURGICAL HISTORY Procedure Laterality Date SNGL 08/05/2020 COLONOSCOPY GEN ANES 06/06/2021 DANDC SUCTION 05/2018 sepsis, MAB at 6 wks EGD 06/06/2021 INSERTION OF IUD 10/05/2020 fell out FAMILY HISTORY Problem Relation Age of Onset Arthritis Mother other (fibromyalgia) Mother other (PCOS) Mother Bipolar disorder Father ADD/ADHD Brother Depression Brother Asthma Brother Hypertension Maternal Grandmother Hypertension Maternal Grandfather Diabetes Maternal Grandfather Gout Maternal Grandfather Heart disease Paternal Grandmother No Known Problems Paternal Grandfather other (Down syndrome) Half-brother No Known Problems Daughter Social History Tobacco Use Smoking status: Every Day Packs/day: 1.00 Years: 10.00 Additional pack years: 0.00 Total pack years: 10.00 Types: Cigarettes Smokeless tobacco: Former Quit date: 01/26/2013 Vaping Use Vaping Use: Former Substances: Nicotine Substance Use Topics Alcohol use: Not Currently Drug use: Not Currently Types: Marijuana Comment: 2x a week Current Outpatient Medications Medication Sig Dispense Refill insulin NPH subcutaneous pen Inject subcutaneously 3 units AM and 12 units HS 15 mL 5 REXULTI 1 mg tablet Insulin [place], Disposable, (BD ULTRAFINE III MINI PEN) 31 gauge x 3/16 Use two daily with insulin 200 Each 3 aspirin, enteric coated (ASPIRIN, ENTERIC COATED) 81 mg EC tablet Take 1 tablet by mouth once daily. 30 tablet 4 budesonide-f (more content not included)... [facility] 05-10-2023 Miscellaneous Notes SW- Pt doing well and offers no complaints. No pain, vb, lof. PE: Gen- NAD,well appearinf Abd- Soft, NT, +FHT See flowsheet A/p 17 wk gestation - Pre gestational diabetes: BG log reviewed and majority within goal. Cont to follow with endo. She is sending in blood sugars weekly. Will need growth US q 4 weeks starting at 24 wks and twice weekly antepartum testing starting at 32 wks - SHAUNNA: Has follow up with pulmonary medicine - Cont baby ASA - Flu shot given - Bipolar disorder: Mood stable and established at counseling center - Encouraged to work on quitting smoking - Will need MFM consultation but unable to time it up with anatomy US. To schedule with growth US - RTO anatomy US Elizabeth Mariee DO documented in this encounter [facility] 05-09-2023 Miscellaneous Notes Please review and advise. documented in this encounter [facility] 05-06-2023 Instructions Lcui Eller MA - 05/06/2023 9:58 AM EDT SEQUENTIAL SCREENINGS The [facility] offers sequential screenings for women who are interested in screenings for chromosomal abnormalities and certain defects during a . The sequential screen combines ultrasound and blood tests to determine the risk of chromosomal abnormalities, including Down's Syndrome (Trisomy 21) and Trisomy 18, as well as open neural tube defects including spina bifida. Ultrasound examination is performed between 11 weeks and 13 weeks gestational age. Blood tests are drawn after the ultrasound and again later in the between 15 and 21 weeks gestational age. Please let your physician know if you are interested in this testing. It will require an appointment with our quality assurance technician. This is not an ultrasound performed by a physician in our office during a routine visit. SIGNS AND SYMPTOMS OF LABOR 1. Contractions every 10 minutes or more often 2. Clear, pink, or brownish fluid (water) leaking from vagina 3. Feeling that baby is pushing down, pressure 4. Low, dull backache 5. Cramps that feel like a period 6. Cramps with or without diarrhea If you notice any of the above symptoms, contact our office at [phone] and ask to speak with a nurse. After hours, you can call doctors registry at [phone] OR call [facility] at [phone] and ask to have the doctor ruby on rails web developer paged. If you consider this an emergency, dial 1-4-0 or go to your nearest emergency department. NEED HELP? Are you dealing with a violent or abusive relationship? Are you a victim of rape or sexual assult? Call [facility] 24 hour Crisis Hotline: 440.186.6955 or 605-835-9772. MANUAL Your Guide to a Healthy manual is now on-line. Visit [email or web address] to download your free copy documented in this encounter [facility] 04-29-2023 Miscellaneous Notes Please review. documented in this encounter [facility] 04-23-2023 Miscellaneous Notes Please review. documented in this encounter [facility] 04-15-2023 Note HNO ID: [id number] Author: Agata Ramires APRN.SHELLFISH MEAT SEPARATOR OPERATOR Service: ? Author Type: Nurse Practitioner Type: Progress Notes Filed: 04/15/2023 12:18 PM Note Text: Reason for Consultation: DM Type 2 Referring Physician: SELF *Visit is being conducted virtually today *I have communicated my name and active licensure. The patient's identity and physical location were verified at the time of this visit. Either the patient or their legal professional healthcare representative has been informed of the risks and benefits of -- and alternatives to -- treatment through a remote evaluation and consents to proceed with the evaluation remotely. HISTORY OF PRESENT ILLNESS; Ms. Kevin is a 27 year old female presenting for follow up regarding DM Type 2. She was initially diagnosed with diabetes age 15. She does have a family history of diabetes mellitus in her grandpa, aunts, uncles . LV 03/12/23 A1C 5.6 on 04/04/23 History of diabetes, bipolar d/o, depression, asthma, drug abuse, SHAUNNA, allergies, obesity Attended DM education 03/20/23 She was on NPH and humalog with her last . First child was approx 8 lb and healthy. Delivered via . 14 wks 0 days gestation GABRIELE 2023. Her current diabetes regimen is: Metformin ER 500 mg 2 tabs BID NPH: AM 2 units; HS 7 units Previous DM medications: Metformin Glipizide Basal/bolus --NPH and humalog with Trulicity--stopped with Regarding symptoms of hyperglycemia, she is not experiencing any symptoms such as polyuria, polydipsia, nocturia or rapid weight loss or blurry vision. Exercise: ADL's; active at work Raissa is checking her blood glucose 4 times lately. She did bring a logbook today for review: 04/08: 99,128, 118, 123 04/09: 106, 120,116, 127 04/10: 117, 123, 126,130 04/11: 99 , 107, 115, 125 04/12: 90, 118, 109, 104 04/13: 86, 124,104, 107 04/14: 85, 106, 110, 121 04/15: 91, Hypoglycemia frequency: denies Hypoglycemia awareness: Yes Overall, the patient has no acute complaints at this time. PAST MEDICAL HISTORY Diagnosis Date Allergic rhinitis, cause unspecified Asthma Only uses rescue inhaler ~1x a week, typically with anxiety or exercise Attention deficit disorder with hyperactivity(314.01) Atypical squamous cells of undetermined significance (ASCUS) on Papanicolaou smear of cervix 05/09/2018 Bipolar disorder (HCC) breast infection staph infection Depression Herpes 03/02/2020 Methamphetamine abuse (HCC) 12/31/2018 NIDDM (non-insulin dependent diabetes mellitus) 10/16/2011 Obstructive sleep apnea Has CPAP PMH - PAST MEDICAL HISTORY OF 03/2008 Normal Color Vision Sepsis (HCC) retained POC 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 Possible 3rd tri growth US. Syphilis affecting in second trimester 03/15/2020 03/15/20- T.Pallidum Ab, IgG (FTA-ABS) Reactive Ordered treatment of PCN 2.4 million units IM x 1 now- waiting to see how patient can receive injection while in office. Tobacco use during , antepartum 04/24/2018 03/02/2020 Discussed risks. Working on quitting. 04/24/2018 Pt smokes 0.5 - 1 pack a day of cigarettes, down from 2 ppd a day. Discussed risks of smoking during . Advised pt to quit. Patient cutting back and ready to quit. - Type 2 diabetes mellitus (HCC) PAST SURGICAL HISTORY Procedure Laterality Date SNGL 08/05/2020 COLONOSCOPY GEN ANES 06/06/2021 DANDC SUCTION 05/2018 sepsis, MAB at 6 wks EGD 06/06/2021 INSERTION OF IUD 10/05/2020 fell out FAMILY HISTORY Problem Relation Age of Onset Arthritis Mother other (fibromyalgia) Mother other (PCOS) Mother Bipolar disorder Father ADD/ADHD Brother Depression Brother Asthma Brother Hypertension Maternal Grandmother Hypertension Maternal Grandfather Diabetes Maternal Grandfather Gout Maternal Grandfather Heart disease Paternal Grandmother No Known Problems Paternal Grandfather other (Down syndrome) Half-brother No Known Problems Daughter Social History Tobacco Use Smoking status: Every Day Packs/day: 1.00 Years: 10.00 Additional pack years: 0.00 Total pack years: 10.00 Types: Cigarettes Smokeless tobacco: Former Quit date: 01/26/2013 Vaping Use Vaping Use: Former Substances: Nicotine Substance Use Topics Alcohol use: Not Currently Drug use: Not Currently Types: Marijuana Comment: 2x a week Current Outpatient Medications Medication Sig Dispense Refill REXULTI 1 mg tablet clindamycin (CLEOCIN HCL) 300 mg capsule Take 1 capsule by mouth four times daily for 8 days. 32 capsule 0 insulin NPH subcutaneous pen Inject subcutaneously 2 units AM and 7 units HS 15 mL 5 Insulin [place], Disposable, (BD ULTRAFINE III MINI PEN) 31 gauge x 3/16 Use two daily with insulin 200 Each 3 aspirin, enteric coated (ASPIRIN, ENTERIC COATED) 81 mg EC tablet Take 1 tablet by mouth once daily. 3 (more content not included)... [facility] 04-15-2023 Miscellaneous Notes Reviewed with patient at OV this AM. documented in this encounter [facility] 04-15-2023 History of Presen t illness Narrative Reason for Consultation: DM Type 2 Referring Physician: SELF *Visit is being conducted virtually today *I have communicated my name and active licensure. The patient's identity and physical location were verified at the time of this visit. Either the patient or their legal professional healthcare representative has been informed of the risks and benefits of -- and alternatives to -- treatment through a remote evaluation and consents to proceed with the evaluation remotely. HISTORY OF PRESENT ILLNESS; Ms. Kevin is a 27 year old female presenting for follow up regarding DM Type 2. She was initially diagnosed with diabetes age 15. She does have a family history of diabetes mellitus in her grandpa, aunts, uncles . LV 03/12/23 A1C 5.6 on 04/04/23 History of diabetes, bipolar d/o, depression, asthma, drug abuse, SHAUNNA, allergies, obesity Attended DM education 03/20/23 She was on NPH and humalog with her last . First child was approx 8 lb and healthy. Delivered via . 14 wks 0 days gestation GABRIELE 2023. Her current diabetes regimen is: Metformin ER 500 mg 2 tabs BID NPH: AM 2 units; HS 7 units Previous DM medications: Metformin Glipizide Basal/bolus --NPH and humalog with Trulicity--stopped with Regarding symptoms of hyperglycemia, she is not experiencing any symptoms such as polyuria, polydipsia, nocturia or rapid weight loss or blurry vision. Exercise: ADL's; active at work Raissa is checking her blood glucose 4 times lately. She did bring a logbook today for review: 04/08: 99,128, 118, 123 04/09: 106, 120,116, 127 04/10: 117, 123, 126,130 04/11: 99 , 107, 115, 125 04/12: 90, 118, 109, 104 04/13: 86, 124,104, 107 04/14: 85, 106, 110, 121 04/15: 91, Hypoglycemia frequency: denies Hypoglycemia awareness: Yes Overall, the patient has no acute complaints at this time. PAST MEDICAL HISTORY Diagnosis Date Allergic rhinitis, cause unspecified Asthma Only uses rescue inhaler ~1x a week, typically with anxiety or exercise Attention deficit disorder with hyperactivity(314.01) Atypical squamous cells of undetermined significance (ASCUS) on Papanicolaou smear of cervix 05/09/2018 Bipolar disorder (HCC) breast infection staph infection Depression Herpes 03/02/2020 Methamphetamine abuse (HCC) 12/31/2018 NIDDM (non-insulin dependent diabetes mellitus) 10/16/2011 Obstructive sleep apnea Has CPAP PMH - PAST MEDICAL HISTORY OF 03/2008 Normal Color Vision Sepsis (HCC) retained POC 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 Possible 3rd tri growth US. Syphilis affecting in second trimester 03/15/2020 03/15/20- T.Pallidum Ab, IgG (FTA-ABS) Reactive Ordered treatment of PCN 2.4 million units IM x 1 now- waiting to see how patient can receive injection while in office. Tobacco use during , antepartum 04/24/2018 03/02/2020 Discussed risks. Working on quitting. SW 04/24/2018 Pt smokes 0.5 - 1 pack a day of cigarettes, down from 2 ppd a day. Discussed risks of smoking during . Advised pt to quit. Patient cutting back and ready to quit. - Type 2 diabetes mellitus (HCC) PAST SURGICAL HISTORY Procedure Laterality Date SNGL 08/05/2020 COLONOSCOPY GEN ANES 06/06/2021 D&C SUCTION 05/2018 sepsis, MAB at 6 wks EGD 06/06/2021 INSERTION OF IUD 10/05/2020 fell out FAMILY HISTORY Problem Relation Age of Onset Arthritis Mother other (fibromyalgia) Mother other (PCOS) Mother Bipolar disorder Father ADD/ADHD Brother Depression Brother Asthma Brother Hypertension Maternal Grandmother Hypertension Maternal Grandfather Diabetes Maternal Grandfather Gout Maternal Grandfather Heart disease Paternal Grandmother No Known Problems Paternal Grandfather other (Down syndrome) Half-brother No Known Problems Daughter Social History Tobacco Use Smoking status: Every Day Packs/day: 1.00 Years: 10.00 Additional pack years: 0.00 Total pack years: 10.00 Types: Cigarettes Smokeless tobacco: Former Quit date: 01/26/2013 Vaping Use Vaping Use: Former Substances: Nicotine Substance Use Topics Alcohol use: Not Currently Drug use: Not Currently Types: Marijuana Comment: 2x a week Current Outpatient Medications Medication Sig Dispense Refill REXULTI 1 mg tablet clindamycin (CLEOCIN HCL) 300 mg capsule Take 1 capsule by mouth four times daily for 8 days. 32 capsule 0 insulin NPH subcutaneous pen Inject subcutaneously 2 units AM and 7 units HS 15 mL 5 Insulin [place], Disposable, (BD ULTRAFINE III MINI PEN) 31 gauge x 3/16 Use two daily with insulin 200 Each 3 aspirin, enteric coated (ASPIRIN, ENTERIC COATED) 81 mg EC tablet Take 1 tablet by mouth once daily. 30 tablet 4 budesonide-formoterol (SYMBICORT) 80-4.5 mcg/actuation inhaler Inhale 2 Puffs as instructed twice daily. 1 Each 5 albuterol HFA (PROVENTIL HFA, VENTOLIN HFA) 90 mcg/actuation inhaler Inhale 2 Puffs as instructed every 4 hours as needed. 1 g 6 prental multivitamin 27 mg iron- 800 mcg tablet Take 1 tablet by mouth once daily. pyridoxine, vitamin B6, (VITAMIN B-6) 50 mg tablet Take 1 tablet by mouth once daily. 50 tablet 1 ondansetron (ZOFRAN) 4 mg tablet Take 1 tablet by mouth every 8 hours as needed for nausea/vomiting. 30 tablet 0 Blood-Glucose Meter Use 4x daily, NIDDM--, E 11.9; please dispense meter and supplies per insurance formulary 1 Each 0 Lancets lancets Use as instructed; four lancets per day, NIDDM--, E 11.9 400 Each 3 blood sugar diagnostic (BLOOD GLUCOSE TEST) test strip Use as instructed; four strip per day, NIDDM--, E11.9 400 Strip 3 metFORMIN ER (GLUCOPHAGE XR) 500 mg 24 hr tablet Take 2 tablets by mouth twice daily with meals. 360 tablet 3 albuterol HFA (PROVENTIL HFA, VENTOLIN HFA) 90 mcg/actuation inhaler Inhale 2 Puffs as instructed every 4 hours as needed. 18 g 5 albuterol (PROVENTIL) 2.5 mg /3 mL (0.083 %) nebulizer solution Use 3 mL via nebulizer every 4 hours as needed. OVER 5-15 MINUTES. FOR WHEEZING AND SHORTNESS OF BREATH. 60 Vial 5 No current facility-administered medications for this visit. Allergies As of Date: 04/15/2023 Allergen Noted Reaction AMOXIL [AMOXICILLIN] 11/21/2012 Rash AUGMENTIN [AMOXICILLIN-POT CLAVUL*03/30/2013 Rash and Vomiting POTASSIUM CLAVULANATE 03/17/2020 Rash PREDNISONE 11/01/2008 Other: See Comments Fully Assessed 04/09/2023 REVIEW OF SYSTEMS: Review of Systems Constitutional: Positive for night sweats. Negative for recent unintentional weight change. Eyes: Negative for visual disturbance. Cardiovascular: Negative for chest pain and leg swelling. Gastrointestinal: Negative for nausea and diarrhea. Musculoskeletal: Negative for myalgias. Neurological: Negative for dizziness and headaches. PHYSICAL EXAM: LMP 12/28/2022 (Exact Date) Physical Exam Constitutional: Appearance: Normal appearance. Neurological: Mental Status: She is alert and oriented to person, place, and time. Psychiatric: Mood and Affect: Mood normal. Behavior: Behavior normal. DATA: Creatinine Date Value Ref Range Status 09/14/2022 0.64 0.58 - 0.96 mg/dL Final Hemoglobin A1C (%) Date Value 04/04/2023 5.6 08/22/2021 6.3 Hemoglobin A1C (POCT) (%) Date Value 03/12/2023 5.9 ) No components found for: URINEALBUMIN Cholesterol, Total (mg/dL) Date Value 09/14/2022 115 08/22/2021 140 HDL Cholesterol (mg/dL) Date Value 09/14/2022 35 08/22/2021 36 LDL Cholesterol (mg/dL) Date Value 09/14/2022 64 08/22/2021 81 Triglyceride (mg/dL) Date Value 09/14/2022 80 08/22/2021 117 IMPRESSION: Ms. Kevin is a 27 year old female here for evaluation of DM Type 2 complicated by obesity, RECOMMENDATIONS: (E11.9) Type 2 diabetes mellitus without complication, without long-term current use of insulin (HCC) (primary encounter diagnosis) Comment: Glycemic control is improving. NPH insulin started. Plan: HGB A1C NPH 3 units AM and 8 units HS Continue sending BG readings weekly Follow up in April as planned. (Z3A.14) 14 weeks gestation of Comment/Plan: per Ob This Team Access Model visit is a virtual encounter. It required patient-provider interaction for the medical decision making as documented above. I spent a total of 20 minutes on the date of the service which included preparing to see the patient, [id number] patient care, completing clinical documentation, obtaining and/or reviewing separately obtained history, performing a medically appropriate examination, counseling and educating the patient/family/caregiver, and ordering medications, tests, or procedures. Agata Ramires, MSN, GLOBAL TRANSPORTATION MANAGER, EDUCATION AND TRAINING MANAGER-C, CDE Endocrinology [facility]/[address] [place] [address] Fax: documented in this encounter [facility] 04-09-2023 Note HNO ID: [id number] Author: Harvinder Rios APRN.SHELLFISH MEAT SEPARATOR OPERATOR Service: ? Author Type: Nurse Practitioner Type: Progress Notes Filed: 04/09/2023 7:24 PM Note Text: Raissa Kevin is a 27 year old female who presents with right breast swollen (Red yellow in coloration and hot to touch that started two days ago. Pt reports that she had staph infection last year in the same breast. Pt is currently 13 weeks . ) Raissa is a 27-year-old female who presents today with a right breast abscess. She states that her right breast has been swollen and red for the past few days. She states that she has had an abscess in this breast before and was treated for staph. She denies fever and chills. She is here for further evaluation and treatment. No other complaints. PAST MEDICAL HISTORY Diagnosis Date Allergic rhinitis, cause unspecified Asthma Only uses rescue inhaler ~1x a week, typically with anxiety or exercise Attention deficit disorder with hyperactivity(314.01) Atypical squamous cells of undetermined significance (ASCUS) on Papanicolaou smear of cervix 05/09/2018 Bipolar disorder ([facility]) breast infection staph infection Depression Herpes 03/02/2020 Methamphetamine abuse ([facility]) 12/31/2018 NIDDM (non-insulin dependent diabetes mellitus) 10/16/2011 Obstructive sleep apnea Has CPAP PMH - PAST MEDICAL HISTORY OF 03/2008 Normal Color Vision Sepsis ([facility]) retained POC 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 Possible 3rd tri growth US. Syphilis affecting in second trimester 03/15/2020 03/15/20- T.Pallidum Ab, IgG (FTA-ABS) Reactive Ordered treatment of PCN 2.4 million units IM x 1 now- waiting to see how patient can receive injection while in office. Tobacco use during , antepartum 04/24/2018 03/02/2020 Discussed risks. Working on quitting. 04/24/2018 Pt smokes 0.5 - 1 pack a day of cigarettes, down from 2 ppd a day. Discussed risks of smoking during . Advised pt to quit. Patient cutting back and ready to quit. - Type 2 diabetes mellitus ([facility]) ACTIVE PROBLEM LIST Bipolar Affective Disorder, Depressed, Moderate ([facility]) Shaunna (Obstructive Sleep Apnea) History of Pcos History of drug abuse ([facility]) History of Suicidal Ideation Tobacco Use Disorder Complicating , Childbirth, Or Puerperium, Antepartum, Unspecified Trimester Family History of Down Syndrome Patient Request for Diagnostic Testing Septate Uterus Affecting , Antepartum Atypical Squamous Cells of Undetermined Significance (Ascus) On Papanicolaou Smear of Cervix Rh Negative State in Antepartum Period Methamphetamine Abuse ([facility]) Drug-Induced Paranoid State ([facility]) History of Syphilis Marijuana Use Type 2 Diabetes Mellitus Without Complication, Without Long-Term Current Use of Insulin ([facility]) Obesity in Unplanned Wanted With History of Section, Antepartum History of Depression Nausea and Vomiting During History of Obstructive Sleep Apnea Mild Persistent Asthma Without Complication Current Outpatient Medications Medication Sig Dispense Refill REXULTI 1 mg tablet insulin NPH subcutaneous pen Inject subcutaneously 2 units AM and 7 units HS 15 mL 5 Insulin [place], Disposable, (BD ULTRAFINE III MINI PEN) 31 gauge x 3/16 Use two daily with insulin 200 Each 3 aspirin, enteric coated (ASPIRIN, ENTERIC COATED) 81 mg EC tablet Take 1 tablet by mouth once daily. 30 tablet 4 budesonide-formoterol (SYMBICORT) 80-4.5 mcg/actuation inhaler Inhale 2 Puffs as instructed twice daily. 1 Each 5 albuterol HFA (PROVENTIL HFA, VENTOLIN HFA) 90 mcg/actuation inhaler Inhale 2 Puffs as instructed every 4 hours as needed. 1 g 6 prental multivitamin 27 mg iron- 800 mcg tablet Take 1 tablet by mouth once daily. pyridoxine, vitamin B6, (VITAMIN B-6) 50 mg tablet Take 1 tablet by mouth once daily. 50 tablet 1 ondansetron (ZOFRAN) 4 mg tablet Take 1 tablet by mouth every 8 hours as needed for nausea/vomiting. 30 tablet 0 Blood-Glucose Meter Use 4x daily, NIDDM--, E 11.9; please dispense meter and supplies per insurance formulary 1 Each 0 Lancets lancets Use as instructed; four lancets per day, NIDDM--, E 11.9 400 Each 3 blood sugar diagnostic (BLOOD GLUCOSE TEST) test strip Use as instructed; four strip per day, NIDDM--, E11.9 400 Strip 3 metFORMIN ER (GLUCOPHAGE XR) 500 mg 24 hr tablet Take 2 tablets by mouth twice daily with meals. 360 tablet 3 albuterol HFA (PROVENTIL HFA, VENTOLIN HFA) 90 mcg/actuation inhaler Inhale 2 Puffs as instructed every 4 hours as needed. 18 g 5 albuterol (PROVENTIL) 2.5 mg /3 mL (0.083 %) nebulizer solution Use 3 mL via nebulizer every 4 hours as needed. OVER 5-15 MINUTES. FOR WHEEZING AND SHORTNESS OF BREATH. 60 Vial 5 clindamycin (CLEOCIN HCL) 300 mg capsule Take 1 capsule by mouth four times ashley (more content not included)... [facility] 04-09-2023 Instructions Harvinder Rios APRN.SHELLFISH MEAT SEPARATOR OPERATOR - 04/09/2023 7:22 PM EDT Take medication as prescribed. We will call you with your wound culture results. Please make sure you have a yogurt or probiotic while taking medication. Wash with antiseptic/antibacterial soap daily. Pat dry. Follow-up as needed. documented in this encounter [facility] 04-09-2023 History of Presen t illness Narrative Raissa Kevin is a 27 year old female who presents with right breast swollen (Red yellow in coloration and hot to touch that started two days ago. Pt reports that she had staph infection last year in the same breast. Pt is currently 13 weeks . ) Raissa is a 27-year-old female who presents today with a right breast abscess. She states that her right breast has been swollen and red for the past few days. She states that she has had an abscess in this breast before and was treated for staph. She denies fever and chills. She is here for further evaluation and treatment. No other complaints. PAST MEDICAL HISTORY Diagnosis Date Allergic rhinitis, cause unspecified Asthma Only uses rescue inhaler ~1x a week, typically with anxiety or exercise Attention deficit disorder with hyperactivity(314.01) Atypical squamous cells of undetermined significance (ASCUS) on Papanicolaou smear of cervix 05/09/2018 Bipolar disorder (HCC) breast infection staph infection Depression Herpes 03/02/2020 Methamphetamine abuse (HCC) 12/31/2018 NIDDM (non-insulin dependent diabetes mellitus) 10/16/2011 Obstructive sleep apnea Has CPAP PMH - PAST MEDICAL HISTORY OF 03/2008 Normal Color Vision Sepsis (HCC) retained POC 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 Possible 3rd tri growth US. SW Syphilis affecting in second trimester 03/15/2020 03/15/20- T.Pallidum Ab, IgG (FTA-ABS) Reactive Ordered treatment of PCN 2.4 million units IM x 1 now- waiting to see how patient can receive injection while in office. Tobacco use during , antepartum 04/24/2018 03/02/2020 Discussed risks. Working on quitting. SW 04/24/2018 Pt smokes 0.5 - 1 pack a day of cigarettes, down from 2 ppd a day. Discussed risks of smoking during . Advised pt to quit. Patient cutting back and ready to quit. -SW Type 2 diabetes mellitus (HCC) ACTIVE PROBLEM LIST Bipolar Affective Disorder, Depressed, Moderate (Hcc) Shaunna (Obstructive Sleep Apnea) History of Pcos History of drug abuse (HCC) History of Suicidal Ideation Tobacco Use Disorder Complicating , Childbirth, Or Puerperium, Antepartum, Unspecified Trimester Family History of Down Syndrome Patient Request for Diagnostic Testing Septate Uterus Affecting , Antepartum Atypical Squamous Cells of Undetermined Significance (Ascus) On Papanicolaou Smear of Cervix Rh Negative State in Antepartum Period Methamphetamine Abuse (Hcc) Drug-Induced Paranoid State (Hcc) History of Syphilis Marijuana Use Type 2 Diabetes Mellitus Without Complication, Without Long-Term Current Use of Insulin (Hcc) Obesity in Unplanned Wanted With History of Section, Antepartum History of Depression Nausea and Vomiting During History of Obstructive Sleep Apnea Mild Persistent Asthma Without Complication Current Outpatient Medications Medication Sig Dispense Refill REXULTI 1 mg tablet insulin NPH subcutaneous pen Inject subcutaneously 2 units AM and 7 units HS 15 mL 5 Insulin [place], Disposable, (BD ULTRAFINE III MINI PEN) 31 gauge x 3/16 Use two daily with insulin 200 Each 3 aspirin, enteric coated (ASPIRIN, ENTERIC COATED) 81 mg EC tablet Take 1 tablet by mouth once daily. 30 tablet 4 budesonide-formoterol (SYMBICORT) 80-4.5 mcg/actuation inhaler Inhale 2 Puffs as instructed twice daily. 1 Each 5 albuterol HFA (PROVENTIL HFA, VENTOLIN HFA) 90 mcg/actuation inhaler Inhale 2 Puffs as instructed every 4 hours as needed. 1 g 6 prental multivitamin 27 mg iron- 800 mcg tablet Take 1 tablet by mouth once daily. pyridoxine, vitamin B6, (VITAMIN B-6) 50 mg tablet Take 1 tablet by mouth once daily. 50 tablet 1 ondansetron (ZOFRAN) 4 mg tablet Take 1 tablet by mouth every 8 hours as needed for nausea/vomiting. 30 tablet 0 Blood-Glucose Meter Use 4x daily, NIDDM--, E 11.9; please dispense meter and supplies per insurance formulary 1 Each 0 Lancets lancets Use as instructed; four lancets per day, NIDDM--, E 11.9 400 Each 3 blood sugar diagnostic (BLOOD GLUCOSE TEST) test strip Use as instructed; four strip per day, NIDDM--, E11.9 400 Strip 3 metFORMIN ER (GLUCOPHAGE XR) 500 mg 24 hr tablet Take 2 tablets by mouth twice daily with meals. 360 tablet 3 albuterol HFA (PROVENTIL HFA, VENTOLIN HFA) 90 mcg/actuation inhaler Inhale 2 Puffs as instructed every 4 hours as needed. 18 g 5 albuterol (PROVENTIL) 2.5 mg /3 mL (0.083 %) nebulizer solution Use 3 mL via nebulizer every 4 hours as needed. OVER 5-15 MINUTES. FOR WHEEZING AND SHORTNESS OF BREATH. 60 Vial 5 clindamycin (CLEOCIN HCL) 300 mg capsule Take 1 capsule by mouth four times daily for 8 days. 32 capsule 0 No current facility-administered medications for this visit. Social History Tobacco Use Smoking status: Every Day Packs/day: 1.00 Years: 10.00 Additional pack years: 0.00 Total pack years: 10.00 Types: Cigarettes Smokeless tobacco: Former Quit date: 01/26/2013 Vaping Use Vaping Use: Former Substances: Nicotine Substance Use Topics Alcohol use: Not Currently Drug use: Not Currently Types: Marijuana Comment: 2x a week Alcohol Use: Not Currently Tobacco Use: 1 packs/day, for 10 years. Types: Cigarettes FAMILY HISTORY Problem Relation Age of Onset Arthritis Mother other (fibromyalgia) Mother other (PCOS) Mother Bipolar disorder Father ADD/ADHD Brother Depression Brother Asthma Brother Hypertension Maternal Grandmother Hypertension Maternal Grandfather Diabetes Maternal Grandfather Gout Maternal Grandfather Heart disease Paternal Grandmother No Known Problems Paternal Grandfather other (Down syndrome) Half-brother No Known Problems Daughter Review of Systems Skin: Right breast swollen and red All other systems reviewed and are negative. BP 110/67 Pulse 81 Temp (Src) 98.6 (Temporal) Resp 20 Wt 210 lb (95.3kg) SpO2 98% LMP 12/28/2022 Physical Exam Vitals and nursing note reviewed. Constitutional: Appearance: Normal appearance. HENT: Head: Normocephalic and atraumatic. Nose: Nose normal. Eyes: Extraocular Movements: Extraocular movements intact. Conjunctiva/sclera: Conjunctivae normal. Pulmonary: Effort: Pulmonary effort is normal. No respiratory distress. Musculoskeletal: General: Normal range of motion. Skin: Comments: Right breast abscess 3 cm x 3 cm. Positive for induration and fluctuance. Outside area erythematous. Neurological: General: No focal deficit present. Mental Status: She is alert and oriented to person, place, and time. Psychiatric: Mood and Affect: Mood normal. Behavior: Behavior normal. ASSESSMENT/PLAN: 1. Abscess of right breast - ICD9: 611.0, ICD10: N61.1 - ABSCESS AND WOUND CULTURE WITH GRAM STAIN - CLINDAMYCIN HCL 300 MG CAPSULE Patient is well appearing, non toxic, not hypoxic and appropriate for outpatient treatment and management at the time of evaluation today. 27-year-old female presents today with a right breast abscess. Patient has a history of this. States that a culture was done last year which revealed staph. Dr. Tesfaye present for incision and drainage. Area cleansed with alcohol swab and Betadine. 1% lidocaine injected for anesthesia. #11 blade used for incision. Moderate amount of purulent drainage drained. Dry dressing applied. Wound care instructions reviewed with patient. Will place patient on clindamycin for antibiotic coverage. Instructed patient to eat a yogurt or take a probiotic while taking medication. Patient agreeable and verbalized understanding of the plan. Discharged in stable condition. Patient's VSS, medication list, allergies, past medical history, and pertinent surgical and family history have been reviewed. -Patient education provided today. -Follow up with your PCP or SERVICE MEMBER if you fail to improve in 5-7 days. - Patient left in stable condition after questions answered and patient verbalizes understanding This note was partially generated using [employer] voice recognition system, and there may be some incorrect words, spellings, and punctuation that were not noted in checking the note before saving. Harvinder Rios APRN.CNP 04/09/23 7:22 PM documented in this encounter [facility] 04-04-2023 Note HNO ID: [id number] Author: Indira Trejo APRN.CNM Service: ? Author Type: Chief Crna Type: Progress Notes Filed: 04/04/2023 3:33 PM Note Text: Patient here for First Trimester Screening. See ultrasound report for details. Options for genetic screening and diagnosis discussed with the patient. Patient opts for first trimester screening and the sequential screening protocol. Limitations of screening tests discussed with the patient. Indira Trejo APRN.CNM [facility] 04-04-2023 Miscellaneous Notes Raissa Kevin is a 27 year old female who presents at 12w3d for a routine visit. Just completed NT US and will have blood work today. Nausea resolved. No movement to date. Seen by endocrinology and started on NPH 5 units at bedtime. Denies headache, visual changes, chest pain, shortness of breath, vaginal bleeding, leakage of fluid, or dysuria. Feeling well, no complaints. 12 lbsTWG. PTL/Bleeding precautions reviewed. RTC in 4 weeks for BRUCE. Notified she will be physician only patient due to insulin. Voiced understanding. Indira Trejo APRN.CNM documented in this encounter [facility] 04-04-2023 History of Presen t illness Narrative Patient here for First Trimester Screening. See ultrasound report for details. Options for genetic screening and diagnosis discussed with the patient. Patient opts for first trimester screening and the sequential screening protocol. Limitations of screening tests discussed with the patient. Indira Trejo APRN.CNM documented in this encounter [facility] 04-04-2023 Instructions Oc Steinberg Cma - 04/04/2023 3:06 PM EDT SEQUENTIAL TESTING PROCESS Sequential Screen First Trimester Today you are currently: 12w3d weeks 04/04/2023: Ultrasound and blood test. Sequential Screen Second Trimester (16-17 Weeks Gestation) When you are called with your results, the nurse will give the optimal draw dates for the Sequential screen second trimester. Blood testing can be done at any [facility] lab. Please report to the any tower cleaner office help desk operator for the Sequential Part 2 requisition and order before reporting to the lab. Your weight will need to be documented for testing. Please note: -No appointment is need for your second blood draw. -Office hours are 8 am to 4:30 pm. -Please have testing done prior to 12 noon on Saturday's -Once the sequential testing is started, in the first trimester the only follow-up will be for the sequential screen second trimester. Please don't have a Quad screen ordered by another provider. If you or your Provider have any questions please call your maternal medicine office, for east side please call [phone] or for the West side call [phone] and ask for the the nurse. Thank you. SEQUENTIAL SCREENINGS The [facility] offers sequential screenings for women who are interested in screenings for chromosomal abnormalities and certain defects during a . The sequential screen combines ultrasound and blood tests to determine the risk of chromosomal abnormalities, including Down's Syndrome (Trisomy 21) and Trisomy 18, as well as open neural tube defects including spina bifida. Ultrasound examination is performed between 11 weeks and 13 weeks gestational age. Blood tests are drawn after the ultrasound and again later in the between 15 and 21 weeks gestational age. Please let your physician know if you are interested in this testing. It will require an appointment with our quality assurance technician. This is not an ultrasound performed by a physician in our office during a routine visit. SIGNS AND SYMPTOMS OF LABOR 1. Contractions every 10 minutes or more often 2. Clear, pink, or brownish fluid (water) leaking from vagina 3. Feeling that baby is pushing down, pressure 4. Low, dull backache 5. Cramps that feel like a period 6. Cramps with or without diarrhea If you notice any of the above symptoms, contact our office at [phone] and ask to speak with a nurse. After hours, you can call doctors registry at [phone] OR call [facility] at [phone] and ask to have the doctor ruby on rails web developer paged. If you consider this an emergency, dial 9--6 or go to your nearest emergency department. NEED HELP? Are you dealing with a violent or abusive relationship? Are you a victim of rape or sexual assult? Call [facility] ([place]) 24 hour Crisis Hotline: 192.160.2320 or 994-120-9704. MANUAL Your Guide to a Healthy manual is now on-line. Visit [email or web address] to download your free copy documented in this encounter [facility] 04-02-2023 Note HNO ID: [id number] Author: Juhi Orellana MD Service: ? Author Type: Physician Type: Progress Notes Filed: 04/02/2023 9:08 AM Note Text: . Res[facility] [place] Note Patient name: Raissa Kevin PCP: Julian De Paz MD CC: Asthma HPI: Raissa Kevin 27 year old female current smoker with PMH significant for ADD, allergic rhinitis, SHAUNNA, bipolar disorder, diabetes, history of methamphetamine abuse, history of syphilis,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 test strip Use as instructed; one strip per day, NIDDM, E11.9 albuterol (PROVENTIL) 2.5 mg /3 mL (0.083 %) nebulizer solution Use 3 mL via nebulizer every 4 hours as needed. OVER 5-15 MINUTES. FOR WHEEZING AND SHORTNESS OF BREATH. Benzoyl Peroxide 2.5 % Apply to affected area once daily. levonorgestrel (MIRENA) 20 mcg/24 hours (6 yrs) 52 mg IUD 1 Each by INTRAUTERINE route as directed. albuterol HFA (PROVENTIL HFA, VENTOLIN HFA) 90 mcg/actuation inhaler Inhale 2 Puffs as instructed every 4 hours as needed. No current facility-administered medications for this visit. Allergies As of Date: 02/18/2023 Allergen Noted Reaction AMOXIL [AMOXICILLIN] 11/21/2012 Rash AUGMENTIN [AMOXICILLIN-POT CLAVUL*03/30/2013 Rash and Vomiting POTASSIUM CLAVULANATE 03/17/2020 Rash PREDNISONE 11/01/2008 Other: See Comments Fully Assessed 10/02/2022 REVIEW OF SYSTEMS Abdomen: No bloating, early satiety, indigestion, or increased flatulence. No abdominal pain, nausea, vomiting, diarrhea, or constipation. Bladder: No dysuria, gross hematuria, urinary frequency, urinary urgency, or incontinence. Allergies and current medication updated:Yes EXAM: LMP (more content not included)... [facility] 02-18-2023 History of Presen t illness Narrative Raissa Kevin is a 27 year old female who presents for problem visit for + HCG w/ Mirena IUD in.. HPI: 27 YOF presents c/o + HCG w/ IUD in. Some mild lower cramping across lower abdomen, not unilateral. No vaginal bleeding. No abnormal discharge. Feels tired and some mild nausea. Has h/o DM type 2. Last was on insulin. Last hgba1c was 6.2. Has been stable on trulicity, Did have a heavy menses in November, may have passed IUD then OB History T1 L1 SAB2 IAB0 Ectopic0 Multiple0 Live Births1 Psych Assistant History LMP: 04/25/2021 (Approximate), IUD Age at Menarche: Age at First : Age at Menopause: Psych Assistant History Comments: Sexual Activity: Yes; Male Contraception: None, I.U.D. PAST MEDICAL HISTORY Diagnosis Date Allergic rhinitis, cause unspecified Asthma Only uses rescue inhaler ~1x a week, typically with anxiety or exercise Attention deficit disorder with hyperactivity(314.01) Atypical squamous cells of undetermined significance (ASCUS) on Papanicolaou smear of cervix 05/09/2018 Bipolar disorder (HCC) Depression Herpes 03/02/2020 Methamphetamine abuse (HCC) 12/31/2018 NIDDM (non-insulin dependent diabetes mellitus) 10/16/2011 Obstructive sleep apnea Has CPAP PMH - PAST MEDICAL HISTORY OF 03/2008 Normal Color Vision 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 Possible 3rd tri growth US. Syphilis affecting in second trimester 03/15/2020 03/15/20- T.Pallidum Ab, IgG (FTA-ABS) Reactive Ordered treatment of PCN 2.4 million units IM x 1 now- waiting to see how patient can receive injection while in office. Tobacco use during , antepartum 04/24/2018 03/02/2020 Discussed risks. Working on quitting. 04/24/2018 Pt smokes 0.5 - 1 pack a day of cigarettes, down from 2 ppd a day. Discussed risks of smoking during . Advised pt to quit. Patient cutting back and ready to quit. - Type 2 diabetes (HCC) Type 2 diabetes mellitus (HCC) PAST SURGICAL HISTORY Procedure Laterality Date SNGL 08/05/2020 COLONOSCOPY GEN ANES 06/06/2021 D&C SUCTION 05/2018 sepsis, MAB at 6 wks EGD 06/06/2021 INSERTION OF IUD 10/05/2020 FAMILY HISTORY Problem Relation Age of Onset Arthritis Mother other (fibromyalgia) Mother other (PCOS) Mother Bipolar disorder Father Hypertension Maternal Grandmother Hypertension Maternal Grandfather Diabetes Maternal Grandfather Gout Maternal Grandfather Heart disease Paternal Grandmother No Known Problems Paternal Grandfather other (Down syndrome) Half-brother Social History Tobacco Use Smoking status: Every Day Packs/day: 0.50 Years: 6.00 Pack years: 3.00 Types: Cigarettes Last attempt to quit: 04/26/2020 Years since quittin.8 Smokeless tobacco: Former Quit date: 01/26/2013 Vaping Use Vaping Use: Former Substance Use Topics Alcohol use: No Drug use: Yes Types: Marijuana Comment: every other day - smokes it Current Outpatient Medications Medication Sig dulaglutide (TRULICITY) 0.75 mg/0.5 mL pen injector Inject 0.75 mg subcutaneously one time a week. metFORMIN ER (GLUCOPHAGE XR) 500 mg 24 hr tablet Take 2 tablets by mouth twice daily with meals. guaiFENesin (MUCINEX) 600 mg 12 hr tablet Take 2 tablets by mouth twice daily. albuterol HFA (PROVENTIL HFA, VENTOLIN HFA) 90 mcg/actuation inhaler Inhale 2 Puffs as instructed every 4 hours as needed. Blood-Glucose Meter Use once daily and PRN, NIDDM, E 11.9 Lancets lancets Use as instructed; one lancet per day, NIDDM, E 11.9 blood sugar diagnostic (BLOOD GLUCOSE TEST) test strip Use as instructed; one strip per day, NIDDM, E11.9 albuterol (PROVENTIL) 2.5 mg /3 mL (0.083 %) nebulizer solution Use 3 mL via nebulizer every 4 hours as needed. OVER 5-15 MINUTES. FOR WHEEZING AND SHORTNESS OF BREATH. Benzoyl Peroxide 2.5 % Apply to affected area once daily. levonorgestrel (MIRENA) 20 mcg/24 hours (6 yrs) 52 mg IUD 1 Each by INTRAUTERINE route as directed. albuterol HFA (PROVENTIL HFA, VENTOLIN HFA) 90 mcg/actuation inhaler Inhale 2 Puffs as instructed every 4 hours as needed. No current facility-administered medications for this visit. Allergies As of Date: 02/18/2023 Allergen Noted Reaction AMOXIL [AMOXICILLIN] 11/21/2012 Rash AUGMENTIN [AMOXICILLIN-POT CLAVUL*03/30/2013 Rash and Vomiting POTASSIUM CLAVULANATE 03/17/2020 Rash PREDNISONE 11/01/2008 Other: See Comments Fully Assessed 10/02/2022 REVIEW OF SYSTEMS Abdomen: No bloating, early satiety, indigestion, or increased flatulence. No abdominal pain, nausea, vomiting, diarrhea, or constipation. Bladder: No dysuria, gross hematuria, urinary frequency, urinary urgency, or incontinence. Allergies and current medication updated:Yes EXAM: LMP 04/25/2021 GENERAL: pleasant, female in no apparent distress HEENT: Normocephalic, atraumatic, mucus membranes moist, and no lesions PELVIC: external genitalia normal, normal Bartholin's glands, urethra, [place]'s glands, no vulvar lesions, no cervical lesions, good vaginal support, physiologic discharge present, normal appearing perineal body and perianal region, cervix closed, IUD strings not present BIMANUAL: uterus normal size, shape and consistency, no adnexal masses, and non-tender TVUS done, see report ASSESSMENT AND PLAN: +HCG w/ h/o IUD in place. IUD not seen on US. IUP w/ yolk sac and no embryo present. No adenexal masses. D/w her seems IUD has passed. Recommend PNV, tight control of her DM. Will contact endocrine about + HCG. Schedule PNOB and NOB w/ us. Cont. current medication Rexulti for now. She will contact psych about this as well. D/w her risks vs benefits and likely will continue as admits stopped meds last and did not do well. Shelby Barba MD documented in this encounter [facility] 11-06-2022 Note HNO ID: [id number] Author: Ary Feliz RDMS Service: ? Author Type: Route Sales Delivery Driver Type: Progress Notes Filed: 11/06/2022 2:03 PM Note Text: Radiology Service Progress Note PATIENT NAME: Raissa Kevin DATE OF SERVICE: November 06, 2022 TIME: 2:03 PM PATIENT IDENTITY VERIFICATION COMPLETED USING TWO (2) IDENTIFIERS: Name and Date of confirmed by patient verbally. FALL SCREENING: Has the patient had 2 falls in the last year or 1 fall with injury or currently using an Ambulatory Assistive Device (Walker, Cane, Wheelchair, Crutches, etc.)? No PATIENT GENDER DATA: Female. status: : No status: NO. PATIENT RELEVANT IMPLANT DATA REVIEWED: Not Applicable RADIOLOGY DEPARTMENT: Ultrasound PERIPHERAL IV DATA: Not applicable SIGNED BY: Ary Feliz RDMS November 06, 2022 2:03 PM [facility] 11-01-2022 Miscellaneous Notes Addended by: DUDLEY WOOD on: 11/01/2022 12:30 PM Modules accepted: Orders May we please have right and left ultrasound orders placed. Per [facility] imaging protocol, we will start with ultrasound. US breast LTD RT US Breast LTD LT Thank you very much! Ary Feliz RDMS documented in this encounter [facility] 10-02-2022 Note HNO ID: [id number] Author: Dudley Wood APRN.DRE Service: ? Author Type: Nurse Practitioner Type: Progress Notes Filed: 10/02/2022 10:30 AM Note Text: Chief Complaint Patient presents with: Follow Up HPI Raissa Kevin is a 27 year old female who presents here today for Above Complaints.. Patient presents for follow up for sores on her breasts. Patient completed a course of bactrim. Patient reports improvement of sores. Patient reports that she is able to wear a bra and no longer has pain. Past medical history, appointments, medications, allergies reviewed. Previous Medical History PAST MEDICAL HISTORY Diagnosis Date Allergic rhinitis, cause unspecified Asthma Only uses rescue inhaler ~1x a week, typically with anxiety or exercise Attention deficit disorder with hyperactivity(314.01) Atypical squamous cells of undetermined significance (ASCUS) on Papanicolaou smear of cervix 05/09/2018 Bipolar disorder (HCC) Depression Herpes 03/02/2020 Methamphetamine abuse (HCC) 12/31/2018 NIDDM (non-insulin dependent diabetes mellitus) 10/16/2011 Obstructive sleep apnea Has CPAP PMH - PAST MEDICAL HISTORY OF 03/2008 Normal Color Vision 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 Possible 3rd tri growth US. SW Syphilis affecting in second trimester 03/15/2020 03/15/20- T.Pallidum Ab, IgG (FTA-ABS) Reactive Ordered treatment of PCN 2.4 million units IM x 1 now- waiting to see how patient can receive injection while in office. Tobacco use during , antepartum 04/24/2018 03/02/2020 Discussed risks. Working on quitting. SW 04/24/2018 Pt smokes 0.5 - 1 pack a day of cigarettes, down from 2 ppd a day. Discussed risks of smoking during . Advised pt to quit. Patient cutting back and ready to quit. -SW Type 2 diabetes (HCC) Type 2 diabetes mellitus (HCC) Previous Surgical History PAST SURGICAL HISTORY Procedure Laterality Date SNGL 08/05/2020 COLONOSCOPY GEN ANES 06/06/2021 DANDC SUCTION 05/2018 sepsis, MAB at 6 wks EGD 06/06/2021 INSERTION OF IUD 10/05/2020 Family History FAMILY HISTORY Problem Relation Age of Onset Arthritis Mother other (fibromyalgia) Mother other (PCOS) Mother Bipolar disorder Father Hypertension Maternal Grandmother Hypertension Maternal Grandfather Diabetes Maternal Grandfather Gout Maternal Grandfather Heart disease Paternal Grandmother No Known Problems Paternal Grandfather other (Down syndrome) Half-brother Patient Allergies ALLERGIES Allergen Reactions Amoxil [Amoxicillin] Rash Augmentin [Amoxicil* Rash, Vomiting Patient states she had a rash with either Augmentin or amoxicillin. Can't remember which one. Potassium Clavulana* Rash Prednisone Other: See Comments Diarrhea and vomitting Current Medications Current Outpatient Medications on File Prior to Visit Medication Sig dulaglutide (TRULICITY) 0.75 mg/0.5 mL pen injector Inject 0.75 mg subcutaneously one time a week. metFORMIN ER (GLUCOPHAGE XR) 500 mg 24 hr tablet Take 2 tablets by mouth twice daily with meals. guaiFENesin (MUCINEX) 600 mg 12 hr tablet Take 2 tablets by mouth twice daily. albuterol HFA (PROVENTIL HFA, VENTOLIN HFA) 90 mcg/actuation inhaler Inhale 2 Puffs as instructed every 4 hours as needed. Blood-Glucose Meter Use once daily and PRN, NIDDM, E 11.9 Lancets lancets Use as instructed; one lancet per day, NIDDM, E 11.9 blood sugar diagnostic (BLOOD GLUCOSE TEST) test strip Use as instructed; one strip per day, NIDDM, E11.9 albuterol (PROVENTIL) 2.5 mg /3 mL (0.083 %) nebulizer solution Use 3 mL via nebulizer every 4 hours as needed. OVER 5-15 MINUTES. FOR WHEEZING AND SHORTNESS OF BREATH. Benzoyl Peroxide 2.5 % Apply to affected area once daily. levonorgestrel (MIRENA) 20 mcg/24 hours (6 yrs) 52 mg IUD 1 Each by INTRAUTERINE route as directed. albuterol HFA (PROVENTIL HFA, VENTOLIN HFA) 90 mcg/actuation inhaler Inhale 2 Puffs as instructed every 4 hours as needed. No current facility-administered medications on file prior to visit. Social History Social History Tobacco Use Smoking status: Every Day Packs/day: 0.50 Years: 6.00 Pack years: 3.00 Types: Cigarettes Last attempt to quit: 04/26/2020 Years since quittin.4 Smokeless tobacco: Former Quit date: 01/26/2013 Vaping Use Vaping Use: Some days Substance Use Topics Alcohol use: No Drug use: Yes Types: Marijuana Comment: every other day - smokes it Review of Symptoms REVIEW OF SYSTEMS SEE HPI EXAM: BP 112/76 Pulse 74 Resp 16 Wt 89.8 kg (198 lb) LMP 04/25/2021 (Approximate) BMI 32.59 kg/m? General Appearance: Well appearing, alert, in no acute distress, well-hydrated, well nourished.. Skin: Positives: Wound to right breast healed. No redness or inflammation. Wound to left breast without redness or inflammation, small pinhead area remains open (more content not included)... [facility] 10-02-2022 Instructions Dudley Wood APRN.CNP - 10/02/2022 10:29 AM EST Complete mammogram. Follow up as needed. documented in this encounter [facility] 10-02-2022 History of Presen t illness Narrative Chief Complaint Patient presents with: Follow Up HPI Raissa Kevin is a 27 year old female who presents here today for Above Complaints.. Patient presents for follow up for sores on her breasts. Patient completed a course of bactrim. Patient reports improvement of sores. Patient reports that she is able to wear a bra and no longer has pain. Past medical history, appointments, medications, allergies reviewed. Previous Medical History PAST MEDICAL HISTORY Diagnosis Date Allergic rhinitis, cause unspecified Asthma Only uses rescue inhaler ~1x a week, typically with anxiety or exercise Attention deficit disorder with hyperactivity(314.01) Atypical squamous cells of undetermined significance (ASCUS) on Papanicolaou smear of cervix 05/09/2018 Bipolar disorder (HCC) Depression Herpes 03/02/2020 Methamphetamine abuse (HCC) 12/31/2018 NIDDM (non-insulin dependent diabetes mellitus) 10/16/2011 Obstructive sleep apnea Has CPAP PMH - PAST MEDICAL HISTORY OF 03/2008 Normal Color Vision 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 Possible 3rd tri growth US. Syphilis affecting in second trimester 03/15/2020 03/15/20- T.Pallidum Ab, IgG (FTA-ABS) Reactive Ordered treatment of PCN 2.4 million units IM x 1 now- waiting to see how patient can receive injection while in office. Tobacco use during , antepartum 04/24/2018 03/02/2020 Discussed risks. Working on quitting. 04/24/2018 Pt smokes 0.5 - 1 pack a day of cigarettes, down from 2 ppd a day. Discussed risks of smoking during . Advised pt to quit. Patient cutting back and ready to quit. - Type 2 diabetes (HCC) Type 2 diabetes mellitus (HCC) Previous Surgical History PAST SURGICAL HISTORY Procedure Laterality Date SNGL 08/05/2020 COLONOSCOPY GEN ANES 06/06/2021 D&C SUCTION 05/2018 sepsis, MAB at 6 wks EGD 06/06/2021 INSERTION OF IUD 10/05/2020 Family History FAMILY HISTORY Problem Relation Age of Onset Arthritis Mother other (fibromyalgia) Mother other (PCOS) Mother Bipolar disorder Father Hypertension Maternal Grandmother Hypertension Maternal Grandfather Diabetes Maternal Grandfather Gout Maternal Grandfather Heart disease Paternal Grandmother No Known Problems Paternal Grandfather other (Down syndrome) Half-brother Patient Allergies ALLERGIES Allergen Reactions Amoxil [Amoxicillin] Rash Augmentin [Amoxicil* Rash, Vomiting Patient states she had a rash with either Augmentin or amoxicillin. Can't remember which one. Potassium Clavulana* Rash Prednisone Other: See Comments Diarrhea and vomitting Current Medications Current Outpatient Medications on File Prior to Visit Medication Sig dulaglutide (TRULICITY) 0.75 mg/0.5 mL pen injector Inject 0.75 mg subcutaneously one time a week. metFORMIN ER (GLUCOPHAGE XR) 500 mg 24 hr tablet Take 2 tablets by mouth twice daily with meals. guaiFENesin (MUCINEX) 600 mg 12 hr tablet Take 2 tablets by mouth twice daily. albuterol HFA (PROVENTIL HFA, VENTOLIN HFA) 90 mcg/actuation inhaler Inhale 2 Puffs as instructed every 4 hours as needed. Blood-Glucose Meter Use once daily and PRN, NIDDM, E 11.9 Lancets lancets Use as instructed; one lancet per day, NIDDM, E 11.9 blood sugar diagnostic (BLOOD GLUCOSE TEST) test strip Use as instructed; one strip per day, NIDDM, E11.9 albuterol (PROVENTIL) 2.5 mg /3 mL (0.083 %) nebulizer solution Use 3 mL via nebulizer every 4 hours as needed. OVER 5-15 MINUTES. FOR WHEEZING AND SHORTNESS OF BREATH. Benzoyl Peroxide 2.5 % Apply to affected area once daily. levonorgestrel (MIRENA) 20 mcg/24 hours (6 yrs) 52 mg IUD 1 Each by INTRAUTERINE route as directed. albuterol HFA (PROVENTIL HFA, VENTOLIN HFA) 90 mcg/actuation inhaler Inhale 2 Puffs as instructed every 4 hours as needed. No current facility-administered medications on file prior to visit. Social History Social History Tobacco Use Smoking status: Every Day Packs/day: 0.50 Years: 6.00 Pack years: 3.00 Types: Cigarettes Last attempt to quit: 04/26/2020 Years since quittin.4 Smokeless tobacco: Former Quit date: 01/26/2013 Vaping Use Vaping Use: Some days Substance Use Topics Alcohol use: No Drug use: Yes Types: Marijuana Comment: every other day - smokes it Review of Symptoms REVIEW OF SYSTEMS SEE HPI EXAM: BP 112/76 Pulse 74 Resp 16 Wt 89.8 kg (198 lb) LMP 04/25/2021 (Approximate) BMI 32.59 kg/m General Appearance: Well appearing, alert, in no acute distress, well-hydrated, well nourished.. Skin: Positives: Wound to right breast healed. No redness or inflammation. Wound to left breast without redness or inflammation, small pinhead area remains open Breast: Inspection negative. No nipple discharge or bleeding. No palpable mass, No skin changes or dimpling. Health Maintenance List COVID-19 VACCINE(1) Never done PNEUMOCOCCAL(2 - PCV) due on 04/04/2022 DILATED RETINAL EXAM due on 08/30/2022 INFLUENZA(1) due on 02/15/2023 HBA1C due on 03/12/2023 DIABETIC FOOT EXAM due on 09/12/2023 PAP TESTING due on 2023 URINE ALBUMIN:CREATININE RATIO due on 09/14/2023 LDL CHOLESTEROL due on 09/14/2023 ANNUAL PCP TEAM CHRONIC DISEASE VISIT due on 09/25/2023 DTAP,TDAP,TD(9 - Td or Tdap) due on 06/08/2030 HEPATITIS B Completed SPIROMETRY Completed HPV VACCINE Completed HEPATITIS C SCREENING Completed HIV SCREENING Completed ASSESSMENT/PLAN: 1. Breast wound, left, initial encounter - ICD9: 879.0, ICD10: S21.002A (primary diagnosis) -Improved, no need for further treatment at this time -Discussed with patient red flag symptoms 2. Breast wound, right, initial encounter - ICD9: 879.0, ICD10: S21.001A -Resolved 3. Discharge from breast - ICD9: 611.79, ICD10: N64.52 -Mammogram scheduled Dudley Wood APRN.DRE documented in this encounter [facility] 09-25-2022 Note HNO ID: [id number] Author: Dudley Wood APRN.DRE Service: ? Author Type: Nurse Practitioner Type: Progress Notes Filed: 09/25/2022 2:06 PM Note Text: Chief Complaint Patient presents with: cyst on breast HPI Raissa Kevin is a 27 year old female who presents here today for Above Complaints.. Patient presents for a draining cyst on bilateral breasts. Patient reports that it started on her right breast but she has since had on start on the left breast. Patient states she has had it before and was seen by urgent care where they placed her on antibiotics. Patient also reports milky discharge from left breast. Patient is not , has mirena and neg preg test at home. Patient has not breast fed in over 2 years. Past medical history, appointments, medications, allergies reviewed. Previous Medical History PAST MEDICAL HISTORY Diagnosis Date Allergic rhinitis, cause unspecified Asthma Only uses rescue inhaler ~1x a week, typically with anxiety or exercise Attention deficit disorder with hyperactivity(314.01) Atypical squamous cells of undetermined significance (ASCUS) on Papanicolaou smear of cervix 05/09/2018 Bipolar disorder (HCC) Depression Herpes 03/02/2020 Methamphetamine abuse (HCC) 12/31/2018 NIDDM (non-insulin dependent diabetes mellitus) 10/16/2011 Obstructive sleep apnea Has CPAP PMH - PAST MEDICAL HISTORY OF 03/2008 Normal Color Vision 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 Possible 3rd tri growth US. Syphilis affecting in second trimester 03/15/2020 03/15/20- T.Pallidum Ab, IgG (FTA-ABS) Reactive Ordered treatment of PCN 2.4 million units IM x 1 now- waiting to see how patient can receive injection while in office. Tobacco use during , antepartum 04/24/2018 03/02/2020 Discussed risks. Working on quitting. 04/24/2018 Pt smokes 0.5 - 1 pack a day of cigarettes, down from 2 ppd a day. Discussed risks of smoking during . Advised pt to quit. Patient cutting back and ready to quit. - Type 2 diabetes (HCC) Type 2 diabetes mellitus (HCC) Previous Surgical History PAST SURGICAL HISTORY Procedure Laterality Date SNGL 08/05/2020 COLONOSCOPY GEN ANES 06/06/2021 DANDC SUCTION 05/2018 sepsis, MAB at 6 wks EGD 06/06/2021 INSERTION OF IUD 10/05/2020 Family History FAMILY HISTORY Problem Relation Age of Onset Arthritis Mother other (fibromyalgia) Mother other (PCOS) Mother Bipolar disorder Father Hypertension Maternal Grandmother Hypertension Maternal Grandfather Diabetes Maternal Grandfather Gout Maternal Grandfather Heart disease Paternal Grandmother No Known Problems Paternal Grandfather other (Down syndrome) Half-brother Patient Allergies ALLERGIES Allergen Reactions Amoxil [Amoxicillin] Rash Augmentin [Amoxicil* Rash, Vomiting Patient states she had a rash with either Augmentin or amoxicillin. Can't remember which one. Potassium Clavulana* Rash Prednisone Other: See Comments Diarrhea and vomitting Current Medications Current Outpatient Medications on File Prior to Visit Medication Sig dulaglutide (TRULICITY) 0.75 mg/0.5 mL pen injector Inject 0.75 mg subcutaneously one time a week. metFORMIN ER (GLUCOPHAGE XR) 500 mg 24 hr tablet Take 2 tablets by mouth twice daily with meals. guaiFENesin (MUCINEX) 600 mg 12 hr tablet Take 2 tablets by mouth twice daily. albuterol HFA (PROVENTIL HFA, VENTOLIN HFA) 90 mcg/actuation inhaler Inhale 2 Puffs as instructed every 4 hours as needed. Blood-Glucose Meter Use once daily and PRN, NIDDM, E 11.9 Lancets lancets Use as instructed; one lancet per day, NIDDM, E 11.9 blood sugar diagnostic (BLOOD GLUCOSE TEST) test strip Use as instructed; one strip per day, NIDDM, E11.9 albuterol (PROVENTIL) 2.5 mg /3 mL (0.083 %) nebulizer solution Use 3 mL via nebulizer every 4 hours as needed. OVER 5-15 MINUTES. FOR WHEEZING AND SHORTNESS OF BREATH. Benzoyl Peroxide 2.5 % Apply to affected area once daily. levonorgestrel (MIRENA) 20 mcg/24 hours (6 yrs) 52 mg IUD 1 Each by INTRAUTERINE route as directed. albuterol HFA (PROVENTIL HFA, VENTOLIN HFA) 90 mcg/actuation inhaler Inhale 2 Puffs as instructed every 4 hours as needed. No current facility-administered medications on file prior to visit. Social History Social History Tobacco Use Smoking status: Every Day Packs/day: 0.50 Years: 6.00 Pack years: 3.00 Types: Cigarettes Last attempt to quit: 04/26/2020 Years since quittin.4 Smokeless tobacco: Former Quit date: 01/26/2013 Vaping Use Vaping Use: Some days Substance Use Topics Alcohol use: No Drug use: Yes Types: Marijuana Comment: every other day - smokes it Review of Symptoms REVIEW OF SYSTEMS SEE HPI EXAM: BP 110/70 Pulse 76 Resp 12 Wt 93.9 kg (207 lb) LMP 04/25/2021 (Approximate) BMI 34.07 kg/m? General Appearance: Well appearin (more content not included)... [facility] 09-25-2022 Instructions Dudley Wood APRN.CNP - 09/25/2022 2:05 PM EST Wound cultures sent Complete mammogram Follow up in 1 week documented in this encounter [facility] 09-25-2022 History of Presen t illness Narrative Chief Complaint Patient presents with: cyst on breast HPI Raissa Kevin is a 27 year old female who presents here today for Above Complaints.. Patient presents for a draining cyst on bilateral breasts. Patient reports that it started on her right breast but she has since had on start on the left breast. Patient states she has had it before and was seen by urgent care where they placed her on antibiotics. Patient also reports milky discharge from left breast. Patient is not , has mirena and neg preg test at home. Patient has not breast fed in over 2 years. Past medical history, appointments, medications, allergies reviewed. Previous Medical History PAST MEDICAL HISTORY Diagnosis Date Allergic rhinitis, cause unspecified Asthma Only uses rescue inhaler ~1x a week, typically with anxiety or exercise Attention deficit disorder with hyperactivity(314.01) Atypical squamous cells of undetermined significance (ASCUS) on Papanicolaou smear of cervix 05/09/2018 Bipolar disorder ([facility]) Depression Herpes 03/02/2020 Methamphetamine abuse (HCC) 12/31/2018 NIDDM (non-insulin dependent diabetes mellitus) 10/16/2011 Obstructive sleep apnea Has CPAP PMH - PAST MEDICAL HISTORY OF 03/2008 Normal Color Vision 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 Possible 3rd tri growth US. Syphilis affecting in second trimester 03/15/2020 03/15/20- T.Pallidum Ab, IgG (FTA-ABS) Reactive Ordered treatment of PCN 2.4 million units IM x 1 now- waiting to see how patient can receive injection while in office. Tobacco use during , antepartum 04/24/2018 03/02/2020 Discussed risks. Working on quitting. SW 04/24/2018 Pt smokes 0.5 - 1 pack a day of cigarettes, down from 2 ppd a day. Discussed risks of smoking during . Advised pt to quit. Patient cutting back and ready to quit. - Type 2 diabetes (HCC) Type 2 diabetes mellitus (HCC) Previous Surgical History PAST SURGICAL HISTORY Procedure Laterality Date SNGL 08/05/2020 COLONOSCOPY GEN ANES 06/06/2021 D&C SUCTION 05/2018 sepsis, MAB at 6 wks EGD 06/06/2021 INSERTION OF IUD 10/05/2020 Family History FAMILY HISTORY Problem Relation Age of Onset Arthritis Mother other (fibromyalgia) Mother other (PCOS) Mother Bipolar disorder Father Hypertension Maternal Grandmother Hypertension Maternal Grandfather Diabetes Maternal Grandfather Gout Maternal Grandfather Heart disease Paternal Grandmother No Known Problems Paternal Grandfather other (Down syndrome) Half-brother Patient Allergies ALLERGIES Allergen Reactions Amoxil [Amoxicillin] Rash Augmentin [Amoxicil* Rash, Vomiting Patient states she had a rash with either Augmentin or amoxicillin. Can't remember which one. Potassium Clavulana* Rash Prednisone Other: See Comments Diarrhea and vomitting Current Medications Current Outpatient Medications on File Prior to Visit Medication Sig dulaglutide (TRULICITY) 0.75 mg/0.5 mL pen injector Inject 0.75 mg subcutaneously one time a week. metFORMIN ER (GLUCOPHAGE XR) 500 mg 24 hr tablet Take 2 tablets by mouth twice daily with meals. guaiFENesin (MUCINEX) 600 mg 12 hr tablet Take 2 tablets by mouth twice daily. albuterol HFA (PROVENTIL HFA, VENTOLIN HFA) 90 mcg/actuation inhaler Inhale 2 Puffs as instructed every 4 hours as needed. Blood-Glucose Meter Use once daily and PRN, NIDDM, E 11.9 Lancets lancets Use as instructed; one lancet per day, NIDDM, E 11.9 blood sugar diagnostic (BLOOD GLUCOSE TEST) test strip Use as instructed; one strip per day, NIDDM, E11.9 albuterol (PROVENTIL) 2.5 mg /3 mL (0.083 %) nebulizer solution Use 3 mL via nebulizer every 4 hours as needed. OVER 5-15 MINUTES. FOR WHEEZING AND SHORTNESS OF BREATH. Benzoyl Peroxide 2.5 % Apply to affected area once daily. levonorgestrel (MIRENA) 20 mcg/24 hours (6 yrs) 52 mg IUD 1 Each by INTRAUTERINE route as directed. albuterol HFA (PROVENTIL HFA, VENTOLIN HFA) 90 mcg/actuation inhaler Inhale 2 Puffs as instructed every 4 hours as needed. No current facility-administered medications on file prior to visit. Social History Social History Tobacco Use Smoking status: Every Day Packs/day: 0.50 Years: 6.00 Pack years: 3.00 Types: Cigarettes Last attempt to quit: 04/26/2020 Years since quittin.4 Smokeless tobacco: Former Quit date: 01/26/2013 Vaping Use Vaping Use: Some days Substance Use Topics Alcohol use: No Drug use: Yes Types: Marijuana Comment: every other day - smokes it Review of Symptoms REVIEW OF SYSTEMS SEE HPI EXAM: BP 110/70 Pulse 76 Resp 12 Wt 93.9 kg (207 lb) LMP 04/25/2021 (Approximate) BMI 34.07 kg/m General Appearance: Well appearing, alert, in no acute distress, well-hydrated, well nourished.. Skin: Positives: small scabbed area to right breast at 4 oclock, tender with palpation.moderate amount of yellow drainage noted. Small scabbed area to left breast between 4 and 5 o clock. Small amount of thick white discharge noted. Erythema noted to both sites. Breast: Positive findings: nipple discharge on left. Health Maintenance List COVID-19 VACCINE(1) Never done PNEUMOCOCCAL(2 - PCV) due on 04/04/2022 DILATED RETINAL EXAM due on 08/30/2022 INFLUENZA(1) due on 02/15/2023 HBA1C due on 03/12/2023 ANNUAL PCP TEAM CHRONIC DISEASE VISIT due on 08/14/2023 DIABETIC FOOT EXAM due on 09/12/2023 PAP TESTING due on 2023 URINE ALBUMIN:CREATININE RATIO due on 09/14/2023 LDL CHOLESTEROL due on 09/14/2023 DTAP,TDAP,TD(9 - Td or Tdap) due on 06/08/2030 HEPATITIS B Completed SPIROMETRY Completed HPV VACCINE Completed HEPATITIS C SCREENING Completed HIV SCREENING Completed ASSESSMENT/PLAN: 1. Breast wound, left, initial encounter - ICD9: 879.0, ICD10: S21.002A (primary diagnosis) - WOUND CULTURE AND GRAM STAIN - SULFAMETHOXAZOLE 800 MG-TRIMETHOPRIM 160 MG TABLET 2. Breast wound, right, initial encounter - ICD9: 879.0, ICD10: S21.001A - WOUND CULTURE AND GRAM STAIN - SULFAMETHOXAZOLE 800 MG-TRIMETHOPRIM 160 MG TABLET 3. Discharge from breast - ICD9: 611.79, ICD10: N64.52 - [facility] Dudley Wood APRN.SHELLFISH MEAT SEPARATOR OPERATOR documented in this encounter [facility] 09-12-2022 History of Presen t illness Narrative Reason for Consultation: DM Type 2 Referring Physician: SELF HISTORY OF PRESENT ILLNESS; Ms. Kevin is a 26 year old female presenting for follow up regarding DM Type 2. She was initially diagnosed with diabetes age 15. She does have a family history of diabetes mellitus in her grandpa, aunts, uncles . LV 12/01/21 A1C today is 6.2 History in addition to diabetes: bipolar d/o, depression, asthma, drug abuse, SHAUNNA, allergies, obesity Her current diabetes regimen is: Metformin ER 500 mg 2 tabs BID trulicity 0.75 mg weekly *occ misses metformin Previous DM medications: Metformin Glipizide Basal/bolus --NPH and humalog with Regarding symptoms of hyperglycemia, she is not experiencing any symptoms such as polyuria, polydipsia, nocturia or rapid weight loss or blurry vision. Exercise: ADL's; active at work Raissa is checking her blood glucose sporadically She did not bring a logbook today for review: BG ranges 64 to 190 Hypoglycemia frequency: denies Hypoglycemia awareness: Yes Overall, the patient has no acute complaints at this time. PAST MEDICAL HISTORY Diagnosis Date Allergic rhinitis, cause unspecified Asthma Only uses rescue inhaler ~1x a week, typically with anxiety or exercise Attention deficit disorder with hyperactivity(314.01) Atypical squamous cells of undetermined significance (ASCUS) on Papanicolaou smear of cervix 05/09/2018 Bipolar disorder (HCC) Depression Herpes 03/02/2020 Methamphetamine abuse (HCC) 12/31/2018 NIDDM (non-insulin dependent diabetes mellitus) 10/16/2011 Obstructive sleep apnea Has CPAP PMH - PAST MEDICAL HISTORY OF 03/2008 Normal Color Vision 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 Possible 3rd tri growth US. Syphilis affecting in second trimester 03/15/2020 03/15/20- T.Pallidum Ab, IgG (FTA-ABS) Reactive Ordered treatment of PCN 2.4 million units IM x 1 now- waiting to see how patient can receive injection while in office. Tobacco use during , antepartum 04/24/2018 03/02/2020 Discussed risks. Working on quitting. SW 04/24/2018 Pt smokes 0.5 - 1 pack a day of cigarettes, down from 2 ppd a day. Discussed risks of smoking during . Advised pt to quit. Patient cutting back and ready to quit. -SW Type 2 diabetes (HCC) Type 2 diabetes mellitus (HCC) PAST SURGICAL HISTORY Procedure Laterality Date SNGL 08/05/2020 COLONOSCOPY GEN ANES 06/06/2021 D&C SUCTION 05/2018 sepsis, MAB at 6 wks EGD 06/06/2021 INSERTION OF IUD 10/05/2020 FAMILY HISTORY Problem Relation Age of Onset Arthritis Mother other (fibromyalgia) Mother other (PCOS) Mother Bipolar disorder Father Hypertension Maternal Grandmother Hypertension Maternal Grandfather Diabetes Maternal Grandfather Gout Maternal Grandfather Heart disease Paternal Grandmother No Known Problems Paternal Grandfather other (Down syndrome) Half-brother Social History Tobacco Use Smoking status: Every Day Packs/day: 0.50 Years: 6.00 Pack years: 3.00 Types: Cigarettes Last attempt to quit: 04/26/2020 Years since quittin.3 Smokeless tobacco: Former Quit date: 01/26/2013 Vaping Use Vaping Use: Some days Substance Use Topics Alcohol use: No Drug use: Yes Types: Marijuana Comment: every other day - smokes it Current Outpatient Medications Medication Sig Dispense Refill dulaglutide (TRULICITY) 0.75 mg/0.5 mL pen injector Inject 0.75 mg subcutaneously one time a week. 4 Each 1 guaiFENesin (MUCINEX) 600 mg 12 hr tablet Take 2 tablets by mouth twice daily. 24 tablet 0 metFORMIN ER (GLUCOPHAGE XR) 500 mg 24 hr tablet Take 2 tablets by mouth twice daily with meals. 360 tablet 3 albuterol HFA (PROVENTIL HFA, VENTOLIN HFA) 90 mcg/actuation inhaler Inhale 2 Puffs as instructed every 4 hours as needed. 18 g 5 Blood-Glucose Meter Use once daily and PRN, NIDDM, E 11.9 1 Each 0 Lancets lancets Use as instructed; one lancet per day, NIDDM, E 11.9 100 Each 3 blood sugar diagnostic (BLOOD GLUCOSE TEST) test strip Use as instructed; one strip per day, NIDDM, E11.9 100 Strip 3 albuterol (PROVENTIL) 2.5 mg /3 mL (0.083 %) nebulizer solution Use 3 mL via nebulizer every 4 hours as needed. OVER 5-15 MINUTES. FOR WHEEZING AND SHORTNESS OF BREATH. 60 Vial 5 Benzoyl Peroxide 2.5 % Apply to affected area once daily. 227 g 11 levonorgestrel (MIRENA) 20 mcg/24 hours (6 yrs) 52 mg IUD 1 Each by INTRAUTERINE route as directed. 1 Each 0 albuterol HFA (PROVENTIL HFA, VENTOLIN HFA) 90 mcg/actuation inhaler Inhale 2 Puffs as instructed every 4 hours as needed. 1 g 6 benzonatate (TESSALON PERLE) 100 mg capsule Take 2 capsules by mouth three times daily as needed. (Patient not taking: Reported on 09/12/2022) 30 capsule 0 carBAMazepine (TEGRETOL) 200 mg tablet (Patient not taking: No sig reported) topiramate (TOPAMAX ORAL) Take 25 mg by mouth once daily. (Patient not taking: No sig reported) ziprasidone (GEODON) 20 mg capsule Take 4 capsules by mouth once daily. (Patient not taking: No sig reported) No current facility-administered medications for this visit. Allergies As of Date: 09/12/2022 Allergen Noted Reaction AMOXIL [AMOXICILLIN] 11/21/2012 Rash AUGMENTIN [AMOXICILLIN-POT CLAVUL*03/30/2013 Rash and Vomiting POTASSIUM CLAVULANATE 03/17/2020 Rash PREDNISONE 11/01/2008 Other: See Comments Fully Assessed 09/12/2022 REVIEW OF SYSTEMS: Review of Systems Respiratory: Negative for difficulty breathing. Cardiovascular: Negative for chest pain. Gastrointestinal: Positive for nausea and constipation. Negative for vomiting and diarrhea. PHYSICAL EXAM: BP 103/69 Pulse 72 Resp 16 Ht 166 cm (5' 5.35 ) Wt 92.5 kg (204 lb) LMP 04/25/2021 (Approximate) SpO2 97% BMI 33.58 kg/m2 Physical Exam Constitutional: Appearance: Normal appearance. She is obese. Cardiovascular: Rate and Rhythm: Normal rate and regular rhythm. Pulmonary: Effort: Pulmonary effort is normal. Breath sounds: Normal breath sounds. Skin: General: Skin is warm and dry. Neurological: Mental Status: She is alert and oriented to person, place, and time. Psychiatric: Mood and Affect: Mood normal. Behavior: Behavior normal. Feet:Shoes and socks removed, sensitive to 10 gm monofilament, and calluses noted bilaterally DATA: Creatinine Date Value Ref Range Status 05/30/2022 0.68 0.58 - 0.96 mg/dL Final Hemoglobin A1C (%) Date Value 05/30/2022 5.7 08/22/2021 6.3 Hemoglobin A1C (POCT) (%) Date Value 12/01/2021 6.3 ) No components found for: URINEALBUMIN Cholesterol, Total (mg/dL) Date Value 08/22/2021 140 HDL Cholesterol (mg/dL) Date Value 08/22/2021 36 LDL Cholesterol (mg/dL) Date Value 08/22/2021 81 Triglyceride (mg/dL) Date Value 08/22/2021 117 IMPRESSION: Ms. Kevin is a 26 year old female here for evaluation of DM Type 2 complicated by obesity RECOMMENDATIONS: (E11.9) Type 2 diabetes mellitus without complication, without long-term current use of insulin (HCC) (primary encounter diagnosis) Comment: Glycemic control is at goal. Plan: COMP METABOLIC PANEL, LIPID PANEL BASIC, ALBUMIN/CREAT RATIO RND UR, HEMOGLOBIN A1C (POC), dulaglutide (TRULICITY) 0.75 mg/0.5 mL pen injector, metFORMIN ER (GLUCOPHAGE XR) 500 mg 24 hr tablet Continue metformin and trulicity Labs this week or next fasting. Follow up in 6 months. (E66.9, Z68.33) Class 1 obesity with serious comorbidity and body mass index (BMI) of 33.0 to 33.9 in adult, unspecified obesity type Comment: Body mass index is 33.58 kg/m . Plan: Encouraged increase dietary and exercise efforts as able Medical Decision Making: Level: 3 - Low Agata Ramires, MSN, GLOBAL TRANSPORTATION MANAGER, EDUCATION AND TRAINING MANAGER-C, CDE Endocrinology [facility]/[address], [address] [place] [address] Fax: documented in this encounter [facility] 08-14-2022 Instructions Dudley Wood APRN.DRE - 08/14/2022 2:00 PM EST Start omnicef Continue supportive meds including OTC cold medication documented in this encounter [facility] 08-14-2022 History of Presen t illness Narrative Chief Complaint Patient presents with: Ear Pain HPI Raissa Kevin is a 26 year old female who presents here today for Above Complaints.. Patient presents for right ear pain. Patient states that she was seen at [facility] for a [facility]. Patient states these symptoms are starting to improve however the ear pain has gotten worse. Patient reports taking tylenol cold and sinus but this did not help with ear pain. Patient states cold compress was mildly effective. Past medical history, appointments, medications, allergies reviewed. Previous Medical History PAST MEDICAL HISTORY Diagnosis Date Allergic rhinitis, cause unspecified Asthma Only uses rescue inhaler ~1x a week, typically with anxiety or exercise Attention deficit disorder with hyperactivity(314.01) Atypical squamous cells of undetermined significance (ASCUS) on Papanicolaou smear of cervix 05/09/2018 Bipolar disorder ([facility]) Depression Herpes 03/02/2020 Methamphetamine abuse ([facility]) 12/31/2018 NIDDM (non-insulin dependent diabetes mellitus) 10/16/2011 Obstructive sleep apnea Has CPAP PMH - PAST MEDICAL HISTORY OF 03/2008 Normal Color Vision 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 Possible 3rd tri growth US. Syphilis affecting in second trimester 03/15/2020 03/15/20- T.Pallidum Ab, IgG (FTA-ABS) Reactive Ordered treatment of PCN 2.4 million units IM x 1 now- waiting to see how patient can receive injection while in office. Tobacco use during , antepartum 04/24/2018 03/02/2020 Discussed risks. Working on quitting. SW 04/24/2018 Pt smokes 0.5 - 1 pack a day of cigarettes, down from 2 ppd a day. Discussed risks of smoking during . Advised pt to quit. Patient cutting back and ready to quit. - Type 2 diabetes (HCC) Type 2 diabetes mellitus (HCC) Previous Surgical History PAST SURGICAL HISTORY Procedure Laterality Date SNGL 08/05/2020 COLONOSCOPY GEN ANES 06/06/2021 D&C SUCTION 05/2018 sepsis, MAB at 6 wks EGD 06/06/2021 INSERTION OF IUD 10/05/2020 Family History FAMILY HISTORY Problem Relation Age of Onset Arthritis Mother other (fibromyalgia) Mother other (PCOS) Mother Bipolar disorder Father Hypertension Maternal Grandmother Hypertension Maternal Grandfather Diabetes Maternal Grandfather Gout Maternal Grandfather Heart disease Paternal Grandmother No Known Problems Paternal Grandfather other (Down syndrome) Half-brother Patient Allergies ALLERGIES Allergen Reactions Amoxil [Amoxicillin] Rash Augmentin [Amoxicil* Rash, Vomiting Patient states she had a rash with either Augmentin or amoxicillin. Can't remember which one. Potassium Clavulana* Rash Prednisone Other: See Comments Diarrhea and vomitting Current Medications Current Outpatient Medications on File Prior to Visit Medication Sig guaiFENesin (MUCINEX) 600 mg 12 hr tablet Take 2 tablets by mouth twice daily. benzonatate (TESSALON PERLE) 100 mg capsule Take 2 capsules by mouth three times daily as needed. carBAMazepine (TEGRETOL) 200 mg tablet (Patient not taking: Reported on 06/24/2022) topiramate (TOPAMAX ORAL) Take 25 mg by mouth once daily. (Patient not taking: Reported on 03/24/2022) metFORMIN ER (GLUCOPHAGE XR) 500 mg 24 hr tablet Take 2 tablets by mouth twice daily with meals. albuterol HFA (PROVENTIL HFA, VENTOLIN HFA) 90 mcg/actuation inhaler Inhale 2 Puffs as instructed every 4 hours as needed. dulaglutide (TRULICITY) 0.75 mg/0.5 mL pen injector Inject 0.75 mg subcutaneously one time a week. ziprasidone (GEODON) 20 mg capsule Take 4 capsules by mouth once daily. (Patient not taking: Reported on 03/24/2022) Blood-Glucose Meter Use once daily and PRN, NIDDM, E 11.9 Lancets lancets Use as instructed; one lancet per day, NIDDM, E 11.9 blood sugar diagnostic (BLOOD GLUCOSE TEST) test strip Use as instructed; one strip per day, NIDDM, E11.9 albuterol (PROVENTIL) 2.5 mg /3 mL (0.083 %) nebulizer solution Use 3 mL via nebulizer every 4 hours as needed. OVER 5-15 MINUTES. FOR WHEEZING AND SHORTNESS OF BREATH. Benzoyl Peroxide 2.5 % Apply to affected area once daily. levonorgestrel (MIRENA) 20 mcg/24 hours (6 yrs) 52 mg IUD 1 Each by INTRAUTERINE route as directed. albuterol HFA (PROVENTIL HFA, VENTOLIN HFA) 90 mcg/actuation inhaler Inhale 2 Puffs as instructed every 4 hours as needed. No current facility-administered medications on file prior to visit. Social History Social History Tobacco Use Smoking status: Every Day Packs/day: 0.50 Years: 6.00 Pack years: 3.00 Types: Cigarettes Last attempt to quit: 04/26/2020 Years since quittin.3 Smokeless tobacco: Former Quit date: 01/26/2013 Vaping Use Vaping Use: Some days Substance Use Topics Alcohol use: No Drug use: Yes Types: Marijuana Comment: every other day - smokes it Review of Symptoms REVIEW OF SYSTEMS SEE HPI EXAM: BP 112/66 Pulse 83 Temp 36.6 C (97.9 F) Resp 16 Wt 89.8 kg (198 lb) LMP 04/25/2021 (Approximate) SpO2 100% BMI 33.23 kg/m General Appearance: Well appearing, alert, in no acute distress, well-hydrated, well nourished.. Ears: Positive findings: R TM: paz fluid noted behind TM and erythematous, L TM: normal. Nose/Sinuses: Positive findings: clear rhinorrhea. Oropharynx: Lips, mucosa, and tongue normal, teeth and gums normal, oropharynx normal. Health Maintenance List COVID-19 VACCINE(1) Never done DIABETIC FOOT EXAM due on 03/02/2022 PNEUMOCOCCAL(2 - PCV) due on 04/04/2022 INFLUENZA(1) due on 04/19/2022 URINE ALBUMIN:CREATININE RATIO due on 08/22/2022 LDL CHOLESTEROL due on 08/22/2022 DILATED RETINAL EXAM due on 08/30/2022 HBA1C due on 11/28/2022 ANNUAL PCP TEAM CHRONIC DISEASE VISIT due on 01/24/2023 PAP TESTING due on 2023 DTAP,TDAP,TD(9 - Td or Tdap) due on 06/08/2030 HEPATITIS B Completed SPIROMETRY Completed HPV VACCINE Completed HEPATITIS C SCREENING Completed HIV SCREENING Completed ASSESSMENT/PLAN: 1. Acute otitis media, right - ICD9: 382.9, ICD10: H66.91 - Will begin treatment with as per antibiotic as written, see orders - The patient should also be given OTC cough and cold meds as needed and nasal saline gtts and suction prn for the first 5-7 days of treatment. - Supportive care with plenty of fluids, rest, and analgesia prn. - CEFDINIR 300 MG CAPSULE Dudley Wood APRN.DRE documented in this encounter [facility] 07-31-2022 Instructions Betty Benitez APRN.DRE - 07/31/2022 12:20 PM EST covid and influenza test ordered You will be notified in 12-24 hours, results available on MyChart Rest, increase water intake Motrin or Tylenol as needed for fever or pain. Salt water gargles, chloraseptic spray or lozenges as needed for sore throat. Warm beverages, honey. Nasal saline spray as needed Cool mist humidifier at night Tylenol (generic acetaminophen) 500 mg-2 tabs every 8 hrs. as needed for fever and aches Ibuprofen 600 mg (3-200mg tablets) every 6 hours -Mucinex (generic is fine) Guaifenesin 1200 mg twice daily to help with cough and to thin out mucus Tessalon Perles 1-2 every 8 hours, do not combine this with robitussin or delsym * Seek medical care immediately, call 911, go to ER if you have chest pain, difficulty breathing, shortness of breath, inability to swallow. documented in this encounter [facility] 07-31-2022 History of Presen t illness Narrative Subjective The history is provided by the patient. No speech language pathologist travel was used. HPI Raissa Kevin is a 26 year old female who presents today for CC of loss of voice, cough, sore throat and body aches and chills for 5 days. She has used ibuprofen with relief. She was exposed to influenza A BP 108/64 Pulse 64 Temp 36.1 C (96.9 F) Resp 16 Wt 88 kg (194 lb) LMP 04/25/2021 (Approximate) SpO2 95% BMI 32.56 kg/m Social History Tobacco Use Smoking status: Every Day Packs/day: 0.50 Years: 6.00 Pack years: 3.00 Types: Cigarettes Last attempt to quit: 04/26/2020 Years since quittin.2 Smokeless tobacco: Former Quit date: 01/26/2013 Vaping Use Vaping Use: Some days Substance Use Topics Alcohol use: No Drug use: Yes Types: Marijuana Comment: every other day - smokes it PAST MEDICAL HISTORY Diagnosis Date Allergic rhinitis, cause unspecified Asthma Only uses rescue inhaler ~1x a week, typically with anxiety or exercise Attention deficit disorder with hyperactivity(314.01) Atypical squamous cells of undetermined significance (ASCUS) on Papanicolaou smear of cervix 05/09/2018 Bipolar disorder ([facility]) Depression Herpes 03/02/2020 Methamphetamine abuse ([facility]) 12/31/2018 NIDDM (non-insulin dependent diabetes mellitus) 10/16/2011 Obstructive sleep apnea Has CPAP [facility] - PAST MEDICAL HISTORY OF 03/2008 Normal Color Vision 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 Possible 3rd tri growth US. Syphilis affecting in second trimester 03/15/2020 03/15/20- T.Pallidum Ab, IgG (FTA-ABS) Reactive Ordered treatment of PCN 2.4 million units IM x 1 now- waiting to see how patient can receive injection while in office. Tobacco use during , antepartum 04/24/2018 03/02/2020 Discussed risks. Working on quitting. 04/24/2018 Pt smokes 0.5 - 1 pack a day of cigarettes, down from 2 ppd a day. Discussed risks of smoking during . Advised pt to quit. Patient cutting back and ready to quit. - Type 2 diabetes (HCC) Type 2 diabetes mellitus ([facility]) I have confirmed and edited as necessary, the [facility] Review of Systems Constitutional: Positive for chills and malaise/fatigue. Negative for fever. HENT: Positive for congestion and sore throat. Negative for ear pain and sinus pain. Respiratory: Negative for cough, sputum production, shortness of breath and wheezing. Cardiovascular: Negative for chest pain. Gastrointestinal: Negative for abdominal pain, diarrhea, nausea and vomiting. Musculoskeletal: Positive for myalgias. Neurological: Negative for headaches. Objective Physical Exam Vitals and nursing note reviewed. HENT: Head: Normocephalic and atraumatic. Right Ear: Tympanic membrane, ear canal and external ear normal. Left Ear: Tympanic membrane, ear canal and external ear normal. Nose: Mucosal edema, congestion and rhinorrhea present. Right Sinus: No maxillary sinus tenderness or frontal sinus tenderness. Left Sinus: No maxillary sinus tenderness or frontal sinus tenderness. Mouth/Throat: Pharynx: Uvula midline. Posterior oropharyngeal erythema present. No oropharyngeal exudate. Cardiovascular: Rate and Rhythm: Normal rate and regular rhythm. Heart sounds: Normal heart sounds. Pulmonary: Effort: Pulmonary effort is normal. Breath sounds: Normal breath sounds. Lymphadenopathy: Head: Right side of head: No submental, submandibular or tonsillar adenopathy. Left side of head: No submental, submandibular or tonsillar adenopathy. Cervical: No cervical adenopathy. Skin: General: Skin is warm and dry. Neurological: Mental Status: She is alert. Psychiatric: Mood and Affect: Affect normal. ASSESSMENT/PLAN: 1. Sore throat - ICD9: 462, ICD10: J02.9 (primary diagnosis) - suspect viral - Alere Strep Test negative, no culture pending - STREP A MOLECULAR (POC) - COVID WITH FLUA+B, ROUTINE 2. URI with cough and congestion - ICD9: 465.9, ICD10: J06.9 - Discussed viral etiology and rationale for treatment. - Symptomatic treatment with prn analgesia - Supportive care with fluids and rest - COVID WITH FLUA+B, ROUTINE Diagnosis and treatment plan were discussed and questions were answered to the patient's satisfaction. Pt acknowledged understanding of concepts and follow up plan. Specific signs and symptoms that would indicate the need for higher level of care were discussed in detail warranting prompt ER evaluation. Betty Benitez APRN.CNP documented in this encounter [facility] 07-11-2022 Miscellaneous Notes [facility] notified of below directive. Judy Strickland LPN I am not sure of her history- you may need to contact patient. Indira Trejo APRN.CNM Hans, from [facility] called re: RPR results. They are unable to find where she was positive before or any course of treatment. Was pt diagnosed in another state and was she treated? We can contact Hans at [phone]. Please further advise. Judy Strickland LPN documented in this encounter [facility] 06-29-2022 Miscellaneous Notes Patient notified BV positive. To treat with Flagyl 500mg PO BID for 7 days. 1) No alcohol during treatment and for 24 hours after last dose. 2) No intercourse during treatment. 3) Probiotic by mouth once daily for 30 days or as needed. she also has a yeast infection. I would like her to use Monistat 7 (or generic) 1 of a applicator full every night for 7 nights. If symptoms do not improve please ramesh the office. Olimpia Arce APRN.CNP documented in this encounter [facility] 06-28-2022 History of Presen t illness Narrative Psych Assistant Visit 06/28/2022 1:38 PM CC: STD screening HPI: Raissa Kevin is a 26 year old woman here for STD screening. Reports her and have split up and she just has a feeling she should get tested . Denies and vaginal pain, itching, burning , odor or abnormal discharge. Any known exposure? none Vaginal discharge? No. Contraception: Mirena IUD ROS: Denies fevers, pelvic pain, abnormal vaginal bleeding. O: BP 114/62 Wt 193 lb 6.4 oz (87.7 kg) LMP 04/25/2021 (Approximate) BMI 32.46 kg/m Gen: NAD SSE: normal cervix and vagina with physiological discharge present. IUD strings visible. A/P: 26 year old woman requesting full panel STD screening. - GC/Chlamydia, HIV, Hepatitis B, Syphilis, Hep C - will notify patient of abnormal results. - discussed condom use for STD prevention. Follow up 1 year for annual program engagement director exam or sooner as needed. Indira Trejo APRN.CNM documented in this encounter [facility] 03-24-2022 Miscellaneous Notes Patient given results and verbalized understanding of instructions given. Carla Hoang Normal chest x-ray. Continue supportive therapies as discussed during visit. Follow-up with PCP symptoms or not improving in 3 to 4 days and COVID-19 test is negative. Jamil Gordon APRN.CNP documented in this encounter [facility] 03-24-2022 Instructions Jamil Gordon APRN.CNP - 03/24/2022 11:21 AM EDT How to Manage Common Symptoms Associated with COVID for Adults Fever- Fever is a temperature over 100.4 F and can occur when the body is fighting an infection. To help treat a fever: Drink plenty of fluids and stay well hydrated. Eat small amounts of easy to digest food. Rest. Your body needs rest to recover, but getting up and moving around the house frequently is a good idea. You should try to continue doing your normal daily activities (bathing, toileting, grooming, cooking), though you will probably feel tired, and need to rest often. Avoid any heavy activity or exercise, as this will increase your body temperature. Dress in light clothing and stay covered in a light sheet. Keep the room temperature cool. Take a slightly warm (not cold or cool) bath, or apply damp washcloths to the forehead and wrists. Cough- Cough is a common symptom associated with COVID and can be bothersome. To help treat a cough: Stay well hydrated. Try warm water or tea with lemon and/or honey to help soothe the cough. Use a humidifier to add moisture to the air. Try a product with menthol, like a cough drop or a rub for your chest such as Vicks, which can help reduce cough. Try cough drops. Avoid smoking and other strong odors or perfumes. Try breathing exercises to keep your lungs open and clear. Take a big deep breath through your nose and hold for 5 seconds before slowly releasing. Repeat frequently, while you are awake. Congestion- Runny nose or nasal congestion can occur with COVID. Treatment can help relieve symptoms: Try OTC nasal saline spray, or nasal saline rinse to relieve mucus congestion. Nasal strips can help keep nasal passages open, to increase airflow. Elevating your head with an extra pillow in bed can help reduce congestion. Using a humidifier can increase moisture in the air, and make breathing easier. Sore Throat- Another common symptom with COVID, can be managed at home by: Stay well hydrated. Gargle with salt water - mix teaspoon salt with 1 cup of warm water and gargle. This helps to loosen mucus in the back of the throat and may reduce discomfort. Try ice chips, popsicles or lozenges to soothe the throat. Nausea/Vomiting/Diarrhea- These are common symptoms, and staying hydrated is most important. If you are nauseous or vomiting, start with small sips of water every 10-15 minutes and increase as tolerated. You can try sucking an ice cube too. If tolerating, you can try pedialyte or Gatorade, or flat sprite or judy-ana rosa. Start slowly and increase as you are able to. Instead of meals, try smaller, more frequent snacks. Try eating bland foods like crackers, toast, rice, and applesauce. Avoid spicy, greasy or fried foods and dairy containing foods. Even if you aren't feeling hungry due to lack of smell or taste, it is important to try to take in some food when you are able. After drinking and eating, rest in an upright position for up to two hours as needed to help decrease nauseous feelings. Try closing your eyes, avoid moving and watching TV. Avoid strong odors that can make you feel more nauseated. When to seek emergency medical attention Look for emergency warning signs for COVID-19. If having any of these symptoms, seek emergency medical care immediately: Trouble breathing Persistent pain or pressure in the chest New confusion Inability to wake or stay awake Bluish lips or face *This list is not all possible symptoms. Please call your medical provider for any other symptoms that are severe or concerning to you. documented in this encounter [facility] 03-24-2022 History of Presen t illness Narrative Subjective HPI Nontoxic-appearing female presents urgent care chief complaint cough fever body aches chills some shortness of breath with coughing. Patient states most bothersome symptom today is body aches and fatigue. States she was around some body who tested positive for COVID-19. She has not tested with a home test at this point. She is not vaccinated. Denies history of recent COVID-19 infection. Denies any productive cough chest pain shortness of breath pleuritic pain hemoptysis nausea vomiting abdominal pain change in bowel or bladder habits. Denies chance of . Is not breast-feeding. Past medical history prescription medication use allergies reviewed. .Patient presents with: Cough: fever, shortness of breath and sweating x 5 days PAST MEDICAL HISTORY Diagnosis Date Allergic rhinitis, cause unspecified Asthma Only uses rescue inhaler ~1x a week, typically with anxiety or exercise Attention deficit disorder with hyperactivity(314.01) Atypical squamous cells of undetermined significance (ASCUS) on Papanicolaou smear of cervix 05/09/2018 Bipolar disorder (HCC) Depression Herpes 03/02/2020 Methamphetamine abuse (HCC) 12/31/2018 NIDDM (non-insulin dependent diabetes mellitus) 10/16/2011 Obstructive sleep apnea Has CPAP [facility] - PAST MEDICAL HISTORY OF 03/2008 Normal Color Vision 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 Possible 3rd tri growth US. SW Syphilis affecting in second trimester 03/15/2020 03/15/20- T.Pallidum Ab, IgG (FTA-ABS) Reactive Ordered treatment of PCN 2.4 million units IM x 1 now- waiting to see how patient can receive injection while in office. Tobacco use during , antepartum 04/24/2018 03/02/2020 Discussed risks. Working on quitting. 04/24/2018 Pt smokes 0.5 - 1 pack a day of cigarettes, down from 2 ppd a day. Discussed risks of smoking during . Advised pt to quit. Patient cutting back and ready to quit. - Type 2 diabetes (HCC) Type 2 diabetes mellitus (HCC) PAST SURGICAL HISTORY Procedure Laterality Date SNGL 08/05/2020 COLONOSCOPY GEN ANES 06/06/2021 D&C SUCTION 05/2018 sepsis, MAB at 6 wks EGD 06/06/2021 INSERTION OF IUD 10/05/2020 ALLERGIES Amoxil [Amoxicillin], Augmentin [Amoxicillin-Pot Clavulanate], Potassium Clavulanate, and Prednisone MEDICATIONS metFORMIN ER (GLUCOPHAGE XR) 500 mg 24 hr tablet Take 2 tablets by mouth twice daily with meals. albuterol HFA (PROVENTIL HFA, VENTOLIN HFA) 90 mcg/actuation inhaler Inhale 2 Puffs as instructed every 4 hours as needed. dulaglutide (TRULICITY) 0.75 mg/0.5 mL pen injector Inject 0.75 mg subcutaneously one time a week. Blood-Glucose Meter Use once daily and PRN, NIDDM, E 11.9 Lancets lancets Use as instructed; one lancet per day, NIDDM, E 11.9 blood sugar diagnostic (BLOOD GLUCOSE TEST) test strip Use as instructed; one strip per day, NIDDM, E11.9 albuterol (PROVENTIL) 2.5 mg /3 mL (0.083 %) nebulizer solution Use 3 mL via nebulizer every 4 hours as needed. OVER 5-15 MINUTES. FOR WHEEZING AND SHORTNESS OF BREATH. levonorgestrel (MIRENA) 20 mcg/24 hours (6 yrs) 52 mg IUD 1 Each by INTRAUTERINE route as directed. albuterol HFA (PROVENTIL HFA, VENTOLIN HFA) 90 mcg/actuation inhaler Inhale 2 Puffs as instructed every 4 hours as needed. carBAMazepine (TEGRETOL) 200 mg tablet topiramate (TOPAMAX ORAL) Take 25 mg by mouth once daily. (Patient not taking: Reported on 03/24/2022) ziprasidone (GEODON) 20 mg capsule Take 4 capsules by mouth once daily. (Patient not taking: Reported on 03/24/2022) Benzoyl Peroxide 2.5 % Apply to affected area once daily. FAMILY HISTORY Problem Relation Age of Onset Arthritis Mother other (fibromyalgia) Mother other (PCOS) Mother Bipolar disorder Father Hypertension Maternal Grandmother Hypertension Maternal Grandfather Diabetes Maternal Grandfather Gout Maternal Grandfather Heart disease Paternal Grandmother No Known Problems Paternal Grandfather other (Down syndrome) Half-brother Social History Tobacco Use Smoking status: Every Day Packs/day: 0.50 Years: 6.00 Pack years: 3.00 Types: Cigarettes Last attempt to quit: 04/26/2020 Years since quittin.9 Smokeless tobacco: Former Quit date: 01/26/2013 Vaping Use Vaping Use: Some days Substance Use Topics Alcohol use: No Drug use: Yes Types: Marijuana Comment: every other day - smokes it BP 136/80 Pulse 100 Temp 36.1 C (97 F) Resp 18 Wt 89.4 kg (197 lb) LMP 04/25/2021 (Approximate) SpO2 98% BMI 33.06 kg/m Hr 86 Review of Systems Constitutional: Positive for chills, fever and malaise/fatigue. HENT: Positive for congestion and sore throat. Negative for ear discharge, ear pain and sinus pain. Eyes: Negative for blurred vision, pain, discharge and redness. Respiratory: Positive for cough. Negative for hemoptysis, sputum production, shortness of breath, wheezing and stridor. Cardiovascular: Negative for chest pain. Gastrointestinal: Negative for abdominal pain, constipation, diarrhea, nausea and vomiting. Genitourinary: Negative for dysuria, flank pain, frequency, hematuria and urgency. Musculoskeletal: Positive for myalgias. Skin: Negative for itching and rash. Neurological: Positive for headaches. Negative for dizziness. Objective Physical Exam Constitutional: General: She is not in acute distress. Appearance: She is not diaphoretic. HENT: Head: Normocephalic. Mouth/Throat: Mouth: Mucous membranes are moist. Pharynx: Oropharynx is clear. No oropharyngeal exudate or posterior oropharyngeal erythema. Eyes: Conjunctiva/sclera: Conjunctivae normal. Pupils: Pupils are equal, round, and reactive to light. Cardiovascular: Rate and Rhythm: Normal rate and regular rhythm. Heart sounds: Normal heart sounds. Pulmonary: Effort: Pulmonary effort is normal. No tachypnea, accessory muscle usage or respiratory distress. Breath sounds: No stridor. Wheezing present. No rhonchi. Abdominal: Palpations: Abdomen is soft. Tenderness: There is no abdominal tenderness. Musculoskeletal: Cervical back: Normal range of motion and neck supple. No rigidity or tenderness. Lymphadenopathy: Cervical: No cervical adenopathy. Skin: General: Skin is warm and dry. Neurological: Mental Status: She is alert and oriented to person, place, and time. ASSESSMENT/PLAN: 1. Acute cough - ICD9: 786.2, ICD10: R05.1 (primary diagnosis) - XR CHEST 2V FRONTAL/LAT - 2019 CORONAVIRUS 2. Viral illness - ICD9: 079.99, ICD10: B34.9 - 2019 CORONAVIRUS IMPRESSION: No acute radiographic abnormality. Chest x-ray negative. We will treat conservatively at this time. Patient does have some wheezing. Will use albuterol. Cannot tolerate prednisone. COVID-19 test ordered. Patient was educated on supportive therapies. Patient will follow up with primary care provider as needed. Patient was instructed to immediately proceed to emergency room for any new, worsening, or symptoms lasting longer than anticipated. The patient's clinical presentation is otherwise unremarkable at this time. Based on exam and clinical finding, the patient is stable for discharge. Plan of care was discussed with patient. Patient verbalizes understanding and agrees to plan of care. This note was generated using [employer] software. It may contain errors in wording, punctuation, or spelling. Jamil Gordon APRN.DRE documented in this encounter [facility] 01-26-2022 Miscellaneous Notes Patient notified. Voiced understanding. Karma Caballero LPN Knee xray is normal. No reason to follow-up in office for this as I see she is scheduled for this Saturday. If pain persists recommend PT. Thanks, Aaliyah Rodriges APRN.CNP documented in this encounter [facility] 01-24-2022 History of Presen t illness Narrative 01/24/2022 Patient presents with: Right Knee Pain: x2 weeks; no injury aware of Pain, Back: x1 week SUBJECTIVE: This is a 26 year old that is here today for Above Complaints.. Knee pain ONSET: two weeks ago LOCATION: right knee- front DURATION: intermittent CHARACTERISTICS: aching and sharp at times AGGRAVATING FEATURES: walking around ALLEVIATING FEATURES: ice, ibuprophen RADIATION: none Admits to some swelling Denies current or past injury or surgery, excessive warmth or redness Back pain ONSET: one week LOCATION: upper back DURATION: constant CHARACTERISTICS: ache AGGRAVATING FEATURES: coughing hard ALLEVIATING FEATURES: tried dayquil RADIATION: none Denies past of current injury or surgery, extremity numbness, tingling, weakness, saddle anaesthesia, urinary or bowel incontinence on inability PAST MEDICAL HISTORY Diagnosis Date Allergic rhinitis, cause unspecified Asthma Only uses rescue inhaler ~1x a week, typically with anxiety or exercise Attention deficit disorder with hyperactivity(314.01) Atypical squamous cells of undetermined significance (ASCUS) on Papanicolaou smear of cervix 05/09/2018 Bipolar disorder (HCC) Depression Herpes 03/02/2020 Methamphetamine abuse (HCC) 12/31/2018 NIDDM (non-insulin dependent diabetes mellitus) 10/16/2011 Obstructive sleep apnea Has CPAP [facility] - PAST MEDICAL HISTORY OF 03/2008 Normal Color Vision 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 Possible 3rd tri growth US. Syphilis affecting in second trimester 03/15/2020 03/15/20- T.Pallidum Ab, IgG (FTA-ABS) Reactive Ordered treatment of PCN 2.4 million units IM x 1 now- waiting to see how patient can receive injection while in office. Tobacco use during , antepartum 04/24/2018 03/02/2020 Discussed risks. Working on quitting. 04/24/2018 Pt smokes 0.5 - 1 pack a day of cigarettes, down from 2 ppd a day. Discussed risks of smoking during . Advised pt to quit. Patient cutting back and ready to quit. - Type 2 diabetes (HCC) Type 2 diabetes mellitus (HCC) ALLERGIES Amoxil [Amoxicillin], Augmentin [Amoxicillin-Pot Clavulanate], Potassium Clavulanate, and Prednisone MEDICATIONS Current Outpatient Medications Medication Sig topiramate (TOPAMAX ORAL) Take 25 mg by mouth once daily. metFORMIN ER (GLUCOPHAGE XR) 500 mg 24 hr tablet Take 2 tablets by mouth twice daily with meals. albuterol HFA (PROVENTIL HFA, VENTOLIN HFA) 90 mcg/actuation inhaler Inhale 2 Puffs as instructed every 4 hours as needed. dulaglutide (TRULICITY) 0.75 mg/0.5 mL pen injector Inject 0.75 mg subcutaneously one time a week. ziprasidone (GEODON) 20 mg capsule Take 4 capsules by mouth once daily. Blood-Glucose Meter Use once daily and PRN, NIDDM, E 11.9 Lancets lancets Use as instructed; one lancet per day, NIDDM, E 11.9 blood sugar diagnostic (BLOOD GLUCOSE TEST) test strip Use as instructed; one strip per day, NIDDM, E11.9 albuterol (PROVENTIL) 2.5 mg /3 mL (0.083 %) nebulizer solution Use 3 mL via nebulizer every 4 hours as needed. OVER 5-15 MINUTES. FOR WHEEZING AND SHORTNESS OF BREATH. Benzoyl Peroxide 2.5 % Apply to affected area once daily. levonorgestrel (MIRENA) 20 mcg/24 hours (6 yrs) 52 mg IUD 1 Each by INTRAUTERINE route as directed. albuterol HFA (PROVENTIL HFA, VENTOLIN HFA) 90 mcg/actuation inhaler Inhale 2 Puffs as instructed every 4 hours as needed. Current Facility-Administered Medications Medication Dose Route Frequency perflutren lipid microspheres 1.3 mL in NaCl (PF) 0.9% 10 mL injection (DEFINITY) INTRAVENOUS DIRECTED PRN sodium chloride 0.9 % (flush) 10 mL (BD POSIFLUSH) 10 mL INTRAVENOUS DIRECTED PRN Medications and allergies reviewed by this provider. SOCIAL HISTORY Social History Tobacco Use Smoking status: Current Every Day Smoker Packs/day: 0.50 Years: 6.00 Pack years: 3.00 Types: Cigarettes Last attempt to quit: 04/26/2020 Years since quittin.7 Smokeless tobacco: Former User Quit date: 01/26/2013 Vaping Use Vaping Use: Some days Substance Use Topics Alcohol use: No Drug use: Yes Types: Marijuana Comment: every other day - smokes it REVIEW OF SYSTEMS All other reviewed and negative other than HPI. OBJECTIVE: BP 90/62 Pulse 80 Resp 18 Wt 92.1 kg (203 lb) LMP 04/25/2021 (Approximate) SpO2 99% BMI 34.07 kg/m . Vital signs reviewed by this provider. APPEARANCE Well appearing, alert, in no acute distress, well-hydrated, well nourished. and Overweight Heart: regular rate and rhythm, without murmur Lungs: Lungs clear to auscultation, No wheezing, rales or rhonchi BACK: TTP midline upper thoracic spine without obvious deformity, redness warmth or swelling. FROM without difficulty SKIN Skin color, texture, turgor normal, no suspicious rashes or lesions to exposed skin RIGHT KNEE: No TTP, excessive warmth, erythema or swelling. FROM. Patient notes some discomfort anterior with deep flexion. No popping or clicking. Negative anterior and posterior drawer test. Negative Yasemin COVID-19 VACCINE(1) Never done DIABETIC FOOT EXAM due on 03/02/2022 ANNUAL PCP TEAM CHRONIC DISEASE VISIT due on 04/04/2022 PNEUMOCOCCAL(2 - PCV) due on 04/04/2022 INFLUENZA(Season Ended) due on 04/19/2022 HBA1C due on 06/02/2022 URINE ALBUMIN:CREATININE RATIO due on 08/22/2022 LDL CHOLESTEROL due on 08/22/2022 DILATED RETINAL EXAM due on 08/30/2022 PAP TESTING due on 2023 DTAP,TDAP,TD(9 - Td or Tdap) due on 06/08/2030 HEPATITIS B Completed SPIROMETRY Completed HPV VACCINE Completed HEPATITIS C SCREENING Completed HIV SCREENING Completed ASSESSMENT/PLAN: 1. Acute pain of right knee - ICD9: 719.46, ICD10: M25.561 (primary diagnosis) - no red flag symptoms or exam findings - red flag symptoms discussed, verbalizes understanding -recommend heat or ice, OTC NSAID products as recommended on packaging, topical creams or pathces - XR KNEE GENERAL 4V AP BOTH/PA BOTH/LAT/MERC RIGHT - follow-up pending xray 2. Upper back pain - ICD9: 724.5, ICD10: M54.9 - ? Muscular strain - no red flag symptoms or exam findings - red flag symptoms discussed, verbalizes understanding - Ice for localized tenderness - Warm moist heat for 20 min three times a day - Patient given instructions use of medications as ordered, intermittent rest, back care exercise program, improved posture, proper lifting techniques, intermittent use of heat and avoiding sleeping on a heating pad - follow-up if symptoms fail to improve, to ER with red flag symptoms Aaliyah Rodriges APRN.DRE Prescription instructions reviewed with patient as applicable. Patient advised if symptoms do not improve or if symptoms worsen sooner, to contact their primary care physician. Potential red flag symptoms discussed with the patient. Reviewed appropriate action plan to take if red flag symptoms occur. Patient agreeable to treatment plan. documented in this encounter [facility] 11-06-2021 Miscellaneous Notes Patient MyChart message requesting the following refill. Pending Prescriptions Disp Refills ALBUTEROL SULFATE HFA 90 MCG/ACTUATION AEROSOL INHALER 18 g 5 Sig: Inhale 2 Puffs as instructed every 4 hours as needed. NATALY: No Patient last appointment: 12/06/[address] [place] [address] Orellana Patient Phone numbers: [phone] (home) Request is for script(s) to be escript to pharmacy. Sosa Hall documented in this encounter [facility] 05-12-2021 Miscellaneous Notes Patient is scheduled 06/23 with sleep medicine. Elizabeth Woodall Patient notified. Patient would like schedulers to call her to set up consult Raissa Harris Cma Please call patient and let her know her sleep study showed normal apnea- hypo apnea index however it may be underestimated. Low oxygen saturation was noted during th study. Also says she endorsed some symptoms suggestive of restless leg syndrome and reported nightmares, sleepwalking, sleeptalking and frequent dreams of fighting and being chased. With all this information I think she should see sleep study to evaluate further. I have placed order please assist in scheduling. Thanks, Aaliyah Rodriges APRN.CNP documented in this encounter [facility] 01-17-2021 [facility] DischJuno Osborn PA-C - 01/17/2021 Images from the original note were not included. Most people with respiratory infections like colds, the flu, and Coronavirus Disease (COVID-19) will have mild illness and can get better with appropriate home care and without the need to see a medical provider. People who are elderly, , or have a weak immune system, or other medical problem are at higher risk of more serious illness or complications. It is recommended that they carefully monitor their symptoms closely and seek medical care early. Treatment There is no specific treatment for most viruses, including those that cause the common cold and those that cause COVID-19. Sometimes there is treatment for viruses that cause influenza if given soon after the onset of symptoms. Antibiotics treat infections caused by bacteria, but they do not work against viruses. Most people recover on their own from these viruses, including COVID-19. Here are steps that you can take to help you get better: Rest Drink plenty of fluids Take [id number] cold and flu medications to reduce fever and pain. Follow the instructions on the package, unless your doctor gave you specific instructions. Note that these medicines do not 'cure' the illness and do not stop you from spreading germs. When to Seek Medical Care You should seek medical care if you are not getting better within a week, or if your symptoms get worse. It is best to call your doctor ahead of time to discuss your symptoms, if possible. Some providers offer telemedicine services that can assist as well. This may allow you to receive the advice you need by phone. By avoiding a visit to a healthcare facility, you protect yourself from getting a new infection and protect others from catching an infection from you. If you do visit a healthcare facility, put on a mask to protect other patients and staff. It is recommended that you seek medical care and return immediately to the Emergency Department for any serious symptoms, such as: Return immediately for any difficulty breathing, confusion, dizziness or passing out, vomiting, chest pain, high fevers, weakness, or any other new or concerning symptoms. People with potentially life-threatening symptoms should call 911. If possible, put on a facemask before emergency medical services arrive. What should I do if home isolation has been recommended? The following instructions are provided to assist you to safely care for yourself or others who are infected or potentially infected with COVID-19. These instructions are also available at: https://www.cdc.gov/coronavirus/ 2019-ncov/hcp/ucjokroz-xcpvhcj-m pread.html It has been determined that you do not need to be hospitalized at this time, and can safely be isolated at home. You should follow the prevention steps below until a health care provider or local health department says you can return to your normal activities. Stay home except to get medical care You should restrict activities outside your home, except for getting medical care. Under no circumstance should you go to work, school, or public areas. Avoid using public transportation, ride sharing, or taxis. Separate yourself from other people and animals in your home People: As much as possible, you should stay in a specific room and away from other people in your home. Also, you should use a separate bathroom, if available. Animals: You should restrict contact with pets and other animals while you are sick with COVID-19, just like you would around other people. Although there have not been reports of pets or other animals becoming sick with COVID-19, it is still recommended that people with COVID-19 limit contact with animals until more information is known about the virus. When possible, have another member of your household care for your animals while you are sick. If you must care for your pet or be around animals while you are sick, wash your hands before and after you interact with pets and wear a facemask. Call ahead before visiting your doctor If you have a medical appointment, call the health care provider prior to your appointment and tell them that you have or may have COVID-19. This will help the health care provider's office take steps to keep other people from getting infected or exposed. Ask your health care provider to call the local or state health department. Persons who are placed under active monitoring or self-monitoring should follow instructions provided by their local health department or occupational health professionals, as appropriate. If you have a medical emergency and need to call 911, notify the dispatch personnel that you have, or are being evaluated for COVID-19. If possible, put on a facemask before emergency medical services arrive. Take care of your mental health You might be feeling anxious, afraid, lonely or uncertain. The following link has a guide with a list of helpful behavioral health resources and a few tips for taking care of your emotional health while you are quarantined: https://[employer].[facility].gov/system/ files/tpe52-7173.pdf Wear a face mask You should wear a facemask when you are around other people (for example, sharing a room or vehicle) or pets, and before you enter a health care provider's office. If you are not able to wear a facemask (for example, because it causes trouble breathing), then people who live with you should not stay in the same room with you, or they should wear a facemask if they enter your room. Cover your coughs and sneezes Cover your mouth and nose with a tissue when you cough or sneeze. Throw used tissues in a lined trash can. Clean your hands often Wash your hands often with soap and water for at least 20 seconds or clean your hands with an alcohol-based hand cigarette stamper that contains 60 to 95% alcohol, covering all surfaces of your hands and rubbing them together until they feel dry. Soap and water should be used preferentially if your hands are visibly dirty. Avoid touching your eyes, nose, and mouth with unwashed hands. Avoid touching your face Viruses that affect the respiratory system enter the body through mucous membranes which are found in the eyes, nose, and mouth. It only takes one touch for germs on your fingers to enter your body through your nostrils, eyes, or mouth. In addition to hand hygiene, this is an important way to help prevent transmission of infections. Clean all high-touch surfaces every day High-touch surfaces include counters, tabletops, doorknobs, bathroom fixtures, toilets, phones, keyboards, tablets, and bedside tables. Also, clean any surfaces that may have blood, stool, or body fluids on them. Use a household cleaning spray or wipe, according to the label instructions. Labels contain instructions for safe and effective use of the cleaning product including precautions you should take when applying the product, such as wearing gloves and making sure you have good ventilation while using the product. Avoid sharing personal household items You should not share dishes, drinking glasses, cups, eating utensils, towels or bedding with other people or pets in your home. After using these items, they should be washed thoroughly with soap and water. Monitor your symptoms Please contact the [facility] as soon as possible. Persons who are placed under active monitoring or facilitated self-monitoring should follow instructions provided by their local health department or occupational health professionals, as appropriate. Seek immediate medical attention if your illness is worsening of if you develop any of the following: difficulty breathing, confusion, dizziness or passing out, vomiting, high fevers, weakness, or any other new or concerning symptoms. Before seeking care, call your health care provider and tell them that you have, or are being evaluated for COVID-19. Put on a facemask before you enter the facility. These steps will help keep other people in the office or waiting room from getting infected or exposed. If you have a medical emergency and need to call 911, notify the dispatch personnel that you have, or are being evaluated for COVID-19. If possible, put on a face mask before emergency medical services arrive. Visit: https://od.[place].gov For specific questions and answers about COVID-19, call the [facility] info line at 6-614 -[facility] ( ) Discontinuing home isolation Patients with confirmed COVID-19 should remain under home isolation precautions until the risk of secondary transmission to others is thought to be low. The decision to discontinue home isolation precautions is made on a aebx-pp-vvrk basis, in consultation with health care providers, and state and local health departments. Recommended precautions for household members, intimate partners, and caregivers If you are providing care for a person infected or suspected to be infected with COVID-19, please note the following instructions, which are also available at: https://www.cdc.gov/coronavirus/ 2019-ncov/hcp/nxlwlbhk-mfokgkt-j pread.html How do I take care of someone who is quarantined in my home? Household members, intimate partners, and caregivers in a non-health care setting may have close contact (within 6 feet) with a person with symptomatic, laboratory-confirmed COVID-19 or a person under investigation. Those in close contact should monitor their health and should call their health care provider right away if they develop symptoms suggestive of COVID-19 (such as fever, cough, shortness of breath). Those in close contact should also follow these recommendations: Make sure that you understand and can help the patient follow their health care provider's instructions for medication(s) and care. You should help the patient with basic needs in the home and provide support for getting groceries, prescriptions and other personal needs Monitor the patient's symptoms. If the patient is getting sicker, call his or her health care provider and tell them that the patient has laboratory-confirmed or is under investigation for COVID-19. This will help the health care provider's office take steps to keep other people in the office or waiting room from getting infected. Ask the health care provider to call the local or [facility] health department for additional guidance. If the patient has a medical emergency and you need to call 911, notify the dispatch personnel that the patient has, or is being evaluated for COVID-19 Household members should stay in another room or be from the patient as much as possible. Household members should use a separate bedroom and bathroom, if available Prohibit visitors who do not have an essential need to be in the home Household members should care for any pets in the home. Do not handle pets or other animals while sick Make sure that shared spaces in the home have good airflow, such as by an air conditioner or an opened window, weather permitting Perform hand hygiene frequently. Wash your hands often with soap and water for at least 20 seconds or use an alcohol-based hand cigarette stamper that contains 60 to 95% alcohol, covering all surfaces of your hands and rubbing them together until they feel dry. Soap and water should be used preferentially if hands are visibly dirty Avoid touching your eyes, nose, and mouth with unwashed hands You and the patient should wear a facemask if you are in the same room Wear a disposable facemask and gloves when you touch or have contact with the patient's blood, stool, or body fluids, such as saliva, sputum, nasal mucus, vomit or urine. Do not reuse disposable facemasks and gloves. Throw them away after using them. When removing personal protective equipment, first remove and dispose of gloves. Then, immediately clean your hands with soap and water or alcohol-based hand cigarette stamper. Next, remove and dispose of facemask, and immediately clean your hands again with soap and water or alcohol-based hand cigarette stamper Avoid sharing household items with the patient. You should not share dishes, drinking glasses, cups, eating utensils, towels, bedding or other items. After the patient uses these items, you should wash them thoroughly (see below) Clean all high-touch surfaces, such as counters, tabletops, doorknobs, bathroom fixtures, toilets, phones, keyboards, tablets and bedside tables, every day. Also, clean any surfaces that may have blood, stool, or body fluids on them Use a household cleaning spray or wipe, according to the label instructions. Labels contain instructions for safe and effective use of the cleaning product including precautions you should take when applying the product, such as wearing gloves and making sure you have good ventilation during the use of the product Wash laundry thoroughly Immediately remove and wash clothes or bedding that have blood, stool, or body fluids on them Wear disposable gloves while handling soiled items and keep soiled items away from your body. Clean your hands (with soap and water or an alcohol-based hand cigarette stamper) immediately after removing and throwing away your gloves Read and follow directions on labels for laundry or clothing items and detergent. In general, using a normal laundry detergent according to washing machine instructions and dry thoroughly using the warmest temperatures recommended on the clothing label Place all used disposable gloves, facemasks, and other contaminated items in a lined container before disposing of them with other household waste. Clean your hands (with soap and water or an alcohol-based hand cigarette stamper) immediately after handling these items. Soap and water should be used preferentially if hands are visibly dirty Discuss any additional questions with your state or local health department or health care provider What if I live with someone who's been told to self-quarantine? If the person you live with is NOT exhibiting respiratory symptoms, you can go about your day-to-day business, and you do not need to be tested or monitored. If the person you live with has respiratory symptoms (such as coughing or sneezing), but has not yet tested positive for COVID-19: Please make sure to stay home Monitor your symptoms closely, and seek medical attention if your symptoms are worsening Avoid public areas and public transportation Wear a facemask if you are sick Cover your coughs and sneezes with a tissue, dispose of the tissue and immediately wash your hands Wash your hands often for at least 20 seconds, and if soap and water are not available, use hand cigarette stamper Avoid touching your eyes, nose or mouth Avoid sharing personal household items Clean 'high-touch' surfaces daily If the person you live with has tested positive for COVID-19, you will be considered a close contact, and will also likely be asked to self-quarantine. documented in this encounter [facility] Work Phone: documented as of this encounter (statuses as of 11/06/2021) [facility] History of Past illness Narrative* Problem Noted Date Resolved Date Excessive weight gain in , third trimes ter 05/31/2020 2020 Syphilis affecting in second trimester 03/15/2020 03/02/2021 Overview: 05/19/20: titer decreased to 1:16- no further treatment at this time. Lynnette Renteria MD 05/05/2020 Repeat RPR titers at 28-32 weeks - retreat, if titer has not decreased 4-fold from previous assessment (1:64) recommended by [facility]. 03/29/20 - patient treated with IM rocephin, checking with for additional recommendations Claudia Land MD 03/17/[address] Casanova treat with PCN G 2.4 million units x 3 doses each given 1 week apart. Look for fourfold decline in titer (should go to 1:16 or lower) - should be re-screened at 28-32 weeks gestation. 03/15/20- T.Pallidum Ab, IgG (FTA-ABS) Reactive Ordered treatment of PCN 2.4 million units IM x 1 now- waiting to see how patient can receive injection while in office. Herpes 03/02/2020 07/18/2020 Overview: 03/02/2020 Upon chart reviewed h/o positive serology in 2013. No h/o genital outbreaks. Rh negative state in antepartum period 8 2020 Overview: 03/02/2020 Rhogam candidate. 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 Possible 3rd tri growth US. SW Acute cystitis without hematuria 04/28/2018 08/07/2018 Overview: 04/25/18- E coli UTI. Sent Macrobid. Will need CFC. - Tobacco use during , antepartum 018 03/02/2021 Overview: 03/02/2020 Discussed risks. Working on quitting. 04/24/2018 Pt smokes 0.5 - 1 pack a day of cigarettes, down from 2 ppd a day. Discussed risks of smoking during . Advised pt to quit. Patient cutting back and ready to quit. - Type 2 diabetes mellitus, uncontrolled 4 03/02/2020 Type 2 diabetes mellitus 10/16/2011 020 Sprain of ankle, unspecified site 11/22/2008 04/24/2018 documented as of this encounter (statuses as of 01/24/2022) [facility] History of Past illness Narrative* Problem Noted Date Resolved Date Excessive weight gain in , third trimes ter 05/31/2020 2020 Syphilis affecting in second trimester 03/15/2020 03/02/2021 Overview: 05/19/20: titer decreased to 1:16- no further treatment at this time. Lynnette Renteria MD 05/05/2020 Repeat RPR titers at 28-32 weeks - retreat, if titer has not decreased 4-fold from previous assessment (1:64) recommended by [facility]. 03/29/20 - patient treated with IM rocephin, checking with for additional recommendations Claudia Land MD 03/17/[address] Casanova treat with PCN G 2.4 million units x 3 doses each given 1 week apart. Look for fourfold decline in titer (should go to 1:16 or lower) - should be re-screened at 28-32 weeks gestation. 03/15/20- T.Pallidum Ab, IgG (FTA-ABS) Reactive Ordered treatment of PCN 2.4 million units IM x 1 now- waiting to see how patient can receive injection while in office. Herpes 03/02/2020 07/18/2020 Overview: 03/02/2020 Upon chart reviewed h/o positive serology in 2012. No h/o genital outbreaks. SW Rh negative state in antepartum period 8 2020 Overview: 03/02/2020 Rhogam candidate. 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 Possible 3rd tri growth US. SW Acute cystitis without hematuria 04/28/2018 08/07/2018 Overview: 04/25/18- E coli UTI. Sent Macrobid. Will need CFC. -SW Tobacco use during , antepartum 018 03/02/2021 Overview: 03/02/2020 Discussed risks. Working on quitting. SW 04/24/2018 Pt smokes 0.5 - 1 pack a day of cigarettes, down from 2 ppd a day. Discussed risks of smoking during . Advised pt to quit. Patient cutting back and ready to quit. -SW Type 2 diabetes mellitus, uncontrolled 4 03/02/2020 Type 2 diabetes mellitus 10/16/2011 020 Sprain of ankle, unspecified site 11/22/2008 04/24/2018 documented as of this encounter (statuses as of 01/26/2022) [facility] History of Past illness Narrative* Problem Noted Date Resolved Date Excessive weight gain in , third trimes ter 05/31/2020 2020 Syphilis affecting in second trimester 03/15/2020 03/02/2021 Overview: 05/19/20: titer decreased to 1:16- no further treatment at this time. Lynnette Renteria MD 05/05/2020 Repeat RPR titers at 28-32 weeks - retreat, if titer has not decreased 4-fold from previous assessment (1:64) recommended by [facility]. SW 03/29/20 - patient treated with IM rocephin, checking with for additional recommendations Claudia Land MD 03/17/[address] Casanova treat with PCN G 2.4 million units x 3 doses each given 1 week apart. Look for fourfold decline in titer (should go to 1:16 or lower) - should be re-screened at 28-32 weeks gestation. 03/15/20- T.Pallidum Ab, IgG (FTA-ABS) Reactive Ordered treatment of PCN 2.4 million units IM x 1 now- waiting to see how patient can receive injection while in office. Herpes 03/02/2020 07/18/2020 Overview: 03/02/2020 Upon chart reviewed h/o positive serology in 2012. No h/o genital outbreaks. SW Rh negative state in antepartum period 8 2020 Overview: 03/02/2020 Rhogam candidate. 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 Possible 3rd tri growth US. SW Acute cystitis without hematuria 04/28/2018 08/07/2018 Overview: 04/25/18- E coli UTI. Sent Macrobid. Will need CFC. -SW Tobacco use during , antepartum 018 03/02/2021 Overview: 03/02/2020 Discussed risks. Working on quitting. SW 04/24/2018 Pt smokes 0.5 - 1 pack a day of cigarettes, down from 2 ppd a day. Discussed risks of smoking during . Advised pt to quit. Patient cutting back and ready to quit. -SW Type 2 diabetes mellitus, uncontrolled 4 03/02/2020 Type 2 diabetes mellitus 10/16/2011 020 Sprain of ankle, unspecified site 11/22/2008 04/24/2018 documented as of this encounter (statuses as of 03/09/2022) [facility] History of Past illness Narrative* Problem Noted Date Resolved Date Excessive weight gain in , third trimes ter 05/31/2020 2020 Syphilis affecting in second trimester 03/15/2020 03/02/2021 Overview: 05/19/20: titer decreased to 1:16- no further treatment at this time. Lynnette Renteira MD 05/05/2020 Repeat RPR titers at 28-32 weeks - retreat, if titer has not decreased 4-fold from previous assessment (1:64) recommended by M. SW 03/29/20 - patient treated with IM rocephin, checking with for additional recommendations Claudia Land MD 03/17/[address] Casanova treat with PCN G 2.4 million units x 3 doses each given 1 week apart. Look for fourfold decline in titer (should go to 1:16 or lower) - should be re-screened at 28-32 weeks gestation. 03/15/20- T.Pallidum Ab, IgG (FTA-ABS) Reactive Ordered treatment of PCN 2.4 million units IM x 1 now- waiting to see how patient can receive injection while in office. Herpes 03/02/2020 07/18/2020 Overview: 03/02/2020 Upon chart reviewed h/o positive serology in 2012. No h/o genital outbreaks. SW Rh negative state in antepartum period 8 2020 Overview: 03/02/2020 Rhogam candidate. 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 Possible 3rd tri growth US. Acute cystitis without hematuria 04/28/2018 08/07/2018 Overview: 04/25/18- E coli UTI. Sent Macrobid. Will need CFC. - Tobacco use during , antepartum 018 03/02/2021 Overview: 03/02/2020 Discussed risks. Working on quitting. 04/24/2018 Pt smokes 0.5 - 1 pack a day of cigarettes, down from 2 ppd a day. Discussed risks of smoking during . Advised pt to quit. Patient cutting back and ready to quit. - Type 2 diabetes mellitus, uncontrolled 4 03/02/2020 Type 2 diabetes mellitus 10/16/2011 020 Sprain of ankle, unspecified site 11/22/2008 04/24/2018 documented as of this encounter (statuses as of 03/24/2022) [facility]10-13-2020 History of Past illness Narrative* Problem Noted Date Resolved Date Excessive weight gain in , third trimes ter 05/31/2020 2020 Syphilis affecting in second trimester 03/15/2020 03/02/2021 Overview: 05/19/20: titer decreased to 1:16- no further treatment at this time. Lynnette Renteria MD 05/05/2020 Repeat RPR titers at 28-32 weeks - retreat, if titer has not decreased 4-fold from previous assessment (1:64) recommended by [facility]. 03/29/20 - patient treated with IM rocephin, checking with for additional recommendations Claudia Land MD 03/17/[address] Casanova treat with PCN G 2.4 million units x 3 doses each given 1 week apart. Look for fourfold decline in titer (should go to 1:16 or lower) - should be re-screened at 28-32 weeks gestation. 03/15/20- T.Pallidum Ab, IgG (FTA-ABS) Reactive Ordered treatment of PCN 2.4 million units IM x 1 now- waiting to see how patient can receive injection while in office. Herpes 03/02/2020 07/18/2020 Overview: 03/02/2020 Upon chart reviewed h/o positive serology in 2013. No h/o genital outbreaks. SW Rh negative state in antepartum period 8 2020 Overview: 03/02/2020 Rhogam candidate. 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 Possible 3rd tri growth US. SW Acute cystitis without hematuria 04/28/2018 08/07/2018 Overview: 04/25/18- E coli UTI. Sent Macrobid. Will need CFC. - Tobacco use during , antepartum 018 03/02/2021 Overview: 03/02/2020 Discussed risks. Working on quitting. 04/24/2018 Pt smokes 0.5 - 1 pack a day of cigarettes, down from 2 ppd a day. Discussed risks of smoking during . Advised pt to quit. Patient cutting back and ready to quit. - Type 2 diabetes mellitus, uncontrolled 4 03/02/2020 Type 2 diabetes mellitus 10/16/2011 020 Sprain of ankle, unspecified site 11/22/2008 04/24/2018 documented as of this encounter (statuses as of 03/24/2022) [facility]10-13-2020 History of Past illness Narrative* Problem Noted Date Resolved Date Excessive weight gain in , third trimes ter 05/31/2020 2020 Syphilis affecting in second trimester 03/15/2020 03/02/2021 Overview: 05/19/20: titer decreased to 1:16- no further treatment at this time. Lynnette Renteria MD 05/05/2020 Repeat RPR titers at 28-32 weeks - retreat, if titer has not decreased 4-fold from previous assessment (1:64) recommended by [facility]. SW 03/29/20 - patient treated with IM rocephin, checking with for additional recommendations Claudia Land MD 03/17/[address] Casanova treat with PCN G 2.4 million units x 3 doses each given 1 week apart. Look for fourfold decline in titer (should go to 1:16 or lower) - should be re-screened at 28-32 weeks gestation. 03/15/20- T.Pallidum Ab, IgG (FTA-ABS) Reactive Ordered treatment of PCN 2.4 million units IM x 1 now- waiting to see how patient can receive injection while in office. Herpes 03/02/2020 07/18/2020 Overview: 03/02/2020 Upon chart reviewed h/o positive serology in 2012. No h/o genital outbreaks. SW Rh negative state in antepartum period 8 2020 Overview: 03/02/2020 Rhogam candidate. 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 Possible 3rd tri growth US. SW Acute cystitis without hematuria 04/28/2018 08/07/2018 Overview: 04/25/18- E coli UTI. Sent Macrobid. Will need CFC. - Tobacco use during , antepartum 018 03/02/2021 Overview: 03/02/2020 Discussed risks. Working on quitting. SW 04/24/2018 Pt smokes 0.5 - 1 pack a day of cigarettes, down from 2 ppd a day. Discussed risks of smoking during . Advised pt to quit. Patient cutting back and ready to quit. - Type 2 diabetes mellitus, uncontrolled 4 03/02/2020 Type 2 diabetes mellitus 10/16/2011 020 Sprain of ankle, unspecified site 11/22/2008 04/24/2018 documented as of this encounter (statuses as of 06/28/2022) [facility]10-13-2020 History of Past illness Narrative* Problem Noted Date Resolved Date Excessive weight gain in , third trimes ter 05/31/2020 2020 Syphilis affecting in second trimester 03/15/2020 03/02/2021 Overview: 05/19/20: titer decreased to 1:16- no further treatment at this time. Lynnette Renteria MD 05/05/2020 Repeat RPR titers at 28-32 weeks - retreat, if titer has not decreased 4-fold from previous assessment (1:64) recommended by [facility]. SW 03/29/20 - patient treated with IM rocephin, checking with for additional recommendations Claudia Land MD 03/17/[address] Casanova treat with PCN G 2.4 million units x 3 doses each given 1 week apart. Look for fourfold decline in titer (should go to 1:16 or lower) - should be re-screened at 28-32 weeks gestation. 03/15/20- T.Pallidum Ab, IgG (FTA-ABS) Reactive Ordered treatment of PCN 2.4 million units IM x 1 now- waiting to see how patient can receive injection while in office. Herpes 03/02/2020 07/18/2020 Overview: 03/02/2020 Upon chart reviewed h/o positive serology in 2012. No h/o genital outbreaks. SW Rh negative state in antepartum period 8 2020 Overview: 03/02/2020 Rhogam candidate. 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 Possible 3rd tri growth US. SW Acute cystitis without hematuria 04/28/2018 08/07/2018 Overview: 04/25/18- E coli UTI. Sent Macrobid. Will need CFC. -SW Tobacco use during , antepartum 018 03/02/2021 Overview: 03/02/2020 Discussed risks. Working on quitting. 04/24/2018 Pt smokes 0.5 - 1 pack a day of cigarettes, down from 2 ppd a day. Discussed risks of smoking during . Advised pt to quit. Patient cutting back and ready to quit. - Type 2 diabetes mellitus, uncontrolled 4 03/02/2020 Type 2 diabetes mellitus 10/16/2011 020 Sprain of ankle, unspecified site 11/22/2008 04/24/2018 documented as of this encounter (statuses as of 06/29/2022) [facility]2020 History of Past illness Narrative* Problem Noted Date Resolved Date Excessive weight gain in , third trimes ter 05/31/2020 2020 Syphilis affecting in second trimester 03/15/2020 03/02/2021 Overview: 05/19/20: titer decreased to 1:16- no further treatment at this time. Lynnette Renteria MD 05/05/2020 Repeat RPR titers at 28-32 weeks - retreat, if titer has not decreased 4-fold from previous assessment (1:64) recommended by [facility]. 03/29/20 - patient treated with IM rocephin, checking with for additional recommendations Claudia Land MD 03/17/[address] Casanova treat with PCN G 2.4 million units x 3 doses each given 1 week apart. Look for fourfold decline in titer (should go to 1:16 or lower) - should be re-screened at 28-32 weeks gestation. 03/15/20- T.Pallidum Ab, IgG (FTA-ABS) Reactive Ordered treatment of PCN 2.4 million units IM x 1 now- waiting to see how patient can receive injection while in office. Herpes 03/02/2020 07/18/2020 Overview: 03/02/2020 Upon chart reviewed h/o positive serology in 2012. No h/o genital outbreaks. Rh negative state in antepartum period 8 2020 Overview: 03/02/2020 Rhogam candidate. 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 Possible 3rd tri growth US. SW Acute cystitis without hematuria 04/28/2018 08/07/2018 Overview: 04/25/18- E coli UTI. Sent Macrobid. Will need CFC. - Tobacco use during , antepartum 018 03/02/2021 Overview: 03/02/2020 Discussed risks. Working on quitting. 04/24/2018 Pt smokes 0.5 - 1 pack a day of cigarettes, down from 2 ppd a day. Discussed risks of smoking during . Advised pt to quit. Patient cutting back and ready to quit. - Type 2 diabetes mellitus, uncontrolled 4 03/02/2020 Type 2 diabetes mellitus 10/16/2011 020 Sprain of ankle, unspecified site 11/22/2008 04/24/2018 documented as of this encounter (statuses as of 07/11/2022) [facility]2020 History of Past illness Narrative* Problem Noted Date Resolved Date Excessive weight gain in , third trimes ter 05/31/2020 2020 Syphilis affecting in second trimester 03/15/2020 03/02/2021 Overview: 05/19/20: titer decreased to 1:16- no further treatment at this time. Lynnette Renteria MD 05/05/2020 Repeat RPR titers at 28-32 weeks - retreat, if titer has not decreased 4-fold from previous assessment (1:64) recommended by [facility]. 03/29/20 - patient treated with IM rocephin, checking with for additional recommendations Claudia Land MD 03/17/[address] Casanova treat with PCN G 2.4 million units x 3 doses each given 1 week apart. Look for fourfold decline in titer (should go to 1:16 or lower) - should be re-screened at 28-32 weeks gestation. 03/15/20- T.Pallidum Ab, IgG (FTA-ABS) Reactive Ordered treatment of PCN 2.4 million units IM x 1 now- waiting to see how patient can receive injection while in office. Herpes 03/02/2020 07/18/2020 Overview: 03/02/2020 Upon chart reviewed h/o positive serology in 2013. No h/o genital outbreaks. SW Rh negative state in antepartum period 8 2020 Overview: 03/02/2020 Rhogam candidate. 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 Possible 3rd tri growth US. SW Acute cystitis without hematuria 04/28/2018 08/07/2018 Overview: 04/25/18- E coli UTI. Sent Macrobid. Will need CFC. -SW Tobacco use during , antepartum 018 03/02/2021 Overview: 03/02/2020 Discussed risks. Working on quitting. SW 04/24/2018 Pt smokes 0.5 - 1 pack a day of cigarettes, down from 2 ppd a day. Discussed risks of smoking during . Advised pt to quit. Patient cutting back and ready to quit. - Type 2 diabetes mellitus, uncontrolled 4 03/02/2020 Type 2 diabetes mellitus 10/16/2011 020 Sprain of ankle, unspecified site 11/22/2008 04/24/2018 documented as of this encounter (statuses as of 07/31/2022) [facility]2020 History of Past illness Narrative* Problem Noted Date Resolved Date Excessive weight gain in , third trimes ter 05/31/2020 2020 Syphilis affecting in second trimester 03/15/2020 03/02/2021 Overview: 05/19/20: titer decreased to 1:16- no further treatment at this time. Lynnette Renteria MD 05/05/2020 Repeat RPR titers at 28-32 weeks - retreat, if titer has not decreased 4-fold from previous assessment (1:64) recommended by M. SW 03/29/20 - patient treated with IM rocephin, checking with for additional recommendations Claudia Land MD 03/17/[address] Casanova treat with PCN G 2.4 million units x 3 doses each given 1 week apart. Look for fourfold decline in titer (should go to 1:16 or lower) - should be re-screened at 28-32 weeks gestation. 03/15/20- T.Pallidum Ab, IgG (FTA-ABS) Reactive Ordered treatment of PCN 2.4 million units IM x 1 now- waiting to see how patient can receive injection while in office. Herpes 03/02/2020 07/18/2020 Overview: 03/02/2020 Upon chart reviewed h/o positive serology in 2012. No h/o genital outbreaks. SW Rh negative state in antepartum period 8 2020 Overview: 03/02/2020 Rhogam candidate. 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 Possible 3rd tri growth US. SW Acute cystitis without hematuria 04/28/2018 08/07/2018 Overview: 04/25/18- E coli UTI. Sent Macrobid. Will need CFC. - Tobacco use during , antepartum 018 03/02/2021 Overview: 03/02/2020 Discussed risks. Working on quitting. 04/24/2018 Pt smokes 0.5 - 1 pack a day of cigarettes, down from 2 ppd a day. Discussed risks of smoking during . Advised pt to quit. Patient cutting back and ready to quit. 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 Lynnette Renteria MD 05/05/2020 Repeat RPR titers at 28-32 weeks - retreat, if titer has not decreased 4-fold from previous assessment (1:64) recommended by M. SW 03/29/20 - patient treated with IM rocephin, checking with for additional recommendations Claudia Land MD 03/17/[address] Casanova treat with PCN G 2.4 million units x 3 doses each given 1 week apart. Look for fourfold decline in titer (should go to 1:16 or lower) - should be re-screened at 28-32 weeks gestation. 03/15/20- T.Pallidum Ab, IgG (FTA-ABS) Reactive Ordered treatment of PCN 2.4 million units IM x 1 now- waiting to see how patient can receive injection while in office. Herpes 03/02/2020 07/18/2020 Overview: 03/02/2020 Upon chart reviewed h/o positive serology in 2012. No h/o genital outbreaks. SW Rh negative state in antepartum period 8 2020 Overview: 03/02/2020 Rhogam candidate. 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 Possible 3rd tri growth US. SW Acute cystitis without hematuria 04/28/2018 08/07/2018 Overview: 04/25/18- E coli UTI. Sent Macrobid. Will need CFC. -SW Tobacco use during , antepartum 018 03/02/2021 Overview: 03/02/2020 Discussed risks. Working on quitting. 04/24/2018 Pt smokes 0.5 - 1 pack a day of cigarettes, down from 2 ppd a day. Discussed risks of smoking during . Advised pt to quit. Patient cutting back and ready to quit. 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 Lynnette Renteria MD 05/05/2020 Repeat RPR titers at 28-32 weeks - retreat, if titer has not decreased 4-fold from previous assessment (1:64) recommended by [facility]. SW 03/29/20 - patient treated with IM rocephin, checking with for additional recommendations Claudia Land MD 03/17/[address] Casanova treat with PCN G 2.4 million units x 3 doses each given 1 week apart. Look for fourfold decline in titer (should go to 1:16 or lower) - should be re-screened at 28-32 weeks gestation. 03/15/20- T.Pallidum Ab, IgG (FTA-ABS) Reactive Ordered treatment of PCN 2.4 million units IM x 1 now- waiting to see how patient can receive injection while in office. Herpes 03/02/2020 07/18/2020 Overview: 03/02/2020 Upon chart reviewed h/o positive serology in 2012. No h/o genital outbreaks. Rh negative state in antepartum period 8 2020 Overview: 03/02/2020 Rhogam candidate. 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 Possible 3rd tri growth US. Acute cystitis without hematuria 04/28/2018 08/07/2018 Overview: 04/25/18- E coli UTI. Sent Macrobid. Will need CFC. - Tobacco use during , antepartum 018 03/02/2021 Overview: 03/02/2020 Discussed risks. Working on quitting. 04/24/2018 Pt smokes 0.5 - 1 pack a day of cigarettes, down from 2 ppd a day. Discussed risks of smoking during . Advised pt to quit. Patient cutting back and ready to quit. 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 Lynnette Renteria MD 05/05/2020 Repeat RPR titers at 28-32 weeks - retreat, if titer has not decreased 4-fold from previous assessment (1:64) recommended by M. 03/29/20 - patient treated with IM rocephin, checking with for additional recommendations Claudia Land MD 03/17/[address] Casanova treat with PCN G 2.4 million units x 3 doses each given 1 week apart. Look for fourfold decline in titer (should go to 1:16 or lower) - should be re-screened at 28-32 weeks gestation. 03/15/20- T.Pallidum Ab, IgG (FTA-ABS) Reactive Ordered treatment of PCN 2.4 million units IM x 1 now- waiting to see how patient can receive injection while in office. Herpes 03/02/2020 07/18/2020 Overview: 03/02/2020 Upon chart reviewed h/o positive serology in 2013. No h/o genital outbreaks. SW Rh negative state in antepartum period 8 2020 Overview: 03/02/2020 Rhogam candidate. 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 Possible 3rd tri growth US. SW Acute cystitis without hematuria 04/28/2018 08/07/2018 Overview: 04/25/18- E coli UTI. Sent Macrobid. Will need CFC. - Tobacco use during , antepartum 018 03/02/2021 Overview: 03/02/2020 Discussed risks. Working on quitting. 04/24/2018 Pt smokes 0.5 - 1 pack a day of cigarettes, down from 2 ppd a day. Discussed risks of smoking during . Advised pt to quit. Patient cutting back and ready to quit. - Type 2 diabetes mellitus, uncontrolled 4 03/02/2020 Type 2 diabetes mellitus 10/16/2011 020 Sprain of ankle, unspecified site 11/22/2008 04/24/2018 documented as of this encounter (statuses as of 10/02/2022) [facility] History of Past illness Narrative* Problem Noted Date Resolved Date Excessive weight gain in , third trimes ter 05/31/2020 2020 Syphilis affecting in second trimester 03/15/2020 03/02/2021 Overview: 05/19/20: titer decreased to 1:16- no further treatment at this time. Lynnette Renteria MD 05/05/2020 Repeat RPR titers at 28-32 weeks - retreat, if titer has not decreased 4-fold from previous assessment (1:64) recommended by [facility]. SW 03/29/20 - patient treated with IM rocephin, checking with for additional recommendations Claudia Land MD 03/17/[address] Casanova treat with PCN G 2.4 million units x 3 doses each given 1 week apart. Look for fourfold decline in titer (should go to 1:16 or lower) - should be re-screened at 28-32 weeks gestation. 03/15/20- T.Pallidum Ab, IgG (FTA-ABS) Reactive Ordered treatment of PCN 2.4 million units IM x 1 now- waiting to see how patient can receive injection while in office. Herpes 03/02/2020 07/18/2020 Overview: 03/02/2020 Upon chart reviewed h/o positive serology in 2013. No h/o genital outbreaks. SW Rh negative state in antepartum period 8 2020 Overview: 03/02/2020 Rhogam candidate. 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 Possible 3rd tri growth US. SW Acute cystitis without hematuria 04/28/2018 08/07/2018 Overview: 04/25/18- E coli UTI. Sent Macrobid. Will need CFC. -SW Tobacco use during , antepartum 018 03/02/2021 Overview: 03/02/2020 Discussed risks. Working on quitting. 04/24/2018 Pt smokes 0.5 - 1 pack a day of cigarettes, down from 2 ppd a day. Discussed risks of smoking during . Advised pt to quit. Patient cutting back and ready to quit. - Type 2 diabetes mellitus, uncontrolled 4 03/02/2020 Type 2 diabetes mellitus 10/16/2011 020 Sprain of ankle, unspecified site 11/22/2008 04/24/2018 documented as of this encounter (statuses as of 11/01/2022) [facility] History of Past illness Narrative* Problem Noted Date Resolved Date Excessive weight gain in , third trimes ter 05/31/2020 2020 Syphilis affecting in second trimester 03/15/2020 03/02/2021 Overview: 05/19/20: titer decreased to 1:16- no further treatment at this time. Lynnette Renteria MD 05/05/2020 Repeat RPR titers at 28-32 weeks - retreat, if titer has not decreased 4-fold from previous assessment (1:64) recommended by M. SW 03/29/20 - patient treated with IM rocephin, checking with for additional recommendations Claudia Land MD 03/17/[address] Casanova treat with PCN G 2.4 million units x 3 doses each given 1 week apart. Look for fourfold decline in titer (should go to 1:16 or lower) - should be re-screened at 28-32 weeks gestation. 03/15/20- T.Pallidum Ab, IgG (FTA-ABS) Reactive Ordered treatment of PCN 2.4 million units IM x 1 now- waiting to see how patient can receive injection while in office. Herpes 03/02/2020 07/18/2020 Overview: 03/02/2020 Upon chart reviewed h/o positive serology in 2012. No h/o genital outbreaks. SW Rh negative state in antepartum period 8 2020 Overview: 03/02/2020 Rhogam candidate. 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 Possible 3rd tri growth US. SW Acute cystitis without hematuria 04/28/2018 08/07/2018 Overview: 04/25/18- E coli UTI. Sent Macrobid. Will need CFC. - Tobacco use during , antepartum 018 03/02/2021 Overview: 03/02/2020 Discussed risks. Working on quitting. 04/24/2018 Pt smokes 0.5 - 1 pack a day of cigarettes, down from 2 ppd a day. Discussed risks of smoking during . Advised pt to quit. Patient cutting back and ready to quit. - Type 2 diabetes mellitus, uncontrolled 4 03/02/2020 Type 2 diabetes mellitus 10/16/2011 020 Sprain of ankle, unspecified site 11/22/2008 04/24/2018 documented as of this encounter (statuses as of 02/18/2023) [facility] History of Past illness Narrative* Problem Noted Date Diagnosed Date Resolved Date Excessive weight gain in pre gnancy, third trimester 05/31/2020 2020 Syphilis affecting in second trimester 03/15/2020 03/02/2021 Overview: 05/19/20: titer decreased to 1:16- no further treatment at this time. Lynnette Renteria MD 05/05/2020 Repeat RPR titers at 28-32 weeks - retreat, if titer has not decreased 4-fold from previous assessment (1:64) recommended by [facility]. 03/29/20 - patient treated with IM rocephin, checking with for additional recommendations Claudia Land MD 03/17/[address] Casanova treat with PCN G 2.4 million units x 3 doses each given 1 week apart. Look for fourfold decline in titer (should go to 1:16 or lower) - should be re-screened at 28-32 weeks gestation. 03/15/20- T.Pallidum Ab, IgG (FTA-ABS) Reactive Ordered treatment of PCN 2.4 million units IM x 1 now- waiting to see how patient can receive injection while in office. Herpes 03/02/2020 07/18/2020 Overview: 03/02/2020 Upon chart reviewed h/o positive serology in 2013. No h/o genital outbreaks. Rh negative state in antepartum period 05/13/2018 2020 Overview: 03/02/2020 Rhogam candidate. Acute cystitis without hematuria 04/28/2018 08/07/2018 Overview: 04/25/18- E coli UTI. Sent Macrobid. Will need CFC. - Type 2 diabetes mellitus, uncontrolled 09/15/2013 03/02/2020 Type 2 diabetes mellitus 10/16/2011 Sprain of ankle, unspecified site 11/22/2008 04/24/2018 documented as of this encounter (statuses as of 03/14/2023) [facility]10-13-2020 History of Past illness Narrative* Problem Noted Date Diagnosed Date Resolved Date Excessive weight gain in pre gnancy, third trimester 05/31/2020 2020 Syphilis affecting in second trimester 03/15/2020 03/02/2021 Overview: 05/19/20: titer decreased to 1:16- no further treatment at this time. Lynnette Renteria MD 05/05/2020 Repeat RPR titers at 28-32 weeks - retreat, if titer has not decreased 4-fold from previous assessment (1:64) recommended by [facility]. SW 03/29/20 - patient treated with IM rocephin, checking with for additional recommendations Claudia Land MD 03/17/[address] Casanova treat with PCN G 2.4 million units x 3 doses each given 1 week apart. Look for fourfold decline in titer (should go to 1:16 or lower) - should be re-screened at 28-32 weeks gestation. 03/15/20- T.Pallidum Ab, IgG (FTA-ABS) Reactive Ordered treatment of PCN 2.4 million units IM x 1 now- waiting to see how patient can receive injection while in office. Herpes 03/02/2020 07/18/2020 Overview: 03/02/2020 Upon chart reviewed h/o positive serology in 2013. No h/o genital outbreaks. SW Rh negative state in antepartum period 05/13/2018 2020 Overview: 03/02/2020 Rhogam candidate. Acute cystitis without hematuria 04/28/2018 08/07/2018 Overview: 04/25/18- E coli UTI. Sent Macrobid. Will need CFC. - Type 2 diabetes mellitus, uncontrolled 09/15/2013 03/02/2020 Type 2 diabetes mellitus 10/16/2011 Sprain of ankle, unspecified site 11/22/2008 04/24/2018 documented as of this encounter (statuses as of 03/15/2023) [facility]10-[facility]2020 History of Past illness Narrative* Problem Noted Date Diagnosed Date Resolved Date Excessive weight gain in pre gnancy, third trimester 05/31/2020 2020 Syphilis affecting in second trimester 03/15/2020 03/02/2021 Overview: 05/19/20: titer decreased to 1:16- no further treatment at this time. Lynnette Renteria MD 05/05/2020 Repeat RPR titers at 28-32 weeks - retreat, if titer has not decreased 4-fold from previous assessment (1:64) recommended by [facility]. SW 03/29/20 - patient treated with IM rocephin, checking with for additional recommendations Claudia Land MD 03/17/[address] Casanova treat with PCN G 2.4 million units x 3 doses each given 1 week apart. Look for fourfold decline in titer (should go to 1:16 or lower) - should be re-screened at 28-32 weeks gestation. 03/15/20- T.Pallidum Ab, IgG (FTA-ABS) Reactive Ordered treatment of PCN 2.4 million units IM x 1 now- waiting to see how patient can receive injection while in office. Herpes 03/02/2020 07/18/2020 Overview: 03/02/2020 Upon chart reviewed h/o positive serology in 2012. No h/o genital outbreaks. SW Rh negative state in antepartum period 05/13/2018 2020 Overview: 03/02/2020 Rhogam candidate. Acute cystitis without hematuria 04/28/2018 08/07/2018 Overview: 04/25/18- E coli UTI. Sent Macrobid. Will need CFC. - Type 2 diabetes mellitus, uncontrolled 09/15/2013 03/02/2020 Type 2 diabetes mellitus 10/16/2011 Sprain of ankle, unspecified site 11/22/2008 04/24/2018 documented as of this encounter (statuses as of 03/20/2023) [facility] History of Past illness Narrative* Problem Noted Date Diagnosed Date Resolved Date Excessive weight gain in pre gnancy, third trimester 05/31/2020 2020 Syphilis affecting in second trimester 03/15/2020 03/02/2021 Overview: 05/19/20: titer decreased to 1:16- no further treatment at this time. Lynnette Renteria MD 05/05/2020 Repeat RPR titers at 28-32 weeks - retreat, if titer has not decreased 4-fold from previous assessment (1:64) recommended by M. SW 03/29/20 - patient treated with IM rocephin, checking with for additional recommendations Claudia Land MD 03/17/[address] Casnaova treat with PCN G 2.4 million units x 3 doses each given 1 week apart. Look for fourfold decline in titer (should go to 1:16 or lower) - should be re-screened at 28-32 weeks gestation. 03/15/20- T.Pallidum Ab, IgG (FTA-ABS) Reactive Ordered treatment of PCN 2.4 million units IM x 1 now- waiting to see how patient can receive injection while in office. Herpes 03/02/2020 07/18/2020 Overview: 03/02/2020 Upon chart reviewed h/o positive serology in 2012. No h/o genital outbreaks. Rh negative state in antepartum period 05/13/2018 2020 Overview: 03/02/2020 Rhogam candidate. Acute cystitis without hematuria 04/28/2018 08/07/2018 Overview: 04/25/18- E coli UTI. Sent Macrobid. Will need CFC. 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 Lynnette Renteria MD 05/05/2020 Repeat RPR titers at 28-32 weeks - retreat, if titer has not decreased 4-fold from previous assessment (1:64) recommended by [facility]. SW 03/29/20 - patient treated with IM rocephin, checking with for additional recommendations Claudia Land MD 03/17/[address] Casanova treat with PCN G 2.4 million units x 3 doses each given 1 week apart. Look for fourfold decline in titer (should go to 1:16 or lower) - should be re-screened at 28-32 weeks gestation. 03/15/20- T.Pallidum Ab, IgG (FTA-ABS) Reactive Ordered treatment of PCN 2.4 million units IM x 1 now- waiting to see how patient can receive injection while in office. Herpes 03/02/2020 07/18/2020 Overview: 03/02/2020 Upon chart reviewed h/o positive serology in 2012. No h/o genital outbreaks. Rh negative state in antepartum period 05/13/2018 2020 Overview: 03/02/2020 Rhogam candidate. Acute cystitis without hematuria 04/28/2018 08/07/2018 Overview: 04/25/18- E coli UTI. Sent Macrobid. Will need CFC. 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 Lynnette Renteria MD 05/05/2020 Repeat RPR titers at 28-32 weeks - retreat, if titer has not decreased 4-fold from previous assessment (1:64) recommended by [facility]. SW 03/29/20 - patient treated with IM rocephin, checking with for additional recommendations Claudia Land MD 03/17/[address] Casanova treat with PCN G 2.4 million units x 3 doses each given 1 week apart. Look for fourfold decline in titer (should go to 1:16 or lower) - should be re-screened at 28-32 weeks gestation. 03/15/20- T.Pallidum Ab, IgG (FTA-ABS) Reactive Ordered treatment of PCN 2.4 million units IM x 1 now- waiting to see how patient can receive injection while in office. Herpes 03/02/2020 07/18/2020 Overview: 03/02/2020 Upon chart reviewed h/o positive serology in 2012. No h/o genital outbreaks. Rh negative state in antepartum period 05/13/2018 2020 Overview: 03/02/2020 Rhogam candidate. Acute cystitis without hematuria 04/28/2018 08/07/2018 Overview: 04/25/18- E coli UTI. Sent Macrobid. Will need CFC. 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 Lynnette Renteria MD 05/05/2020 Repeat RPR titers at 28-32 weeks - retreat, if titer has not decreased 4-fold from previous assessment (1:64) recommended by [facility]. SW 03/29/20 - patient treated with IM rocephin, checking with for additional recommendations Claudia Land MD 03/17/[address] Casanova treat with PCN G 2.4 million units x 3 doses each given 1 week apart. Look for fourfold decline in titer (should go to 1:16 or lower) - should be re-screened at 28-32 weeks gestation. 03/15/20- T.Pallidum Ab, IgG (FTA-ABS) Reactive Ordered treatment of PCN 2.4 million units IM x 1 now- waiting to see how patient can receive injection while in office. Herpes 03/02/2020 07/18/2020 Overview: 03/02/2020 Upon chart reviewed h/o positive serology in 2012. No h/o genital outbreaks. SW Rh negative state in antepartum period 05/13/2018 2020 Overview: 03/02/2020 Rhogam candidate. Acute cystitis without hematuria 04/28/2018 08/07/2018 Overview: 04/25/18- E coli UTI. Sent Macrobid. Will need CFC. 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 Lynnette Renteria MD 05/05/2020 Repeat RPR titers at 28-32 weeks - retreat, if titer has not decreased 4-fold from previous assessment (1:64) recommended by M. SW 03/29/20 - patient treated with IM rocephin, checking with for additional recommendations Claudia Land MD 03/17/[address] Casanova treat with PCN G 2.4 million units x 3 doses each given 1 week apart. Look for fourfold decline in titer (should go to 1:16 or lower) - should be re-screened at 28-32 weeks gestation. 03/15/20- T.Pallidum Ab, IgG (FTA-ABS) Reactive Ordered treatment of PCN 2.4 million units IM x 1 now- waiting to see how patient can receive injection while in office. Herpes 03/02/2020 07/18/2020 Overview: 03/02/2020 Upon chart reviewed h/o positive serology in 2012. No h/o genital outbreaks. Rh negative state in antepartum period 05/13/2018 2020 Overview: 03/02/2020 Rhogam candidate. Acute cystitis without hematuria 04/28/2018 08/07/2018 Overview: 04/25/18- E coli UTI. Sent Macrobid. Will need CFC. 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 Lynnette Renteria MD 05/05/2020 Repeat RPR titers at 28-32 weeks - retreat, if titer has not decreased 4-fold from previous assessment (1:64) recommended by M. SW 03/29/20 - patient treated with IM rocephin, checking with for additional recommendations Claudia Land MD 03/17/[address] Casanova treat with PCN G 2.4 million units x 3 doses each given 1 week apart. Look for fourfold decline in titer (should go to 1:16 or lower) - should be re-screened at 28-32 weeks gestation. 03/15/20- T.Pallidum Ab, IgG (FTA-ABS) Reactive Ordered treatment of PCN 2.4 million units IM x 1 now- waiting to see how patient can receive injection while in office. Herpes 03/02/2020 07/18/2020 Overview: 03/02/2020 Upon chart reviewed h/o positive serology in 2012. No h/o genital outbreaks. SW Rh negative state in antepartum period 05/13/2018 2020 Overview: 03/02/2020 Rhogam candidate. SW Acute cystitis without hematuria 04/28/2018 08/07/2018 Overview: 04/25/18- E coli UTI. Sent Macrobid. Will need CFC. - Mild intermittent asthma without complication 04/25/20 18 04/02/2023 Overview: 04/25/18- Only using rescue inhaler once a week. - Type 2 diabetes mellitus, uncontrolled 09/15/2013 03/02/2020 Type 2 diabetes mellitus 10/16/2011 Sprain of ankle, unspecified site 11/22/2008 04/24/2018 History of asthma 09/06/2006 04/02/2023 Overview: 03/14/2023atient has a history of asthma. Last seen November 2020. She does have a pulmonary appointment on April 02. 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 Lynnette Renteria MD 05/05/2020 Repeat RPR titers at 28-32 weeks - retreat, if titer has not decreased 4-fold from previous assessment (1:64) recommended by [facility]. SW 03/29/20 - patient treated with IM rocephin, checking with for additional recommendations Claudia Land MD 03/17/[address] Casanova treat with PCN G 2.4 million units x 3 doses each given 1 week apart. Look for fourfold decline in titer (should go to 1:16 or lower) - should be re-screened at 28-32 weeks gestation. 03/15/20- T.Pallidum Ab, IgG (FTA-ABS) Reactive Ordered treatment of PCN 2.4 million units IM x 1 now- waiting to see how patient can receive injection while in office. Herpes 03/02/2020 07/18/2020 Overview: 03/02/2020 Upon chart reviewed h/o positive serology in 2013. No h/o genital outbreaks. Rh negative state in antepartum period 05/13/2018 2020 Overview: 03/02/2020 Rhogam candidate. SW Acute cystitis without hematuria 04/28/2018 08/07/2018 Overview: 04/25/18- E coli UTI. Sent Macrobid. Will need CFC. - Mild intermittent asthma without complication 04/25/20 18 04/02/2023 Overview: 04/25/18- Only using rescue inhaler once a week. - Type 2 diabetes mellitus, uncontrolled 09/15/2013 03/02/2020 Type 2 diabetes mellitus 10/16/2011 Sprain of ankle, unspecified site 11/22/2008 04/24/2018 History of asthma 09/06/2006 04/02/2023 Overview: 3Patient has a history of asthma. Last seen November 2020. She does have a pulmonary appointment on April 02. 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 Lynnette Renteria MD 05/05/2020 Repeat RPR titers at 28-32 weeks - retreat, if titer has not decreased 4-fold from previous assessment (1:64) recommended by [facility]. 03/29/20 - patient treated with IM rocephin, checking with for additional recommendations Claudia Land MD 03/17/[address] Casanova treat with PCN G 2.4 million units x 3 doses each given 1 week apart. Look for fourfold decline in titer (should go to 1:16 or lower) - should be re-screened at 28-32 weeks gestation. 03/15/20- T.Pallidum Ab, IgG (FTA-ABS) Reactive Ordered treatment of PCN 2.4 million units IM x 1 now- waiting to see how patient can receive injection while in office. Herpes 03/02/2020 07/18/2020 Overview: 03/02/2020 Upon chart reviewed h/o positive serology in 2012. No h/o genital outbreaks. SW Rh negative state in antepartum period 05/13/2018 2020 Overview: 03/02/2020 Rhogam candidate. SW Acute cystitis without hematuria 04/28/2018 08/07/2018 Overview: 04/25/18- E coli UTI. Sent Macrobid. Will need CFC. - Mild intermittent asthma without complication 04/25/20 18 04/02/2023 Overview: 04/25/18- Only using rescue inhaler once a week. - Type 2 diabetes mellitus, uncontrolled 09/15/2013 03/02/2020 Type 2 diabetes mellitus 10/16/2011 Sprain of ankle, unspecified site 11/22/2008 04/24/2018 History of asthma 09/06/2006 04/02/2023 Overview: 3Patient has a history of asthma. Last seen November 2020. She does have a pulmonary appointment on April 02. 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 Lynnette Renteria MD 05/05/2020 Repeat RPR titers at 28-32 weeks - retreat, if titer has not decreased 4-fold from previous assessment (1:64) recommended by M. SW 03/29/20 - patient treated with IM rocephin, checking with for additional recommendations Claudia Land MD 03/17/[address] Casanova treat with PCN G 2.4 million units x 3 doses each given 1 week apart. Look for fourfold decline in titer (should go to 1:16 or lower) - should be re-screened at 28-32 weeks gestation. 03/15/20- T.Pallidum Ab, IgG (FTA-ABS) Reactive Ordered treatment of PCN 2.4 million units IM x 1 now- waiting to see how patient can receive injection while in office. Herpes 03/02/2020 07/18/2020 Overview: 03/02/2020 Upon chart reviewed h/o positive serology in 2012. No h/o genital outbreaks. Acute cystitis without hematuria 04/28/2018 08/07/2018 Overview: 04/25/18- E coli UTI. Sent Macrobid. Will need CFC. - Mild intermittent asthma without complication 04/25/20 18 04/02/2023 Overview: 04/25/18- Only using rescue inhaler once a week. - Type 2 diabetes mellitus, uncontrolled 09/15/2013 03/02/2020 Type 2 diabetes mellitus 10/16/2011 Sprain of ankle, unspecified site 11/22/2008 04/24/2018 History of asthma 09/06/2006 04/02/2023 Overview: 3Patient has a history of asthma. Last seen November 2020. She does have a pulmonary appointment on April 02. 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 Lynnette Renteria MD 05/05/2020 Repeat RPR titers at 28-32 weeks - retreat, if titer has not decreased 4-fold from previous assessment (1:64) recommended by [facility]. SW 03/29/20 - patient treated with IM rocephin, checking with for additional recommendations Claudia Land MD 03/17/[address] Casanova treat with PCN G 2.4 million units x 3 doses each given 1 week apart. Look for fourfold decline in titer (should go to 1:16 or lower) - should be re-screened at 28-32 weeks gestation. 03/15/20- T.Pallidum Ab, IgG (FTA-ABS) Reactive Ordered treatment of PCN 2.4 million units IM x 1 now- waiting to see how patient can receive injection while in office. Herpes 03/02/2020 07/18/2020 Overview: 03/02/2020 Upon chart reviewed h/o positive serology in 2013. No h/o genital outbreaks. SW Acute cystitis without hematuria 04/28/2018 08/07/2018 Overview: 04/25/18- E coli UTI. Sent Macrobid. Will need CFC. - Mild intermittent asthma without complication 04/25/20 18 04/02/2023 Overview: 04/25/18- Only using rescue inhaler once a week. - Type 2 diabetes mellitus, uncontrolled 09/15/2013 03/02/2020 Type 2 diabetes mellitus 10/16/2011 Sprain of ankle, unspecified site 11/22/2008 04/24/2018 History of asthma 09/06/2006 04/02/2023 Overview: 3Patient has a history of asthma. Last seen November 2020. She does have a pulmonary appointment on April 02. 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 Lynnette Renteria MD 05/05/2020 Repeat RPR titers at 28-32 weeks - retreat, if titer has not decreased 4-fold from previous assessment (1:64) recommended by M. SW 03/29/20 - patient treated with IM rocephin, checking with for additional recommendations Claudia Land MD 03/17/[address] Casanova treat with PCN G 2.4 million units x 3 doses each given 1 week apart. Look for fourfold decline in titer (should go to 1:16 or lower) - should be re-screened at 28-32 weeks gestation. 03/15/20- T.Pallidum Ab, IgG (FTA-ABS) Reactive Ordered treatment of PCN 2.4 million units IM x 1 now- waiting to see how patient can receive injection while in office. Herpes 03/02/2020 07/18/2020 Overview: 03/02/2020 Upon chart reviewed h/o positive serology in 2013. No h/o genital outbreaks. Acute cystitis without hematuria 04/28/2018 08/07/2018 Overview: 04/25/18- E coli UTI. Sent Macrobid. Will need CFC. - Mild intermittent asthma without complication 04/25/20 18 04/02/2023 Overview: 04/25/18- Only using rescue inhaler once a week. - Type 2 diabetes mellitus, uncontrolled 09/15/2013 03/02/2020 Type 2 diabetes mellitus 10/16/2011 Sprain of ankle, unspecified site 11/22/2008 04/24/2018 History of asthma 09/06/2006 04/02/2023 Overview: 3Patient has a history of asthma. Last seen November 2020. She does have a pulmonary appointment on April 02. 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 Lynnette Renteria MD 05/05/2020 Repeat RPR titers at 28-32 weeks - retreat, if titer has not decreased 4-fold from previous assessment (1:64) recommended by M. SW 03/29/20 - patient treated with IM rocephin, checking with for additional recommendations Claudia Land MD 03/17/[address] Casanova treat with PCN G 2.4 million units x 3 doses each given 1 week apart. Look for fourfold decline in titer (should go to 1:16 or lower) - should be re-screened at 28-32 weeks gestation. 03/15/20- T.Pallidum Ab, IgG (FTA-ABS) Reactive Ordered treatment of PCN 2.4 million units IM x 1 now- waiting to see how patient can receive injection while in office. Herpes 03/02/2020 07/18/2020 Overview: 03/02/2020 Upon chart reviewed h/o positive serology in 2012. No h/o genital outbreaks. SW Acute cystitis without hematuria 04/28/2018 08/07/2018 Overview: 04/25/18- E coli UTI. Sent Macrobid. Will need CFC. - Mild intermittent asthma without complication 04/25/20 18 04/02/2023 Overview: 04/25/18- Only using rescue inhaler once a week. - Type 2 diabetes mellitus, uncontrolled 09/15/2013 03/02/2020 Type 2 diabetes mellitus 10/16/2011 Sprain of ankle, unspecified site 11/22/2008 04/24/2018 History of asthma 09/06/2006 04/02/2023 Overview: 3Patient has a history of asthma. Last seen November 2020. She does have a pulmonary appointment on April 02. 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 Lynnette Renteria MD 05/05/2020 Repeat RPR titers at 28-32 weeks - retreat, if titer has not decreased 4-fold from previous assessment (1:64) recommended by [facility]. SW 03/29/20 - patient treated with IM rocephin, checking with for additional recommendations Claudia Land MD 03/17/[address] Casanova treat with PCN G 2.4 million units x 3 doses each given 1 week apart. Look for fourfold decline in titer (should go to 1:16 or lower) - should be re-screened at 28-32 weeks gestation. 03/15/20- T.Pallidum Ab, IgG (FTA-ABS) Reactive Ordered treatment of PCN 2.4 million units IM x 1 now- waiting to see how patient can receive injection while in office. Herpes 03/02/2020 07/18/2020 Overview: 03/02/2020 Upon chart reviewed h/o positive serology in 2012. No h/o genital outbreaks. Acute cystitis without hematuria 04/28/2018 08/07/2018 Overview: 04/25/18- E coli UTI. Sent Macrobid. Will need CFC. - Mild intermittent asthma without complication 04/25/20 18 04/02/2023 Overview: 04/25/18- Only using rescue inhaler once a week. - Type 2 diabetes mellitus, uncontrolled 09/15/2013 03/02/2020 Type 2 diabetes mellitus 10/16/2011 Sprain of ankle, unspecified site 11/22/2008 04/24/2018 History of asthma 09/06/2006 04/02/2023 Overview: 3Patient has a history of asthma. Last seen November 2020. She does have a pulmonary appointment on April 02. 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 Lynnette Renteria MD 05/05/2020 Repeat RPR titers at 28-32 weeks - retreat, if titer has not decreased 4-fold from previous assessment (1:64) recommended by [facility]. 03/29/20 - patient treated with IM rocephin, checking with for additional recommendations Claudia Land MD 03/17/[address] Casanova treat with PCN G 2.4 million units x 3 doses each given 1 week apart. Look for fourfold decline in titer (should go to 1:16 or lower) - should be re-screened at 28-32 weeks gestation. 03/15/20- T.Pallidum Ab, IgG (FTA-ABS) Reactive Ordered treatment of PCN 2.4 million units IM x 1 now- waiting to see how patient can receive injection while in office. Herpes 03/02/2020 07/18/2020 Overview: 03/02/2020 Upon chart reviewed h/o positive serology in 2012. No h/o genital outbreaks. Acute cystitis without hematuria 04/28/2018 08/07/2018 Overview: 04/25/18- E coli UTI. Sent Macrobid. Will need CFC. - Mild intermittent asthma without complication 04/25/20 18 04/02/2023 Overview: 04/25/18- Only using rescue inhaler once a week. - Type 2 diabetes mellitus, uncontrolled 09/15/2013 03/02/2020 Type 2 diabetes mellitus 10/16/2011 Sprain of ankle, unspecified site 11/22/2008 04/24/2018 History of asthma 09/06/2006 04/02/2023 Overview: 3Patient has a history of asthma. Last seen November 2020. She does have a pulmonary appointment on April 02. 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 Lynnette Renteria MD 05/05/2020 Repeat RPR titers at 28-32 weeks - retreat, if titer has not decreased 4-fold from previous assessment (1:64) recommended by [facility]. 03/29/20 - patient treated with IM rocephin, checking with for additional recommendations Claudia Land MD 03/17/[address] Casanova treat with PCN G 2.4 million units x 3 doses each given 1 week apart. Look for fourfold decline in titer (should go to 1:16 or lower) - should be re-screened at 28-32 weeks gestation. 03/15/20- T.Pallidum Ab, IgG (FTA-ABS) Reactive Ordered treatment of PCN 2.4 million units IM x 1 now- waiting to see how patient can receive injection while in office. Herpes 03/02/2020 07/18/2020 Overview: 03/02/2020 Upon chart reviewed h/o positive serology in 2012. No h/o genital outbreaks. Acute cystitis without hematuria 04/28/2018 08/07/2018 Overview: 04/25/18- E coli UTI. Sent Macrobid. Will need CFC. - Mild intermittent asthma without complication 04/25/20 18 04/02/2023 Overview: 04/25/18- Only using rescue inhaler once a week. - Type 2 diabetes mellitus, uncontrolled 09/15/2013 03/02/2020 Type 2 diabetes mellitus 10/16/2011 Sprain of ankle, unspecified site 11/22/2008 04/24/2018 History of asthma 09/06/2006 04/02/2023 Overview: 3Patient has a history of asthma. Last seen November 2020. She does have a pulmonary appointment on April 02. 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 Lynnette Renteria MD 05/05/2020 Repeat RPR titers at 28-32 weeks - retreat, if titer has not decreased 4-fold from previous assessment (1:64) recommended by M. SW 03/29/20 - patient treated with IM rocephin, checking with for additional recommendations Claudia Land MD 03/17/[address] Casanova treat with PCN G 2.4 million units x 3 doses each given 1 week apart. Look for fourfold decline in titer (should go to 1:16 or lower) - should be re-screened at 28-32 weeks gestation. 03/15/20- T.Pallidum Ab, IgG (FTA-ABS) Reactive Ordered treatment of PCN 2.4 million units IM x 1 now- waiting to see how patient can receive injection while in office. Herpes 03/02/2020 07/18/2020 Overview: 03/02/2020 Upon chart reviewed h/o positive serology in 2012. No h/o genital outbreaks. Acute cystitis without hematuria 04/28/2018 08/07/2018 Overview: 04/25/18- E coli UTI. Sent Macrobid. Will need CFC. - Mild intermittent asthma without complication 04/25/20 18 04/02/2023 Overview: 04/25/18- Only using rescue inhaler once a week. - Type 2 diabetes mellitus, uncontrolled 09/15/2013 03/02/2020 Type 2 diabetes mellitus 10/16/2011 Sprain of ankle, unspecified site 11/22/2008 04/24/2018 History of asthma 09/06/2006 04/02/2023 Overview: 3Patient has a history of asthma. Last seen November 2020. She does have a pulmonary appointment on April 02. 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 Lynnette Renteria MD 05/05/2020 Repeat RPR titers at 28-32 weeks - retreat, if titer has not decreased 4-fold from previous assessment (1:64) recommended by M. SW 03/29/20 - patient treated with IM rocephin, checking with for additional recommendations Claudia Land MD 03/17/[address] Casanova treat with PCN G 2.4 million units x 3 doses each given 1 week apart. Look for fourfold decline in titer (should go to 1:16 or lower) - should be re-screened at 28-32 weeks gestation. 03/15/20- T.Pallidum Ab, IgG (FTA-ABS) Reactive Ordered treatment of PCN 2.4 million units IM x 1 now- waiting to see how patient can receive injection while in office. Herpes 03/02/2020 07/18/2020 Overview: 03/02/2020 Upon chart reviewed h/o positive serology in 2012. No h/o genital outbreaks. SW Acute cystitis without hematuria 04/28/2018 08/07/2018 Overview: 04/25/18- E coli UTI. Sent Macrobid. Will need CFC. -SW Mild intermittent asthma without complication 04/25/20 18 04/02/2023 Overview: 04/25/18- Only using rescue inhaler once a week. - Type 2 diabetes mellitus, uncontrolled 09/15/2013 03/02/2020 Type 2 diabetes mellitus 10/16/2011 Sprain of ankle, unspecified site 11/22/2008 04/24/2018 History of asthma 09/06/2006 04/02/2023 Overview: 3Patient has a history of asthma. Last seen November 2020. She does have a pulmonary appointment on April 02. 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 Lynnette Renteria MD 05/05/2020 Repeat RPR titers at 28-32 weeks - retreat, if titer has not decreased 4-fold from previous assessment (1:64) recommended by M. SW 03/29/20 - patient treated with IM rocephin, checking with for additional recommendations Claudia Land MD 03/17/[address] Casanova treat with PCN G 2.4 million units x 3 doses each given 1 week apart. Look for fourfold decline in titer (should go to 1:16 or lower) - should be re-screened at 28-32 weeks gestation. 03/15/20- T.Pallidum Ab, IgG (FTA-ABS) Reactive Ordered treatment of PCN 2.4 million units IM x 1 now- waiting to see how patient can receive injection while in office. Herpes 03/02/2020 07/18/2020 Overview: 03/02/2020 Upon chart reviewed h/o positive serology in 2012. No h/o genital outbreaks. Acute cystitis without hematuria 04/28/2018 08/07/2018 Overview: 04/25/18- E coli UTI. Sent Macrobid. Will need CFC. - Mild intermittent asthma without complication 04/25/20 18 04/02/2023 Overview: 04/25/18- Only using rescue inhaler once a week. - Type 2 diabetes mellitus, uncontrolled 09/15/2013 03/02/2020 Type 2 diabetes mellitus 10/16/2011 Sprain of ankle, unspecified site 11/22/2008 04/24/2018 History of asthma 09/06/2006 04/02/2023 Overview: 3Patient has a history of asthma. Last seen November 2020. She does have a pulmonary appointment on April 02. 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 Lynnette Renteria MD 05/05/2020 Repeat RPR titers at 28-32 weeks - retreat, if titer has not decreased 4-fold from previous assessment (1:64) recommended by [facility]. SW 03/29/20 - patient treated with IM rocephin, checking with for additional recommendations Claudia Land MD 03/17/[address] Casanova treat with PCN G 2.4 million units x 3 doses each given 1 week apart. Look for fourfold decline in titer (should go to 1:16 or lower) - should be re-screened at 28-32 weeks gestation. 03/15/20- T.Pallidum Ab, IgG (FTA-ABS) Reactive Ordered treatment of PCN 2.4 million units IM x 1 now- waiting to see how patient can receive injection while in office. Herpes 03/02/2020 07/18/2020 Overview: 03/02/2020 Upon chart reviewed h/o positive serology in 2013. No h/o genital outbreaks. Acute cystitis without hematuria 04/28/2018 08/07/2018 Overview: 04/25/18- E coli UTI. Sent Macrobid. Will need CFC. - Mild intermittent asthma without complication 04/25/20 18 04/02/2023 Overview: 04/25/18- Only using rescue inhaler once a week. - Type 2 diabetes mellitus, uncontrolled 09/15/2013 03/02/2020 Type 2 diabetes mellitus 10/16/2011 Sprain of ankle, unspecified site 11/22/2008 04/24/2018 History of asthma 09/06/2006 04/02/2023 Overview: 3Patient has a history of asthma. Last seen November 2020. She does have a pulmonary appointment on April 02. 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 Lynnette Renteria MD 05/05/2020 Repeat RPR titers at 28-32 weeks - retreat, if titer has not decreased 4-fold from previous assessment (1:64) recommended by [facility]. SW 03/29/20 - patient treated with IM rocephin, checking with for additional recommendations Claudia Land MD 03/17/[address] Casanova treat with PCN G 2.4 million units x 3 doses each given 1 week apart. Look for fourfold decline in titer (should go to 1:16 or lower) - should be re-screened at 28-32 weeks gestation. 03/15/20- T.Pallidum Ab, IgG (FTA-ABS) Reactive Ordered treatment of PCN 2.4 million units IM x 1 now- waiting to see how patient can receive injection while in office. Herpes 03/02/2020 07/18/2020 Overview: 03/02/2020 Upon chart reviewed h/o positive serology in 2013. No h/o genital outbreaks. Acute cystitis without hematuria 04/28/2018 08/07/2018 Overview: 04/25/18- E coli UTI. Sent Macrobid. Will need CFC. - Mild intermittent asthma without complication 04/25/20 18 04/02/2023 Overview: 04/25/18- Only using rescue inhaler once a week. - Type 2 diabetes mellitus, uncontrolled 09/15/2013 03/02/2020 Type 2 diabetes mellitus 10/16/2011 Sprain of ankle, unspecified site 11/22/2008 04/24/2018 History of asthma 09/06/2006 04/02/2023 Overview: 3Patient has a history of asthma. Last seen November 2020. She does have a pulmonary appointment on April 02. 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 Lynnette Renteria MD 05/05/2020 Repeat RPR titers at 28-32 weeks - retreat, if titer has not decreased 4-fold from previous assessment (1:64) recommended by M. SW 03/29/20 - patient treated with IM rocephin, checking with for additional recommendations Claudia Land MD 03/17/[address] Casanova treat with PCN G 2.4 million units x 3 doses each given 1 week apart. Look for fourfold decline in titer (should go to 1:16 or lower) - should be re-screened at 28-32 weeks gestation. 03/15/20- T.Pallidum Ab, IgG (FTA-ABS) Reactive Ordered treatment of PCN 2.4 million units IM x 1 now- waiting to see how patient can receive injection while in office. Herpes 03/02/2020 07/18/2020 Overview: 03/02/2020 Upon chart reviewed h/o positive serology in 2012. No h/o genital outbreaks. SW Acute cystitis without hematuria 04/28/2018 08/07/2018 Overview: 04/25/18- E coli UTI. Sent Macrobid. Will need CFC. - Mild intermittent asthma without complication 04/25/20 18 04/02/2023 Overview: 04/25/18- Only using rescue inhaler once a week. - Type 2 diabetes mellitus, uncontrolled 09/15/2013 03/02/2020 Type 2 diabetes mellitus 10/16/2011 Sprain of ankle, unspecified site 11/22/2008 04/24/2018 History of asthma 09/06/2006 04/02/2023 Overview: 3Patient has a history of asthma. Last seen November 2020. She does have a pulmonary appointment on April 02. 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 Lynnette Renteria MD 05/05/2020 Repeat RPR titers at 28-32 weeks - retreat, if titer has not decreased 4-fold from previous assessment (1:64) recommended by [facility]. SW 03/29/20 - patient treated with IM rocephin, checking with for additional recommendations Claudia Land MD 03/17/[address] Casanova treat with PCN G 2.4 million units x 3 doses each given 1 week apart. Look for fourfold decline in titer (should go to 1:16 or lower) - should be re-screened at 28-32 weeks gestation. 03/15/20- T.Pallidum Ab, IgG (FTA-ABS) Reactive Ordered treatment of PCN 2.4 million units IM x 1 now- waiting to see how patient can receive injection while in office. Herpes 03/02/2020 07/18/2020 Overview: 03/02/2020 Upon chart reviewed h/o positive serology in 2012. No h/o genital outbreaks. SW Acute cystitis without hematuria 04/28/2018 08/07/2018 Overview: 04/25/18- E coli UTI. Sent Macrobid. Will need CFC. -SW Mild intermittent asthma without complication 04/25/20 18 04/02/2023 Overview: 04/25/18- Only using rescue inhaler once a week. - Type 2 diabetes mellitus, uncontrolled 09/15/2013 03/02/2020 Type 2 diabetes mellitus 10/16/2011 Sprain of ankle, unspecified site 11/22/2008 04/24/2018 History of asthma 09/06/2006 04/02/2023 Overview: 3Patient has a history of asthma. Last seen November 2020. She does have a pulmonary appointment on April 02. 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 Lynnette Renteria MD 05/05/2020 Repeat RPR titers at 28-32 weeks - retreat, if titer has not decreased 4-fold from previous assessment (1:64) recommended by [facility]. SW 03/29/20 - patient treated with IM rocephin, checking with for additional recommendations Claudia Land MD 03/17/[address] Casanova treat with PCN G 2.4 million units x 3 doses each given 1 week apart. Look for fourfold decline in titer (should go to 1:16 or lower) - should be re-screened at 28-32 weeks gestation. 03/15/20- T.Pallidum Ab, IgG (FTA-ABS) Reactive Ordered treatment of PCN 2.4 million units IM x 1 now- waiting to see how patient can receive injection while in office. Herpes 03/02/2020 07/18/2020 Overview: 03/02/2020 Upon chart reviewed h/o positive serology in 2012. No h/o genital outbreaks. Acute cystitis without hematuria 04/28/2018 08/07/2018 Overview: 04/25/18- E coli UTI. Sent Macrobid. Will need CFC. - Mild intermittent asthma without complication 04/25/20 18 04/02/2023 Overview: 04/25/18- Only using rescue inhaler once a week. - Type 2 diabetes mellitus, uncontrolled 09/15/2013 03/02/2020 Type 2 diabetes mellitus 10/16/2011 Sprain of ankle, unspecified site 11/22/2008 04/24/2018 History of asthma 09/06/2006 04/02/2023 Overview: 3Patient has a history of asthma. Last seen November 2020. She does have a pulmonary appointment on April 02. 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 Lynnette Renteria MD 05/05/2020 Repeat RPR titers at 28-32 weeks - retreat, if titer has not decreased 4-fold from previous assessment (1:64) recommended by [facility]. 03/29/20 - patient treated with IM rocephin, checking with for additional recommendations Claudia Land MD 03/17/[address] Casanova treat with PCN G 2.4 million units x 3 doses each given 1 week apart. Look for fourfold decline in titer (should go to 1:16 or lower) - should be re-screened at 28-32 weeks gestation. 03/15/20- T.Pallidum Ab, IgG (FTA-ABS) Reactive Ordered treatment of PCN 2.4 million units IM x 1 now- waiting to see how patient can receive injection while in office. Herpes 03/02/2020 07/18/2020 Overview: 03/02/2020 Upon chart reviewed h/o positive serology in 2012. No h/o genital outbreaks. Acute cystitis without hematuria 04/28/2018 08/07/2018 Overview: 04/25/18- E coli UTI. Sent Macrobid. Will need CFC. - Mild intermittent asthma without complication 04/25/20 18 04/02/2023 Overview: 04/25/18- Only using rescue inhaler once a week. - Type 2 diabetes mellitus, uncontrolled 09/15/2013 03/02/2020 Type 2 diabetes mellitus 10/16/2011 Sprain of ankle, unspecified site 11/22/2008 04/24/2018 History of asthma 09/06/2006 04/02/2023 Overview: 3Patient has a history of asthma. Last seen November 2020. She does have a pulmonary appointment on April 02. 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 Lynnette Renteria MD 05/05/2020 Repeat RPR titers at 28-32 weeks - retreat, if titer has not decreased 4-fold from previous assessment (1:64) recommended by M. SW 03/29/20 - patient treated with IM rocephin, checking with for additional recommendations Claudia Land MD 03/17/[address] Casanova treat with PCN G 2.4 million units x 3 doses each given 1 week apart. Look for fourfold decline in titer (should go to 1:16 or lower) - should be re-screened at 28-32 weeks gestation. 03/15/20- T.Pallidum Ab, IgG (FTA-ABS) Reactive Ordered treatment of PCN 2.4 million units IM x 1 now- waiting to see how patient can receive injection while in office. Herpes 03/02/2020 07/18/2020 Overview: 03/02/2020 Upon chart reviewed h/o positive serology in 2012. No h/o genital outbreaks. Acute cystitis without hematuria 04/28/2018 08/07/2018 Overview: 04/25/18- E coli UTI. Sent Macrobid. Will need CFC. - Mild intermittent asthma without complication 04/25/20 18 04/02/2023 Overview: 04/25/18- Only using rescue inhaler once a week. - Type 2 diabetes mellitus, uncontrolled 09/15/2013 03/02/2020 Type 2 diabetes mellitus 10/16/2011 Sprain of ankle, unspecified site 11/22/2008 04/24/2018 History of asthma 09/06/2006 04/02/2023 Overview: 3Patient has a history of asthma. Last seen November 2020. She does have a pulmonary appointment on April 02. 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 Lynnette Renteria MD 05/05/2020 Repeat RPR titers at 28-32 weeks - retreat, if titer has not decreased 4-fold from previous assessment (1:64) recommended by [facility]. SW 03/29/20 - patient treated with IM rocephin, checking with for additional recommendations Claudia Land MD 03/17/[address] Casanova treat with PCN G 2.4 million units x 3 doses each given 1 week apart. Look for fourfold decline in titer (should go to 1:16 or lower) - should be re-screened at 28-32 weeks gestation. 03/15/20- T.Pallidum Ab, IgG (FTA-ABS) Reactive Ordered treatment of PCN 2.4 million units IM x 1 now- waiting to see how patient can receive injection while in office. Herpes 03/02/2020 07/18/2020 Overview: 03/02/2020 Upon chart reviewed h/o positive serology in 2012. No h/o genital outbreaks. SW Acute cystitis without hematuria 04/28/2018 08/07/2018 Overview: 04/25/18- E coli UTI. Sent Macrobid. Will need CFC. - Mild intermittent asthma without complication 04/25/20 18 04/02/2023 Overview: 04/25/18- Only using rescue inhaler once a week. - Type 2 diabetes mellitus, uncontrolled 09/15/2013 03/02/2020 Type 2 diabetes mellitus 10/16/2011 Sprain of ankle, unspecified site 11/22/2008 04/24/2018 History of asthma 09/06/2006 04/02/2023 Overview: 3Patient has a history of asthma. Last seen November 2020. She does have a pulmonary appointment on April 02. 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 Lynnette Renteria MD 05/05/2020 Repeat RPR titers at 28-32 weeks - retreat, if titer has not decreased 4-fold from previous assessment (1:64) recommended by M. SW 03/29/20 - patient treated with IM rocephin, checking with for additional recommendations Claudia Land MD 03/17/[address] Casanova treat with PCN G 2.4 million units x 3 doses each given 1 week apart. Look for fourfold decline in titer (should go to 1:16 or lower) - should be re-screened at 28-32 weeks gestation. 03/15/20- T.Pallidum Ab, IgG (FTA-ABS) Reactive Ordered treatment of PCN 2.4 million units IM x 1 now- waiting to see how patient can receive injection while in office. Herpes 03/02/2020 07/18/2020 Overview: 03/02/2020 Upon chart reviewed h/o positive serology in 2012. No h/o genital outbreaks. Acute cystitis without hematuria 04/28/2018 08/07/2018 Overview: 04/25/18- E coli UTI. Sent Macrobid. Will need CFC. - Mild intermittent asthma without complication 04/25/20 18 04/02/2023 Overview: 04/25/18- Only using rescue inhaler once a week. - Type 2 diabetes mellitus, uncontrolled 09/15/2013 03/02/2020 Type 2 diabetes mellitus 10/16/2011 Sprain of ankle, unspecified site 11/22/2008 04/24/2018 History of asthma 09/06/2006 04/02/2023 Overview: 3Patient has a history of asthma. Last seen November 2020. She does have a pulmonary appointment on April 02. 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 Lynnette Renteria MD 05/05/2020 Repeat RPR titers at 28-32 weeks - retreat, if titer has not decreased 4-fold from previous assessment (1:64) recommended by MFM. SW 03/29/20 - patient treated with IM rocephin, checking with for additional recommendations Claudia Land MD 03/17/[address] Casanova treat with PCN G 2.4 million units x 3 doses each given 1 week apart. Look for fourfold decline in titer (should go to 1:16 or lower) - should be re-screened at 28-32 weeks gestation. 03/15/20- T.Pallidum Ab, IgG (FTA-ABS) Reactive Ordered treatment of PCN 2.4 million units IM x 1 now- waiting to see how patient can receive injection while in office. Herpes 03/02/2020 07/18/2020 Overview: 03/02/2020 Upon chart reviewed h/o positive serology in 2013. No h/o genital outbreaks. Acute cystitis without hematuria 04/28/2018 08/07/2018 Overview: 04/25/18- E coli UTI. Sent Macrobid. Will need CFC. - Mild intermittent asthma without complication 04/25/20 18 04/02/2023 Overview: 04/25/18- Only using rescue inhaler once a week. - Type 2 diabetes mellitus, uncontrolled 09/15/2013 03/02/2020 Type 2 diabetes mellitus 10/16/2011 Sprain of ankle, unspecified site 11/22/2008 04/24/2018 History of asthma 09/06/2006 04/02/2023 Overview: 3Patient has a history of asthma. Last seen November 2020. She does have a pulmonary appointment on April 02. 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 Lynnette Renteria MD 05/05/2020 Repeat RPR titers at 28-32 weeks - retreat, if titer has not decreased 4-fold from previous assessment (1:64) recommended by M. SW 03/29/20 - patient treated with IM rocephin, checking with for additional recommendations Claudia Land MD 03/17/[address] Casanova treat with PCN G 2.4 million units x 3 doses each given 1 week apart. Look for fourfold decline in titer (should go to 1:16 or lower) - should be re-screened at 28-32 weeks gestation. 03/15/20- T.Pallidum Ab, IgG (FTA-ABS) Reactive Ordered treatment of PCN 2.4 million units IM x 1 now- waiting to see how patient can receive injection while in office. Herpes 03/02/2020 07/18/2020 Overview: 03/02/2020 Upon chart reviewed h/o positive serology in 2013. No h/o genital outbreaks. Acute cystitis without hematuria 04/28/2018 08/07/2018 Overview: 04/25/18- E coli UTI. Sent Macrobid. Will need CFC. - Mild intermittent asthma without complication 04/25/20 18 04/02/2023 Overview: 04/25/18- Only using rescue inhaler once a week. - Type 2 diabetes mellitus, uncontrolled 09/15/2013 03/02/2020 Type 2 diabetes mellitus 10/16/2011 Sprain of ankle, unspecified site 11/22/2008 04/24/2018 History of asthma 09/06/2006 04/02/2023 Overview: 3Patient has a history of asthma. Last seen November 2020. She does have a pulmonary appointment on April 02. 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 Lynnette Renteria MD 05/05/2020 Repeat RPR titers at 28-32 weeks - retreat, if titer has not decreased 4-fold from previous assessment (1:64) recommended by MFM. SW 03/29/20 - patient treated with IM rocephin, checking with for additional recommendations Claudia Land MD 03/17/[address] Casanova treat with PCN G 2.4 million units x 3 doses each given 1 week apart. Look for fourfold decline in titer (should go to 1:16 or lower) - should be re-screened at 28-32 weeks gestation. 03/15/20- T.Pallidum Ab, IgG (FTA-ABS) Reactive Ordered treatment of PCN 2.4 million units IM x 1 now- waiting to see how patient can receive injection while in office. Herpes 03/02/2020 07/18/2020 Overview: 03/02/2020 Upon chart reviewed h/o positive serology in 2012. No h/o genital outbreaks. SW Acute cystitis without hematuria 04/28/2018 08/07/2018 Overview: 04/25/18- E coli UTI. Sent Macrobid. Will need CFC. - Mild intermittent asthma without complication 04/25/20 18 04/02/2023 Overview: 04/25/18- Only using rescue inhaler once a week. - Type 2 diabetes mellitus, uncontrolled 09/15/2013 03/02/2020 Type 2 diabetes mellitus 10/16/2011 Sprain of ankle, unspecified site 11/22/2008 04/24/2018 History of asthma 09/06/2006 04/02/2023 Overview: 3Patient has a history of asthma. Last seen November 2020. She does have a pulmonary appointment on April 02. 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 Lynnette Renteria MD 05/05/2020 Repeat RPR titers at 28-32 weeks - retreat, if titer has not decreased 4-fold from previous assessment (1:64) recommended by [facility]. 03/29/20 - patient treated with IM rocephin, checking with for additional recommendations Claudia Land MD 03/17/[address] Casanova treat with PCN G 2.4 million units x 3 doses each given 1 week apart. Look for fourfold decline in titer (should go to 1:16 or lower) - should be re-screened at 28-32 weeks gestation. 03/15/20- T.Pallidum Ab, IgG (FTA-ABS) Reactive Ordered treatment of PCN 2.4 million units IM x 1 now- waiting to see how patient can receive injection while in office. Herpes 03/02/2020 07/18/2020 Overview: 03/02/2020 Upon chart reviewed h/o positive serology in 2012. No h/o genital outbreaks. Acute cystitis without hematuria 04/28/2018 08/07/2018 Overview: 04/25/18- E coli UTI. Sent Macrobid. Will need CFC. - Mild intermittent asthma without complication 04/25/20 18 04/02/2023 Overview: 04/25/18- Only using rescue inhaler once a week. - Type 2 diabetes mellitus, uncontrolled 09/15/2013 03/02/2020 Type 2 diabetes mellitus 10/16/2011 Sprain of ankle, unspecified site 11/22/2008 04/24/2018 History of asthma 09/06/2006 04/02/2023 Overview: 3Patient has a history of asthma. Last seen November 2020. She does have a pulmonary appointment on April 02. TKRn documented as of this encounter (statuses as of 07/25/2023) [facility] History of Past illness Narrative* Problem Noted Date Diagnosed Date Resolved Date Excessive weight gain in pre gnancy, third trimester 05/31/2020 2020 Syphilis affecting in second trimester 03/15/2020 03/02/2021 Overview: 05/19/20: titer decreased to 1:16- no further treatment at this time. Lynnette Renteria MD 05/05/2020 Repeat RPR titers at 28-32 weeks - retreat, if titer has not decreased 4-fold from previous assessment (1:64) recommended by [facility]. SW 03/29/20 - patient treated with IM rocephin, checking with for additional recommendations Claudia Land MD 03/17/[address] Casanova treat with PCN G 2.4 million units x 3 doses each given 1 week apart. Look for fourfold decline in titer (should go to 1:16 or lower) - should be re-screened at 28-32 weeks gestation. 03/15/20- T.Pallidum Ab, IgG (FTA-ABS) Reactive Ordered treatment of PCN 2.4 million units IM x 1 now- waiting to see how patient can receive injection while in office. Herpes 03/02/2020 07/18/2020 Overview: 03/02/2020 Upon chart reviewed h/o positive serology in 2012. No h/o genital outbreaks. Acute cystitis without hematuria 04/28/2018 08/07/2018 Overview: 04/25/18- E coli UTI. Sent Macrobid. Will need CFC. - Mild intermittent asthma without complication 04/25/20 18 04/02/2023 Overview: 04/25/18- Only using rescue inhaler once a week. - Type 2 diabetes mellitus, uncontrolled 09/15/2013 03/02/2020 Type 2 diabetes mellitus 10/16/2011 Sprain of ankle, unspecified site 11/22/2008 04/24/2018 History of asthma 09/06/2006 04/02/2023 Overview: 3Patient has a history of asthma. Last seen November 2020. She does have a pulmonary appointment on April 02. TKRn documented as of this encounter (statuses as of 08/06/2023) [facility] History of Past illness Narrative* Problem Noted Date Diagnosed Date Resolved Date Excessive weight gain in pre gnancy, third trimester 05/31/2020 2020 Syphilis affecting in second trimester 03/15/2020 03/02/2021 Overview: 05/19/20: titer decreased to 1:16- no further treatment at this time. Lynnette Renteria MD 05/05/2020 Repeat RPR titers at 28-32 weeks - retreat, if titer has not decreased 4-fold from previous assessment (1:64) recommended by [facility]. 03/29/20 - patient treated with IM rocephin, checking with for additional recommendations Claudia Land MD 03/17/[address] Casanova treat with PCN G 2.4 million units x 3 doses each given 1 week apart. Look for fourfold decline in titer (should go to 1:16 or lower) - should be re-screened at 28-32 weeks gestation. 03/15/20- T.Pallidum Ab, IgG (FTA-ABS) Reactive Ordered treatment of PCN 2.4 million units IM x 1 now- waiting to see how patient can receive injection while in office. Herpes 03/02/2020 07/18/2020 Overview: 03/02/2020 Upon chart reviewed h/o positive serology in 2012. No h/o genital outbreaks. Acute cystitis without hematuria 04/28/2018 08/07/2018 Overview: 04/25/18- E coli UTI. Sent Macrobid. Will need CFC. - Mild intermittent asthma without complication 04/25/20 18 04/02/2023 Overview: 04/25/18- Only using rescue inhaler once a week. - Type 2 diabetes mellitus, uncontrolled 09/15/2013 03/02/2020 Type 2 diabetes mellitus 10/16/2011 Sprain of ankle, unspecified site 11/22/2008 04/24/2018 History of asthma 09/06/2006 04/02/2023 Overview: 3Patient has a history of asthma. Last seen November 2020. She does have a pulmonary appointment on April 02. 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 Lynentte Renteria MD 05/05/2020 Repeat RPR titers at 28-32 weeks - retreat, if titer has not decreased 4-fold from previous assessment (1:64) recommended by [facility]. SW 03/29/20 - patient treated with IM rocephin, checking with for additional recommendations Claudia Land MD 03/17/[address] Casanova treat with PCN G 2.4 million units x 3 doses each given 1 week apart. Look for fourfold decline in titer (should go to 1:16 or lower) - should be re-screened at 28-32 weeks gestation. 03/15/20- T.Pallidum Ab, IgG (FTA-ABS) Reactive Ordered treatment of PCN 2.4 million units IM x 1 now- waiting to see how patient can receive injection while in office. Herpes 03/02/2020 07/18/2020 Overview: 03/02/2020 Upon chart reviewed h/o positive serology in 2012. No h/o genital outbreaks. Acute cystitis without hematuria 04/28/2018 08/07/2018 Overview: 04/25/18- E coli UTI. Sent Macrobid. Will need CFC. - Mild intermittent asthma without complication 04/25/20 18 04/02/2023 Overview: 04/25/18- Only using rescue inhaler once a week. - Type 2 diabetes mellitus, uncontrolled 09/15/2013 03/02/2020 Type 2 diabetes mellitus 10/16/2011 Sprain of ankle, unspecified site 11/22/2008 04/24/2018 History of asthma 09/06/2006 04/02/2023 Overview: 3Patient has a history of asthma. Last seen November 2020. She does have a pulmonary appointment on April 02. TKRn documented as of this encounter (statuses as of 09/20/2023) [facility] History of Past illness Narrative* Problem Noted Date Diagnosed Date Resolved Date Excessive weight gain in pre gnancy, third trimester 05/31/2020 2020 Syphilis affecting in second trimester 03/15/2020 03/02/2021 Overview: 05/19/20: titer decreased to 1:16- no further treatment at this time. Lynnette Renteria MD 05/05/2020 Repeat RPR titers at 28-32 weeks - retreat, if titer has not decreased 4-fold from previous assessment (1:64) recommended by MFM. SW 03/29/20 - patient treated with IM rocephin, checking with for additional recommendations Claudia Land MD 03/17/[address] Casanova treat with PCN G 2.4 million units x 3 doses each given 1 week apart. Look for fourfold decline in titer (should go to 1:16 or lower) - should be re-screened at 28-32 weeks gestation. 03/15/20- T.Pallidum Ab, IgG (FTA-ABS) Reactive Ordered treatment of PCN 2.4 million units IM x 1 now- waiting to see how patient can receive injection while in office. Herpes 03/02/2020 07/18/2020 Overview: 03/02/2020 Upon chart reviewed h/o positive serology in 2012. No h/o genital outbreaks. SW Acute cystitis without hematuria 04/28/2018 08/07/2018 Overview: 04/25/18- E coli UTI. Sent Macrobid. Will need CFC. - Mild intermittent asthma without complication 04/25/20 18 04/02/2023 Overview: 04/25/18- Only using rescue inhaler once a week. - Type 2 diabetes mellitus, uncontrolled 09/15/2013 03/02/2020 Type 2 diabetes mellitus 10/16/2011 Sprain of ankle, unspecified site 11/22/2008 04/24/2018 History of asthma 09/06/2006 04/02/2023 Overview: 3Patient has a history of asthma. Last seen November 2020. She does have a pulmonary appointment on April 02. TKRn documented as of this encounter (statuses as of 09/20/2023) [facility] History of Past illness Narrative* Problem Noted Date Diagnosed Date Resolved Date Excessive weight gain in pre gnancy, third trimester 05/31/2020 2020 Syphilis affecting in second trimester 03/15/2020 03/02/2021 Overview: 05/19/20: titer decreased to 1:16- no further treatment at this time. Lynnette Renteria MD 05/05/2020 Repeat RPR titers at 28-32 weeks - retreat, if titer has not decreased 4-fold from previous assessment (1:64) recommended by M. SW 03/29/20 - patient treated with IM rocephin, checking with for additional recommendations Claudia Land MD 03/17/[address] Casanova treat with PCN G 2.4 million units x 3 doses each given 1 week apart. Look for fourfold decline in titer (should go to 1:16 or lower) - should be re-screened at 28-32 weeks gestation. 03/15/20- T.Pallidum Ab, IgG (FTA-ABS) Reactive Ordered treatment of PCN 2.4 million units IM x 1 now- waiting to see how patient can receive injection while in office. Herpes 03/02/2020 07/18/2020 Overview: 03/02/2020 Upon chart reviewed h/o positive serology in 2012. No h/o genital outbreaks. Acute cystitis without hematuria 04/28/2018 08/07/2018 Overview: 04/25/18- E coli UTI. Sent Macrobid. Will need CFC. - Mild intermittent asthma without complication 04/25/20 18 04/02/2023 Overview: 04/25/18- Only using rescue inhaler once a week. - Type 2 diabetes mellitus, uncontrolled 09/15/2013 03/02/2020 Type 2 diabetes mellitus 10/16/2011 Sprain of ankle, unspecified site 11/22/2008 04/24/2018 History of asthma 09/06/2006 04/02/2023 Overview: 3Patient has a history of asthma. Last seen November 2020. She does have a pulmonary appointment on April 02. TKRn documented as of this encounter (statuses as of 09/25/2023) [facility] Walking pneumonia- Primary Pneumonia due to Mycoplasma pneumoniae Cough documented in this encounter [facility] Work Phone: Evaluation note* Diagnosis Mild intermittent asthma without complication Unspecified asthma documented in this encounter [facility] note* Diagnosis Acute pain of right knee- Primary Upper back pain documented in this encounter [facility] note* Diagnosis History of sleep apnea- Primary Personal history of other specified diseases documented in this encounter [facility] note* Diagnosis Acute cough- Primary Viral illness Unspecified viral infection, in conditions classified elsewhere and of unspecified site documented in this encounter [facility] note* Diagnosis Screen for STD (sexually transmitted disease)- Primary Screening examination for venereal disease documented in this encounter [facility] note* Diagnosis Sore throat- Primary Acute pharyngitis URI with cough and congestion documented in this encounter [facility] note* Diagnosis Acute otitis media, right- Primary Unspecified otitis media [facility] Diagnosis Type 2 diabetes mellitus without complication, without long-term current use of insulin ([facility])- Primary Class 1 obesity with serious comorbidity and body mass index (BMI) of 33.0 to 33.9 in adult, unspecified obesity type documented in this encounter [facility] note* Diagnosis Breast wound, left, initial encounter- Primary Breast wound, right, initial encounter Discharge from breast documented in this encounter [facility] note* Diagnosis Breast wound, left, initial encounter- Primary Breast wound, right, initial encounter Discharge from breast documented in this encounter [facility] note* Diagnosis Breast wound, unspecified laterality, initial encounter- Primary documented in this encounter [facility] note* Diagnosis IUD (intrauterine device) in place- Primary Presence of intrauterine contraceptive device IUD check up Surveillance of previously prescribed intrauterine contraceptive device of unknown anatomic location state, incidental Pre-existing type 2 diabetes mellitus during in first trimester documented in this encounter [facility] note* Diagnosis with history of section, antepartum- Primary Unplanned wanted state, incidental Type 2 diabetes mellitus without complication, without long-term current use of insulin ([facility]) Septate uterus affecting , antepartum Bipolar affective disorder, depressed, moderate ([facility]) Bipolar I disorder, most recent episode (or current) depressed, moderate History of depression History of asthma Personal history of other diseases of respiratory system History of drug abuse (HCC) Other, mixed, or unspecified nondependent drug abuse, in remission Tobacco use disorder complicating , childbirth, or puerperium, antepartum, unspecified trimester Nausea and vomiting during History of obstructive sleep apnea Obesity in Obesity complicating , childbirth, or the puerperium, unspecified as to episode of care or not applicable Family history of Down syndrome Family history of congenital anomalies Patient request for diagnostic testing Other specified examination [facility] Diagnosis Type 2 diabetes mellitus without complication, without long-term current use of insulin (HCC) [facility] Diagnosis Encounter for supervision of other normal in first trimester Nausea and vomiting during Supervision of high risk in first trimester Unspecified high-risk with history of section, antepartum Type 2 diabetes mellitus without complication, without long-term current use of insulin (HCC) [facility] Diagnosis care in first trimester- Primary [facility] Diagnosis Mild persistent asthma without complication- Primary Unspecified asthma , unspecified gestational age Cigarette smoker Tobacco use disorder [facility] Diagnosis Encounter for screening of mother- Primary Unspecified screening 12 weeks gestation of state, incidental Obesity in Obesity complicating , childbirth, or the puerperium, unspecified as to episode of care or not applicable Type 2 diabetes mellitus without complication, without long-term current use of insulin (HCC) [facility] Diagnosis Encounter for (NT) nuchal translucency scan- Primary Other specified screening Supervision of high risk in first trimester Unspecified high-risk 12 weeks gestation of state, incidental [facility] Diagnosis Abscess of right breast- Primary Inflammatory disease of breast [facility] Diagnosis Type 2 diabetes mellitus without complication, without long-term current use of insulin (HCC)- Primary 14 weeks gestation of state, incidental [facility] Diagnosis 17 weeks gestation of - Primary state, incidental Type 2 diabetes mellitus without complication, without long-term current use of insulin (HCC) Supervision of high risk in first trimester Unspecified high-risk Need for influenza vaccination Need for prophylactic vaccination and inoculation against influenza History of syphilis Personal history of other infectious and parasitic disease [facility] Diagnosis Encounter for anatomic survey- Primary Supervision of high risk in first trimester Unspecified high-risk Obesity affecting in second trimester, unspecified obesity type 19 weeks gestation of state, incidental Pre-existing type 2 diabetes mellitus in in second trimester Diabetes mellitus of mother, complicating , childbirth, or the puerperium, unspecified as to episode of care documented in this encounter [facility] note* Diagnosis Supervision of high risk in second trimester- Primary Unspecified high-risk Pre-existing diabetes mellitus in in second trimester Diabetes mellitus, antepartum [facility] Diagnosis Mild persistent asthma without complication- Primary Unspecified asthma Gastroesophageal reflux disease, unspecified whether esophagitis present , unspecified gestational age Cigarette smoker Tobacco use disorder [facility]* Diagnosis 25 weeks gestation of - Primary state, incidental Pre-existing diabetes mellitus in in second trimester Diabetes mellitus, antepartum Supervision of high risk in second trimester Unspecified high-risk SHAUNNA (obstructive sleep apnea) Obstructive sleep apnea (adult) (pediatric) Tobacco use disorder complicating , childbirth, or puerperium, antepartum, unspecified trimester Bipolar affective disorder, depressed, moderate ([facility]) Bipolar I disorder, most recent episode (or current) depressed, moderate documented in this encounter [facility] note* Diagnosis Mild persistent asthma without complication- Primary Unspecified asthma Cigarette smoker Tobacco use disorder 25 weeks gestation of state, incidental documented in this encounter [facility] note* Diagnosis Encounter for ultrasound to check growth- Primary Encounter for routine screening for malformation using ultrasonics Supervision of high risk in second trimester Unspecified high-risk Pre-existing diabetes mellitus in in second trimester Diabetes mellitus, antepartum 25 weeks gestation of state, incidental [facility] Diagnosis Type 2 diabetes mellitus without complication, with long-term current use of insulin ([facility])- Primary 27 weeks gestation of state, incidental [facility] Diagnosis Supervision of high risk in third trimester- Primary Unspecified high-risk 28 weeks gestation of state, incidental Pre-existing diabetes mellitus in in third trimester Diabetes mellitus, antepartum Need for vaccination Need for prophylactic vaccination and inoculation against unspecified single disease Tobacco use disorder documented in this encounter [facility] note* Diagnosis 30 weeks gestation of - Primary state, incidental Pre-existing diabetes mellitus in in third trimester Diabetes mellitus, antepartum Supervision of high risk in third trimester Unspecified high-risk documented in this encounter [facility] note* Diagnosis Gastroesophageal reflux disease, unspecified whether esophagitis present documented in this encounter [facility] note* Diagnosis High-risk in third trimester- Primary Pre-existing diabetes mellitus in in third trimester Diabetes mellitus, antepartum Obesity in Obesity complicating , childbirth, or the puerperium, unspecified as to episode of care or not applicable Tobacco use disorder complicating , childbirth, or puerperium, antepartum, unspecified trimester Polyhydramnios in third trimester complication, single or unspecified fetus 36 weeks gestation of state, incidental Previous delivery affecting , antepartum Previous delivery, antepartum condition or complication documented in this encounter [facility] note* Diagnosis Pre-existing diabetes mellitus in in third trimester- Primary Diabetes mellitus, antepartum documented in this encounter [facility] for referral (narrative)* Diagnostic Procedure Only (Routine) - Closed Specialty Diagnoses / Procedures Referred By Gabby freeman Referred To Contact XR IMAGING Diagnoses Acute pain of right knee Procedures XR KNEE GENERAL 4V AP BOTH/PA BOTH/LAT/MERC RIGHT RADIOLOGIC EXAM KNEE COMPLETE 4/MORE VIEWS Aaliyah Rodriges APRN.CNP [address] [place] [address] Xr Imaging Referral ID Status Reason Start Date Expiration Date V isits Requested Visits Authorized [id number] Closed Auto-Generate d Referral 01/24/2022 02/23/2023 1 1 [facility] for referral (narrative)* Diagnostic Procedure Only (Urgent) - Authorized Specialty Diagnoses / Procedures Referred By Gabby freeman Referred To Contact BR IMAGING Diagnoses Discharge from breast Procedures NATHALIE DIAGNOSTIC BILAT DIAGNOSTIC MAMMOGRAPHY COMPUTER-AIDED DETCJ Dudley Romero APRN.CNP [address] [place] [address] [facility] [address] [place] [address] Referral ID Status Reason Start Date Expiration Date Visits Requested Visits Authorized [id number] Authorized Auto-Generat ed Referral 09/25/2022 10/25/2023 1 1 [facility] for referral (narrative)* Diagnostic Procedure Only (Routine) - Pending Review Specialty Diagnoses / Procedures Referred By Contac t Referred To Contact BR IMAGING Diagnoses Breast wound, unspecified laterality, initial encounter Procedures US BREAST LTD RT US BREAST UNI REAL TIME WITH IMAGE LIMITED Dudley Wood APRN.CNP [address] [place] [address] [facility] [address] [place] [address] Referral ID Status Reason Start Date Expiration Date Visits Requested Visits Authorized [id number] Pending Review Auto-Generat ed Referral 11/01/2022 12/01/2023 1 1 * Diagnostic Procedure Only (Routine) - Pending Review Specialty Diagnoses / Procedures Referred By Contac t Referred To Contact BR IMAGING Diagnoses Breast wound, unspecified laterality, initial encounter Procedures US BREAST LTD LT US BREAST UNI REAL TIME WITH IMAGE LIMITED Dudley Wood APRN.CNP [address] [place] [address] [facility] [address] [place] [address] Referral ID Status Reason Start Date Expiration Date Visits Requested Visits Authorized [id number] Pending Review Auto-Generat ed Referral 11/01/2022 12/01/2023 1 1 [facility] for referral (narrative)* Diagnostic Procedure Only (Routine) - Pending Review Specialty Diagnoses / Procedures Referred By Contac t Referred To Contact [facility] Diagnoses Supervision of high risk in first trimester Procedures OBSTETRIC ULTRASOUND WHI US PREG UTERUS AFTER 1ST TRIMEST 1 GESTATION Elizabeth Mariee MD [address] [place] [address] [address] Referral ID Status Reason Start Date Expiration Date Visits Requested Visits Authorized [id number] Pending Review Auto-Generat ed Referral 03/14/2023 03/13/2024 1 1 * Diagnostic Procedure Only (Routine) - Pending Review Specialty Diagnoses / Procedures Referred By Contac t Referred To Contact [facility] Diagnoses Supervision of high risk in first trimester Procedures NUCHAL TRANSLUCENCY WHI US NUCHAL TRANSLUCENCY GESTATION Elizabeth Mariee MD [address] [place] [address] [address] Referral ID Status Reason Start Date Expiration Date Visits Requested Visits Authorized [id number] Pending Review Auto-Generat ed Referral 03/14/2023 03/13/2024 1 1 [facility] for referral (narrative)* Diagnostic Procedure Only (Routine) - Authorized Specialty Diagnoses / Procedures Referred By Contac t Referred To Contact [facility] Diagnoses Supervision of high risk in second trimester Pre-existing diabetes mellitus in in second trimester Procedures OBSTETRIC ULTRASOUND WHI US PREG UTERUS AFTER 1ST TRIMEST GESTATION Elizabeth Mariee MD [address] [place] [address] [address] Referral ID Status Reason Start Date Expiration Date Visits Requested Visits Authorized [id number] Authorized Auto-Generat ed Referral 05/29/2024 4 1 [facility] for referral (narrative)* Outpatient Procedure (Routine) - Pending Review Specialty Diagnoses / Procedures Referred By Gabby freeman Referred To Contact [facility] Diagnoses 28 weeks gestation of Pre-existing diabetes mellitus in in third trimester Supervision of high risk in third trimester Procedures NON-STRESS TEST NON-STRESS TEST Shelby Barba MD [address] [place] [address] [address] Referral ID Status Reason Start Date Expiration Date Visits Requested Visits Authorized [id number] Pending Review Auto-Generat ed Referral 07/23/2023 07/22/2024 8 1 * Clinic-Administered Medication (Routine) - Pending Review Specialty Diagnoses / Procedures Referred By Gabby freeman Referred To Contact [facility] Shelby Barba MD [address] [place] [address] [address] Referral ID Status Reason Start Date Expiration Date V isits Requested Visits Authorized [id number] Pending Review 07/23/2023 10/21/2023 1 1 [facility] for referral (narrative)* Diagnostic Procedure Only (Routine) - Closed Specialty Diagnoses / Procedures Referred By Gabby freeman Referred To Contact [facility] Diagnoses Pre-existing diabetes mellitus in in third trimester Procedures BIOPHYSICAL PROFILE [facility] BIOPHYSICAL PROFILE NON-STRESS TESTING Jaimie Jorge APRN.CNP [address] [place] [address] [address] Referral ID Status Reason Start Date Expiration Date V isits Requested Visits Authorized [id number] Closed Auto-Generate d Referral 09/25/2023 09/24/2024 10 1 [facility] Summary Purpose Family History No Family History Records FoundNo Family History Records FoundNo Family History Records FoundNo Family History Records Found Advance Directives Documents on File Type Date Recorded Patient Reinsurance Claims Analyst Expl anation Advance Directive(s) 06/06/2021 9:15 AM Documents on File Type Date Recorded Patient Reinsurance Claims Analyst Expl anation Advance Directive(s) 06/06/2021 9:15 AM Reason for Referral Specialty Diagnoses / Procedures Referred By Contac t Referred To Contact Diagnoses History of sleep apnea Procedures CONSULT TO SLEEP MEDICINE - ADULT NEW PATIENT VISIT LEVEL 5 PodlogarAaliyah APRN.SHELLFISH MEAT SEPARATOR OPERATOR [address] [place] [address] Referral ID Status Reason Start Date Expiration Date Visits Requested Visits Authorized [id number] Authorized PCP Requested Referral 05/12/2021 05/12/2022 1 1 Specialty Diagnoses / Procedures Referred By Contac t Referred To Contact Juhi Orellana MD [address] [place] [address] Referral ID Status Reason Start Date Expiration Date Visits Re quested Visits Authorized [id number] Closed 1 1 Specialty Diagnoses / Procedures Referred By Contac t Referred To Contact Diagnoses 25 weeks gestation of Pre-existing diabetes mellitus in in second trimester Supervision of high risk in second trimester Procedures CONSULT TO MATERNAL MEDI OFFICE/OUTPATIENT NEW HIGH MDM 60-74 MINUTES Jaimie Jorge APRN.SHELLFISH MEAT SEPARATOR OPERATOR [address] [place] [address] Referral ID Status Reason Start Date Expiration Date Visits Requested Visits Authorized [id number] Authorized PCP Requested Referral Auto-Generate d Referral 06/30/2024 1 1 Health Concerns Infection Onset Date Last Indicated Resolved Time COVID-19 Rule-Out 05/16/2021 05/16/2021 05/17/2021 11:20 AM EDT COVID-19 Rule-Out 08/29/2021 08/29/2021 08/30/2021 4:26 AM EST Infection Onset Date Last Indicated Resolved Time COVID-19 Rule-Out 07/31/2022 07/31/2022 Problem Noted Date Diagnosed Date [facility] - [facility] 03/14/2023 [place] - [place] 03/14/2023 Problem Noted Date Diagnosed Date [facility] Education - COMMON 03/14/2023 [place] - [place] 03/14/2023 Problem Noted Date Diagnosed Date [facility] Education - COMMON 03/14/2023 [place] - [place] 03/14/2023 Problem Noted Date Diagnosed Date [facility] Education - [facility]ON 03/14/2023 Education - [place] 03/14/2023 Problem Noted Date Diagnosed Date [facility] Education - [facility] 03/14/2023 Education - [place] 03/14/2023 Problem Noted Date Diagnosed Date [facility] Education - COMMON 03/14/2023 Education - [place] 03/14/2023 Problem Noted Date Diagnosed Date [facility] Education - [facility] 03/14/2023 Education - [place] 03/14/2023 Problem Noted Date Diagnosed Date [facility] Education - [place]ON 03/14/2023 Education - [place] 03/14/2023 Problem Noted Date Diagnosed Date [facility] Education - [facility]ON 03/14/2023 Education - [place] 03/14/2023 Problem Noted Date Diagnosed Date [facility] Education - [place] 03/14/2023 Education - [place] 03/14/2023 Problem Noted Date Diagnosed Date [facility] Education - [place] 03/14/2023 Education - [place] 03/14/2023 Problem Noted Date Diagnosed Date [facility] Education - [place] 03/14/2023 Education - [place] 03/14/2023 Problem Noted Date Diagnosed Date [facility] Education - [place] 03/14/2023 Education - [place] 03/14/2023 Problem Noted Date Diagnosed Date [facility] Education - [place] 03/14/2023 Education - [place] 03/14/2023 Problem Noted Date Diagnosed Date [facility] Education - [place] 03/14/2023 Education - [place] 03/14/2023 Problem Noted Date Diagnosed Date [facility] Education - [place] 03/14/2023 Education - [place] 03/14/2023 Problem Noted Date Diagnosed Date [facility] Education - [place] 03/14/2023 Education - [place] 03/14/2023 Problem Noted Date Diagnosed Date [facility] Education - [facility] 03/14/2023 Education - [place] 03/14/2023 Problem Noted Date Diagnosed Date [facility] Education - [facility] 03/14/2023 Education - [place] 03/14/2023 Problem Noted Date Diagnosed Date [facility] Education - COMMON 03/14/2023 Education - [place] 03/14/2023 Problem Noted Date Diagnosed Date [facility] - [facility] 03/14/2023 Education - [place] 03/14/2023 Problem Noted Date Diagnosed Date [facility] - [facility] 03/14/2023 Education - [place] 03/14/2023 Problem Noted Date Diagnosed Date [facility] - [facility] 03/14/2023 Education - [place] 03/14/2023 Additional Source Comments INFORMATION SOURCE (unrecogn ized section and content) DATE CREATED AUTHOR AUTHOR'S ORGANIZ ATION 01/20/2021 [facility] DATE CREATED AUTHOR AUTHOR'S ORGANIZ ATION 04/14/2023 [facility] DATE CREATED AUTHOR AUTHOR'S ORGANIZ ATION 09/22/2023 [facility] Reason for Visit (unrecogniz ed section and content) Reason Onset Date Comments Refill Request 11/05/2021 albuterol sulfat e hfa Reason Comments Right Knee Pain x2 weeks; no injury aware of Pain, Back x1 week Reason Comments Results Reason Comments Appointment Reason Comments Cough fever, shortness of breath and sweating x 5 days Reason Comments Question Reason Comments Nasal Congestion cough, larynigitis, bodyaches, chills, sore throat x 5 days Reason Comments Ear Pain Reason Comments Non-insulin Dependent Diabetes Mellitus Reason Comments cyst on breast Reason Comments Follow Up Reason Comments Orders Reason Comments positive test with IUD Reason Comments Care Reason Comments Forms Praf Specialty Diagnoses / Procedures Referred By Contac t Referred To Contact Diagnoses Type 2 diabetes mellitus without complication, without long-term current use of insulin (HCC) Procedures CONSULT TO DIABETES EDUCATION DSME/MNT MEDICAL NUTRITION ASSMT&IVNTJ INDIV EACH 15 [place] MEDICAL NUTRITION ASSMT&IVNTJ INDIV EACH 15 [place] MEDICAL NUTRITION ASSMT&IVNTJ INDIV EACH 15 [place] MEDICAL NUTRITION ASSMT&IVNTJ INDIV EACH 15 [place] Agata Ramires, ESCOBAR.SHELLFISH MEAT SEPARATOR OPERATOR [address] [address] Referral ID Status Reason Start Date Expiration Date V isits Requested Visits Authorized [id number] Closed PCP Requested Referral 03/12/2023 03/11/2024 1 1 Reason Comments Care Reason Comments Reason Comments Opened In Error Reason Comments PA--NOVOMIMA N FLEXPEN Reason Comments Established Patient Asthma/ Reason Onset Date Comments Care 04/04/2023 Reason Comments US Specialty Diagnoses / Procedures Referred By Contac t Referred To Contact [facility] Diagnoses Supervision of high risk in first trimester Procedures NUCHAL TRANSLUCENCY WHI US NUCHAL TRANSLUCENCY 1ST GESTATION Elizabeth Mariee MD [address] [place] [address] [address] [place] [address] Referral ID Status Reason Start Date Expiration Date V isits Requested Visits Authorized [id number] Closed Auto-Generate d Referral 03/14/2023 03/13/2024 1 1 Reason Comments right breast swollen Red yellow in color ation and hot to touch that started two days ago. Pt reports that she had staph infection last year in the same breast. Pt is currently 13 weeks . Reason Comments Insulin Dependent Diabetes Mellitus Reason Onset Date Comments Care 05/06/2023 Immunizations 05/06/2023 Flu vaccination Specialty Diagnoses / Procedures Referred By Contac t Referred To Contact [facility] Diagnoses Supervision of high risk in first trimester Procedures OBSTETRIC ULTRASOUND WHI US PREG UTERUS AFTER 1ST TRIMEST GESTATION Elizabeth Mariee MD [address] [place] [address] [facility] [address] [place] [address] Referral ID Status Reason Start Date Expiration Date V isits Requested Visits Authorized [id number] Closed Auto-Generate d Referral 03/14/2023 03/13/2024 1 1 Reason Comments PRAF Reason Comments Orders Reason Comments Established Patient 2 month follow up as thma Reason Onset Date Comments Population Health Navigation Outreach 06/18/2023 HCC Gaps Reason Onset Date Comments Care 07/01/2023 Reason Comments Established Patient follow up asthma Specialty Diagnoses / Procedures Referred By Contac t Referred To Contact [facility] Diagnoses Supervision of high risk in second trimester Pre-existing diabetes mellitus in in second trimester Procedures OBSTETRIC ULTRASOUND WHI US PREG UTERUS AFTER 1ST TRIMEST GESTATION Elizabeth Mariee MD [address] [place] [address] [facility] [address] [place] [address] Referral ID Status Reason Start Date Expiration Date V isits Requested Visits Authorized [id number] Closed Auto-Generate d Referral 05/30/2023 05/29/2024 4 1 Reason Onset Date Comments Care 07/23/2023 Specialty Diagnoses / Procedures Referred By Contac t Referred To Contact [facility] Shelby Barba MD [address] [place] [address] [facility] [address] [place] [address] Referral ID Status Reason Start Date Expiration Date V isits Requested Visits Authorized [id number] Pending Review 07/23/2023 10/21/2023 1 1 Reason Onset Date Comments Care 08/06/2023 Reason Comments Refill Request Reason Onset Date Comments Care 09/20/2023 Ordered Prescriptions (unrec ognized section and content) Scheduled Active and Recently Administ ered Medications (unrecognized section and content) Source Comments (unrecognize d section and content) In the event this informatio n is protected by the Federal Confidentiality of Alcohol and Drug Abuse Patient Records regulations: The Federal rules restrict any use of the information to criminally investigate or prosecute any alcohol or drug abuse patient.[facility] event this information is protected by the Federal Confidentiality of Alcohol and Drug Abuse Patient Records regulations: The Federal rules restrict any use of the information to criminally investigate or prosecute any alcohol or drug abuse patient.[facility] the event this information is protected by the Federal Confidentiality of Alcohol and Drug Abuse Patient Records regulations: The Federal rules restrict any use of the information to criminally investigate or prosecute any alcohol or drug abuse patient.[facility] the event this information is protected by the Federal Confidentiality of Alcohol and Drug Abuse Patient Records regulations: The Federal rules restrict any use of the information to criminally investigate or prosecute any alcohol or drug abuse patient.[facility] the event this information is protected by the Federal Confidentiality of Alcohol and Drug Abuse Patient Records regulations: The Federal rules restrict any use of the information to criminally investigate or prosecute any alcohol or drug abuse patient.[facility] the event this information is protected by the Federal Confidentiality of Alcohol and Drug Abuse Patient Records regulations: The Federal rules restrict any use of the information to criminally investigate or prosecute any alcohol or drug abuse patient.[facility] the event this information is protected by the Federal Confidentiality of Alcohol and Drug Abuse Patient Records regulations: The Federal rules restrict any use of the information to criminally investigate or prosecute any alcohol or drug abuse patient.[facility] the event this information is protected by the Federal Confidentiality of Alcohol and Drug Abuse Patient Records regulations: The Federal rules restrict any use of the information to criminally investigate or prosecute any alcohol or drug abuse patient.[facility] the event this information is protected by the Federal Confidentiality of Alcohol and Drug Abuse Patient Records regulations: The Federal rules restrict any use of the information to criminally investigate or prosecute any alcohol or drug abuse patient.[facility] the event this information is protected by the Federal Confidentiality of Alcohol and Drug Abuse Patient Records regulations: The Federal rules restrict any use of the information to criminally investigate or prosecute any alcohol or drug abuse patient.[facility] the event this information is protected by the Federal Confidentiality of Alcohol and Drug Abuse Patient Records regulations: The Federal rules restrict any use of the information to criminally investigate or prosecute any alcohol or drug abuse patient.[facility] the event this information is protected by the Federal Confidentiality of Alcohol and Drug Abuse Patient Records regulations: The Federal rules restrict any use of the information to criminally investigate or prosecute any alcohol or drug abuse patient.[facility] the event this information is protected by the Federal Confidentiality of Alcohol and Drug Abuse Patient Records regulations: The Federal rules restrict any use of the information to criminally investigate or prosecute any alcohol or drug abuse patient.[facility] the event this information is protected by the Federal Confidentiality of Alcohol and Drug Abuse Patient Records regulations: The Federal rules restrict any use of the information to criminally investigate or prosecute any alcohol or drug abuse patient.[facility] the event this information is protected by the Federal Confidentiality of Alcohol and Drug Abuse Patient Records regulations: The Federal rules restrict any use of the information to criminally investigate or prosecute any alcohol or drug abuse patient.[facility] the event this information is protected by the Federal Confidentiality of Alcohol and Drug Abuse Patient Records regulations: The Federal rules restrict any use of the information to criminally investigate or prosecute any alcohol or drug abuse patient.[facility] the event this information is protected by the Federal Confidentiality of Alcohol and Drug Abuse Patient Records regulations: The Federal rules restrict any use of the information to criminally investigate or prosecute any alcohol or drug abuse patient.[facility] the event this information is protected by the Federal Confidentiality of Alcohol and Drug Abuse Patient Records regulations: The Federal rules restrict any use of the information to criminally investigate or prosecute any alcohol or drug abuse patient.[facility] the event this information is protected by the Federal Confidentiality of Alcohol and Drug Abuse Patient Records regulations: The Federal rules restrict any use of the information to criminally investigate or prosecute any alcohol or drug abuse patient.[facility] the event this information is protected by the Federal Confidentiality of Alcohol and Drug Abuse Patient Records regulations: The Federal rules restrict any use of the information to criminally investigate or prosecute any alcohol or drug abuse patient.[facility] the event this information is protected by the Federal Confidentiality of Alcohol and Drug Abuse Patient Records regulations: The Federal rules restrict any use of the information to criminally investigate or prosecute any alcohol or drug abuse patient.[facility] the event this information is protected by the Federal Confidentiality of Alcohol and Drug Abuse Patient Records regulations: The Federal rules restrict any use of the information to criminally investigate or prosecute any alcohol or drug abuse patient.[facility]In the event this information is protected by the Federal Confidentiality of Alcohol and Drug Abuse Patient Records regulations: The Federal rules restrict any use of the information to criminally investigate or prosecute any alcohol or drug abuse patient.[facility]In the event this information is protected by the Federal Confidentiality of Alcohol and Drug Abuse Patient Records regulations: The Federal rules restrict any use of the information to criminally investigate or prosecute any alcohol or drug abuse patient.[facility] HospitalIn the event this information is protected by the Federal Confidentiality of Alcohol and Drug Abuse Patient Records regulations: The Federal rules restrict any use of the information to criminally investigate or prosecute any alcohol or drug abuse patient.[facility]In the event this information is protected by the Federal Confidentiality of Alcohol and Drug Abuse Patient Records regulations: The Federal rules restrict any use of the information to criminally investigate or prosecute any alcohol or drug abuse patient.[facility] HospitalIn the event this information is protected by the Federal Confidentiality of Alcohol and Drug Abuse Patient Records regulations: The Federal rules restrict any use of the information to criminally investigate or prosecute any alcohol or drug abuse patient.[facility] HospitalIn the event this information is protected by the Federal Confidentiality of Alcohol and Drug Abuse Patient Records regulations: The Federal rules restrict any use of the information to criminally investigate or prosecute any alcohol or drug abuse patient.[facility] HospitalIn the event this information is protected by the Federal Confidentiality of Alcohol and Drug Abuse Patient Records regulations: The Federal rules restrict any use of the information to criminally investigate or prosecute any alcohol or drug abuse patient.[facility] HospitalIn the event this information is protected by the Federal Confidentiality of Alcohol and Drug Abuse Patient Records regulations: The Federal rules restrict any use of the information to criminally investigate or prosecute any alcohol or drug abuse patient.[facility] HospitalIn the event this information is protected by the Federal Confidentiality of Alcohol and Drug Abuse Patient Records regulations: The Federal rules restrict any use of the information to criminally investigate or prosecute any alcohol or drug abuse patient.[facility] HospitalIn the event this information is protected by the Federal Confidentiality of Alcohol and Drug Abuse Patient Records regulations: The Federal rules restrict any use of the information to criminally investigate or prosecute any alcohol or drug abuse patient.[facility] HospitalIn the event this information is protected by the Federal Confidentiality of Alcohol and Drug Abuse Patient Records regulations: The Federal rules restrict any use of the information to criminally investigate or prosecute any alcohol or drug abuse patient.[facility] HospitalIn the event this information is protected by the Federal Confidentiality of Alcohol and Drug Abuse Patient Records regulations: The Federal rules restrict any use of the information to criminally investigate or prosecute any alcohol or drug abuse patient.[facility] HospitalIn the event this information is protected by the Federal Confidentiality of Alcohol and Drug Abuse Patient Records regulations: The Federal rules restrict any use of the information to criminally investigate or prosecute any alcohol or drug abuse patient.[facility] HospitalIn the event this information is protected by the Federal Confidentiality of Alcohol and Drug Abuse Patient Records regulations: The Federal rules restrict any use of the information to criminally investigate or prosecute any alcohol or drug abuse patient.[facility] HospitalIn the event this information is protected by the Federal Confidentiality of Alcohol and Drug Abuse Patient Records regulations: The Federal rules restrict any use of the information to criminally investigate or prosecute any alcohol or drug abuse patient.[facility] HospitalIn the event this information is protected by the Federal Confidentiality of Alcohol and Drug Abuse Patient Records regulations: The Federal rules restrict any use of the information to criminally investigate or prosecute any alcohol or drug abuse patient.[facility] HospitalIn the event this information is protected by the Federal Confidentiality of Alcohol and Drug Abuse Patient Records regulations: The Federal rules restrict any use of the information to criminally investigate or prosecute any alcohol or drug abuse patient.[facility] HospitalIn the event this information is protected by the Federal Confidentiality of Alcohol and Drug Abuse Patient Records regulations: The Federal rules restrict any use of the information to criminally investigate or prosecute any alcohol or drug abuse patient.[facility] HospitalIn the event this information is protected by the Federal Confidentiality of Alcohol and Drug Abuse Patient Records regulations: The Federal rules restrict any use of the information to criminally investigate or prosecute any alcohol or drug abuse patient.[facility] HospitalIn the event this information is protected by the Federal Confidentiality of Alcohol and Drug Abuse Patient Records regulations: The Federal rules restrict any use of the information to criminally investigate or prosecute any alcohol or drug abuse patient.[facility] HospitalIn the event this information is protected by the Federal Confidentiality of Alcohol and Drug Abuse Patient Records regulations: The Federal rules restrict any use of the information to criminally investigate or prosecute any alcohol or drug abuse patient.[facility] HospitalIn the event this information is protected by the Federal Confidentiality of Alcohol and Drug Abuse Patient Records regulations: The Federal rules restrict any use of the information to criminally investigate or prosecute any alcohol or drug abuse patient.[facility] HospitalIn the event this information is protected by the Federal Confidentiality of Alcohol and Drug Abuse Patient Records regulations: The Federal rules restrict any use of the information to criminally investigate or prosecute any alcohol or drug abuse patient.[facility] HospitalIn the event this information is protected by the Federal Confidentiality of Alcohol and Drug Abuse Patient Records regulations: The Federal rules restrict any use of the information to criminally investigate or prosecute any alcohol or drug abuse patient.[facility] HospitalIn the event this information is protected by the Federal Confidentiality of Alcohol and Drug Abuse Patient Records regulations: The Federal rules restrict any use of the information to criminally investigate or prosecute any alcohol or drug abuse patient.[facility] HospitalIn the event this information is protected by the Federal Confidentiality of Alcohol and Drug Abuse Patient Records regulations: The Federal rules restrict any use of the information to criminally investigate or prosecute any alcohol or drug abuse patient.[facility] HospitalIn the event this information is protected by the Federal Confidentiality of Alcohol and Drug Abuse Patient Records regulations: The Federal rules restrict any use of the information to criminally investigate or prosecute any alcohol or drug abuse patient.[facility] HospitalIn the event this information is protected by the Federal Confidentiality of Alcohol and Drug Abuse Patient Records regulations: The Federal rules restrict any use of the information to criminally investigate or prosecute any alcohol or drug abuse patient.[facility] HospitalIn the event this information is protected by the Federal Confidentiality of Alcohol and Drug Abuse Patient Records regulations: The Federal rules restrict any use of the information to criminally investigate or prosecute any alcohol or drug abuse patient.[facility] HospitalIn the event this information is protected by the Federal Confidentiality of Alcohol and Drug Abuse Patient Records regulations: The Federal rules restrict any use of the information to criminally investigate or prosecute any alcohol or drug abuse patient.[facility] HospitalIn the event this information is protected by the Federal Confidentiality of Alcohol and Drug Abuse Patient Records regulations: The Federal rules restrict any use of the information to criminally investigate or prosecute any alcohol or drug abuse patient.[facility] HospitalIn the event this information is protected by the Federal Confidentiality of Alcohol and Drug Abuse Patient Records regulations: The Federal rules restrict any use of the information to criminally investigate or prosecute any alcohol or drug abuse patient.[facility] HospitalIn the event this information is protected by the Federal Confidentiality of Alcohol and Drug Abuse Patient Records regulations: The Federal rules restrict any use of the information to criminally investigate or prosecute any alcohol or drug abuse patient.[facility] HospitalIn the event this information is protected by the Federal Confidentiality of Alcohol and Drug Abuse Patient Records regulations: The Federal rules restrict any use of the information to criminally investigate or prosecute any alcohol or drug abuse patient.[facility] Care Teams (unrecognized sec tion and content) Senior Quality Engineer Relationship Specialty Start Date End Date Julian De Paz MD [address] [place] [address] PCP - General Family Practice 08/30/21 Senior Quality Engineer Relationship Specialty Start Date End Date Julian De Paz MD [facility] [place] [address] PCP - General Family Practice 08/30/21 Senior Quality Engineer Relationship Specialty Start Date End Date Julian De Paz MD [address] [place] [address] PCP - General Family Practice 08/30/21 Senior Quality Engineer Relationship Specialty Start Date End Date Julian De Paz MD [facility] [address] PCP - General Family Practice 08/30/21 Senior Quality Engineer Relationship Specialty Start Date End Date Julian De Paz MD [facility] [place] [address] PCP - General Family Medicine 08/30/21 Senior Quality Engineer Relationship Specialty Start Date End Date Julian De Paz MD [facility] [address] PCP - General Family Medicine 08/30/21 Senior Quality Engineer Relationship Specialty Start Date End Date Julian De Paz MD [facility] [place] [address] PCP - General Family Medicine 08/30/21 Senior Quality Engineer Relationship Specialty Start Date End Date Julian De Paz MD [address] [place] [address] PCP - General Family Medicine 08/30/21 Senior Quality Engineer Relationship Specialty Start Date End Date Julian De Paz MD [address] [place] [address] PCP - General Family Medicine 08/30/21 Senior Quality Engineer Relationship Specialty Start Date End Date Julian De Paz MD [address] [place] [address] PCP - General Family Medicine 08/30/21 Senior Quality Engineer Relationship Specialty Start Date End Date Julian De Paz MD [address] [place] [address] PCP - General Family Medicine 08/30/21 Senior Quality Engineer Relationship Specialty Start Date End Date Julian De Paz MD [address] [place] [address] PCP - General Family Medicine 08/30/21 Senior Quality Engineer Relationship Specialty Start Date End Date Julian De Paz MD [address] [place] [address] PCP - General Family Medicine 08/30/21 Senior Quality Engineer Relationship Specialty Start Date End Date Julian De Paz MD [address] [place] [address] PCP - General Family Medicine 08/30/21 Senior Quality Engineer Relationship Specialty Start Date End Date Julian De Paz MD [address] [place] [address] PCP - General Family Medicine 08/30/21 Senior Quality Engineer Relationship Specialty Start Date End Date Julian De Paz MD [address] [place] [address] PCP - General Family Medicine 08/30/21 Senior Quality Engineer Relationship Specialty Start Date End Date Julian De Paz MD [address] [place] [address] PCP - General Family Medicine 08/30/21 Senior Quality Engineer Relationship Specialty Start Date End Date Julian De Paz MD [address] [place] [address] PCP - General Family Medicine 08/30/21 Senior Quality Engineer Relationship Specialty Start Date End Date Julian De Paz MD [address] [place] [address] PCP - General Family Medicine 08/30/21 Senior Quality Engineer Relationship Specialty Start Date End Date Julian De Paz MD [address] [place] [address] PCP - General Family Medicine 08/30/21 Senior Quality Engineer Relationship Specialty Start Date End Date Julian De Paz MD [address] [place] [address] PCP - General Family Medicine 08/30/21 Senior Quality Engineer Relationship Specialty Start Date End Date Julian De Paz MD [address] [place] [address] PCP - General Family Medicine 08/30/21 Senior Quality Engineer Relationship Specialty Start Date End Date Julian De Paz MD [address] [place] [address] PCP - General Family Medicine 08/30/21 Senior Quality Engineer Relationship Specialty Start Date End Date Julian De Paz MD [address] [place] [address] PCP - General Family Medicine 08/30/21 Senior Quality Engineer Relationship Specialty Start Date End Date Julian De Paz MD [address] [place] [address] PCP - General Family Medicine 08/30/21 Senior Quality Engineer Relationship Specialty Start Date End Date Julian De Paz MD [address] [place] [address] PCP - General Family Medicine 08/30/21 Senior Quality Engineer Relationship Specialty Start Date End Date Julian De Paz MD [address] [place] [address] PCP - General Family Medicine 08/30/21 Senior Quality Engineer Relationship Specialty Start Date End Date Julian De Paz MD [address] [place] [address] PCP - General Family Medicine 08/30/21 Senior Quality Engineer Relationship Specialty Start Date End Date Julian De Paz MD [address] [place] [address] PCP - General Family Medicine 08/30/21 Senior Quality Engineer Relationship Specialty Start Date End Date Julian De Paz MD [address] [place] [address] PCP - General Family Medicine 08/30/21 Senior Quality Engineer Relationship Specialty Start Date End Date Julian De Paz MD [address] [place] [address] PCP - General Family Medicine 08/30/21 Senior Quality Engineer Relationship Specialty Start Date End Date Julian De Paz MD [address] [place] [address] PCP - General Family Medicine 08/30/21 Senior Quality Engineer Relationship Specialty Start Date End Date Julian De Paz MD [address] [place] [address] PCP - General Family Medicine 08/30/21 Senior Quality Engineer Relationship Specialty Start Date End Date Julian De Paz MD [address] [place] [address] PCP - General Family Medicine 08/30/21 Senior Quality Engineer Relationship Specialty Start Date End Date Julian De Paz MD [address] [place] [address] PCP - General Family Medicine 08/30/21 Senior Quality Engineer Relationship Specialty Start Date End Date Julian De Paz MD [address] [place] [address] PCP - General Family Medicine 08/30/21 Senior Quality Engineer Relationship Specialty Start Date End Date Julian De Paz MD [address] [place] [address] PCP - General Family Medicine 08/30/21 Senior Quality Engineer Relationship Specialty Start Date End Date Julian De Paz MD [address] [place] [address] PCP - General Family Medicine 08/30/21 FOR RECORDS PERTAINING TO PATIENTS WHO ARE OR HAVE BEEN ENROLLED IN A CHEMICAL DEPENDENCY/SUBSTANCEABUSE PROGRAM, SOME INFORMATION MAY BE OMITTED. This clinical summary was aggregated from multiple sources. Caution should be exercised in using it in the provision of clinical care. This summary normalizes information from multiple sources, and as a consequence, information in this document may materially change the coding, format and clinical context of patient data. In addition, data may be omitted in some cases. CLINICAL DECISIONS SHOULD BE BASED ON THE PRIMARY CLINICAL RECORDS. [employer] [facility]. provides no warranty or guarantee of the accuracy or completeness of information in this document.
[2023-09-27 05:42] LABS: Absolute Lymphocyte Count 2.26 X10^3/uL (0.83-4.51); Basophil# 0.03 X10^3/uL; Basophil% 0.3 % (0-1); Eosinophil# 0.06 X10^3/uL; Eosinophils% 0.7 % (0-5); Hematocrit 31.8 % (37-47); Hemoglobin 10.5 g/dL (12.0-15.0); Lymphocyte # 2.26 X10^3/ul (0.83-4.51); Lymphocyte % 25.3 % (19-41); Mean Corpuscular Hgb 29.8 pg (27.0-32.0); Mean Corpuscular Volume 90.3 fL (81-99); Mean Platelet Vol. 10.4 fl (6.2-12.0); Monocyte# 0.55 X10^3/uL; Monocyte% 6.2 % (0-10); NRBC Flagged by Analyzer 0 % (0-5); Neutrophil # 5.99 X10^3/uL (2.7-7.7); Neutrophil % 67.1 % (47-70); Platelet Count 217 K/mm3 (150-450); RBC Distribution Width CV 13.6 % (11.6-14.6); RBC Distribution Width SD 44.2 fl (35.1-43.9); Red Blood Count 3.52 M/mm3 (4.2-5.4); White Blood Count 8.9 K/mm3 (4.4-11.0)
[2023-09-27 06:24] LABS: Bedside Glucose 179 mg/dL (74-106)
[2023-09-27] MEDS: Acetaminophen 500 MG Tablet 1000 MG PO ×3 (06:45→18:31)
[2023-09-27] MEDS: Sodium Citrate/Citric Acid 30 ML UDC PO (06:45)
[2023-09-27] MEDS: Lactated Ringers 1,000 ML 150 ML IV (06:46)
[2023-09-27] MEDS: Cefazolin 2 GM in 0.9% Normal Saline (100mL Bag) 100 ML IV (07:20)
--- NOTE | 2023-09-27 08:26 | OP.PCM_ITS ---
Maternal Data Information Gestational age: 37 4/7 Details Operative Information Date of Procedure: 09/27/23 Pre-Operative Diagnosis: previous c/s, type 2 DM Indications for : Repeat Elective Classification: Scheduled Procedure Type: low transverse chyron operator #1: Wang Bass Type of Anesthesia: Spinal Anesthesiologist: Antonio Valerio Special Medications: duramorph Antibiotic Given: Ancef 2 grams IV x1 Drain: Kelly to straight drain Estimated Blood Loss: 700 Fluids Replaced: 800 Procedure Start Time: 07:46 Procedure Stop Time: 08:23 Time of Delivery: 07:53 Findings Description of Procedure: The patient was taken to the operating room. She was prepped and draped in the dorsal supine position with a leftward tilt. A Pfannenstiel skin incision was made approximately 2 cm above the symphysis pubis and carried through to underlying layer fascia with the scalpel. The fascia was incised incised in the midline and extended laterally with the Valencia scissors. The fascia was dissected off the rectus muscles with blunt and sharp dissection. The rectus muscles were in the midline and the peritoneum was entered bluntly. The peritoneal incision was stretched and the bladder blade was placed. The peritoneum still felt tight so the Bovie was used to help divide the peritoneum laterally and a small portion of the rectus muscles to give more room. The uterine incision was made in a low transverse fashion with the scalpel and extended superiorly and inferiorly with blunt dissection. The amniotic membranes were ruptured bluntly and clear amniotic fluid returned. The infant's head was brought to the incision in the flexed position and was unable to be delivered with fundal pressure. I extended the rectus muscles a little more with the bandage scissors and still cannot deliver the head easily. The vacuum was placed on the flexion point and with 3 pulls into pop-off's and fundal pressure the head delivered the vacuum was removed, and the was delive red through the loose nuchal cord x 1In less than 15 seconds. The mouth and nares were bulb suctioned. The cord was clamped and cut as the infant was stimulated. Cord clamping was not delayed because the was stunned but the heart rate was greater than 100. The was handed off to the waiting nursing staff. The placenta was delivered with fundal massage and gentle traction in the standard fashion. The uterus was exteriorized and cleared of all clots and debris. The cervix was dilated with a ring forcep. The uterine incision was closed with #1 Vicryl in a running locked fashion. Several [id number] sutures were needed in a bleeding sinus to obtain hemostasis. The incision was examined and was found to be hemostatic. The uterus was placed back into the peritoneal cavity and hemostasis was again confirmed. The rectus muscles were examined and any bleeding was Bovie cauterized. The parietal peritoneum and rectus muscles were closed en bloc with an 0 Vicryl running suture. The rectus fascia was examined and any bleeding was Bovie cauterized and the rectus fascia was closed with looped PDS suture in a running standard fashion. The subcutaneous tissue was examining and any bleeding was Bovie cauterized. The subcutaneous tissue was reapproximated with 3-0 Vicryl suture. The skin was closed in a subcuticular fashion by the SERVICE LIAISON REPRESENTATIVE with me present in the labor and delivery suite. I performed the remainder of the procedure with assistance. All sponge, lap, and needle counts were correct. The patient was taken to her room for recovery in a stable condition. Presentation: Positive for Vertex Amniotic Fluid Description: Clear Placental Delivery Description: Expressed Placenta Disposition: [facility] Cord Vessel Description: 3 Vessels Cord Entanglement: Around neck x 1, loose Nuchal Cord Compression: Without compression Infant A Gender: Male (1 minute): 6 (5 minute): 8 Delayed Cord Clamping: No Complications Complications: none Admit VTE Documentation VTE Present on Admission: No VTE Mechan Device Prophylaxis: SCD's VTE Pharm Prophylaxis Ordered: Yes
[2023-09-27] MEDS: Oxytocin 15 Units/NS 250ml 15 UNITS/250 ML IV.SOLN 83 UNITS IV (08:45)
[2023-09-27 08:55] LABS: Amphetamine Urine VISTA NEGATIVE (<1000 ng/mL); Barbiturate Urine VISTA NEGATIVE (< 200 ng/mL); Benzodiazepine Urine VISTA NEGATIVE (< 200 ng/mL); Cocaine Urine VISTA NEGATIVE (< 300 ng/mL); Ecstacy Urine VISTA NEGATIVE (< 500 ng/mL); Methadone Urine VISTA NEGATIVE (< 300 ng/mL); PCP Urine VISTA NEGATIVE (< 25 ng/mL); THC Urine VISTA POSITIVE (< 50 ng/mL); Vista UDS pH Range 7
[2023-09-27] MEDS: Ketorolac 30 MG/ML Syringe IV ×3 (09:20→21:17)
[2023-09-27 10:04] LABS: Syphilis Antibodies Reactive
[2023-09-27 12:16] LABS: Bedside Glucose 163 mg/dL (74-106)
[2023-09-27] MEDS: metFORMIN (XR) 500 MG Tablet 1000 MG PO ×2 (12:22→17:56)
[2023-09-27] MEDS: Sucralfate 1 GM Tablet PO ×2 (12:24→19:25)
[2023-09-27] MEDS: Lactated Ringers 1,000 ML 100 ML IV ×2 (12:56→19:46)
[2023-09-27] MEDS: Rho(D) Immune Globulin 300 MCG (1500 Unit) Syringe IV (15:44)
[2023-09-27 16:09] LABS: Bedside Glucose 109 mg/dL (74-106)
[2023-09-27] MEDS: Enoxaparin 40 MG/0.4 ML Syringe SC (21:00)
[2023-09-27] MEDS: LACTATED RINGERS 500 ML 999 ML IV (21:17)
[2023-09-27] MEDS: Insulin NPH Human 100 UNITS/ML PEN 12 UNITS SC (22:16)
[2023-09-27] MEDS: BUDESONIDE/FORMOTEROL 160/4.5 1 PUFF INHALER 2 PUFF INHALATION (22:18)
[2023-09-27 22:44] LABS: Bedside Glucose 105 mg/dL (74-106)
[2023-09-28 01:07] VITALS: BP 141/89; PULSE 91; RESP 16; TEMP 36.6; O2SAT 97
[2023-09-28] MEDS: Acetaminophen 500 MG Tablet 1000 MG PO ×2 (01:15→07:18)
[2023-09-28] MEDS: Ketorolac 30 MG/ML Syringe IV (03:07)
[2023-09-28] MEDS: 0.9% Saline Lock 10 ML Syringe IV (03:07)
[2023-09-28 03:11] VITALS: PULSE 79; RESP 16; O2SAT 97
[2023-09-28 05:29] VITALS: BP 112/80; PULSE 73; RESP 16; TEMP 36.6
[2023-09-28 05:44] LABS: Hemoglobin 8.9 g/dL (12.0-15.0); Mean Corpuscular Hgb 29.5 pg (27.0-32.0); Mean Corpuscular Volume 89.4 fL (81-99); Mean Platelet Vol. 10.5 fl (6.2-12.0); Platelet Count 146 K/mm3 (150-450); RBC Distribution Width CV 13.4 % (11.6-14.6); RBC Distribution Width SD 43.8 fl (35.1-43.9); Red Blood Count 3.02 M/mm3 (4.2-5.4); White Blood Count 9.1 K/mm3 (4.4-11.0)
[2023-09-28] MEDS: Sucralfate 1 GM Tablet PO ×2 (07:18→12:09)
[2023-09-28 07:26] VITALS: PULSE 88; RESP 16; O2SAT 97
[2023-09-28 08:30] VITALS: BP 116/82; PULSE 84; RESP 16; TEMP 36.1; O2SAT 99
[2023-09-28] MEDS: Enoxaparin 40 MG/0.4 ML Syringe SC (08:32)
--- NOTE | 2023-09-28 08:40 | DS.PCM_ITS ---
Providers Date of Admission: 09/27/23 Primary Care Physician: RENETTA Osullivan Reason For Visit: REPEAT C SECTION Diagnosis Discharge Diagnosis (1) Previous delivery affecting : Status: Acute Code(s): O34.219 - Maternal care for unspecified type scar from previous delivery (2) 37 weeks gestation of : Status: Acute Code(s): Z3A.37 - 37 weeks gestation of (3) Insulin controlled gestational diabetes mellitus (GDM) during : Status: Acute Code(s): O24.414 - Gestational diabetes mellitus in , insulin controlled Medications at Discharge Home Medications acetaminophen 500 mg tablet 1,000 mg PO DAILY PRN PRN Pain Or Fever 03/17/20 insulin NPH isoph U-100 human 100 unit/mL subcutaneous suspension 20 unit SQ BID DM 03/17/20 insulin NPH isoph U-100 human 100 unit/mL subcutaneous suspension 22 unit SQ DAILY DM 03/17/20 Insulin NPH Hum/Reg Insulin Hm 18 units SQ DAILY DM 08/03/20 insulin NPH-regular 70-30 U-100 insulin 100 unit/mL subcutaneous pen 45 unit SQ DAILY DM 08/04/20 albuterol sulfate 90 mcg/actuation aerosol inhaler (Ventolin HFA) inhalation asthma 09/27/23 aspirin 81 mg tablet,delayed release mg 09/27/23 brexpiprazole 1 mg tablet (Rexulti) 1 mg PO DAILY psychiatry 09/27/23 budesonide-formoterol HFA 160 mcg-4.5 mcg/actuation aerosol inhaler (Breyna) 2 inh inhalation BID asthma 09/27/23 insulin NPH isoph U-100 human 100 unit/mL (3 mL) subcutaneous pen (Novolin N FlexPen) unit subcut diabetes 09/27/23 metformin 500 mg tablet,extended release 24 hr mg PO diabetes 09/27/23 sucralfate 1 gram tablet heartburn 09/27/23 Hospital Course Operations section Procedures None Summary of Care Provided Minutes Spent on Discharge: 20 Hospital Course: Patient had scheduled repeat section. Hospital course was uneventful. Physical Exam Narrative Patient seen at bedside. Sitting up in chair at bedside. Feeling good. Denies any pain. Ambulating and voiding without difficulty. Passing flatus. Denies any headache, dizziness, SOB, or CP. Formula feeding. Desires discharge home today. Const alert and no apparent distress General Appearance: cooperative and comfortable Exam Limitations: no limitations HEENT normocephalic Eyes General Eye: normal appearance of both eyes Neck full ROM General: normal visual inspection Chest Chest: symmetrical chest wall rise Resp normal respiratory effort and normal air movement Effort and Inspection: symmetric chest movement Auscultation: clear to auscultation bilaterally Cardio regular rate and regular rhythm GI normal to inspection, nondistended, normoactive bowel sounds Back/Spine normal ROM Extremity full ROM and no calf tenderness General Extremity: normal exam except as noted Skin no rashes or lesions noted Neuro CN's II-XII intact bilaterally Psych mental status grossly normal Weight / BMI Weight Weight: 241 lb 6.499 oz Body Mass Index (BMI) 41.4 ABG / Lab / Microbiology Data 09/28/23 05:35 Laboratory: Laboratory Results - last 24 hr 09/27/23 05:20: Syphilis Total Ab Reactive 09/27/23 08:30: Urine Opiates Screen NEGATIVE, Urine Methadone Screen NEGATIVE, Ur Barbiturates Screen NEGATIVE, Ur Phencyclidine Scrn NEGATIVE, Ur Amphetamines Screen NEGATIVE, MDMA (Ecstasy) Screen NEGATIVE, U Benzodiazepines Scrn NEGATIVE, Urine Cocaine Screen NEGATIVE, U Cannabinoids Screen POSITIVE H 09/27/23 11:30: Screen NEGATIVE, Baby's Blood Type O POSITIVE, Baby's ARELI NEGATIVE 09/27/23 11:44: POC Glucose 163 H 09/27/23 15:49: POC Glucose 109 H 09/27/23 22:15: POC Glucose 105 09/28/23 05:35: WBC 9.1, RBC 3.02 L, Hgb 8.9 L, Hct 27.0 L, MCV 89.4, MCH 29.5, MCHC 33.0, RDW Std Deviation 43.8, RDW Coeff of Anabel 13.4, Plt Count 146 L, MPV 10.5 D/C Instructions Discharge Diet: No restrictions Discharge Activity: May Drive (2 weeks) and May Shower May resume sexual activity in: 6-8 weeks Weight Bearing Status: Weight bearing as tolerated Call your doctor if your incision/area has: Continuous Slow Oozing, Sudden Incre ased Bleeding, Increased Pain/ Swelling, Increased Redness, Foul Smelling Discharge and Swelling at the incision site Call your doctor if you observe: Fever of 101 or Higher, Numbness or Tingling, Using more than 1 pad per hour, Shortness of breath, Dizziness, Swelling in the ankles, Chest pain, Calf discomfort and Uncontrolled pain Suture Line Care: Avoid Pulling/Pushing Change Dressing in: 5 days Remove Dressing in: 5 days Cleanse incision/area with: Soap & Water and Keep Dressing Clean & Dry When: 1 week for incision check Meaningful Use Info Meaningful Use Diagnoses (Choose all that apply): None applicable Discharge Plan Admission Admit Date/Time: 09/27/23 04:53 Primary Reason for Your Visit: Repeat Section Attending Provider: Shelby Umaña Primary Care Provider: Radha Cagle Discharge Orders/Prescriptions Prescriptions: No Action acetaminophen 500 MG tablet 1,000 mg PO DAILY PRN PRN (Reason: Pain Or Fever) insulin NPH isoph U-100 human 100 UNIT/ML suspension 20 unit SQ BID Rx Instructions: breakfast and lunch insulin NPH isoph U-100 human 100 UNIT/ML suspension 22 unit SQ DAILY Rx Instructions: morning Insulin NPH Hum/Reg Insulin Hm 18 units SQ DAILY Rx Instructions: morning insulin NPH and regular human 100 UNIT/ML insulin pen 45 unit SQ DAILY Rx Instructions: dinner metformin 500 mg tablet extended release 24 hr PO sucralfate 1 gram tablet Rexulti 1 mg tablet 1 mg PO DAILY aspirin 81 mg tablet,delayed release (DR/EC) budesonide-formoterol [Breyna] 160-4.5 mcg/actuation HFA aerosol inhaler 2 inh inhalation BID albuterol sulfate [Ventolin HFA] 90 mcg/actuation HFA aerosol inhaler INHALATION Novolin N FlexPen 100 unit/mL (3 mL) insulin pen SUBCUT Patient Comments: pt reports taking 5 units every morning and 24 units every night. Pt reports taking half doses on 09/26/[address] Leeroy WOOD orders, 2.5 units in the morning and 12 units at night Referrals / Follow Up: Radha Cagle PA [Primary Care Provider] - Disposition Disposition (needs filled in before D/C Order can be placed): Home, Self Care
[2023-09-28 08:52] LABS: Bedside Glucose 98 mg/dL (74-106)
[2023-09-28] MEDS: BREXPIPRAZOLE 1 MG TABLET PO (09:31)
[2023-09-28] MEDS: metFORMIN (XR) 500 MG Tablet 1000 MG PO (09:31)
[2023-09-28] MEDS: BUDESONIDE/FORMOTEROL 160/4.5 1 PUFF INHALER 2 PUFF INHALATION (09:31)
[2023-09-28] MEDS: Senna/Docusate Sodium 1 Tablet PO (09:31)
[2023-09-28] MEDS: Ibuprofen 600 MG Tablet PO (09:31)
[2023-09-28 12:17] VITALS: BP 111/65; PULSE 87; RESP 16; TEMP 36.4; O2SAT 100
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
--- NOTE | 2023-10-24 11:41 | NURSING ---
Delivery record incomplete documentation. Completed documentation with power transformer inspector Abdirahman Vazquez.
--- NOTE | 2023-11-22 17:27 | CASEMGMT ---
Social Work. A letter dated 11/04/23 was received from [facility]'s Services Board stating the referral was assepted for assessment/investigation. ARON Dumont
== END 2023-09-28 13:00 | disposition home or self-care (01) | DRG 540 ==
PROVIDERS: Obstetrics & Gynecology; Admitting Provider Obstetrics & Gynecology; PCP Physician Assistant; Referring Provider Obstetrics & Gynecology; Visit Provider Obstetrics & Gynecology
PROC: 10D00Z1 Extraction of Products of Conception, Low, Open Approach (ICD-10-PCS; CPT 59514; principal; 2023-09-27 07:15)
DX: O34.219 Maternal care for unspecified type scar from previous cesarean delivery (principal); O24.424 Gestational diabetes mellitus in childbirth, insulin controlled; F17.210 Nicotine dependence, cigarettes, uncomplicated; O99.334 Smoking (tobacco) complicating childbirth; O69.81X0 Labor and delivery complicated by cord around neck, without compression, not applicable or unspecified; O40.3XX0 Polyhydramnios, third trimester, not applicable or unspecified; Z37.0 Single live birth; Z3A.37 37 weeks gestation of pregnancy; Z91.51 Personal history of suicidal behavior; Z62.810 Personal history of physical and sexual abuse in childhood; Z87.59 Personal history of other complications of pregnancy, childbirth and the puerperium
CPT/HCPCS: 59050; 80307; 82962; 85025; 85027; 85461; 86780; 86850; 86900; 86901; 90384; 99221; J7120; A4216; G0378; J2405; J2790; J2791